=== PATIENT | female | born 1990 | race Caucasian/White ===

== ENCOUNTER 2020-02-24 09:32 | Outpatient (CLI) | payer OTHER, SELFPAY ==
[2020-02-24 10:29] LABS: Add Manual Diff / Slide Review NO; Basophils Absolute Auto 0 /uL (0-100); Basophils Percent Auto 0.5 % (0-2); Eosinophils Absolute Auto 100 /uL (0-450); Eosinophils Percent Auto 0.8 % (2-4); Hematocrit 36.3 % (36-46); Hemoglobin 12.2 g/dL (12.0-16.0); Lymphocytes Absolute Auto 1600 /uL (1100-4500); Mean Corpuscular HGB Conc 33.6 % (30-36); Mean Corpuscular Hemoglobin 27.7 PG (26-34); Mean Corpuscular Volume 82.5 fL (80-100); Monocytes Absolute Auto 500 /uL (0-900); Monocytes Percent Auto 5.1 % (3-14); Neutrophils Absolute Auto 7700 /uL (1500-7000); Neutrophils Percent Auto 77.6 % (50-75); Platelet Count 199 X10^3/uL (150-400); Red Blood Cell Count 4.41 X10^6/uL (4.0-5.2); Red Cell Distribution Width 13.8 % (11.6-14.8); White Blood Cell Count 9.9 X10^3/uL (4.5-11.0)
[2020-02-24 10:38] LABS: Aspartate Aminotransferase 16 IU/L (14-36); BUN Creatinine Ratio 19.1 (6-22); Blood Urea Nitrogen 9 mg/dL (7-17); Estimated Glomerular Filt Rate > 60.0 mL/min (>60); Uric Acid 4.3 mg/dL (2.5-6.2)
--- NOTE | 2020-02-24 11:09 | P.TNLD_ITS ---
Visit Information Visit Information Date of evaluation: 02/24/20 Primary OB Provider: Eliz Joshi Reason for Evaluation: Yes non-stress test non-stress test reason: hypertension/pre-eclampsia [facility] Medical History (Updated 02/23/20 @ 17:20 by Kalina Lee RN) Diarrhea (Acute) Major depressive disorder, single episode (Acute ~08/11/19) Peptic ulcer disease (Acute ~2014) Wrist fracture, left (Acute ~1992) Surgical History (Updated 02/23/20 @ 17:14 by Kalina Lee RN) History of tonsillectomy (Acute ~2011) Family History (Updated 02/23/20 @ 17:23 by Kalina Lee RN) Mother Diabetes mellitus Father Hypertension Grandmother Cancer Diabetes mellitus Grandmother Cancer Diabetes mellitus Grandfather No problems noted. Sister Appendicitis Social History (Updated 02/23/20 @ 15:40 by Kalina Lee RN) marital status: details: Huang Hull, number of children: 0 household members: spouse lives independently: Yes caregiver/support person: No housing: house pets and animals: Yes (2 dogs) education level: high school occupational status: employed (from home.) current occupational exposures/hazards: No special monika needs: No Smoking Status: Former smoker (Quit 2 years ago. Started really young. 1 ppd.) Tobacco: How many years used: 17 second hand exposure: No alcohol intake: former (social - 1 to 2 times a week.) Type(s) of exercise: walking and normal ROM and activity Objective Labs Result Diagrams: 02/24/20 10:16 02/24/20 10:16 Labs: Laboratory Results - last 24 hr 02/24/20 02/24/20 10:16 10:16 WBC 9.9 RBC 4.41 Hgb 12.2 Hct 36.3 MCV 82.5 MCH 27.7 MCHC 33.6 RDW 13.8 Plt Count 199 Neut % (Auto) 77.6 H Lymph % (Auto) 16.0 L [place] % (Auto) 5.1 Eos % (Auto) 0.8 L Baso % (Auto) 0.5 Neut # (Auto) 7700 H Lymph # (Auto) 1600 [place] # (Auto) 500 Eos # (Auto) 100 Baso # (Auto) 0 BUN 9 Creatinine 0.47 L Estimated GFR > 60.0 BUN/Creatinine Ratio 19.1 Uric Acid 4.3 AST 16 Evaluation Evaluation Baseline heart rate: 150 Variability: Moderate (11-25) monitor accelerations: Present monitor decelerations: Absent Category of Tracing: Reactive Laboratory results: Laboratory Tests 02/24/20 02/24/20 10:16 10:16 WBC 9.9 RBC 4.41 Hgb 12.2 Hct 36.3 MCV 82.5 MCH 27.7 MCHC 33.6 RDW 13.8 Plt Count 199 Neut % (Auto) 77.6 H Lymph % (Auto) 16.0 L [place] % (Auto) 5.1 Eos % (Auto) 0.8 L Baso % (Auto) 0.5 Neut # (Auto) 7700 H Lymph # (Auto) 1600 [place] # (Auto) 500 Eos # (Auto) 100 Baso # (Auto) 0 BUN 9 Creatinine 0.47 L Estimated GFR > 60.0 BUN/Creatinine Ratio 19.1 Uric Acid 4.3 AST 16 Diagnosis, Plan/Disposition Plan/Disposition Plan: Discharge to home Follow up 2 weeks S/S [facility] reviewed OB Disposition: home
[2020-02-24 12:16] LABS: Creatinine Urine Random 56.3 mg/dL; Protein (Total) Urine Random 10 mg/dL (0-12); Protein Creatinine Ratio Urine 0.17 GRAM/24H
== END 2020-02-24 11:00 | disposition home or self-care (01) ==
LOC: OB 02-28 15:00
PROVIDERS: Referring Provider Obstetrics & Gynecology; Visit Provider Obstetrics & Gynecology
DX: O14.90 Unspecified pre-eclampsia, unspecified trimester (principal)
CPT/HCPCS: 36415; 59025; 82570; 84156; 84450; 84550; 85025; G0378; G0379

== ENCOUNTER 2020-03-18 02:00 | Inpatient (IN) | payer OTHER, SELFPAY ==
[2020-03-18 04:05] LABS: Add Manual Diff / Slide Review NO; Basophils Absolute Auto 100 /uL (0-100); Basophils Percent Auto 0.5 % (0-2); Eosinophils Absolute Auto 100 /uL (0-450); Eosinophils Percent Auto 0.7 % (2-4); Hematocrit 35.8 % (36-46); Lymphocytes Absolute Auto 2600 /uL (1100-4500); Lymphocytes Percent Auto 20.4 % (25-40); Mean Corpuscular HGB Conc 33.7 % (30-36); Mean Corpuscular Hemoglobin 27.5 PG (26-34); Mean Corpuscular Volume 81.7 fL (80-100); Monocytes Absolute Auto 600 /uL (0-900); Monocytes Percent Auto 4.5 % (3-14); Neutrophils Absolute Auto 9600 /uL (1500-7000); Neutrophils Percent Auto 73.9 % (50-75); Platelet Count 198 X10^3/uL (150-400); Red Blood Cell Count 4.38 X10^6/uL (4.0-5.2); Red Cell Distribution Width 14.3 % (11.6-14.8)
[2020-03-18 04:20] LABS: COVID19 -Nasal RAPID Negative (Negative)
[2020-03-18 04:30] VITALS: BP 125/77
[2020-03-18 05:47] LABS: Strep Grp B PCR NEG for Grp B Strep
--- NOTE | 2020-03-18 08:30 | P.HPOB_ITS ---
OB HPI Date/Time Date of admission: 03/18/20 Date Patient Seen: 03/18/20 Time Patient Seen: 08:31 History of Present Condition Chief complaint: Evaluation of Labor : 1 Para: 0 Estimated Date of Delivery: 04/13/20 Estimated Gestational Age (weeks): 35 Narrative: Julita Hull is a 29 year old female admitted with spontaneous rupture membranes History of Present care: good care, initiated at week # (7), number of visits (13) and pounds weight gain (9) Dating criteria: LMP confirmed by 1st trimester US Ultrasounds: normal mid trimester US Obstetrical complications: gestational diabetes (Diet-controlled) Medical complications: none Preadmission Labs Blood type: B (+) positive -: Antibody screen: negative, GBS status: negative, HBsAG: negative, HIV: negative and RPR/VDLR: negative -: Chlamydia screen: not detected and Gonorrhea screen: not detected -: Rubella: immune HCAB: negative Integrated screen: Negative 1 hr GTT: 142 3 hr GTT: 1 hr (200), 2 hr (197) and 3 hr (131) Evaluation Evaluation Baseline heart rate: 130 Variability: Moderate (11-25) monitor accelerations: Present monitor decelerations: Absent Contraction Frequency (minutes): 4 Uterine Contraction Intensity: Moderate Category of Tracing: Reactive Cervical dilation (cm): 1 Cervical effacement (%): 80 station: -1 Laboratory results: Laboratory Tests 03/18/20 03/18/20 03/18/20 03:42 03:42 03:42 WBC 13.0 H RBC 4.38 Hgb 12.0 Hct 35.8 L MCV 81.7 MCH 27.5 MCHC 33.7 RDW 14.3 Plt Count 198 Neut % (Auto) 73.9 Lymph % (Auto) 20.4 L [place] % (Auto) 4.5 Eos % (Auto) 0.7 L Baso % (Auto) 0.5 Neut # (Auto) 9600 H Lymph # (Auto) 2600 [place] # (Auto) 600 Eos # (Auto) 100 Baso # (Auto) 100 COVID-19 PCR Group B Strep (PCR) Neg for grp b strep Blood Type B Positive Antibody Screen Negative 03/18/20 03:42 WBC RBC Hgb Hct MCV MCH MCHC RDW Plt Count Neut % (Auto) Lymph % (Auto) [place] % (Auto) Eos % (Auto) Baso % (Auto) Neut # (Auto) Lymph # (Auto) [place] # (Auto) Eos # (Auto) Baso # (Auto) COVID-19 PCR Negative Group B Strep (PCR) Blood Type Antibody Screen Non-invasive Membranes Rupture Test: positive [facility] Medical History (Updated 03/12/20 @ 17:42 by Eliz Joshi MD) Diarrhea (Acute) Major depressive disorder, single episode (Acute ~08/11/19) Peptic ulcer disease (Acute ~2014) Wrist fracture, left (Acute ~1992) Surgical History (Updated 02/23/20 @ 17:14 by Kalina Lee RN) History of tonsillectomy (Acute ~2011) Family History (Updated 02/23/20 @ 17:23 by Kailna Lee RN) Mother Diabetes mellitus Father Hypertension Grandmother Cancer Diabetes mellitus Grandmother Cancer Diabetes mellitus Grandfather No problems noted. Sister Appendicitis Social History (Updated 02/23/20 @ 15:40 by Kalina Lee RN) marital status: details: Huang Hull, number of children: 0 household members: spouse lives independently: Yes caregiver/support person: No housing: house pets and animals: Yes (2 dogs) education level: high school occupational status: employed (from home.) current occupational exposures/hazards: No special monika needs: No Smoking Status: Former smoker Tobacco: How many years used: 17 second hand exposure: No alcohol intake: former (social - 1 to 2 times a week.) Type(s) of exercise: walking and normal ROM and activity Meds Home Medications and Allergies Home Medications Medication Instructions Recorded Confirmed Type blood sugar diagnostic #100 each 02/23/20 03/18/20 Rx sertraline 50 mg tablet 50 mg PO DAILY 02/23/20 03/18/20 History Allergies Allergy/AdvReac Type Severity Reaction Status Date / Time No Known Drug Allergies Allergy Verified 03/08/20 14:48 Review of Systems Review of Systems Narrative: Patient denies headaches, scotomata, epigastric pain. She had spontaneous rupture membranes at 1:30 a.m. at 03/18/2020. Good movement. ROS: Yes All systems reviewed with the patient and are negative except as otherwise documented Exam Vital Signs (past 8 hours): Blood pressure 118/60, pulse 72, temperature 36.4?- 03/18/20 04:30 Blood Pressure 125/77 Narrative Exam Narrative: HEENT exam within normal limits. Lungs are clear to auscultation percussion. Heart is regular rate and rhythm no S3-S4 or murmurs. Abdomen is soft, nontender, gravid with fetus vertex. Extremities with trace edema and nontender. Objective Labs Result Diagrams: 03/18/20 03:42 Labs: Laboratory Results - last 24 hr 03/18/20 03/18/20 03/18/20 03:42 03:42 03:42 WBC 13.0 H RBC 4.38 Hgb 12.0 Hct 35.8 L MCV 81.7 MCH 27.5 MCHC 33.7 RDW 14.3 Plt Count 198 Neut % (Auto) 73.9 Lymph % (Auto) 20.4 L [place] % (Auto) 4.5 Eos % (Auto) 0.7 L Baso % (Auto) 0.5 Neut # (Auto) 9600 H Lymph # (Auto) 2600 [place] # (Auto) 600 Eos # (Auto) 100 Baso # (Auto) 100 COVID-19 PCR Group B Strep (PCR) Neg for grp b strep Blood Type B Positive Antibody Screen Negative 03/18/20 03:42 WBC RBC Hgb Hct MCV MCH MCHC RDW Plt Count Neut % (Auto) Lymph % (Auto) [place] % (Auto) Eos % (Auto) Baso % (Auto) Neut # (Auto) Lymph # (Auto) [place] # (Auto) Eos # (Auto) Baso # (Auto) COVID-19 PCR Negative Group B Strep (PCR) Blood Type Antibody Screen Assessment and Plan Assessment and Plan Assessment and Plan narrative: 36 weeks 3 days gestation with spontaneous rupture membranes not in active labor. Patient will be started on Pitocin. Patient is requesting epidural for pain control. Time Spent with Patient Total time spent with greater than 50% in coordination of care (as documented) at patient's floor/unit and/or counseling patient:: 15-24 minutes
[2020-03-18] MEDS: OXYTOCIN PREMIX 30 UNIT/500 ML PLAST..BAG IV (10:25)
--- NOTE | 2020-03-18 13:33 | P.PCN_ITS ---
Regional Block Pre-procedure Procedure: Continuous Lumbar Epidural for L&D Attending OB provider: Tiffanie Daniels PMH/ROS narrative: SROM at 35 weeks. GDM, diet controlled, no other complications. Hx: No personal or family history of anesthesia problems. ASA Class: II Labs: Hct 35.8 % (36-46) L 03/18/20 03:42 Plt Count 198 X10^3/uL (150-400) 03/18/20 03:42 Medications: Current Medications Generic Name Dose Route Start Last Admin Trade Name Freq PRN Reason Stop Dose Admin Diphenhydramine HCl 25 mg 03/18/20 13:09 Benadryl IV Q10M PRN Pruritis Lactated Ringer's 1,000 mls @ 100 mls/hr 03/18/20 03:00 Lactated Ringers IV CONT NORIS Oxytocin/Lactated Ringer's 30 unit in 500 mls @ 3 mls/hr 03/18/20 08:30 03/18/20 10:25 Oxytocin Premix IV 3 milliunit/min TITRATE NORIS 3 mls/hr Administration Protocol 3 MILLIUNIT/MIN FENT 2MCG/ML BUPIV 0.125% EPI 200 mcg in 100 mls @ 6 mls/hr 03/18/20 13:15 Fentanyl/Bupiv/Ns 2mcg/Ml - 0.125% EPIDURAL CONT NORIS Sertraline HCl 50 mg 03/18/20 21:00 Zoloft PO BEDTIME NORIS Allergies: Allergies Allergy/AdvReac Type Severity Reaction Status Date / Time No Known Drug Allergies Allergy Verified 03/08/20 14:48 Procedure Insertion date: 03/18/20 Insertion time: 13:22 Prep/Local: betadine x3 Interspace: L2-3 Patient position: sitting Needle: 18 gauge [employer] (CSE: 27g [place] through [place]ust[place], clear CSF, 1mL 0.25% bupiv) Loss of resistance with: saline KAITLYN at (cm): 6 Catheter placed at SKIN (cm): 11 Catheter in SPACE (cm): 6 Insertion: No CSF, No Blood, No Paresthesia with insertion, No Paresthesia with injection and No Test dose reaction Initial Medications TEST DOSE time: 13:22 TEST DOSE: 1.5% lidocaine with epinephrine 1:200k (mL): 3 BOLUS DOSE time: 13:32 BOLUS DOSE (mL): 3 BOLUS DOSE med: other (infusate) Infusion INFUSION: 0.125% bupivacaine and with fentanyl 2 mcg/mL Initial rate (mL/hr): 6 Subsequent interventions: 16:40 5mL 0.25% bupivacaine Post-procedure Anesthesia time START: 13:20 Anesthesia time END: 18:05
--- NOTE | 2020-03-18 13:50 | PM.OBPNLAB ---
Date/Time Date Patient Seen: 03/18/20 Time Patient Seen: 13:50 Pain Control Pain control: epidural Pelvic Exam Dilation (cm): 3 Effacement (%): 100 station: -1 Amniotic membrane status: Ruptured Contractions Contractions on admission: regular Monitor mode: External Pitocin rate (mU/min): 2 Contraction frequency (min): 4 Contraction duration (min): 1 Contraction pattern: Regular Contraction intensity: Moderate Status status: Category l Heart Rate Baseline: 140 Monitor Accelerations: Present Monitor Decelerations: Absent Monitor Variability: Moderate Assessment and Plan Assessment: induction ongoing Plan: continuous present management (will start IV antibiotics since 12 hours rom)
[2020-03-18] MEDS: CEFAZOLIN 1 GM/50 ML FROZ.PIGGY IV (16:20)
--- NOTE | 2020-03-18 18:24 | PM.OBPRVD ---
Events: Premature Rupture of Membrane (35 week) Labor & Delivery Delivery date: 03/18/20 Induction method: per pitocin protocol Delivery monitor: external FHT and external uterine Route of delivery: L&D Laceration Description: Labial Delivery repair: chromic (4 0) Estimated blood loss (mL): 150 Anesthesia type: Epidural Narrative: Patient arrived on Labor and delivery with spontaneous rupture membranes. She did not go into active labor so she was started on Pitocin. The patient received an epidural catheter for pain control. She had category 1 to category 2 heart tones throughout labor. Initially with pushing she had some significant variables that responded to position change, O2, and fluid bolus. The viable male infant was delivered spontaneously, over an intact perineum a placed immediately on maternal abdomen. After the cord stopped pulsating the cord was clamped, cut, and cord bloods obtained. The infant was taken to the warmer briefly due to some initial grunting but returned almost immediately to maternal abdomen. The placenta delivered spontaneously, intact, with 3 vessels. There were no cervical or vaginal tears. There were labial tears on the right and left labia minor or that were reapproximated only with 4 0 chromic suture because they were not bleeding. Both mother doing well. Baby 1: gender: Male Presentation: vertex position: Right Occiput Anterior Placenta delivery description: Spontaneous cord vessel description: 3 Vessels score (1 min): 8 score (5 min): 9 Plan for aftercare: Routine post care.
[2020-03-18] MEDS: SERTRALINE 50 MG TABLET PO ×2 (21:09→21:12)
[2020-03-18] MEDS: DERMOPLAST SPRAY 20% 60 ML 1 SPRAY TOP (21:10)
[2020-03-18] MEDS: LANOLIN OINT 7 GM 1 APPLIC TOP (21:13)
[2020-03-19] MEDS: IBUPROFEN 600 MG TABLET PO ×4 (02:59→22:00)
[2020-03-19 05:21] LABS: Add Manual Diff / Slide Review NO; Basophils Absolute Auto 0 /uL (0-100); Basophils Percent Auto 0.3 % (0-2); Eosinophils Absolute Auto 100 /uL (0-450); Eosinophils Percent Auto 0.6 % (2-4); Hematocrit 33.8 % (36-46); Hemoglobin 11.1 g/dL (12.0-16.0); Lymphocytes Absolute Auto 2500 /uL (1100-4500); Lymphocytes Percent Auto 18.6 % (25-40); Mean Corpuscular Hemoglobin 27.2 PG (26-34); Mean Corpuscular Volume 82.5 fL (80-100); Monocytes Absolute Auto 700 /uL (0-900); Monocytes Percent Auto 5.3 % (3-14); Neutrophils Absolute Auto 10000 /uL (1500-7000); Neutrophils Percent Auto 75.2 % (50-75); Platelet Count 173 X10^3/uL (150-400); Red Cell Distribution Width 14.4 % (11.6-14.8); White Blood Cell Count 13.3 X10^3/uL (4.5-11.0)
[2020-03-19] MEDS: SERTRALINE 50 MG TABLET PO (15:45)
--- NOTE | 2020-03-19 17:04 | P.PNOB_ITS ---
Subjective - OB Subjective Patient comments: no complaints [place] baby status: doing well and nursing well [place] feeding status: exclusively breast feeding Date Patient Seen: 03/19/20 Time Patient Seen: 17:04 Interval history: Patient is 1st day after spontaneous vaginal delivery after premature rupture membranes. She she denies headaches, scotomata, epigastric pain. She is urinating and ambulating well. Breast- feeding is going well. Mild lochia. Exam Vital Signs (past 8 hours): Blood pressure 127/76, pulse of 83, temperature 97.8? Narrative Exam Narrative: Abdomen is soft, nontender. Uterus is firm, at U, nontender. Mild lochia. Extremities without edema and nontender. Objective Labs Result Diagrams: 03/19/20 05:10 Labs: Laboratory Results - last 24 hr 03/19/20 05:10 WBC 13.3 H RBC 4.10 Hgb 11.1 L Hct 33.8 L MCV 82.5 MCH 27.2 MCHC 33.0 RDW 14.4 Plt Count 173 Neut % (Auto) 75.2 H Lymph % (Auto) 18.6 L [place] % (Auto) 5.3 Eos % (Auto) 0.6 L Baso % (Auto) 0.3 Neut # (Auto) 45159 H Lymph # (Auto) 2500 [place] # (Auto) 700 Eos # (Auto) 100 Baso # (Auto) 0 Assessment & Plan Assessment and Plan (1) Vaginal delivery: Status: Acute Plan day: 1 plan OB: routine care Time Spent With Patient Time: Total time spent is greater than 50% in coordination of care (as documented) at patient's floor/unit and/or counseling patient: Time with patient: less than 15 minutes
[2020-03-20] MEDS: IBUPROFEN 600 MG TABLET PO ×3 (05:31→17:46)
[2020-03-20] MEDS: SERTRALINE 50 MG TABLET PO (08:21)
[2020-03-20 18:00] VITALS: BP 134/85; PULSE 91; RESP 18; TEMP 37.2
--- NOTE | 2020-03-21 07:13 | PM.OBDS.1 ---
Discharge Providers Provider Date of admission: 03/18/20 02:00 Discharge Date: 03/20/20 Primary care physician: Eliz Joshi MD Consults: 03/19/20 18:19 Consult to Application Support Engineer Routine Comment: Discharge provider: Eliz Joshi MD Summary Hospital Course Date Patient Seen: 03/20/20 Time Patient Seen: 07:40 Procedures: Spontaneous rupture of membranes Pitocin augmentation of labor Epidural analgesia Spontaneous vaginal delivery Labial laceration repair Hospital Course: Patient is a 29-year-old 1 para 1 who presented at 36-,3/7 weeks gestation with spontaneous rupture of membranes but no active labor. She was started on Pitocin. She received an epidural for pain management. She had a spontaneous vaginal delivery without complication. Peripartum Data Infant Delivery Method: Natural Vaginal Laceration Description: Labial Episiotomy description: None Procedures: Pitocin augmentation of labor Epidural analgesia Spontaneous vaginal delivery Labial laceration repair complications: none 1: Gender: Male Disposition of : home Discharge Diagnosis (1) Vaginal delivery: Status: Acute Status at Discharge Cognitive/behavioral status at discharge: oriented Functional status at discharge: independent ambulation Overall status at discharge: patient is progressing back to baseline Time Spent with Patient Time attestation: Total time spent providing and/or coordinating discharge services: Time spent: Less than 30 minutes Objective Labs Result Diagrams: 03/19/20 05:10 Exam Vital Signs (past 8 hours): Generally: Patient is sitting up in bed, holding infant, no acute distress Lungs: Clear to auscultation bilaterally Cardiovascular: Regular rate and rhythm Fundus: Firm at U -2 Extremities: 1+ edema, negative Homans, 1+ DTRs Discharge Plan Discharge Plan Patient Disposition: Home Provider Discharge Comment: Call with fever, chills, or bleeding vaginally more than a pad an hour Ibuprofen 600 mg every 6 hours as needed for cramping Discharge orders & Medications Prescriptions: New ibuprofen 600 mg tablet 600 mg PO Q6H PRN (Reason: Cramping) Qty: 20 RF: 2 Continued sertraline [Zoloft] 50 mg tablet 50 mg PO DAILY RF: 0 Discontinued (DME) blood sugar diagnostic [FreeStyle Test] Strip See Rx Instructions .ROUTE .MEDSUPPLY Qty: 100 RF: 3 Follow up/Referrals: Eliz Joshi MD [Primary Care Provider] - 6 Weeks (please follow up w/ Dr. Joshi on @ 10am) Diet/Activity/Treatments Diet: Regular Activity: Nothing in vagina for 6 weeks Skin/Wound/Dressing Care Report to your healthcare provider any signs of infection, such as:: chills, fever, increased pain and unusual drainage Visit Report/Discharge Packet Instructions: DI for Labor and Delivery, Vaginal Stand Alone Forms: Discharge: Care Discharge Data Primary Care Provider: Eliz Joshi Discharges patient from system. Discharge Date/Time: 03/20/20 17:53
== END 2020-03-20 17:53 | disposition home or self-care (01) | DRG 807 ==
PROVIDERS: Admitting Provider Specialist; PCP Obstetrics & Gynecology; Referring Provider Specialist; Visit Provider Specialist
DX: O24.420 Gestational diabetes mellitus in childbirth, diet controlled (principal); Z37.0 Single live birth; Z3A.36 36 weeks gestation of pregnancy; O42.013 Preterm premature rupture of membranes, onset of labor within 24 hours of rupture, third trimester; O70.0 First degree perineal laceration during delivery; Z11.59 Encounter for screening for other viral diseases
CPT/HCPCS: 01967; 36415; 59050; 59410; 85025; 86850; 86900; 86901; 87081; 87635; 87653; G0379; J2590

== ENCOUNTER → 2020-05-07 08:30 | Outpatient (CLI) | payer OTHER, SELFPAY ==
[2020-05-07 10:21] LABS: Glucose Fasting 87 mg/dL (70-100)
[2020-05-07 10:44] LABS: Glucose 1 Hour 186 mg/dL (70-170)
[2020-05-07 10:56] LABS: Glucose Tol Interpretation INTERPRETATION
[2020-05-07 13:02] LABS: Glucose 2 Hour 137 mg/dL (70-140)
== END ==
PROVIDERS: Referring Provider Obstetrics & Gynecology; Visit Provider Obstetrics & Gynecology
DX: O24.410 Gestational diabetes mellitus in pregnancy, diet controlled (principal)
CPT/HCPCS: 36415; 82951; 82952

== ENCOUNTER → 2020-06-21 12:48 | Outpatient (CLI) | payer OTHER, SELFPAY ==
--- NOTE | 2020-06-21 12:50 | DI.US.S_ITS ---
PROCEDURE: US PELVIC COMPLETE INDICATIONS: PELVIC PAIN. HISTORY OF OVARIAN CYSTS. TECHNIQUE: Real-time scanning was performed of the pelvic organs, with image documentation. Additional endovaginal scanning was necessary due to incomplete visualization of the adnexal and endometrial structures by transabdominal scanning. COMPARISON: None. FINDINGS: Transabdominal scanning: Limited scanning through the kidneys shows no hydronephrosis. No pathologic free abdominal or pelvic fluid. Limited visualization of the liver suggests diffuse hepatic steatosis. Endovaginal scanning: Uterus: Uterus is normal in size at 6.2 x 4.9 x 3.2 cm. The endometrium measures 4 mm in combined thickness. Ovaries: Right ovary measures 4.6 x 1.8 x 2.0 cm. Left ovary measures 3.6 x 2.1 x 2.3 cm. There is presence of venous and arterial waveforms in the bilateral ovaries. No suspicious ovarian/adnexal mass lesions. IMPRESSION: 1. Unremarkable sonographic evaluation of the uterus and bilateral ovaries. No evidence for torsion. 2. Limited evaluation of the liver suggestive of diffuse hepatic steatosis. Consider correlation with liver function tests. Dictated by: Naun Crowley M.D. on 06/21/2020 at 17:17 Approved by: Naun Crowley M.D. on 06/21/2020 at 17:19
== END ==
PROVIDERS: PCP Family Medicine; Referring Provider Family Medicine; Visit Provider Obstetrics & Gynecology
DX: R10.2 Pelvic and perineal pain (principal); Z87.42 Personal history of other diseases of the female genital tract
CPT/HCPCS: 76830; 76856

== ENCOUNTER → 2020-06-25 10:53 | Outpatient (CLI) | payer OTHER, SELFPAY ==
--- NOTE | 2020-06-25 12:04 | DIET.PN ---
INITIAL GESTATIONAL DIABETES ASSESSMENT ASSESS:? Ms. Hull is a 29 yof referred for gestational diabetes with post hyperglycemia. She followed a strict diet while , but admits she has not been as strict with her diet and exercise since delivery. She has been avoiding soy, dairy, and eggs as she believes these are causing her son GI issues. She endorses large amount of red meat and was informed she has fatty liver. She would like to get her blood sugars and weight under control before trying to another baby. ? HAYDER:?03/18/2020 ? WKS GESTATION:?LABS: Fasting glucose: 87 1hr: 186 2hr: 137 ? MEDS: na ? DIET:? B: BLT (usually skips) ; coffee w/biscuit L: often skips D: flyers burgers ? HT:? 63in ? PRE-PREG WT:? 205 lb ? PRE-PREG BMI:??? 36.3 ? CURRENT WT: 220 lb ? TOTAL WT GAIN:? 15lb EXERCISE: hiking NUTRITION DX 1. Altered nutrition related lab values r/t gestational diabetes as evidenced by recent labs (OGGT). INTERVENTION 1. Discussed pathophysiology of gestational diabetes and impact of hormone and nutrition/diet on blood sugar control.? Discussed fed versus non-fed state.? 2. Recommended checking fasting, pre-meal and 1hr post prandial (3x/day).? Discussed goals for glycemic control (<95 FBG, <140 1-hr PP).? 3. Discussed the effect of carbohydrates/protein/fat on blood sugar control.? Stressed importance of consistent carbohydrate intake at each meal and provided instructions for recommended servings/portions of carbohydrates/protein per meal.? Provided pt with educational material. 4. Introduced carbohydrate counting and measuring carbohydrate content via servings sizes and reading nutrition labels.? Provided handouts.? Pt will need further review 5. Discussed importance of meal timing and not going >3 hours between meals.? Provided sample meal schedule for pt.? Pt agreeable.?? 6. Discussed importance a pre-amy vitamin and including food sources of calcium, vitamin D, iron and folic acid for baby and mother?s nutrition support. 7. Discussed caffeine intake. Recommend no more than 200 mg/day (1 cup coffee). 8. Discussed rule of 15 for hypoglycemia. 9. Recommended patient continue exercise as appropriate per PCP approval. 10. Patient may need medication management, will follow-up with plan of care at next visit after reviewing glucose results.? MONITOR/EVAL: Follow up scheduled X 1 month. Good compliance expected. Review: carb sources, carb counting, portion size, meal timing, BG log, weight.
== END ==
PROVIDERS: PCP Family Medicine; Referring Provider Family Medicine; Visit Provider Family Medicine
DX: O90.89 Other complications of the puerperium, not elsewhere classified (principal); R73.9 Hyperglycemia, unspecified; Z71.3 Dietary counseling and surveillance
CPT/HCPCS: G0108

== ENCOUNTER → 2020-07-26 10:56 | Outpatient (CLI) | payer OTHER, SELFPAY ==
--- NOTE | 2020-07-26 11:56 | DIET.PN ---
Gestational Diabetes Follow Up ? ASSESS:? Ms. Hull is a 29 yof seen for GDM w/ post hyperglycemia follow up. She is here to discuss constant fatigue. She has been her 4 mo old q hr and bottle feeding q 3 hr as he is significantly underweight. She continues to avoid soy, dairy, and eggs as her son is experiencing intolerance. She is finding it challenging to prepare meals as her is working nights now and she has no help with her baby. She often eats granola bars or nothing at all. ? LABS: FB-81 1 hr PP:??<150 ? Weight: 216 (from 220) ? DIET: BF: protein cereal w/ oats and blueberries L: granola bars or chicken salad sandwich D: taco salad; steak w/ rice ? EXERCISE:??none ? NUTRITION Dx? 1. Altered nutrition related labs r/t gestational diabetes aeb recent labs (OGGT). ? INTERVENTION? 1. Reviewed blood sugar log and implications/reasons for elevated/decreased blood sugar.? Pt with good understanding.? 2. Reviewed carbohydrate counting and importance of consistent carbohydrate intake.? 3. Reviewed meal intake and importance of balanced meals. 4. Discussed evening snacks ideas. Recommended avoiding milk and fruit after dinner to help with elevated FBG. 5. Recommended pt avoid processed foods as much as possible and aim to get most nutrients from refrigerated options. Suggested cutting up vegetables and making protein rich salads (chicken/egg salad) ahead of time for quick snacks. 6. Discussed possible need for medication management if >80% of fasting and post-prandial readings are not within recommended values (FG<95, 1 hr PP <140). Pt agreeable. ? MONITOR/EVALUATE: Pt receptive to information provided.? Will schedule follow up in 4 weeks. Patient will call sooner if blood glucose is not in range.
== END ==
PROVIDERS: PCP Family Medicine; Referring Provider Family Medicine; Visit Provider Family Medicine
DX: R73.9 Hyperglycemia, unspecified (principal); Z71.3 Dietary counseling and surveillance
CPT/HCPCS: G0108

== ENCOUNTER → 2020-12-26 12:50 | Outpatient (CLI) | payer OTHER, SELFPAY ==
--- NOTE | 2020-12-26 12:53 | DI.US.S_ITS ---
PROCEDURE: US OB <= 14 WEEKS FETUS INDICATIONS: INITIAL DATING AND VIABILITY OUTSIDE/PRIOR DATING DATA: Last menstrual period (LMP): 10/28/2020 LMP-based estimated date of delivery (HAYDER): 08/04/2021 First dating scan (date and location): 12/26/2020 Estimated date of delivery (HAYDER) from first dating scan: 08/07/2021. TECHNIQUE: Real-time scanning was performed of the fetus and maternal pelvic organs, with image documentation. Endovaginal scanning was also performed to better visualize the fetus and maternal ovaries. COMPARISON: None. FINDINGS: Embryo: Single intrauterine gestational sac is seen with fetus and yolk sac seen. heart rate is 165 beats per minute. [place]-rump length measures 1.6 cm. Estimated gestational age based on current study is 8 weeks, 0 day. There is a small perigestational hematoma measures 1.6 x 0.5 x 0.4 cm in size. Maternal organs: Left ovary is visualized and is within normal limits. Corpus luteum is noted in right ovary is seen IMPRESSION: 1. Single live intrauterine with fetus and yolk sac seen. heart rate is 165 beats per minute. Estimated gestational age is 8 weeks, 0 day. 2. Small perigestational hematoma as above. 3. Small corpus luteum is noted in right ovary. Dictated by: Freedom Clemens M.D. on 12/26/2020 at 13:36 Approved by: Freedom Clemens M.D. on 12/26/2020 at 13:38
== END ==
PROVIDERS: PCP Family Medicine; Referring Provider Obstetrics & Gynecology; Visit Provider Obstetrics & Gynecology
DX: Z34.81 Encounter for supervision of other normal pregnancy, first trimester (principal); Z3A.08 8 weeks gestation of pregnancy
CPT/HCPCS: 76801; 76817

== ENCOUNTER → 2021-01-08 15:13 | Outpatient (CLI) | payer OTHER, SELFPAY ==
[2021-01-08 15:46] LABS: Appearance Urine UA CLEAR; Bilirubin Urine UA NEGATIVE (NEGATIVE); Color Urine UA YELLOW; Glucose Urine UA TRACE g/dL (Negative); Ketones Urine UA NEGATIVE (NEGATIVE); Leukocyte Esterase Urine UA NEGATIVE (NEGATIVE); Nitrite Urine UA NEGATIVE (Negative); Occult Blood Urine UA NEGATIVE (Negative); Protein Urine UA NEGATIVE (Negative); Specific Gravity Urine UA 1.025 (1.000-1.035); Urobilinogen Urine UA 0.2 E.U./dL (0.2)
[2021-01-08 15:47] LABS: Add Manual Diff / Slide Review NO; Basophils Absolute Auto 0 /uL (0-100); Basophils Percent Auto 0.3 % (0-2); Eosinophils Absolute Auto 100 /uL (0-450); Eosinophils Percent Auto 1.2 % (2-4); Hematocrit 38.2 % (36-46); Hemoglobin 12.9 g/dL (12.0-16.0); Lymphocytes Absolute Auto 2000 /uL (1100-4500); Lymphocytes Percent Auto 20.7 % (25-40); Mean Corpuscular HGB Conc 33.7 % (30-36); Mean Corpuscular Hemoglobin 28.6 PG (26-34); Mean Corpuscular Volume 84.8 fL (80-100); Monocytes Absolute Auto 500 /uL (0-900); Monocytes Percent Auto 4.7 % (3-14); Neutrophils Absolute Auto 7000 /uL (1500-7000); Neutrophils Percent Auto 73.1 % (50-75); Platelet Count 234 X10^3/uL (150-400); Red Blood Cell Count 4.51 X10^6/uL (4.0-5.2); Red Cell Distribution Width 13.2 % (11.6-14.8); White Blood Cell Count 9.5 X10^3/uL (4.5-11.0)
[2021-01-08 15:54] LABS: Hemoglobin A1C% w Est Avg Glu 5.5 % (4.0-6.0)
[2021-01-08 16:14] LABS: Glucose 101 mg/dL (70-100)
[2021-01-09 05:48] LABS: RPR Screen Non Reactive (Non Reactive)
[2021-01-09 12:47] LABS: Varicella IgG Antibody 1350 index (Immune >165)
[2021-01-10 16:41] LABS: HIV 1 & 2 Ab/Ag 4th Gen Combo NEGATIVE (NEGATIVE); Hep C Virus Ab w/Reflex Quant NEGATIVE s/c (NEGATIVE); Hepatitis B Surface Antigen NEGATIVE s/c (NEGATIVE)
== END ==
PROVIDERS: PCP Family Medicine; Referring Provider Obstetrics & Gynecology; Visit Provider Obstetrics & Gynecology
DX: O24.419 Gestational diabetes mellitus in pregnancy, unspecified control (principal)
CPT/HCPCS: 36415; 80055; 81003; 82947; 83036; 86787; 86803; 86850; 86900; 86901; 87086; 87389

== ENCOUNTER → 2021-03-06 09:47 | Outpatient (CLI) | payer OTHER, SELFPAY ==
[2021-03-08 19:07] LABS: AFP, Serum 42.5 ng/mL (.); Estriol, Free 1.67 ng/mL (.); Inhibin A, Dimeric 108.68 pg/mL (.); Inhibin A, MoM 0.85 (.); Maternal Ethnicity Caucasian (.); Maternal Weight 226 lbs (.); Number of Fetuses No (.); OSBR Risk 1 IN 6916 (.); Results Report (.); Test Results *Screen Negative* (.); hCG, MoM 0.99 (.); hCG, Serum 21332 mIU/mL (.)
== END ==
PROVIDERS: PCP Family Medicine; Referring Provider Obstetrics & Gynecology; Visit Provider Obstetrics & Gynecology
DX: Z34.82 Encounter for supervision of other normal pregnancy, second trimester (principal); Z3A.16 16 weeks gestation of pregnancy
CPT/HCPCS: 36415; 82105; 82677; 84702; 86336

== ENCOUNTER → 2021-03-29 10:50 | Outpatient (CLI) | payer OTHER, SELFPAY ==
--- NOTE | 2021-03-29 10:51 | DI.US.S_ITS ---
PROCEDURE: US OB >= 14 WEEKS FETUS INDICATIONS: ANATOMY OUTSIDE/PRIOR DATING DATA: Last menstrual period (LMP): October 28, 2020 . LMP-based estimated date of delivery (HAYDER): August 04, 2021 . First dating scan (date and location): December 26, 2020 . Estimated date of delivery (HAYDER) from first dating scan: August 07, 2021 . TECHNIQUE: Real-time scanning was performed of the fetus, with image documentation and biometric measurements. Endovaginal scanning: Not performed COMPARISON: [facility], , OB >= 14 WEEKS FETUS, 03/06/2021, 11:51. FINDINGS: General: A single living intrauterine gestation is present. Presentation: Breech. Placenta: Placental position is anterior , without previa. Amniotic fluid index: 12.7 cm, normal range is 5-24 cm. Largest vertical pocket measured 3.9 cm. heart rate: 173 beats per minute. Maternal cervical canal: 4.3 cm long. Normal lower limit is 2.5 cm. biometrics: Biparietal diameter: 5.3 cm, correlating with 22 weeks and 0 days. Head circumference: 19.3 cm, correlating with 21 weeks and 4 days Abdominal circumference: 17.3 cm, correlating with 22 weeks and 2 days Femur length: 3.5 cm, correlating with 20 weeks and 6 days Estimated gestational age from initial scan: 21 weeks and 2 days Composite gestational age from present scan: 21 weeks and 5 days Estimated weight and percentile: 440 g, correlating with the 64th percentile based off gestational age. Measurement variability for biometric dating: +/- 7 days from 14 weeks to 15 weeks 6 days gestation, +/- 10 days from 16 weeks to 21 weeks 6 days gestation, +/- 2 weeks from 22 weeks to 27 weeks 6 days gestation, +/- 3 weeks for 28 weeks gestation or later. weight reference: 4500 g or EFW >90/95% is considered macrosomia or large for gestational age. EFW <10% is small for gestational age. EFW 5% or less is considered intra-uterine growth restriction. Anatomic survey: Neuro: Ventricles are non-dilated at less than 10 mm. Cisterna magna, cerebellum, nuchal fold not well imaged. Nuchal skin fold: Not well imaged. Face: Nose and lips, facial profile are normal. Spine: No evidence for spina bifida. Heart: 4-chambered heart and ventricular outflow tracts not well visualized. Diaphragm: Diaphragm is intact. Stomach: Left-sided stomach is present. Kidneys: No hydronephrosis. Normal is less than 5 mm in 2nd trimester, less than 7 mm in 3rd trimester. Cord: 3-vessel cord has orthotopic insertion. Bladder: Normal in size. Extremities: All 4 extremities identified. IMPRESSION: 1. Single living intrauterine gestation with estimated sonographic gestational age of approximately 21 weeks and 5 days versus approximately 21 weeks and 2 days based off initial imaging. Appropriate interval growth. Size and dating are concordant. Estimated weight of approximately 440 g which correlates with the 64th percentile for gestational age. 2. Limited anatomy scan secondary to maternal scanning characteristics and positioning during the evaluation. The cisterna magna, cerebellum, nuchal fold, and cardiac structures were suboptimally visualized . Otherwise, remaining anatomic structures are unremarkable. Recommend follow-up imaging. Dictated by: Naun Crowley M.D. on 03/29/2021 at 13:19 Approved by: Naun Crowley M.D. on 03/29/2021 at 13:33
== END ==
PROVIDERS: PCP Family Medicine; Referring Provider Obstetrics & Gynecology; Visit Provider Obstetrics & Gynecology
DX: Z34.82 Encounter for supervision of other normal pregnancy, second trimester (principal); Z3A.21 21 weeks gestation of pregnancy
CPT/HCPCS: 76811

== ENCOUNTER → 2021-04-04 15:47 | Outpatient (CLI) | payer OTHER, SELFPAY ==
--- NOTE | 2021-04-04 15:50 | DI.US.S_ITS ---
PROCEDURE: US OB FOLLOW UP INDICATIONS: FOLLOW UP ANATOMY OUTSIDE/PRIOR DATING DATA: Last menstrual period (LMP): 10/28/2020. LMP-based estimated date of delivery (HAYDER): 08/04/2021 . First dating scan (date and location): 12/26/2020 . Estimated date of delivery (HAYDER) from first dating scan: 08/07/2021 . TECHNIQUE: Real-time scanning was performed of the fetus, with image documentation and biometric measurements. Endovaginal scanning: No COMPARISON: [facility], , US OB >= 14 WEEKS FETUS, 04/03/2021, 17:28. FINDINGS: General: A single living intrauterine gestation is present. Presentation: Vertex. Placenta: Placental position is anterior , without previa. Amniotic fluid index: 13 cm, normal range is 5-24 cm. heart rate: 157 beats per minute. Maternal cervical canal: 4.7 cm long. Normal lower limit is 2.5 cm. Estimated gestational age from initial scan: 22 weeks 1 day Composite gestational age from present scan: N/a Other: Not applicable. IMPRESSION: Single living IUP redemonstrated and today's exam demonstrating normal appearance of the cerebellum, cisterna magna, nuchal fold and the cardiac outflow tracts. Four-chamber heart again suboptimally visualized. Dictated by: Diego Whatley [facility] Interpreted: Freedom Clemens MD on 04/04/2021 at 16:32 Transcribed by: MAR on 04/04/2021 at 16:34 Approved by: Freedom Clemens M.D. on 04/04/2021 at 17:18
[2021-04-04 18:08] LABS: Hematocrit 33.6 % (36-46); Hemoglobin 11.5 g/dL (12.0-16.0)
[2021-04-04 18:57] LABS: GTT (PREG) 1 Hour PP 50gm Dose 210 mg/dL (76-139)
== END ==
PROVIDERS: PCP Family Medicine; Referring Provider Obstetrics & Gynecology; Visit Provider Obstetrics & Gynecology
DX: Z36.2 Encounter for other antenatal screening follow-up (principal); Z3A.22 22 weeks gestation of pregnancy
CPT/HCPCS: 36415; 76816; 82950; 85014; 85018

== ENCOUNTER → 2021-05-27 13:10 | Outpatient (CLI) | payer OTHER, SELFPAY ==
[2021-05-27 16:59] LABS: Urine N gonorrhoeae NOT DETECTED
[2021-05-27 17:09] LABS: Urine Chlamydia NOT DETECTED
== END ==
PROVIDERS: PCP Family Medicine; Visit Provider Obstetrics & Gynecology
DX: Z34.83 Encounter for supervision of other normal pregnancy, third trimester (principal); Z3A.30 30 weeks gestation of pregnancy
CPT/HCPCS: 87491; 87591

== ENCOUNTER → 2021-06-06 17:55 | Outpatient (CLI) | payer OTHER, SELFPAY ==
[2021-06-06 20:11] LABS: COVID19 -Nasal RAPID POSITIVE (Negative)
== END ==
PROVIDERS: Family Provider Family Medicine; PCP Family Medicine; Visit Provider Nurse Practitioner Family
DX: R05.9 Cough, unspecified (principal); J02.9 Acute pharyngitis, unspecified
CPT/HCPCS: 87635

== ENCOUNTER → 2021-06-18 17:23 | Outpatient (CLI) | payer OTHER, SELFPAY ==
[2021-06-19 10:44] LABS: Strep Grp B PCR NEG for Grp B Strep
== END ==
PROVIDERS: Family Provider Family Medicine; PCP Family Medicine; Visit Provider Obstetrics & Gynecology
DX: Z34.83 Encounter for supervision of other normal pregnancy, third trimester (principal); Z3A.33 33 weeks gestation of pregnancy
CPT/HCPCS: 87653

== ENCOUNTER 2021-06-29 13:21 | Outpatient (CLI) | payer OTHER, SELFPAY ==
--- NOTE | 2021-06-29 15:50 | P.TNLD_ITS ---
Visit Information Visit Information Date of evaluation: 06/29/21 Primary OB Provider: Eliz Joshi On-call OB Provider: Tiffanie Daniels Reason for Evaluation: Yes non-stress test non-stress test reason: diabetes Vital Signs Vital Signs: BP 122/68, P 94, T 36.4 [facility] Medical History (Updated 06/29/21 @ 15:53 by Tiffanie Daniels MD) Diarrhea Gestational diabetes (~11/2019) History of being hospitalized (~08/2019) Major depressive disorder, single episode (~08/11/19) Peptic ulcer disease (~2014) Post-nasal drip Smoker (spontaneous vaginal delivery) (~03/18/20) Wrist fracture, left (~1992) Surgical History (Updated 01/01/21 @ 10:44 by Trish Vargas, KELSEY) H/O colposcopy with cervical biopsy (~06/2020) History of colposcopy (~11/26/20) History of tonsillectomy (~2011) Family History (Updated 01/01/21 @ 10:45 by Trish Vargas, KELSEY) Mother Diabetes mellitus Type 2 diabetes mellitus Alcohol abuse by patient's mother H/O drug abuse Family estrangement Father Hypertension Diabetes mellitus Type 2 diabetes mellitus Grandmother Cancer Diabetes mellitus Addiction Grandmother Cancer Diabetes mellitus Pancreatic cancer Breast cancer Type 2 diabetes mellitus Thyroid disease Grandfather No problems noted. Sister Appendicitis Grandfather Addiction Brother No problems noted. 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[employer]) current occupational exposures/hazards: No monika/spiritism: [employer] special monika needs: No Smoking Status: Former smoker Tobacco: How many years used: 17 quit status: quit date established (Quit 3 years ago) second hand exposure: No alcohol intake: former (social - 1 to 2 times a week.) substance use type: does not use Type(s) of exercise: walking and normal ROM and activity Evaluation Evaluation Baseline heart rate: 150 Variability: Moderate (11-25) monitor accelerations: Present Monitor Decelerations: Absent Contraction Frequency (minutes): 0 Category of Tracing: Reactive Status: Category l Diagnosis, Plan/Disposition Final Diagnosis (1) Gestational diabetes: Status: Acute (2) 34 weeks gestation of : Status: Acute Plan/Disposition Plan: Reactive NST. pt. home. Follow up routine OB appointment with Dr. Joshi OB Disposition: home
== END 2021-06-29 14:24 | disposition home or self-care (01) ==
LOC: OB 07-02 07:33
PROVIDERS: Family Provider Family Medicine; PCP Family Medicine; Referring Provider Obstetrics & Gynecology; Visit Provider Obstetrics & Gynecology
DX: O24.414 Gestational diabetes mellitus in pregnancy, insulin controlled (principal); Z3A.34 34 weeks gestation of pregnancy
CPT/HCPCS: 59025; G0378; G0379

== ENCOUNTER 2021-07-05 13:17 | Outpatient (CLI) | payer OTHER, SELFPAY ==
--- NOTE | 2021-07-05 15:58 | PM.OBTRLD ---
Visit Information Visit Information Date of evaluation: 07/05/21 Primary OB Provider: Eliz Joshi On-call OB Provider: Romi Merino Reason for Evaluation: Yes non-stress test non-stress test reason: diabetes Comments/Additional reasons for admission: 30yo at 35w5d here for NST for GDMA2. Feeling baby move regularly. No LOF, vaginal bleeding, contractions. [facility] Medical History (Updated 07/05/21 @ 16:01 by Romi Merino MD) Diarrhea Gestational diabetes (~11/2019) History of being hospitalized (~08/2019) Major depressive disorder, single episode (~08/11/19) Peptic ulcer disease (~2014) Post-nasal drip Smoker (spontaneous vaginal delivery) (~03/18/20) Wrist fracture, left (~1992) Surgical History (Updated 01/01/21 @ 10:44 by Trish Vargas, KELSEY) H/O colposcopy with cervical biopsy (~06/2020) History of colposcopy (~11/26/20) History of tonsillectomy (~2011) Family History (Updated 01/01/21 @ 10:45 by Trish Vargas, KELSEY) Mother Diabetes mellitus Type 2 diabetes mellitus Alcohol abuse by patient's mother H/O drug abuse Family estrangement Father Hypertension Diabetes mellitus Type 2 diabetes mellitus Grandmother Cancer Diabetes mellitus Addiction Grandmother Cancer Diabetes mellitus Pancreatic cancer Breast cancer Type 2 diabetes mellitus Thyroid disease Grandfather No problems noted. Sister Appendicitis Grandfather Addiction Brother No problems noted. 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/hazards: No monika/congregation: [employer] special monika needs: No Smoking Status: Former smoker Tobacco: How many years used: 17 quit status: quit date established (Quit 3 years ago) second hand exposure: No alcohol intake: former (social - 1 to 2 times a week.) substance use type: does not use Type(s) of exercise: walking and normal ROM and activity Evaluation Evaluation Baseline heart rate: 140 Variability: Moderate (11-25) monitor accelerations: Present Monitor Decelerations: Absent Category of Tracing: Reactive Diagnosis, Plan/Disposition Final Diagnosis (1) Gestational diabetes: Status: Acute (2) 35 weeks gestation of : Status: Acute Plan/Disposition Plan: 30yo at 35w5d with GDMA2 here for NST. NST reactive. Continue regular testing. F/u with Dr joshi as scheduled. OB Disposition: home
== END 2021-07-05 14:50 | disposition home or self-care (01) ==
LOC: LABOR 13:42 → OB 07-10 13:59
PROVIDERS: Family Provider Family Medicine; PCP Family Medicine; Referring Provider Family Medicine; Visit Provider Family Medicine
DX: O24.414 Gestational diabetes mellitus in pregnancy, insulin controlled (principal); Z3A.35 35 weeks gestation of pregnancy
CPT/HCPCS: 59025; G0378; G0379

== ENCOUNTER 2021-07-11 15:56 | Outpatient (CLI) | payer OTHER, SELFPAY | END 2021-07-11 18:06 | disposition home or self-care (01) | LOC: OB 07-12 09:45 | PROVIDERS: Family Provider Family Medicine; PCP Family Medicine; Referring Provider Obstetrics & Gynecology; Visit Provider Obstetrics & Gynecology | DX: O47.03 False labor before 37 completed weeks of gestation, third trimester (principal); O24.913 Unspecified diabetes mellitus in pregnancy, third trimester; Z3A.36 36 weeks gestation of pregnancy | CPT/HCPCS: 59025; 76815; 84112; G0378; G0379 ==

== ENCOUNTER 2021-07-16 12:19 | Outpatient (CLI) | payer OTHER, SELFPAY | END 2021-07-16 13:09 | disposition home or self-care (01) | LOC: LABOR 13:09 → OB 07-17 09:50 | PROVIDERS: Family Provider Family Medicine; PCP Family Medicine; Referring Provider Obstetrics & Gynecology; Visit Provider Obstetrics & Gynecology | DX: O24.414 Gestational diabetes mellitus in pregnancy, insulin controlled (principal); Z3A.37 37 weeks gestation of pregnancy | CPT/HCPCS: 59025; G0378; G0379 ==

== ENCOUNTER 2021-07-18 23:32 | Observation (INO) | payer OTHER, SELFPAY ==
--- NOTE | 2021-07-19 12:30 | PM.OBTRLD ---
Visit Information Visit Information Date of evaluation: 07/19/21 Primary OB Provider: Eliz Joshi On-call OB Provider: Tiffanie Daniels Reason for Evaluation: Yes rule out labor Vital Signs Vital Signs: Blood pressure 145/84, pulse of 85, temperature 36.5? [facility] Medical History (Updated 07/19/21 @ 12:31 by Tiffanie Daniels MD) Diarrhea Gestational diabetes (~11/2019) History of being hospitalized (~08/2019) Major depressive disorder, single episode (~08/11/19) Peptic ulcer disease (~2014) Post-nasal drip Smoker (spontaneous vaginal delivery) (~03/18/20) Wrist fracture, left (~1992) Surgical History (Updated 01/01/21 @ 10:44 by Trish Vargas, KELSEY) H/O colposcopy with cervical biopsy (~06/2020) History of colposcopy (~11/26/20) History of tonsillectomy (~2011) Family History (Updated 01/01/21 @ 10:45 by Trish Vargas, KELSEY) Mother Diabetes mellitus Type 2 diabetes mellitus Alcohol abuse by patient's mother H/O drug abuse Family estrangement Father Hypertension Diabetes mellitus Type 2 diabetes mellitus Grandmother Cancer Diabetes mellitus Addiction Grandmother Cancer Diabetes mellitus Pancreatic cancer Breast cancer Type 2 diabetes mellitus Thyroid disease Grandfather No problems noted. Sister Appendicitis Grandfather Addiction Brother No problems noted. 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 Patient was concerned she might be leaking fluid Evaluation Evaluation Baseline heart rate: 140 Variability: Moderate (11-25) monitor accelerations: Present Monitor Decelerations: Absent Contraction Frequency (minutes): 5 Uterine Contraction Intensity: Mild Category of Tracing: Reactive Status: Category l Non-invasive Membranes Rupture Test: negative Diagnosis, Plan/Disposition Final Diagnosis (1) False labor after 37 completed weeks of gestation: Status: Acute Plan/Disposition Plan: Patient is not ruptured in is not in active labor she was discharged home to keep her routine OB appointment OB Disposition: home
== END 2021-07-19 02:45 | disposition home or self-care (01) ==
LOC: LABOR 23:35
PROVIDERS: Admitting Provider Specialist; Family Provider Family Medicine; PCP Family Medicine; Referring Provider Specialist; Visit Provider Specialist
DX: Z03.71 Encounter for suspected problem with amniotic cavity and membrane ruled out (principal); O47.1 False labor at or after 37 completed weeks of gestation; Z3A.37 37 weeks gestation of pregnancy
CPT/HCPCS: 59025; 59050; 84112; G0378; G0379

== ENCOUNTER 2021-07-19 16:29 | Inpatient (IN) | payer OTHER, SELFPAY ==
[2021-07-19 16:59] VITALS: BP 132/69
--- NOTE | 2021-07-19 18:41 | P.HPOB_ITS ---
OB HPI Date/Time Date of admission: 07/19/21 Date Patient Seen: 07/19/21 Time Patient Seen: 18:41 History of Present Condition Chief complaint: OBSERVATION : 2 Para: 1 Estimated Date of Delivery: 08/04/21 Estimated Gestational Age (weeks): 37+5 Narrative: Julita Hull is a 30 year old HAYDER 08/04/2021 admitted with PROM clear fluid at 1600 07/19/2021. PNC notable for GDM managed by diet and currently 6U NPH q AM. Patient also has a history of PPD with her first delivery but no depressive symptoms at present. is AGA w/ her most recent US based EFW at 7#4oz (65th %'tile) on 05/15/2022. She is unvaccinated for COVID but had COVID in May 2021; COVID PCR on admission ispending. Indications Indication for induction OB: gestational diabetes History of Present care: good care Dating criteria: LMP confirmed by 1st trimester US Obstetrical complications: gestational diabetes Medical complications: none Preadmission Labs Blood type: B (+) positive -: Antibody screen: negative, GBS status: negative, HBsAG: negative, HIV: negative and RPR/VDLR: negative -: Chlamydia screen: not detected and Gonorrhea screen: not detected -: Rubella: immune and Varicella: immune HCT: 33.6 HCAB: negative PAP: Normal Quad screen: Normal 1 hr GTT: 210 3 hr GTT: 1 hr (187) and 2 hr (137) Fasting blood glucose: 87 Prior (ies) History: PROM at 36+ weeks, Evaluation Evaluation Baseline heart rate: 135 Variability: Moderate (11-25) monitor accelerations: Present Monitor Decelerations: Absent Contraction Frequency (minutes): 8 Uterine Contraction Intensity: Mild Category of Tracing: Reactive Status: Category l Dilation (cm): 1 Effacement (%): 90 Dilation: 1-2 cm Effacement: >/=80% station: -3 Position of cervix: mid Consistency: soft Salgado score: 7 Non-invasive Membranes Rupture Test: positive ON LICENSE OF [facility] Medical History Diarrhea Gestational diabetes (~11/2019) History of being hospitalized (~08/2019) Major depressive disorder, single episode (~08/11/19) Peptic ulcer disease (~2014) Post-nasal drip Smoker (spontaneous vaginal delivery) (~03/18/20) Wrist fracture, left (~1992) Surgical History H/O colposcopy with cervical biopsy (~06/2020) History of colposcopy (~11/26/20) History of tonsillectomy (~2011) Family History Mother Diabetes mellitus Type 2 diabetes mellitus Alcohol abuse by patient's mother H/O drug abuse Family estrangement Father Hypertension Diabetes mellitus Type 2 diabetes mellitus Grandmother Cancer Diabetes mellitus Addiction Grandmother Cancer Diabetes mellitus Pancreatic cancer Breast cancer Type 2 diabetes mellitus Thyroid disease Grandfather No problems noted. Sister Appendicitis Grandfather Addiction Brother No problems noted. 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/hazards: No monika/uatsdin: [employer] special monika needs: No Smoking Status: Former smoker Tobacco: How many years used: 17 quit status: quit date established (Quit 3 years ago) second hand exposure: No alcohol intake: former (social - 1 to 2 times a week.) substance use type: does not use Type(s) of exercise: walking and normal ROM and activity Meds Home Medications and Allergies Home Medications Medication Instructions Recorded Confirmed Type biotin 5,000 mcg disintegrating 10,000 mcg PO DAILY 01/01/21 07/16/21 History tablet calcium carb and lactate 200 2 tab PO DAILY 01/01/21 07/16/21 History mg-vitamin D3 6.25 mcg (250 unit) tablet prenat.vits,gene,gxi-bnjr-pasye 1 tab PO DAILY 01/01/21 07/16/21 History blood-glucose meter (Blood Glucose #1 ea 04/08/21 07/16/21 Rx Monitoring) lancets #100 ea 04/08/21 07/16/21 Rx blood sugar diagnostic (Blood #100 ea 04/30/21 07/16/21 Rx Glucose Test) insulin NPH isoph U-100 human 100 10 unit (0.1 mL) SUBCUT .qhs #15 ml 04/30/21 07/16/21 Rx unit/mL (3 mL) subcutaneous pen (Humulin N NPH U-100 Insulin KwikPen) pen needle, diabetic 29 gauge x #100 ea 05/06/21 07/16/21 Rx 1/2 (Lite Touch Insulin Pen Henniker) Double Electric breast Pump and #1 ea 07/09/21 07/16/21 Rx Supplies Allergies Allergy/AdvReac Type Severity Reaction Status Date / Time No Known Drug Allergies Allergy Verified 07/16/21 11:46 OB Exam HENNE Head: normocephalic and atraumatic Eyes General: appearance normal, both eyes and all related structures Resp Effort & Inspection: normal respiratory effort and able to speak in complete sentences Auscultation: clear to auscultation bilaterally Cardio Rate: regular rate Rhythm: regular rhythm Heart Sounds: S1 normal, S2 normal and no murmurs Uterus Location (Fundal Height): 36 Presentation: vertex Estimated Weight (lbs): 8 Amniotic Fluid: clear Objective Labs Result Diagrams: 07/19/21 18:40 Assessment and Plan Assessment and Plan Assessment and Plan narrative: ASSESSMENT 1. Intrauterine gestation, calloway, vertex, 37+5 weeks EGA 2. PROM, clear fluid 1600 07/19/2021; no RUC as yet 3. GBS negative 4. GDMA2, well controlled with NPH 6U q AM 5. History of PPD PLAN 1. Admit for labor 2. Anticipate ;OP with first delivery w/ 50 minute 2nd stage 3. Continue SQ NPH q AM until delivered 4. Close observation for PPD 5. Augment if no RUC 6-12 hrs. s/p PROM 6. SABAS OK if requested Time Spent with Patient Total time spent with greater than 50% in coordination of care (as documented) at patient's floor/unit and/or counseling patient:: 15-24 minutes
[2021-07-19 18:55] LABS: Add Manual Diff / Slide Review NO; Basophils Absolute Auto 0 /uL (0-100); Basophils Percent Auto 0.3 % (0-2); Eosinophils Absolute Auto 100 /uL (0-450); Eosinophils Percent Auto 0.6 % (2-4); Hematocrit 34.7 % (36-46); Hemoglobin 11.8 g/dL (12.0-16.0); Lymphocytes Absolute Auto 2000 /uL (1100-4500); Lymphocytes Percent Auto 22.1 % (25-40); Mean Corpuscular Hemoglobin 27.2 PG (26-34); Monocytes Absolute Auto 300 /uL (0-900); Monocytes Percent Auto 3.9 % (3-14); Neutrophils Absolute Auto 6500 /uL (1500-7000); Neutrophils Percent Auto 73.1 % (50-75); Platelet Count 205 X10^3/uL (150-400); Red Blood Cell Count 4.34 X10^6/uL (4.0-5.2); Red Cell Distribution Width 14.7 % (11.6-14.8); White Blood Cell Count 8.9 X10^3/uL (4.5-11.0)
[2021-07-19 19:09] LABS: COVID19 -Nasal RAPID Negative (Negative)
--- NOTE | 2021-07-20 01:25 | PM.AN.REGBLK ---
Regional Block Pre-procedure Procedure: Continuous Lumbar Epidural for L&D Attending OB provider: Eliz Joshi PMH/ROS narrative: , morbid obesity, gestational diabetes Hx: No personal or family history of anesthesia problems. PSH/Anesthesia history narrative: Previous CSE without issue. Exam narrative: RRR CTAB ASA Class: III Labs: Hct 34.7 % (36-46) L 07/19/21 18:40 Plt Count 205 X10^3/uL (150-400) 07/19/21 18:40 Medications: Current Medications Generic Name Dose Route Start Last Admin Trade Name Freq PRN Reason Stop Dose Admin Calcium Carbonate 1,000 mg 07/19/21 18:17 Calcium Carbonate 500 Mg Tab PO Q2HR PRN Dyspepsia Carboprost Tromethamine 250 mcg 07/19/21 18:17 Carboprost 250 Mcg/Ml Ampul IM Q90M PRN Bleeding Fentanyl 100 mcg 07/19/21 18:17 Fentanyl 100 Mcg/2 Ml Inj IV Q1H PRN Pain, Severe (7-10) Lactated Ringer's 1,000 mls @ 100 mls/hr 07/19/21 18:30 Lactated Ringers IV CONT NORIS Oxytocin/Lactated Ringer's 30 unit in 500 mls @ 200 mls/hr 07/19/21 18:17 Oxytocin Premix IV CONT PRN Bleeding Protocol Tranexamic Acid 1,000 mg/ 100 mls @ 200 mls/hr 07/19/21 18:17 Sodium Chloride IV NOW PRN Bleeding Oxytocin/Lactated Ringer's 30 unit in 500 mls @ 3 mls/hr 07/19/21 18:30 Oxytocin Premix IV TITRATE NORIS Protocol 3 MILLIUNIT/MIN Methylergonovine Maleate 0.2 mg 07/19/21 18:17 Methylergonovine 0.2 Mg Tablet PO Q6HR PRN Heavy Bleeding Methylergonovine Maleate 0.2 mg 07/19/21 18:17 Methylergonovine 0.2 Mg/Ml Vial IM NOW PRN Bleeding Misoprostol 800 mcg 07/19/21 18:17 Misoprostol 200 Mcg Tablet OR NOW PRN Bleeding Misoprostol 1,000 mcg 07/19/21 18:17 Misoprostol 200 Mcg Tablet OR NOW PRN Bleeding Misoprostol 400 mcg 07/19/21 18:17 Misoprostol 200 Mcg Tablet SL NOW PRN Bleeding Naloxone HCl 0.2 mg 07/19/21 18:17 Naloxone 0.4 Mg/Ml Vial IV Q2MIN PRN Opiate Reversal Ondansetron HCl 4 mg 07/19/21 18:17 Ondansetron 4 Mg/2 Ml Inj IV Q4HR PRN Nausea And Vomiting Oxytocin 10 unit 07/19/21 18:17 Oxytocin 10 Unit/Ml Vial IM NOW PRN Bleeding Allergies: Allergies Allergy/AdvReac Type Severity Reaction Status Date / Time No Known Drug Allergies Allergy Verified 07/16/21 11:46 Procedure Insertion date: 07/20/21 Insertion time: 01:11 Prep/Local: betadine x3 (chloroprep) and 1% lidocaine Interspace: L2-3 Patient position: sitting Needle: 18 gauge Jimmytead (with 27G pencil point needle-through needle for IT dose) Loss of resistance with: saline (with air bubble) KAITLYN at (cm): 6 Catheter placed at SKIN (cm): 11 Catheter in SPACE (cm): 5 Insertion: Yes CSF, No Blood, No Paresthesia with insertion, No Paresthesia with injection and No Test dose reaction Initial Medications TEST DOSE time: 01:11 TEST DOSE: 1.5% lidocaine with epinephrine 1:200k (mL): 5 (3mL initial test dose, 2mL as part of first bolus) BOLUS DOSE time: 01:12 BOLUS DOSE (mL): 2 BOLUS DOSE med: other (10mcg fentanyl intrathecally, 90mcg fentanyl via epidural catheter) Infusion INFUSION: 0.0625% bupivacaine and with fentanyl 2 mcg/mL Initial rate (mL/hr): 12 (with bolus of 4mL Q15min lockout) Post-procedure Anesthesia time START: 00:55 Anesthesia time END: 10:40 Post-procedure Anesthesia Assessment: No Anesthesia complications
[2021-07-20] MEDS: LACTATED RINGERS 1,000 ML 100 ML IV (03:25)
[2021-07-20] MEDS: OXYTOCIN PREMIX 30 UNIT/500 ML PLAST..BAG IV ×2 (03:26→09:48)
--- NOTE | 2021-07-20 05:58 | P.PNOB_ITS ---
Date/Time Date Patient Seen: 07/20/21 Time Patient Seen: 05:58 Pain Control Pain control: tolerating well and epidural Pelvic Exam Dilation (cm): 4 Effacement (%): 100 station: -1 Amniotic membrane status: Ruptured Comments: IUPC and FSE applied Contractions Contractions on admission: none Monitor mode: Internal Contraction frequency (min): 5 Contraction duration (min): 1 Contraction pattern: Regular Contraction phase: Resting Contraction intensity: Mild Intrauterine tone measurement: 20 Status status: Category ll Heart Rate Baseline: 150 Monitor Accelerations: Episodic Monitor Decelerations: Episodic and Variable Monitor Variability: Moderate Assessment and Plan Assessment: active labor Plan: begin patient augmentation Comments: Will also initiate amnioinfusion due to occasional deep variable w/ joshua @ 70- 75 BPM. Prompt return to baseline w/ shoulder formation a and p ctx. Patient aware of plan and rationale for amnioinfusion/internal monitoring.
[2021-07-20] MEDS: FENT 2MCG/ML BUPIV 0.125% EPI 200 MCG/100 ML PLAST..BAG 10 MCG EPIDURAL (08:14)
--- NOTE | 2021-07-20 10:56 | PM.OBPRVD ---
Events: Gestational Diabetes and Premature Rupture Membrane Labor & Delivery Delivery date: 07/20/21 Intrapartal Events: Hypotonic Dysfunction Cervical ripening method: none Induction method: none Delivery augmentation: pitocin Delivery monitor: internal FHT and internal uterine Route of delivery: Episiotomy description: None L&D Laceration Description: Perineal - 1st Degree Delivery repair: other (No repair required) Estimated blood loss (mL): 75 Anesthesia Type: Epidural Complications: None Narrative: Following a brief 2nd stage, the patient delivered spontaneously over an intact perineum a viable male with Apgars of 8/9 , weight 3416 gms. (7# 8.5 oz.), in the left occiput anterior position. No shoulder dystocia was noted with a tight nuchal cord was noted and reduced following delivery of the body. Skin to skin contact was initiated immediately and delayed cord clamping was performed. Once clamped and cut, umbilical cord blood sample was obtained for routine studies. The placenta delivered spontaneously with gentle cord traction and was inspected with the maternal surface intact and a central insertion of the umbilical cord noted. IV Pitocin was initiated following delivery of placenta and quantitative blood loss was approximately 75 cc. The perineum was then inspected and a very superficial midline laceration was noted at the introitus which did not require repair. Sponge and needle counts were correct at the end of the delivery and both mother and are doing well following delivery. [place] Baby 1: gender: Male Presentation: vertex Position: Left Occiput Anterior Placenta delivery description: Spontaneous Cord Vessel Description: 3 Vessels score (1 min): 8 score (5 min): 9 Plan for aftercare: Routine care
[2021-07-20] MEDS: DERMOPLAST SPRAY 20% 60 ML 1 SPRAY TOP (16:22)
[2021-07-20] MEDS: LANOLIN OINT 7 GM 1 APPLIC TOP (16:23)
[2021-07-20] MEDS: IBUPROFEN 600 MG TABLET PO ×2 (16:23→22:25)
[2021-07-20] MEDS: ACETAMINOPHEN 325 MG TABLET 650 MG PO (22:25)
[2021-07-21] MEDS: IBUPROFEN 600 MG TABLET PO ×2 (04:40→14:46)
[2021-07-21] MEDS: ACETAMINOPHEN 325 MG TABLET 650 MG PO ×2 (04:40→14:46)
[2021-07-21 06:53] LABS: Hematocrit 31.3 % (36-46); Hemoglobin 10.5 g/dL (12.0-16.0)
--- NOTE | 2021-07-21 11:32 | P.DS_ITS ---
Discharge Providers Provider Date of admission: 07/19/21 16:29 Discharge Date: 07/21/21 Primary care physician: Raymond Maldonado DO Consults: 07/21/21 10:53 Consult to Development Administrator Routine Comment: Discharge provider: Juancarlos White MD Summary Hospital Course Date Patient Seen: 07/21/21 Time Patient Seen: 11:32 Diagnoses: Intrauterine , calloway, term, delivered Gestational Diabetes, Type A2 Hospital Course: The patient presented with PROM on the evening of 07/19/2021 and enetered labor spontanously but briefly required Pitocin augmentation late in the 1st stage of labor. On the afternoon of 07/20/2021, the patient delivered a viable male infant with Apgars of 8/9 , weight 3416 gms. (7# 8.5 oz.). Following narcisa levi mother and baby have both done very well with the having some blood sugar control issues but otherwise ready for discharge later today. Julita has had prompt return of bowel and bladder function, she is ambulating independently, tolerating a regular diet, and her pain is well controlled with ibuprofen and Tylenol. Patient will be discharged at this time to home after counseling regarding precautionary symptoms, limitations of activity, medications, and plans for follow-up which will be in 6 weeks. Medications will include OTC Tylenol and prescription ibuprofen 600 mg p.o. q.6 hours as needed pain/cramping. Patient will also use OTC stool softeners on a as needed basis. Contraception will be by abstinence in that her is deploying in the next few days. Prior to discharge, discussed with patient the possibility of GDM screening following her 6 week visit via 75 g 2 hour glucose challenge and long- term health implications related to her history of GDM. Peripartum Data Infant Delivery Method: Natural Vaginal Laceration Description: Perineal - 1st Degree Episiotomy description: None complications: none [place] 1: Gender: Male Discharge Diagnosis (1) Vaginal delivery: Status: Acute (2) Gestational diabetes: Status: Acute Status at Discharge Cognitive/behavioral status at discharge: oriented Functional status at discharge: independent ambulation Overall status at discharge: patient is progressing back to baseline Time Spent with Patient Time attestation: Total time spent providing and/or coordinating discharge services: Time spent: Less than 30 minutes Objective Labs Result Diagrams: 07/21/21 06:40 Labs: Laboratory Results - last 24 hr 07/21/21 06:40 Hgb 10.5 L Hct 31.3 L Exam Const General: cooperative and comfortable Nutritional Appearance: overweight Orientation: alert and oriented x3 HENMT Head: normal to inspection Eyes General: appearance normal, both eyes and all related structures Neck Neck: normal visual inspection Resp Effort & Inspection: normal respiratory effort and able to speak in complete sentences GI Inspection: normal to inspection Palpation: soft and no hepatosplenomegaly Uterus Location (Fundal Height): 18 Skin General: no rashes or lesions noted Extrem General: no calf tenderness Psych Appearance: grossly normal Mental Status: mental status grossly normal Speech and Movement: speech and movement normal Mood: congruent mood Affect: normal affect Attitude: cooperative Thought Process: normal Thought Content: normal Judgment: judgment good Discharge Plan Discharge Plan Patient Disposition: Home Provider Discharge Comment: Please review the written instructions she received at the time of your discharge. A 6 week follow-up visit will be scheduled for your checkup. In the meanwhile however you have any issues, concerns, or problems, please feel free to contact our office by phone or via portal message. Discharge orders & Medications Prescriptions: New ibuprofen 600 mg Tablet 600 mg PO Q6HR PRN (Reason: Pain, Mild (1-3)) Qty: 60 2RF Continued prenat.vits,gene,drv-ahkd-etpzo Tablet 1 tab PO DAILY 0RF biotin 5,000 mcg tablet,disintegrating 10,000 mcg PO DAILY 0RF calcium carb,lactat-vitamin D3 200 mg-6.25 mcg (250 unit) tablet 2 tab PO DAILY 0RF Discontinued Humulin N NPH Insulin KwikPen 100 unit/mL (3 mL) insulin pen 10 unit SUBCUT .qhs Qty: 15 1RF No Action (DME) blood-glucose meter [Blood Glucose Monitoring] Kit See Rx Instructions .ROUTE .MEDSUPPLY Qty: 1 0RF Rx Instructions: To use with testing fasting and 2 hr PP blood sugars (DME) lancets [facility] [place] See Rx Instructions .ROUTE .MEDSUPPLY Qty: 100 3RF Rx Instructions: Testing blood sugars fasting and 2 hr PP (DME) Blood Glucose Test Strip See Rx Instructions .ROUTE .MEDSUPPLY Qty: 100 3RF Rx Instructions: Testing blood sugars fasting and 2 hr PP (DME) Double Electric breast Pump and Supplies See Rx Instructions .ROUTE .MEDSUPPLY Qty: 1 0RF Rx Instructions: Use electric breast pump and supplies as directed for 99 months. HAYDER 08/04/2021. (DME) pen needle, diabetic [Lite Touch Insulin Pen [place]] 29 gauge x 1/2 needle See Rx Instructions .Route Qty: 100 0RF Rx Instructions: Testing blood sugar 4 times daily, fasting and 2 hr PP Follow up/Referrals: Raymond Maldonado, [Primary Care Provider] - Discharge Health Status Multidrug resistant organism: No MDRO Diet/Activity/Treatments Diet: Diet as Tolerated Activity: As tolerated Skin/Wound/Dressing Care Report to your healthcare provider any signs of infection, such as:: chills, fever, increased pain, unusual drainage and unusual redness Dressing: N/A Visit Report/Discharge Packet Instructions: DI for Labor and Delivery, Vaginal , DI for and Nipple Soreness Discharge Data Primary Care Provider: Raymond Maldonado
[2021-07-21 11:45] VITALS: BP 132/69; PULSE 90; RESP 18; TEMP 36.7
== END 2021-07-21 15:30 | disposition home or self-care (01) | DRG 807 ==
PROVIDERS: Obstetrics & Gynecology; Admitting Provider Obstetrics & Gynecology; Family Provider Family Medicine; PCP Family Medicine; Referring Provider Obstetrics & Gynecology; Visit Provider Obstetrics & Gynecology
DX: O42.02 Full-term premature rupture of membranes, onset of labor within 24 hours of rupture (principal); Z37.0 Single live birth; Z3A.37 37 weeks gestation of pregnancy; O24.420 Gestational diabetes mellitus in childbirth, diet controlled; O70.0 First degree perineal laceration during delivery; O69.81X0 Labor and delivery complicated by cord around neck, without compression, not applicable or unspecified; Z20.822 Contact with and (suspected) exposure to COVID-19
CPT/HCPCS: 01967; 36415; 59050; 59400; 59409; 85014; 85018; 85025; 86850; 86900; 86901; 87635; C9803; G0379; J2590; J3010

== ENCOUNTER → 2021-09-27 07:22 | Outpatient (CLI) | payer OTHER, SELFPAY ==
[2021-09-27 08:10] LABS: Glucose Fasting 82 mg/dL (70-100)
[2021-09-27 09:35] LABS: Glucose Tol Interpretation INTERPRETATION
[2021-09-27 09:53] LABS: Glucose 1 Hour 171 mg/dL (70-170)
[2021-09-27 10:21] LABS: Glucose 2 Hour 105 mg/dL (70-140)
== END ==
PROVIDERS: Family Provider Family Medicine; PCP Family Medicine; Referring Provider Obstetrics & Gynecology; Visit Provider Obstetrics & Gynecology
DX: Z86.32 Personal history of gestational diabetes (principal)
CPT/HCPCS: 36415; 82951; 82952

== ENCOUNTER → 2022-05-09 08:38 | Outpatient (CLI) | payer OTHER, SELFPAY ==
--- NOTE | 2022-05-09 08:40 | DI.RAD.S_ITS ---
PROCEDURE: XR LUMBAR SPINE 2-3V INDICATIONS: low back pain TECHNIQUE: 3 views of the lumbar spine were acquired. COMPARISON: None. FINDINGS: Bones: 5 [id number] vertebrae are present. There is normal bony alignment. No vertebral body compression fractures. No suspicious bony lesions. Soft tissues: Overlying bowel gas pattern is normal. No suspicious soft tissue calcifications. IMPRESSION: Unremarkable radiographic examination of lumbar spine. Dictated by: Freedom Clemens M.D. on 05/09/2022 at 12:20 Approved by: Freedom Clemens M.D. on 05/09/2022 at 12:25
[2022-05-09 10:20] LABS: Add Manual Diff / Slide Review NO; Basophils Absolute Auto 0 /uL (0-100); Basophils Percent Auto 0.6 % (0-2); Eosinophils Absolute Auto 200 /uL (0-450); Eosinophils Percent Auto 3.1 % (2-4); Hematocrit 40.2 % (36-46); Hemoglobin 13.5 g/dL (12.0-16.0); Lymphocytes Absolute Auto 2200 /uL (1100-4500); Lymphocytes Percent Auto 30.5 % (25-40); Mean Corpuscular HGB Conc 33.5 % (30-36); Mean Corpuscular Hemoglobin 27.9 PG (26-34); Mean Corpuscular Volume 83.4 fL (80-100); Monocytes Absolute Auto 300 /uL (0-900); Monocytes Percent Auto 4.8 % (3-14); Neutrophils Absolute Auto 4300 /uL (1500-7000); Platelet Count 237 X10^3/uL (150-400); Red Blood Cell Count 4.82 X10^6/uL (4.0-5.2); Red Cell Distribution Width 13.6 % (11.6-14.8); White Blood Cell Count 7.1 X10^3/uL (4.5-11.0)
[2022-05-09 10:28] LABS: Hemoglobin A1C% w Est Avg Glu 5.6 % (4.0-6.0)
[2022-05-09 10:56] LABS: Alanine Aminotransferase 23 IU/L (<35); Albumin 4.3 g/dL (3.5-5.0); Albumin Globulin Ratio 1.5 (1.0-2.8); Alkaline Phosphatase 109 U/L (38-126); Aspartate Aminotransferase 23 IU/L (14-36); Bilirubin Total 0.9 mg/dL (0.2-1.3); Blood Urea Nitrogen 11 mg/dL (7-17); Calcium 8.8 mg/dL (8.4-10.2); Carbon Dioxide 25 mmol/L (22-32); Chloride 103 mmol/L (98-107); Cholesterol 227 mg/dL (140-199); Estimated Glomerular Filt Rate > 60 mL/min (>60); Globulin 2.9 g/dL (1.7-4.1); Glucose 88 mg/dL (70-100); HDL Cholesterol 52 mg/dL (40-60); HEMOLYSIS < 15 (0-50); LDL Cholesterol Calculated 122 mg/dL (<100); Lipase 104 U/L (23-300); Sodium 137 mmol/L (137-145); Total Protein 7.2 g/dL (6.3-8.2); Triglycerides 264 mg/dL (35-150)
== END ==
PROVIDERS: Family Provider Family Medicine; PCP Family Medicine; Referring Provider Family Medicine; Visit Provider Family Medicine
DX: M54.50 Low back pain, unspecified (principal); R10.13 Epigastric pain; G89.29 Other chronic pain
CPT/HCPCS: 36415; 72100; 80053; 80061; 83036; 83690; 85025

== ENCOUNTER 2022-08-29 09:45 | Outpatient (RCR) | payer OTHER, SELFPAY ==
--- NOTE | 2022-06-24 17:17 | PT.OIE ---
Current Diagnoses Low back pain, unspecified (06/24/22) Past Medical History (Last Updated 06/13/22 @ 09:30 by Charly Carreon DO) Diarrhea Gestational diabetes (~11/2019) History of being hospitalized (~08/2019) Hyperlipidemia Major depressive disorder, single episode (~08/11/19) Morbid obesity Peptic ulcer disease (~2014) Post-nasal drip Smoker (spontaneous vaginal delivery) (~03/18/20) Wrist fracture, left (~1992) Past Surgical History (Last Reviewed 02/11/22 @ 21:41 by Raymond Maldonado DO) H/O colposcopy with cervical biopsy (~06/2020) History of colposcopy (~11/26/20) History of tonsillectomy (~2011) Visit Care Team Role Provider Type Charly Carreon DO Attending Provider Physician Family Provider Primary Care Provider Referring Provider Specialty: [facility] Practice Address: [address] [place] [address], [address] Phone: Fax: Email: [email or web address] Physical Therapy Initial Evaluation PT-OP-A Visit Information Start: 06/09/22 16:49 Freq: Status: Active Protocol: Document 06/24/22 15:21 LRN (Rec: 06/24/22 17:14 LRN [id number]) Out-Patient Physical Therapy Visit Information Visit Information Visit Type Initial Evaluation Visit Start Time 15:21 Visit Stop Time 16:13 Total Visit Minutes 52 Visit Number 1 Evaluation Information Evaluation Date 06/24/22 Precautions Precautions History of post depression and diabetes. Stomach ulcers since 10yo, controlled by meds. PT-OP-B Current Condition Start: 06/09/22 16:49 Freq: Status: Active Protocol: Document 06/24/22 15:21 LRN (Rec: 06/24/22 17:14 LRN [id number]) Current Condition History of Current Condition Onset Date 04/2021 Current Complaints Back pain after fall when , occasional sciatic pain bilaterally. History of Current Condition Was supposed to take PT when because fell and then couldn't walk or stand because of pain. Not able to attend PT due to spouse deployed and with child was not able to attend therapy. She stretches her back out often but persists. When walking grocery shopping when done her back is killing her . Went to chiropractor a couple times post and he did an exam and thought her pelvic bones were open, but treatments didn't help; therefore she went to primary care doctor. She reports sometime niko sciatic pain but today only has R posterior leg pain. Usually lingering pain in sacral region. Sometimes sharp pain across the low back . Has stair climber and treadmill at home. Prior Treatments and Tests Chiropractic treatment 4 months ago for 1 month, 1x/ week in [place]. Spouse helps her with stretches. Developmental History Developmental History Son born 07/20/2021. 1st , miscarried twin and was having pain, first son born 03/18/2020, sons are 16 months, both vaginal . 2nd son slipped on wet deck holding 1st son and twisted left and landed on L hip and L shoulder. Treatment Goals Patient/Caregiver Goals Pt goal is to be able to exercise again and physically able to walk long distance without pain (>30'). Goal to be able to work out to become fit. 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 Prior Functional Status Baseline Function- ADL's Independent Baseline Function- Mobility Independent Current Functional Impairments (Reported) Functional Limitations- ADL's Mother of 2 sons. Spouse just returned from deployment. Spouse helps when having sharp pain, standing and cooking at stove, and assists with LBP standing FB stretching, and supine SKTC & DKTC. Personal Factors Other Personal Factors That May Effect G3, P2 with twin lost during Therapy/Recovery first . Pt has 2 sons, 16 months apart and is currently breast feeding. Pt spouse is in and occasionally on deployment. Pt reports having urinary leakage with laughing and a history of post depression and diabetes. PT-OP-C Subjective Start: 06/09/22 16:49 Freq: Status: Active Protocol: Document 06/24/22 15:21 LRN (Rec: 06/24/22 17:14 LRN [id number]) Patient Questionnaires Oswestry Low Back Index Oswestry Score 18 Oswestry Impairment 1 to 19% Impaired (Score 1-19) OP-PT Pain Assessment Pain Assessment Grid Paper Pain Assessment Grid Completed Yes Location Low back Pain Location Details Pain across back @ sacral level and occassionally down posterior legs Intensity 6 Scale Used Numeric (0 - 10) Description- Other Lingering pain is 6/10, Sharp pain is Frequency Constant Radiating Location down legs and sharp across back is intermittent Pain Aggravating Factors Changing Position,Exercise, Standing,Walking Other Pain Aggravating Factors Rolling in bed, standing at stove > 1 hr. Other Pain Alleviating Factors Sleeps w/pillow btn legs, icy hot with lidocaine, anti- inflam, ms relaxors PT-OP-G Mobility & Gait Start: 06/09/22 16:49 Freq: Status: Active Protocol: Document 06/24/22 15:21 LRN (Rec: 06/24/22 17:14 LRN [id number]) OP Gait Assessment Gait Gait Assistance Required: Independent Able to Maintain Weight Bearing Status Yes During Gait Assistive Devices Assistive Device None Gait Deviations General Gait Pattern Lateral Trunk Lean PT-OP-H Neuro Start: 06/09/22 16:49 Freq: Status: Active Protocol: Document 06/24/22 15:21 LRN (Rec: 06/24/22 17:14 LRN [id number]) Sensation Evaluation Gross Sensation Gross Sensation Right LE Impaired Sensation Description Tingling Comments Summary Comments Posterior aspect of LLE tingling when experiencing sciatic pain. PT-OP-J Posture/Palpation/Skin Start: 06/09/22 16:49 Freq: Status: Active Protocol: Document 06/24/22 15:21 LRN (Rec: 06/24/22 17:14 LRN [id number]) Posture Evaluation Position Standing Head/C-Spine Posture Neutral Position,Forward Head L-Spine Posture Shifted Right Shoulder Posture Neutral Arm Posture (L) Internally Rotated,(R) Internally Rotated Pelvis Posture Anteriorly Tilted Knee Posture (L) Genu Valgus,(R) Genu Valgus Comments Posture Comments Dowagers hump Palpation Assessment Location ASIS Palpation Location ASIS Palpation Details R is low: anteriorly rotated innominate Leg length Palpation Location Medial malleolus in supine. Palpation Details R leg long Low Back Palpation Location TIFFANIE region bilaterally Palpation Findings Tenderness PT-OP-K Range of Motion Start: 06/09/22 16:49 Freq: Status: Active Protocol: Document 06/24/22 15:21 LRN (Rec: 06/24/22 17:14 LRN [id number]) Lumbar Spine Range of Motion Lumbar Spine Active Degrees Testing Position Standing Flexion 135 Extension 10 Rotation Left 35 Rotation Right 45 Lateral Flexion Left 25 Lateral Flexion Right 20 Comments 135/85 10/35 Hip Goniometric Range of Motion Hip Right Passive Testing Position Supine Internal Rotation 25 External Rotation 75 Left Passive Testing Position Supine Internal Rotation 15 External Rotation 70 PT-OP-L Special Tests Start: 06/09/22 16:49 Freq: Status: Active Protocol: Document 06/24/22 15:21 LRN (Rec: 06/24/22 17:14 LRN [id number]) Special Tests Hip Special Tests Straight Leg Raise Test Results - bilaterally Stinchfield Resisted Hip Flexion Test Results + bilaterally Log Roll Test Test Results neg PRESLEY Test Results + R worse than + L PT-OP-M Strength Start: 06/09/22 16:49 Freq: Status: Active Protocol: Document 06/24/22 15:21 LRN (Rec: 06/24/22 17:14 LRN [id number]) Trunk Strength Trunk Manual Muscle Testing Core Stabilization Pt lacks core stability with MMT of LE's due to pain. Hip Strength Hip Manual Muscle Testing Right Flexion (L2) 3+ Fair+ Extension (S1) 3 Fair Adduction 3 Fair Internal Rotation 3+ Fair+ Comments 5/5 except as indicated above. Left Extension (S1) 3 Fair Adduction 2- Poor- Internal Rotation 3 Fair Comments 5/5 except as indicated above. PT-OP-Q Treatments Start: 06/09/22 16:49 Freq: Status: Active Protocol: Document 06/24/22 15:21 LRN (Rec: 06/24/22 17:14 LRN [id number]) Self-Care/Home Management Treatment Education Other Education Discussed in depth results of evaluation, goals, and plan of care (POC). Pt agreeable to goals and POC. Activities Self-Care/Home Management Activities I/S pt to practice equal WBing while in standing. PT-OP-T Assessment and Plan Start: 06/09/22 16:49 Freq: Status: Active Protocol: Document 06/24/22 15:21 LRN (Rec: 06/24/22 17:14 LRN [id number]) Physical Therapy Assessment Rehab Potential Rehabilitation Potential Excellent Evaluation Complexity Number of Personal Factors/Comorbidities 3 or More Number of Body Systems Impaired 4 or More Clinical Presentation at Evaluation Evolving Impairments Impairments Activity Tolerance,Pain, Posture,ROM,Strength,Transfers Other Concerns Barriers to Rehabilitation Possible PF weakness and Diastasis Rectus (to be assessed at next visit). Goals Three Impairment Bilateral sciatic pain, intermittent in nature and location Short Term Goal (STG) Decrease Sciatic pain to no greater than 4/10 with no sharp pain. STG Duration 08/08/22 Park Worker Supervisor Goal (LTG) Pt will be able to return to a work out to become fit. LTG Duration 09/22/22 Two Impairment Pelvic obliquity Impairment R innominate anteriorly rotated/L posteriorly rotated Variable sided Sciatic pain rated 3-8/10. Short Term Goal (STG) Normalize pelvic positioning. STG Duration 08/08/22 Long-Term Goal (LTG) Pt will be able to return to exercise and physically able to walk long distance without pain, >30' or more. LTG Duration 09/22/22 One Impairment Lacks appropriate self care HEP Impairment Excessive lumbar lordosis, stands unequal WBing in LE's, protruding abdomen. Pt not on a self care HEP to manage her bilateral sciatic pain. Short Term Goal (STG) Pt will be educated in proper body mechanics for transfer and ADLs, and proper sitting and standing posture. STG Duration 08/08/22 Long-Term Goal (LTG) Pt will be independent and consistent with a self care HEP to manage her pelvic obliquity and bilateral sciatic pain. LTG Duration 09/22/22 Assessment Summary Assessment Pt presents with pelvic obliquity/SI dysfunction, with R innominate anteriorly rotated and possible sacral rotation. She has weakness of the core and hips (flex, ext, AD, IR). Pt has soft tissue dysfunction of ms guarding and tightness of the bilateral hip muscles (L IR, ER) and demonstrates excessive L/S lordosis with possible Diastasis Rectus that will be evaluated at her next appointment and she tends to stand with unequal weight through her legs with lumbar spine shifted right. The pt demonstrates poor knowledge of proper transfer sit<>supine. Pt will benefit from skilled physical therapy for education in proper transfer, body mechanics, pain management, HEP, manual STM, JMT, other manual therapy, modalities for pain, and therapeutic ex for ROM/strength and pelvic/core stabilization. If the pt continues to have urinary leakage 6 months to a year after stopping , Pelvic Floor physical therapy would be appropriate. Physical Therapy Plan Frequency and Duration Frequency of Treatment 2x/Week Plan of Care Start Date 06/24/22 Plan of Care End Date 09/22/22 Therapeutic Interventions Therapeutic Interventions Home Exercise Program,Joint Mobilizations,Manual Therapy, Neuromuscular Re-education, Patient/Caregiver Education, Self-Care/Home Management,Soft Tissue Mobilization,Taping, Therapeutic Activities, Therapeutic Exercises Modalities Cold Pack/Ice Massage,Electric Stimulation,Hot Packs Next Visit Focus/Plan Next Note Type Treatment Note Next Visit Plan Assess DR, correct R anterior rot innominate & balance sacrum; Add HEP: hip L IR/ER stretch & trunk L rot & R SB stretch, trunk strengthen, when pelvis stable-hip (flex, ext, AD, IR) strengthening. Posture training (correct lordosis and L/S R shift), Transfer training with proper breathing/PF contractions, body mechanics training ADLs and for return to exercise. Pt education in use of modalities for pain. Return pt to previous exercise program to improve fitness level.
--- NOTE | 2022-06-24 17:18 | PT.OPPOC ---
Physical, Occupational & Speech Therapy At [facility] Current Diagnoses Low back pain, unspecified (06/24/22) Visit Care Team Role Provider Type Charly Carreon DO Attending Provider Physician Family Provider Primary Care Provider Referring Provider Specialty: Family Practice Address: [address] [place] [address], [address], [address] Phone: Fax: Email: Plan Of Care PT-OP-T Assessment and Plan Start: 06/09/22 16:49 Freq: Status: Active Protocol: Document 06/24/22 15:21 LRN (Rec: 06/24/22 17:14 LRN [id number]) Physical Therapy Assessment Rehab Potential Rehabilitation Potential Excellent Evaluation Complexity Number of Personal Factors/Comorbidities 3 or More Number of Body Systems Impaired 4 or More Clinical Presentation at Evaluation Evolving Impairments Impairments Activity Tolerance,Pain, Posture,ROM,Strength,Transfers Other Concerns Barriers to Rehabilitation Possible PF weakness and Diastasis Rectus (to be assessed at next visit). Goals Three Impairment Bilateral sciatic pain, intermittent in nature and location Short Term Goal (STG) Decrease Sciatic pain to no greater than 4/10 with no sharp pain. STG Duration 08/08/22 Mcc Goal (LTG) Pt will be able to return to a work out to become fit. LTG Duration 09/22/22 Two Impairment Pelvic obliquity Impairment R innominate anteriorly rotated/L posteriorly rotated Variable sided Sciatic pain rated 3-8/10. Short Term Goal (STG) Normalize pelvic positioning. STG Duration 08/08/22 Mcc Goal (LTG) Pt will be able to return to exercise and physically able to walk long distance without pain, >30' or more. LTG Duration 09/22/22 One Impairment Lacks appropriate self care HEP Impairment Excessive lumbar lordosis, stands unequal WBing in LE's, protruding abdomen. Pt not on a self care HEP to manage her bilateral sciatic pain. Short Term Goal (STG) Pt will be educated in proper body mechanics for transfer and ADLs, and proper sitting and standing posture. STG Duration 08/08/22 [employer]ness [employer] Handicapper Goal (LTG) Pt will be independent and consistent with a self care HEP to manage her pelvic obliquity and bilateral sciatic pain. LTG Duration 09/22/22 Assessment Summary Assessment Pt presents with pelvic obliquity/SI dysfunction, with R innominate anteriorly rotated and possible sacral rotation. She has weakness of the core and hips (flex, ext, AD, IR). Pt has soft tissue dysfunction of ms guarding and tightness of the bilateral hip muscles (L IR, ER) and demonstrates excessive L/S lordosis with possible Diastasis Rectus that will be evaluated at her next appointment and she tends to stand with unequal weight through her legs with lumbar spine shifted right. The pt demonstrates poor knowledge of proper transfer sit<>supine. Pt will benefit from skilled physical therapy for education in proper transfer, body mechanics, pain management, HEP, manual STM, JMT, other manual therapy, modalities for pain, and therapeutic ex for ROM/strength and pelvic/core stabilization. If the pt continues to have urinary leakage 6 months to a year after stopping , Pelvic Floor physical therapy would be appropriate. Physical Therapy Plan Frequency and Duration Frequency of Treatment 2x/Week Plan of Care Start Date 06/24/22 Plan of Care End Date 09/22/22 Therapeutic Interventions Therapeutic Interventions Home Exercise Program,Joint Mobilizations,Manual Therapy, Neuromuscular Re-education, Patient/Caregiver Education, Self-Care/Home Management,Soft Tissue Mobilization,Taping, Therapeutic Activities, Therapeutic Exercises Modalities Cold Pack/Ice Massage,Electric Stimulation,Hot Packs Next Visit Focus/Plan Next Note Type Treatment Note Next Visit Plan Assess DR, correct R anterior rot innominate & balance sacrum; Add HEP: hip L IR/ER stretch & trunk L rot & R SB stretch, trunk strengthen, when pelvis stable-hip (flex, ext, AD, IR) strengthening. Posture training (correct lordosis and L/S R shift), Transfer training with proper breathing/PF contractions, body mechanics training ADLs and for return to exercise. Pt education in use of modalities for pain. Return pt to previous exercise program to improve fitness level. Plan of Care Dates Plan of Care Start Date 06/24/22 Plan of Care End Date 09/22/22 Electronically Signed by: Oralia Milian, PT 06/24/22 8527 If you are in agreement with this Plan of Care, please return a signed and dated copy. I have reviewed this Plan of Care and certify that the skilled therapy services above are required to meet the patient?s needs. Physician Signature Date Printed Name and Credentials Clinical Instructor Signature Printed Name and Credentials
--- NOTE | 2022-06-26 16:29 | PT.OTN ---
Current Diagnoses Low back pain, unspecified (06/26/22) Physical Therapy Treatment Note PT-OP-A Visit Information Start: 06/09/22 16:49 Freq: Status: Active Protocol: Document 06/26/22 15:19 LRN (Rec: 06/26/22 16:21 LRN [id number]) Out-Patient Physical Therapy Visit Information Visit Information Visit Type Treatment Note Visit Start Time 15:19 Visit Stop Time 16:04 Total Visit Minutes 45 Visit Number 07/20 Evaluation Information Evaluation Date 06/24/22 Precautions Precautions History of post depression and diabetes. Stomach ulcers since 10yo, controlled by meds. PT-OP-B Current Condition Start: 06/09/22 16:49 Freq: Status: Active Protocol: Document 06/24/22 15:21 LRN (Rec: 06/24/22 17:14 LRN [id number]) Current Condition History of Current Condition Onset Date 04/2021 Current Complaints Back pain after fall when , occasional sciatic pain bilaterally. History of Current Condition Was supposed to take PT when because fell and then couldn't walk or stand because of pain. Not able to attend PT due to spouse deployed and with child was not able to attend therapy. She stretches her back out often but persists. When walking grocery shopping when done her back is killing her . Went to chiropractor a couple times post and he did an exam and thought her pelvic bones were open, but treatments didn't help; therefore she went to primary care doctor. She reports sometime niko sciatic pain but today only has R posterior leg pain. Usually lingering pain in sacral region. Sometimes sharp pain across the low back . Has stair climber and treadmill at home. Prior Treatments and Tests Chiropractic treatment 4 months ago for 1 month, 1x/ week in [place]. Spouse helps her with stretches. Developmental History Developmental History Son born 07/20/2021. 1st , miscarried twin and was having pain, first son born 03/18/2020, sons are 16 months, both vaginal . 2nd son slipped on wet deck holding 1st son and twisted left and landed on L hip and L shoulder. Treatment Goals Patient/Caregiver Goals Pt goal is to be able to exercise again and physically able to walk long distance without pain (>30'). Goal to be able to work out to become fit. 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 Prior Functional Status Baseline Function- ADL's Independent Baseline Function- Mobility Independent Current Functional Impairments (Reported) Functional Limitations- ADL's Mother of 2 sons. Spouse just returned from deployment. Spouse helps when having sharp pain, standing and cooking at stove, and assists with LBP standing FB stretching, and supine SKTC & DKTC. Personal Factors Other Personal Factors That May Effect G3, P2 with twin lost during Therapy/Recovery first . Pt has 2 sons, 16 months apart and is currently breast feeding. Pt spouse is in and occasionally on deployment. Pt reports having urinary leakage with laughing and a history of post depression and diabetes. PT-OP-C Subjective Start: 06/09/22 16:49 Freq: Status: Active Protocol: Document 06/26/22 15:19 LRN (Rec: 06/26/22 16:21 LRN [id number]) OP-PT Subjective Patient Comments Patient Comments Same PT-OP-G Mobility & Gait Start: 06/09/22 16:49 Freq: Status: Active Protocol: Document 06/24/22 15:21 LRN (Rec: 06/24/22 17:14 LRN [id number]) OP Gait Assessment Gait Gait Assistance Required: Independent Able to Maintain Weight Bearing Status Yes During Gait Assistive Devices Assistive Device None Gait Deviations General Gait Pattern Lateral Trunk Lean PT-OP-H Neuro Start: 06/09/22 16:49 Freq: Status: Active Protocol: Document 06/24/22 15:21 LRN (Rec: 06/24/22 17:14 LRN [id number]) Sensation Evaluation Gross Sensation Gross Sensation Right LE Impaired Sensation Description Tingling Comments Summary Comments Posterior aspect of LLE tingling when experiencing sciatic pain. PT-OP-J Posture/Palpation/Skin Start: 06/09/22 16:49 Freq: Status: Active Protocol: Document 06/26/22 15:19 LRN (Rec: 06/26/22 16:29 LRN [id number]) Palpation Assessment Location Abdomen Palpation Location Rectus Diastasis Palpation Details Umbilicus: Above 2 & above 1 - 1.5 fingerwidths & shallow. below 1 is 1 fingerwidth & shallow, Closed remaining length. Low Back Palpation Location Sacrum, Ischium Palpation Details Decreased mob: of L sacral sulcus infer glide & PA, sacral shear glide to R, R Ischium PA. PT-OP-K Range of Motion Start: 06/09/22 16:49 Freq: Status: Active Protocol: Document 06/24/22 15:21 LRN (Rec: 06/24/22 17:14 LRN [id number]) Lumbar Spine Range of Motion Lumbar Spine Active Degrees Testing Position Standing Flexion 135 Extension 10 Rotation Left 35 Rotation Right 45 Lateral Flexion Left 25 Lateral Flexion Right 20 Comments 135/85 10/35 Hip Goniometric Range of Motion Hip Right Passive Testing Position Supine Internal Rotation 25 External Rotation 75 Left Passive Testing Position Supine Internal Rotation 15 External Rotation 70 PT-OP-L Special Tests Start: 06/09/22 16:49 Freq: Status: Active Protocol: Document 06/24/22 15:21 LRN (Rec: 06/24/22 17:14 LRN [id number]) Special Tests Hip Special Tests Straight Leg Raise Test Results - bilaterally Stinchfield Resisted Hip Flexion Test Results + bilaterally Log Roll Test Test Results neg PRESLEY Test Results + R worse than + L PT-OP-M Strength Start: 06/09/22 16:49 Freq: Status: Active Protocol: Document 06/24/22 15:21 LRN (Rec: 06/24/22 17:14 LRN [id number]) Trunk Strength Trunk Manual Muscle Testing Core Stabilization Pt lacks core stability with MMT of LE's due to pain. Hip Strength Hip Manual Muscle Testing Right Flexion (L2) 3+ Fair+ Extension (S1) 3 Fair Adduction 3 Fair Internal Rotation 3+ Fair+ Comments 5/5 except as indicated above. Left Extension (S1) 3 Fair Adduction 2- Poor- Internal Rotation 3 Fair Comments 5/5 except as indicated above. PT-OP-Q Treatments Start: 06/09/22 16:49 Freq: Status: Active Protocol: Document 06/26/22 15:19 LRN (Rec: 06/26/22 16:21 LRN [id number]) Therapeutic Exercises Supine Exercises Piriformis Supine Exercise Name Piriformis Stretch Side left Reps/Minutes 60 SH x 1 Comments Extra time to determine max tolerated stretch. Cuing for painfree stretch. Fig 4 stretch Supine Exercise Name Fig 4 stretch Side left Reps/Minutes 60 SH x 1 Comments Extra time to determine max tolerated stretch w/pillow to support leg TA tighening Supine Exercise Name TA tighening Reps/Minutes 10 SH x 2 Comments Extra time for pt to be able to perfom properly Sidelying Exercises TA tightening Sidelying Exercise Name TA tightening Side bilateral Reps/Minutes 10 SH x 8 each Comments Slow count of 10 secs. Pt able to contract TA with phy & v cuing. Sitting Exercises Trunk Rot stretch Sitting Exercise Name L Trunk rot stretch Side left Reps/Minutes 2' Other Exercises Lateral Child pose Other Exercise Name R SB Child Pose stretch Side right Reps/Minutes 2' Comments Cuing to not stretch into pain . Manual Therapy Treatment Soft Tissue Mobilization Sacral balancing Body Location Initiated sacral balancing- Mobilization Type Myofascial Release Intensity/Depth Moderate Comments Infer glide of L Sacral Sulcus . Joint Mobilizations SIJ Joint Correction of R anterioly rot innominate. Body Position Supine Comments Able to correct positioning of R innominate. Self-Care/Home Management Treatment Education Patient Education Home Exercise Program Activities Self-Care/Home Management Activities Issued & reviewed HEP: hip L IR/ER stretch PT-OP-T Assessment and Plan Start: 06/09/22 16:49 Freq: Status: Active Protocol: Document 06/26/22 15:19 LRN (Rec: 06/26/22 16:21 LRN [id number]) Physical Therapy Assessment Goals Three Impairment Bilateral sciatic pain, intermittent in nature and location Short Term Goal (STG) Decrease Sciatic pain to no greater than 4/10 with no sharp pain. STG Duration 08/08/22 [employer] Jewelry Goal (LTG) Pt will be able to return to a work out to become fit. LTG Duration 09/22/22 Two Impairment Pelvic obliquity Impairment R innominate anteriorly rotated/L posteriorly rotated Variable sided Sciatic pain rated 3-8/10. Short Term Goal (STG) Normalize pelvic positioning. 06/26/22: Normalized today 1st time with JMT. STG Duration 08/08/22 progressed 06/26/22 Snf Goal (LTG) Pt will be able to return to exercise and physically able to walk long distance without pain, >30' or more. LTG Duration 09/22/22 One Impairment Lacks appropriate self care HEP Impairment Excessive lumbar lordosis, stands unequal WBing in LE's, protruding abdomen. Pt not on a self care HEP to manage her bilateral sciatic pain. Short Term Goal (STG) Pt will be educated in proper body mechanics for transfer and ADLs, and proper sitting and standing posture. STG Duration 08/08/22 Eng[employer]elry Goal (LTG) Pt will be independent and consistent with a self care HEP to manage her pelvic obliquity and bilateral sciatic pain. 06/26/22: HEP: hip ER/IR stretch. I/S pt to start with only stretch to L side. LTG Duration 09/22/22 progressed Progress Towards Goals Progress Comments Progressed HEP. Assessment Summary Assessment Pt has minimal DR of 1.5 shallow finger widths 1-2 above and 1 below umbilicus. I was able to correct her R innominate anter rot but TA strengthening is needed. Pt able to perform a TA contraction with training, but is weak. Physical Therapy Plan Frequency and Duration Frequency of Treatment 2x/Week Plan of Care Start Date 06/24/22 Plan of Care End Date 09/22/22 Next Visit Focus/Plan Next Note Type Treatment Note Next Visit Plan Review HEP: hip L IR/ER stretch. Issue handout for HEP: trunk L rot & R SB stretch, HEP: trunk strengthening- protection mld DR, and when pelvis is stable-hip (flex, ext, AD, IR) strengthening. Posture training (correct lordosis and L/S R shift), Transfer training with proper breathing/PF contractions, body mechanics training ADLs and for return to exercise. Pt education in use of modalities for pain. Return pt to previous exercise program to improve fitness level.
--- NOTE | 2022-07-01 15:45 | PT.OTN ---
Current Diagnoses Low back pain, unspecified (07/01/22) Physical Therapy Treatment Note PT-OP-A Visit Information Start: 06/09/22 16:49 Freq: Status: Active Protocol: Document 07/01/22 14:27 LRN (Rec: 07/01/22 15:45 LRN [id number]) Out-Patient Physical Therapy Visit Information Visit Information Visit Type Treatment Note Visit Start Time 14:27 Visit Stop Time 15:07 Total Visit Minutes 40 Visit Number 08/17 Evaluation Information Evaluation Date 06/24/22 Precautions Precautions History of post depression and diabetes. Stomach ulcers since 10yo, controlled by meds. PT-OP-B Current Condition Start: 06/09/22 16:49 Freq: Status: Active Protocol: Document 06/24/22 15:21 LRN (Rec: 06/24/22 17:14 LRN [id number]) Current Condition History of Current Condition Onset Date 04/2021 Current Complaints Back pain after fall when , occasional sciatic pain bilaterally. History of Current Condition Was supposed to take PT when because fell and then couldn't walk or stand because of pain. Not able to attend PT due to spouse deployed and with child was not able to attend therapy. She stretches her back out often but persists. When walking grocery shopping when done her back is killing her . Went to chiropractor a couple times post and he did an exam and thought her pelvic bones were open, but treatments didn't help; therefore she went to primary care doctor. She reports sometime niko sciatic pain but today only has R posterior leg pain. Usually lingering pain in sacral region. Sometimes sharp pain across the low back . Has stair climber and treadmill at home. Prior Treatments and Tests Chiropractic treatment 4 months ago for 1 month, 1x/ week in [place]. Spouse helps her with stretches. Developmental History Developmental History Son born 07/20/2021. 1st , miscarried twin and was having pain, first son born 03/18/2020, sons are 16 months, both vaginal . 2nd son slipped on wet deck holding 1st son and twisted left and landed on L hip and L shoulder. Treatment Goals Patient/Caregiver Goals Pt goal is to be able to exercise again and physically able to walk long distance without pain (>30'). Goal to be able to work out to become fit. 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 Prior Functional Status Baseline Function- ADL's Independent Baseline Function- Mobility Independent Current Functional Impairments (Reported) Functional Limitations- ADL's Mother of 2 sons. Spouse just returned from deployment. Spouse helps when having sharp pain, standing and cooking at stove, and assists with LBP standing FB stretching, and supine SKTC & DKTC. Personal Factors Other Personal Factors That May Effect G3, P2 with twin lost during Therapy/Recovery first . Pt has 2 sons, 16 months apart and is currently breast feeding. Pt spouse is in and occasionally on deployment. Pt reports having urinary leakage with laughing and a history of post depression and diabetes. PT-OP-C Subjective Start: 06/09/22 16:49 Freq: Status: Active Protocol: Document 07/01/22 14:27 LRN (Rec: 07/01/22 15:45 LRN [id number]) OP-PT Subjective Patient Comments Patient Comments Pt started period today. Did the ex's. Had a lot of pain yesterday on L side shooting down the posterior hip and leg . Was sore after the last session, then next day more sore. Stomach was sore from exercise. Has been trying not to pick of children at same time or not at all. PT-OP-G Mobility & Gait Start: 06/09/22 16:49 Freq: Status: Active Protocol: Document 06/24/22 15:21 LRN (Rec: 06/24/22 17:14 LRN [id number]) OP Gait Assessment Gait Gait Assistance Required: Independent Able to Maintain Weight Bearing Status Yes During Gait Assistive Devices Assistive Device None Gait Deviations General Gait Pattern Lateral Trunk Lean PT-OP-H Neuro Start: 06/09/22 16:49 Freq: Status: Active Protocol: Document 06/24/22 15:21 LRN (Rec: 06/24/22 17:14 LRN [id number]) Sensation Evaluation Gross Sensation Gross Sensation Right LE Impaired Sensation Description Tingling Comments Summary Comments Posterior aspect of LLE tingling when experiencing sciatic pain. PT-OP-J Posture/Palpation/Skin Start: 06/09/22 16:49 Freq: Status: Active Protocol: Document 06/26/22 15:19 LRN (Rec: 06/26/22 16:29 LRN [id number]) Palpation Assessment Location Abdomen Palpation Location Rectus Diastasis Palpation Details Umbilicus: Above 2 & above 1 - 1.5 fingerwidths & shallow. below 1 is 1 fingerwidth & shallow, Closed remaining length. Low Back Palpation Location Sacrum, Ischium Palpation Details Decreased mob: of L sacral sulcus infer glide & PA, sacral shear glide to R, R Ischium PA. PT-OP-K Range of Motion Start: 06/09/22 16:49 Freq: Status: Active Protocol: Document 06/24/22 15:21 LRN (Rec: 06/24/22 17:14 LRN [id number]) Lumbar Spine Range of Motion Lumbar Spine Active Degrees Testing Position Standing Flexion 135 Extension 10 Rotation Left 35 Rotation Right 45 Lateral Flexion Left 25 Lateral Flexion Right 20 Comments 135/85 10/35 Hip Goniometric Range of Motion Hip Right Passive Testing Position Supine Internal Rotation 25 External Rotation 75 Left Passive Testing Position Supine Internal Rotation 15 External Rotation 70 PT-OP-L Special Tests Start: 06/09/22 16:49 Freq: Status: Active Protocol: Document 06/24/22 15:21 LRN (Rec: 06/24/22 17:14 LRN [id number]) Special Tests Hip Special Tests Straight Leg Raise Test Results - bilaterally Stinchfield Resisted Hip Flexion Test Results + bilaterally Log Roll Test Test Results neg PRESLEY Test Results + R worse than + L PT-OP-M Strength Start: 06/09/22 16:49 Freq: Status: Active Protocol: Document 06/24/22 15:21 LRN (Rec: 06/24/22 17:14 LRN [id number]) Trunk Strength Trunk Manual Muscle Testing Core Stabilization Pt lacks core stability with MMT of LE's due to pain. Hip Strength Hip Manual Muscle Testing Right Flexion (L2) 3+ Fair+ Extension (S1) 3 Fair Adduction 3 Fair Internal Rotation 3+ Fair+ Comments 5/5 except as indicated above. Left Extension (S1) 3 Fair Adduction 2- Poor- Internal Rotation 3 Fair Comments 5/5 except as indicated above. PT-OP-Q Treatments Start: 06/09/22 16:49 Freq: Status: Active Protocol: Document 07/01/22 14:27 LRN (Rec: 07/01/22 15:45 LRN [id number]) Therapeutic Exercises Supine Exercises Lateral Hip stretch Supine Exercise Name Lateral Hip stretch Side left Reps/Minutes 60SH x 1 Comments Extra time to determine max tolerated stretch Piriformis Supine Exercise Name Piriformis Stretch L>R Side bilateral Reps/Minutes 60 SH x 1 Comments Extra time to determine max tolerated stretch. Cuing for painfree stretch. TA tighening Supine Exercise Name TA tightening Reps/Minutes 10 SH x 8 Comments Extra time for pt to be able to perfom properly Sidelying Exercises TA tightening Sidelying Exercise Name TA tightening through 3 breaths Side bilateral Reps/Minutes 10 SH x 10 each Comments Slow count of 10 secs. Pt able to contract TA with phy & v cuing. Manual Therapy Treatment Joint Mobilizations SIJ Joint Correction of a L outflared innominate. Body Position Supine Reps/Duration 12' Comments Able to correct positioning of L innominate. Self-Care/Home Management Treatment Education Patient Education Posture Other Education Pt educated in best lying positions and educated/ discussed sidelie sleeping position. Handout issued. PT-OP-T Assessment and Plan Start: 06/09/22 16:49 Freq: Status: Active Protocol: Document 07/01/22 14:27 LRN (Rec: 07/01/22 15:45 LRN [id number]) Physical Therapy Assessment Goals Three Impairment Bilateral sciatic pain, intermittent in nature and location Short Term Goal (STG) Decrease Sciatic pain to no greater than 4/10 with no sharp pain. STG Duration 08/08/22 Tobacco Educator Goal (LTG) Pt will be able to return to a work out to become fit. LTG Duration 09/22/22 Two Impairment Pelvic obliquity Impairment R innominate anteriorly rotated/L posteriorly rotated Variable sided Sciatic pain rated 3-8/10. Short Term Goal (STG) Normalize pelvic positioning. 06/26/22: Normalized today 1st time with JMT. 07/01/22: Normalized with correction of L innominate inflare. STG Duration 08/08/22 progressed 07/01/22 Tobacco Educator Goal (LTG) Pt will be able to return to exercise and physically able to walk long distance without pain, >30' or more. LTG Duration 09/22/22 One Impairment Lacks appropriate self care HEP Impairment Excessive lumbar lordosis, stands unequal WBing in LE's, protruding abdomen. Pt not on a self care HEP to manage her bilateral sciatic pain. Short Term Goal (STG) Pt will be educated in proper body mechanics for transfer and ADLs, and proper sitting and standing posture. 07/01/22: Educated in best lying postures and sidelie sleep position. STG Duration 08/08/22 progressed 07/01/22 Tobacco Educator Goal (LTG) Pt will be independent and consistent with a self care HEP to manage her pelvic obliquity and bilateral sciatic pain. 06/26/22: HEP: hip ER/IR stretch. I/S pt to start with only stretch to L side. LTG Duration 09/22/22 progressed Assessment Summary Assessment Inflare on the L innominate; medial malleoli are level; therefore no obvious pelvic rotation. Able to correct inflare on L. Pt able to perform TA ex's with breathing . Pt not able to maintain pelvic stability, possibly due to sidelye sleeping. Pt receptive to modifications in lying to minimize pelvic obliquity. Physical Therapy Plan Frequency and Duration Frequency of Treatment 2x/Week Plan of Care Start Date 06/24/22 Plan of Care End Date 09/22/22 Next Visit Focus/Plan Next Note Type Treatment Note Next Visit Plan Review isssued HEP: trunk L rot & R SB stretch. Posture training (correct lordosis and L/S R shift), Transfer training with proper breathing/PF contractions, body mechanics training ADLs and for return to exercise. HEP: trunk strengthening- protection mld DR, and when pelvis is stable-hip (flex, ext, AD, IR) strengthening. Pt education in use of modalities for pain. Return pt to previous exercise program to improve fitness level.
--- NOTE | 2022-07-01 15:49 | PT.OTN ---
Current Diagnoses Low back pain, unspecified (07/01/22) Physical Therapy Treatment Note PT-OP-A Visit Information Start: 06/09/22 16:49 Freq: Status: Active Protocol: Document 07/01/22 14:27 LRN (Rec: 07/01/22 15:45 LRN [id number]) Out-Patient Physical Therapy Visit Information Visit Information Visit Type Treatment Note Visit Start Time 14:27 Visit Stop Time 15:07 Total Visit Minutes 40 Visit Number 08/17 Evaluation Information Evaluation Date 06/24/22 Precautions Precautions History of post depression and diabetes. Stomach ulcers since 10yo, controlled by meds. PT-OP-B Current Condition Start: 06/09/22 16:49 Freq: Status: Active Protocol: Document 06/24/22 15:21 LRN (Rec: 06/24/22 17:14 LRN [id number]) Current Condition History of Current Condition Onset Date 04/2021 Current Complaints Back pain after fall when , occasional sciatic pain bilaterally. History of Current Condition Was supposed to take PT when because fell and then couldn't walk or stand because of pain. Not able to attend PT due to spouse deployed and with child was not able to attend therapy. She stretches her back out often but persists. When walking grocery shopping when done her back is killing her . Went to chiropractor a couple times post and he did an exam and thought her pelvic bones were open, but treatments didn't help; therefore she went to primary care doctor. She reports sometime niko sciatic pain but today only has R posterior leg pain. Usually lingering pain in sacral region. Sometimes sharp pain across the low back . Has stair climber and treadmill at home. Prior Treatments and Tests Chiropractic treatment 4 months ago for 1 month, 1x/ week in [place]. Spouse helps her with stretches. Developmental History Developmental History Son born 07/20/2021. 1st , miscarried twin and was having pain, first son born 03/18/2020, sons are 16 months, both vaginal . 2nd son slipped on wet deck holding 1st son and twisted left and landed on L hip and L shoulder. Treatment Goals Patient/Caregiver Goals Pt goal is to be able to exercise again and physically able to walk long distance without pain (>30'). Goal to be able to work out to become fit. 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 Prior Functional Status Baseline Function- ADL's Independent Baseline Function- Mobility Independent Current Functional Impairments (Reported) Functional Limitations- ADL's Mother of 2 sons. Spouse just returned from deployment. Spouse helps when having sharp pain, standing and cooking at stove, and assists with LBP standing FB stretching, and supine SKTC & DKTC. Personal Factors Other Personal Factors That May Effect G3, P2 with twin lost during Therapy/Recovery first . Pt has 2 sons, 16 months apart and is currently breast feeding. Pt spouse is in and occasionally on deployment. Pt reports having urinary leakage with laughing and a history of post depression and diabetes. PT-OP-C Subjective Start: 06/09/22 16:49 Freq: Status: Active Protocol: Document 07/01/22 14:27 LRN (Rec: 07/01/22 15:45 LRN [id number]) OP-PT Subjective Patient Comments Patient Comments Pt started period today. Did the ex's. Had a lot of pain yesterday on L side shooting down the posterior hip and leg . Was sore after the last session, then next day more sore. Stomach was sore from exercise. Has been trying not to pick of children at same time or not at all. PT-OP-G Mobility & Gait Start: 06/09/22 16:49 Freq: Status: Active Protocol: Document 06/24/22 15:21 LRN (Rec: 06/24/22 17:14 LRN [id number]) OP Gait Assessment Gait Gait Assistance Required: Independent Able to Maintain Weight Bearing Status Yes During Gait Assistive Devices Assistive Device None Gait Deviations General Gait Pattern Lateral Trunk Lean PT-OP-H Neuro Start: 06/09/22 16:49 Freq: Status: Active Protocol: Document 06/24/22 15:21 LRN (Rec: 06/24/22 17:14 LRN [id number]) Sensation Evaluation Gross Sensation Gross Sensation Right LE Impaired Sensation Description Tingling Comments Summary Comments Posterior aspect of LLE tingling when experiencing sciatic pain. PT-OP-J Posture/Palpation/Skin Start: 06/09/22 16:49 Freq: Status: Active Protocol: Document 06/26/22 15:19 LRN (Rec: 06/26/22 16:29 LRN [id number]) Palpation Assessment Location Abdomen Palpation Location Rectus Diastasis Palpation Details Umbilicus: Above 2 & above 1 - 1.5 fingerwidths & shallow. below 1 is 1 fingerwidth & shallow, Closed remaining length. Low Back Palpation Location Sacrum, Ischium Palpation Details Decreased mob: of L sacral sulcus infer glide & PA, sacral shear glide to R, R Ischium PA. PT-OP-K Range of Motion Start: 06/09/22 16:49 Freq: Status: Active Protocol: Document 06/24/22 15:21 LRN (Rec: 06/24/22 17:14 LRN [id number]) Lumbar Spine Range of Motion Lumbar Spine Active Degrees Testing Position Standing Flexion 135 Extension 10 Rotation Left 35 Rotation Right 45 Lateral Flexion Left 25 Lateral Flexion Right 20 Comments 135/85 10/35 Hip Goniometric Range of Motion Hip Right Passive Testing Position Supine Internal Rotation 25 External Rotation 75 Left Passive Testing Position Supine Internal Rotation 15 External Rotation 70 PT-OP-L Special Tests Start: 06/09/22 16:49 Freq: Status: Active Protocol: Document 06/24/22 15:21 LRN (Rec: 06/24/22 17:14 LRN [id number]) Special Tests Hip Special Tests Straight Leg Raise Test Results - bilaterally Stinchfield Resisted Hip Flexion Test Results + bilaterally Log Roll Test Test Results neg PRESLEY Test Results + R worse than + L PT-OP-M Strength Start: 06/09/22 16:49 Freq: Status: Active Protocol: Document 06/24/22 15:21 LRN (Rec: 06/24/22 17:14 LRN [id number]) Trunk Strength Trunk Manual Muscle Testing Core Stabilization Pt lacks core stability with MMT of LE's due to pain. Hip Strength Hip Manual Muscle Testing Right Flexion (L2) 3+ Fair+ Extension (S1) 3 Fair Adduction 3 Fair Internal Rotation 3+ Fair+ Comments 5/5 except as indicated above. Left Extension (S1) 3 Fair Adduction 2- Poor- Internal Rotation 3 Fair Comments 5/5 except as indicated above. PT-OP-Q Treatments Start: 06/09/22 16:49 Freq: Status: Active Protocol: Document 07/01/22 14:27 LRN (Rec: 07/01/22 15:45 LRN [id number]) Therapeutic Exercises Supine Exercises Lateral Hip stretch Supine Exercise Name Lateral Hip stretch Side left Reps/Minutes 60SH x 1 Comments Extra time to determine max tolerated stretch Piriformis Supine Exercise Name Piriformis Stretch L>R Side bilateral Reps/Minutes 60 SH x 1 Comments Extra time to determine max tolerated stretch. Cuing for painfree stretch. TA tighening Supine Exercise Name TA tightening Reps/Minutes 10 SH x 8 Comments Extra time for pt to be able to perfom properly Sidelying Exercises TA tightening Sidelying Exercise Name TA tightening through 3 breaths Side bilateral Reps/Minutes 10 SH x 10 each Comments Slow count of 10 secs. Pt able to contract TA with phy & v cuing. Manual Therapy Treatment Joint Mobilizations SIJ Joint Correction of a L outflared innominate. Body Position Supine Reps/Duration 12' Comments Able to correct positioning of L innominate. Self-Care/Home Management Treatment Education Patient Education Posture Other Education Pt educated in best lying positions and educated/ discussed sidelie sleeping position. Handout issued. Activities Self-Care/Home Management Activities Issued & reviewed HEP: Lower trunk rot (Only R trunk rot/L lower trunk rot to start), Seated SB stretch & Child's pose lateral (R SB only to start) PT-OP-T Assessment and Plan Start: 06/09/22 16:49 Freq: Status: Active Protocol: Document 07/01/22 14:27 LRN (Rec: 07/01/22 15:45 LRN [id number]) Physical Therapy Assessment Goals Three Impairment Bilateral sciatic pain, intermittent in nature and location Short Term Goal (STG) Decrease Sciatic pain to no greater than 4/10 with no sharp pain. STG Duration 08/08/22 Intermediate Goal (LTG) Pt will be able to return to a work out to become fit. LTG Duration 09/22/22 Two Impairment Pelvic obliquity Impairment R innominate anteriorly rotated/L posteriorly rotated Variable sided Sciatic pain rated 3-8/10. Short Term Goal (STG) Normalize pelvic positioning. 06/26/22: Normalized today 1st time with JMT. 07/01/22: Normalized with correction of L innominate inflare. STG Duration 08/08/22 progressed 07/01/22 Intermediate Goal (LTG) Pt will be able to return to exercise and physically able to walk long distance without pain, >30' or more. LTG Duration 09/22/22 One Impairment Lacks appropriate self care HEP Impairment Excessive lumbar lordosis, stands unequal WBing in LE's, protruding abdomen. Pt not on a self care HEP to manage her bilateral sciatic pain. Short Term Goal (STG) Pt will be educated in proper body mechanics for transfer and ADLs, and proper sitting and standing posture. 07/01/22: Educated in best lying postures and sidelie sleep position. STG Duration 08/08/22 progressed 07/01/22 Pressurizer Goal (LTG) Pt will be independent and consistent with a self care HEP to manage her pelvic obliquity and bilateral sciatic pain. 06/26/22: HEP: hip ER/IR stretch. I/S pt to start with only stretch to L side. LTG Duration 09/22/22 progressed Assessment Summary Assessment Inflare on the L innominate; medial malleoli are level; therefore no obvious pelvic rotation. Able to correct inflare on L. Pt able to perform TA ex's with breathing . Pt not able to maintain pelvic stability, possibly due to sidelye sleeping. Pt receptive to modifications in lying to minimize pelvic obliquity. Physical Therapy Plan Frequency and Duration Frequency of Treatment 2x/Week Plan of Care Start Date 06/24/22 Plan of Care End Date 09/22/22 Next Visit Focus/Plan Next Note Type Treatment Note Next Visit Plan Review isssued HEP: trunk L rot & R SB stretch. Posture training (correct lordosis and L/S R shift), Transfer training with proper breathing/PF contractions, body mechanics training ADLs and for return to exercise. HEP: trunk strengthening- protection mld DR, and when pelvis is stable-hip (flex, ext, AD, IR) strengthening. Pt education in use of modalities for pain. Return pt to previous exercise program to improve fitness level.
--- NOTE | 2022-07-03 16:34 | PT.OTN ---
Current Diagnoses Low back pain, unspecified (07/03/22) Physical Therapy Treatment Note PT-OP-A Visit Information Start: 06/09/22 16:49 Freq: Status: Active Protocol: Document 07/03/22 15:21 LRN (Rec: 07/03/22 16:34 LRN [id number]) Out-Patient Physical Therapy Visit Information Visit Information Visit Type Treatment Note Visit Start Time 15:21 Visit Stop Time 15:50 Total Visit Minutes 29 Visit Number 09/17 Evaluation Information Evaluation Date 06/24/22 Precautions Precautions History of post depression and diabetes. Stomach ulcers since 10yo, controlled by meds. PT-OP-B Current Condition Start: 06/09/22 16:49 Freq: Status: Active Protocol: Document 06/24/22 15:21 LRN (Rec: 06/24/22 17:14 LRN [id number]) Current Condition History of Current Condition Onset Date 04/2021 Current Complaints Back pain after fall when , occasional sciatic pain bilaterally. History of Current Condition Was supposed to take PT when because fell and then couldn't walk or stand because of pain. Not able to attend PT due to spouse deployed and with child was not able to attend therapy. She stretches her back out often but persists. When walking grocery shopping when done her back is killing her . Went to chiropractor a couple times post and he did an exam and thought her pelvic bones were open, but treatments didn't help; therefore she went to primary care doctor. She reports sometime niko sciatic pain but today only has R posterior leg pain. Usually lingering pain in sacral region. Sometimes sharp pain across the low back . Has stair climber and treadmill at home. Prior Treatments and Tests Chiropractic treatment 4 months ago for 1 month, 1x/ week in [place]. Spouse helps her with stretches. Developmental History Developmental History Son born 07/20/2021. 1st , miscarried twin and was having pain, first son born 03/18/2020, sons are 16 months, both vaginal . 2nd son slipped on wet deck holding 1st son and twisted left and landed on L hip and L shoulder. Treatment Goals Patient/Caregiver Goals Pt goal is to be able to exercise again and physically able to walk long distance without pain (>30'). Goal to be able to work out to become fit. 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 Prior Functional Status Baseline Function- ADL's Independent Baseline Function- Mobility Independent Current Functional Impairments (Reported) Functional Limitations- ADL's Mother of 2 sons. Spouse just returned from deployment. Spouse helps when having sharp pain, standing and cooking at stove, and assists with LBP standing FB stretching, and supine SKTC & DKTC. Personal Factors Other Personal Factors That May Effect G3, P2 with twin lost during Therapy/Recovery first . Pt has 2 sons, 16 months apart and is currently breast feeding. Pt spouse is in and occasionally on deployment. Pt reports having urinary leakage with laughing and a history of post depression and diabetes. PT-OP-C Subjective Start: 06/09/22 16:49 Freq: Status: Active Protocol: Document 07/03/22 15:21 LRN (Rec: 07/03/22 16:34 LRN [id number]) OP-PT Subjective Patient Comments Patient Comments Have not had shooting pain on L side since last visit. Had shooting pain over the last weekend. R side is ms soreness from stretching. PT-OP-G Mobility & Gait Start: 06/09/22 16:49 Freq: Status: Active Protocol: Document 06/24/22 15:21 LRN (Rec: 06/24/22 17:14 LRN [id number]) OP Gait Assessment Gait Gait Assistance Required: Independent Able to Maintain Weight Bearing Status Yes During Gait Assistive Devices Assistive Device None Gait Deviations General Gait Pattern Lateral Trunk Lean PT-OP-H Neuro Start: 06/09/22 16:49 Freq: Status: Active Protocol: Document 06/24/22 15:21 LRN (Rec: 06/24/22 17:14 LRN [id number]) Sensation Evaluation Gross Sensation Gross Sensation Right LE Impaired Sensation Description Tingling Comments Summary Comments Posterior aspect of LLE tingling when experiencing sciatic pain. PT-OP-J Posture/Palpation/Skin Start: 06/09/22 16:49 Freq: Status: Active Protocol: Document 06/26/22 15:19 LRN (Rec: 06/26/22 16:29 LRN [id number]) Palpation Assessment Location Abdomen Palpation Location Rectus Diastasis Palpation Details Umbilicus: Above 2 & above 1 - 1.5 fingerwidths & shallow. below 1 is 1 fingerwidth & shallow, Closed remaining length. Low Back Palpation Location Sacrum, Ischium Palpation Details Decreased mob: of L sacral sulcus infer glide & PA, sacral shear glide to R, R Ischium PA. PT-OP-K Range of Motion Start: 06/09/22 16:49 Freq: Status: Active Protocol: Document 06/24/22 15:21 LRN (Rec: 06/24/22 17:14 LRN [id number]) Lumbar Spine Range of Motion Lumbar Spine Active Degrees Testing Position Standing Flexion 135 Extension 10 Rotation Left 35 Rotation Right 45 Lateral Flexion Left 25 Lateral Flexion Right 20 Comments 135/85 10/35 Hip Goniometric Range of Motion Hip Right Passive Testing Position Supine Internal Rotation 25 External Rotation 75 Left Passive Testing Position Supine Internal Rotation 15 External Rotation 70 PT-OP-L Special Tests Start: 06/09/22 16:49 Freq: Status: Active Protocol: Document 06/24/22 15:21 LRN (Rec: 06/24/22 17:14 LRN [id number]) Special Tests Hip Special Tests Straight Leg Raise Test Results - bilaterally Stinchfield Resisted Hip Flexion Test Results + bilaterally Log Roll Test Test Results neg PRESLEY Test Results + R worse than + L PT-OP-M Strength Start: 06/09/22 16:49 Freq: Status: Active Protocol: Document 06/24/22 15:21 LRN (Rec: 06/24/22 17:14 LRN [id number]) Trunk Strength Trunk Manual Muscle Testing Core Stabilization Pt lacks core stability with MMT of LE's due to pain. Hip Strength Hip Manual Muscle Testing Right Flexion (L2) 3+ Fair+ Extension (S1) 3 Fair Adduction 3 Fair Internal Rotation 3+ Fair+ Comments 5/5 except as indicated above. Left Extension (S1) 3 Fair Adduction 2- Poor- Internal Rotation 3 Fair Comments 5/5 except as indicated above. PT-OP-Q Treatments Start: 06/09/22 16:49 Freq: Status: Active Protocol: Document 07/03/22 15:21 LRN (Rec: 07/03/22 16:34 LRN [id number]) Therapeutic Exercises Supine Exercises Trunk Rot Supine Exercise Name L Trunk rot (knee roll L) Side left Reps/Minutes 10SH x 6- 2' Lateral Hip stretch Supine Exercise Name Lateral Hip stretch Side left Reps/Minutes 60SH x 1 Piriformis Supine Exercise Name Piriformis Stretch L>R Side bilateral Reps/Minutes 60 SH x 1 TA tighening Supine Exercise Name Posterior pelvic Tilt (PPT) w/ neck elongation Reps/Minutes 10SH x 10 Comments Extra time for pt to be able to perfom properly Sitting Exercises Trunk SB stretch Sitting Exercise Name Trunk R SB stretch Side right Reps/Minutes 10SH x 6 - 2' Standing Exercises Posture training Standing Exercise Name Standing against wall and away from wall - decreasing lordosis Reps/Minutes 4' Comments Phys cuing for Abdominal tightening and decr lordosis Other Exercises Lateral Child pose Other Exercise Name R SB Child Pose stretch Side right Reps/Minutes 2' Self-Care/Home Management Treatment Education Patient Education Posture Other Education Pt educated in improving posture by decreasing lordosis and monitoring while standing against wall. Educated with neck elongation. Pt education and discussion of proper body mechanics for transfer and ADLs, and proper sitting and standing posture. Activities Self-Care/Home Management Activities Issued handout for: Proper body mechanics for ADLs, & Proper posture standing and sitting. PT-OP-T Assessment and Plan Start: 06/09/22 16:49 Freq: Status: Active Protocol: Document 07/03/22 15:21 LRN (Rec: 07/03/22 16:34 LRN [id number]) Physical Therapy Assessment Goals Three Impairment Bilateral sciatic pain, intermittent in nature and location Short Term Goal (STG) Decrease Sciatic pain to no greater than 4/10 with no sharp pain. STG Duration 08/08/22 Junior Database Administrator Goal (LTG) Pt will be able to return to a work out to become fit. LTG Duration 09/22/22 Two Impairment Pelvic obliquity Impairment R innominate anteriorly rotated/L posteriorly rotated Variable sided Sciatic pain rated 3-8/10. Short Term Goal (STG) Normalize pelvic positioning. 06/26/22: Normalized today 1st time with JMT. 07/01/22: Normalized with correction of L innominate inflare. STG Duration 08/08/22 progressed 07/01/22 Junior Database Administrator Goal (LTG) Pt will be able to return to exercise and physically able to walk long distance without pain, >30' or more. LTG Duration 09/22/22 One Impairment Lacks appropriate self care HEP Impairment Excessive lumbar lordosis, stands unequal WBing in LE's, protruding abdomen. Pt not on a self care HEP to manage her bilateral sciatic pain. Short Term Goal (STG) Pt will be educated in proper body mechanics for transfer and ADLs, and proper sitting and standing posture. 07/01/22: Educated in best lying postures and sidelie sleep position. 07/03/22: Posture training ( correct lordosis) with wall standing & neck elongation, and for proper body mechanics for ADLs, & proper posture standing and sitting. STG Duration 08/08/22 (07/03/22: MET GOAL ) Junior Database Administrator Goal (LTG) Pt will be independent and consistent with a self care HEP to manage her pelvic obliquity and bilateral sciatic pain. 06/26/22: HEP: hip ER/IR stretch. I/S pt to start with only stretch to L side. LTG Duration 09/22/22 progressed Assessment Summary Assessment Good recall of HEP issued last session (trunk L rot & R SB stretch). Pt posture now with upper body SB to L; therefore will have pt stretch trunk bilaterally. No trunk shift R noted. Pt has pain in LB with supine lying, probably due to decreased lumbar mobility with flexion. Pt pain in L LE sciatic pain has lessened in onset. Physical Therapy Plan Frequency and Duration Frequency of Treatment 2x/Week Plan of Care Start Date 06/24/22 Plan of Care End Date 09/22/22 Next Visit Focus/Plan Next Note Type Treatment Note Next Visit Plan Assess for neutral position of pelvis and correct as needed, when pelvis is stable-hip ( flex, ext, AD, IR) strengthening. Transfer training with proper breathing/PF contractions. Pt education in use of modalities for pain. Return pt to previous exercise program to improve fitness level. HEP: trunk strengthening- protection mld
--- NOTE | 2022-07-08 16:15 | PT.OTN ---
Current Diagnoses Low back pain, unspecified (07/08/22) Physical Therapy Treatment Note PT-OP-A Visit Information Start: 06/09/22 16:49 Freq: Status: Active Protocol: Document 07/08/22 15:16 LRN (Rec: 07/08/22 16:13 LRN [id number]) Out-Patient Physical Therapy Visit Information Visit Information Visit Type Treatment Note Visit Start Time 15:16 Visit Stop Time 16:08 Total Visit Minutes 52 Visit Number 10/17 Evaluation Information Evaluation Date 06/24/22 Precautions Precautions History of post depression and diabetes. Stomach ulcers since 10yo, controlled by meds. PT-OP-B Current Condition Start: 06/09/22 16:49 Freq: Status: Active Protocol: Document 06/24/22 15:21 LRN (Rec: 06/24/22 17:14 LRN [id number]) Current Condition History of Current Condition Onset Date 04/2021 Current Complaints Back pain after fall when , occasional sciatic pain bilaterally. History of Current Condition Was supposed to take PT when because fell and then couldn't walk or stand because of pain. Not able to attend PT due to spouse deployed and with child was not able to attend therapy. She stretches her back out often but persists. When walking grocery shopping when done her back is killing her . Went to chiropractor a couple times post and he did an exam and thought her pelvic bones were open, but treatments didn't help; therefore she went to primary care doctor. She reports sometime niko sciatic pain but today only has R posterior leg pain. Usually lingering pain in sacral region. Sometimes sharp pain across the low back . Has stair climber and treadmill at home. Prior Treatments and Tests Chiropractic treatment 4 months ago for 1 month, 1x/ week in [place]. Spouse helps her with stretches. Developmental History Developmental History Son born 07/20/2021. 1st , miscarried twin and was having pain, first son born 03/18/2020, sons are 16 months, both vaginal . 2nd son slipped on wet deck holding 1st son and twisted left and landed on L hip and L shoulder. Treatment Goals Patient/Caregiver Goals Pt goal is to be able to exercise again and physically able to walk long distance without pain (>30'). Goal to be able to work out to become fit. 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 Prior Functional Status Baseline Function- ADL's Independent Baseline Function- Mobility Independent Current Functional Impairments (Reported) Functional Limitations- ADL's Mother of 2 sons. Spouse just returned from deployment. Spouse helps when having sharp pain, standing and cooking at stove, and assists with LBP standing FB stretching, and supine SKTC & DKTC. Personal Factors Other Personal Factors That May Effect G3, P2 with twin lost during Therapy/Recovery first . Pt has 2 sons, 16 months apart and is currently breast feeding. Pt spouse is in and occasionally on deployment. Pt reports having urinary leakage with laughing and a history of post depression and diabetes. PT-OP-C Subjective Start: 06/09/22 16:49 Freq: Status: Active Protocol: Document 07/08/22 15:16 LRN (Rec: 07/08/22 16:13 LRN [id number]) OP-PT Subjective Patient Comments Patient Comments States she has not been popping her back so her back feels stiff. Not as much shooting down the L leg, so not as much problem sleeping. Used to be a side sleeper and with use of pillow btn knees and support under L/S curvature, having less pain. Hard to stand and cook and to pick child up from crib. PT-OP-G Mobility & Gait Start: 06/09/22 16:49 Freq: Status: Active Protocol: Document 06/24/22 15:21 LRN (Rec: 06/24/22 17:14 LRN [id number]) OP Gait Assessment Gait Gait Assistance Required: Independent Able to Maintain Weight Bearing Status Yes During Gait Assistive Devices Assistive Device None Gait Deviations General Gait Pattern Lateral Trunk Lean PT-OP-H Neuro Start: 06/09/22 16:49 Freq: Status: Active Protocol: Document 06/24/22 15:21 LRN (Rec: 06/24/22 17:14 LRN [id number]) Sensation Evaluation Gross Sensation Gross Sensation Right LE Impaired Sensation Description Tingling Comments Summary Comments Posterior aspect of LLE tingling when experiencing sciatic pain. PT-OP-J Posture/Palpation/Skin Start: 06/09/22 16:49 Freq: Status: Active Protocol: Document 06/26/22 15:19 LRN (Rec: 06/26/22 16:29 LRN [id number]) Palpation Assessment Location Abdomen Palpation Location Rectus Diastasis Palpation Details Umbilicus: Above 2 & above 1 - 1.5 fingerwidths & shallow. below 1 is 1 fingerwidth & shallow, Closed remaining length. Low Back Palpation Location Sacrum, Ischium Palpation Details Decreased mob: of L sacral sulcus infer glide & PA, sacral shear glide to R, R Ischium PA. PT-OP-K Range of Motion Start: 06/09/22 16:49 Freq: Status: Active Protocol: Document 06/24/22 15:21 LRN (Rec: 06/24/22 17:14 LRN [id number]) Lumbar Spine Range of Motion Lumbar Spine Active Degrees Testing Position Standing Flexion 135 Extension 10 Rotation Left 35 Rotation Right 45 Lateral Flexion Left 25 Lateral Flexion Right 20 Comments 135/85 10/35 Hip Goniometric Range of Motion Hip Right Passive Testing Position Supine Internal Rotation 25 External Rotation 75 Left Passive Testing Position Supine Internal Rotation 15 External Rotation 70 PT-OP-L Special Tests Start: 06/09/22 16:49 Freq: Status: Active Protocol: Document 06/24/22 15:21 LRN (Rec: 06/24/22 17:14 LRN [id number]) Special Tests Hip Special Tests Straight Leg Raise Test Results - bilaterally Stinchfield Resisted Hip Flexion Test Results + bilaterally Log Roll Test Test Results neg PRESLEY Test Results + R worse than + L PT-OP-M Strength Start: 06/09/22 16:49 Freq: Status: Active Protocol: Document 06/24/22 15:21 LRN (Rec: 06/24/22 17:14 LRN [id number]) Trunk Strength Trunk Manual Muscle Testing Core Stabilization Pt lacks core stability with MMT of LE's due to pain. Hip Strength Hip Manual Muscle Testing Right Flexion (L2) 3+ Fair+ Extension (S1) 3 Fair Adduction 3 Fair Internal Rotation 3+ Fair+ Comments 5/5 except as indicated above. Left Extension (S1) 3 Fair Adduction 2- Poor- Internal Rotation 3 Fair Comments 5/5 except as indicated above. PT-OP-Q Treatments Start: 06/09/22 16:49 Freq: Status: Active Protocol: Document 07/08/22 15:16 LRN (Rec: 07/08/22 16:13 LRN [id number]) Therapeutic Exercises Supine Exercises Trunk Rot Supine Exercise Name L Trunk rot (knee roll L) Side left Reps/Minutes 10SH x 6- 2' Lateral Hip stretch Supine Exercise Name Lateral Hip stretch Side left Reps/Minutes 30SH x 2 Piriformis Supine Exercise Name Piriformis Stretch L>R Side bilateral Reps/Minutes 30 SH x 1 Manual Therapy Treatment Soft Tissue Mobilization Sacral balancing Body Location Sacrum, L Ischial Tub Mobilization Type Myofascial Release,Sustained Pressure Intensity/Depth Moderate Body Position Prone Comments Corrected decreased mob of Sacral sulcus: L infer glide, L PA; Sacral shear to R, L TIFFANIE & Ischial Tub. PT-OP-T Assessment and Plan Start: 06/09/22 16:49 Freq: Status: Active Protocol: Document 07/08/22 15:16 LRN (Rec: 07/08/22 16:13 LRN [id number]) Physical Therapy Assessment Goals Three Impairment Bilateral sciatic pain, intermittent in nature and location Short Term Goal (STG) Decrease Sciatic pain to no greater than 4/10 with no sharp pain. 07/08/22: Lessening of sharp pain. STG Duration 08/08/22 Project Executive Goal (LTG) Pt will be able to return to a work out to become fit. LTG Duration 09/22/22 Two Impairment Pelvic obliquity Impairment R innominate anteriorly rotated/L posteriorly rotated Variable sided Sciatic pain rated 3-8/10. Short Term Goal (STG) Normalize pelvic positioning. 06/26/22: Normalized today 1st time with JMT. 07/01/22: Normalized with correction of L innominate inflare. 07/08/22: Corrected sacral imbalance STG Duration 08/08/22 progressed 07/08/22 Detention Goal (LTG) Pt will be able to return to exercise and physically able to walk long distance without pain, >30' or more. LTG Duration 09/22/22 One Impairment Lacks appropriate self care HEP Impairment Excessive lumbar lordosis, stands unequal WBing in LE's, protruding abdomen. Pt not on a self care HEP to manage her bilateral sciatic pain. Short Term Goal (STG) Pt will be educated in proper body mechanics for transfer and ADLs, and proper sitting and standing posture. 07/01/22: Educated in best lying postures and sidelie sleep position. 07/03/22: Posture training ( correct lordosis) with wall standing & neck elongation, and for proper body mechanics for ADLs, & proper posture standing and sitting. STG Duration 08/08/22 (MET GOAL 07/03/22) Project Executive Goal (LTG) Pt will be independent and consistent with a self care HEP to manage her pelvic obliquity and bilateral sciatic pain. 06/26/22: HEP: hip ER/IR stretch. I/S pt to start with only stretch to L side. LTG Duration 09/22/22 progressed Assessment Summary Assessment Decreased mob of Sacral sulcus : L infer glide, L PA; Sacral shear to R, L TIFFANIE & Ischium. Corrected decreased mobility with pt sore in LB after treatment. Physical Therapy Plan Frequency and Duration Frequency of Treatment 2x/Week Plan of Care Start Date 06/24/22 Plan of Care End Date 09/22/22 Next Visit Focus/Plan Next Note Type Treatment Note Next Visit Plan Assess for neutral position of pelvis and correct as needed, when pelvis is stable-hip ( flex, ext, AD, IR) strengthening. Transfer training with proper breathing/PF contractions. Pt education in use of modalities for pain. Return pt to previous exercise program to improve fitness level. HEP: trunk strengthening- protection mld
--- NOTE | 2022-07-10 16:34 | PT.OTN ---
Current Diagnoses Low back pain, unspecified (07/10/22) Physical Therapy Treatment Note PT-OP-A Visit Information Start: 06/09/22 16:49 Freq: Status: Active Protocol: Document 07/10/22 15:24 LRN (Rec: 07/10/22 16:32 LRN [id number]) Out-Patient Physical Therapy Visit Information Visit Information Visit Type Treatment Note Visit Start Time 15:24 Visit Stop Time 16:12 Total Visit Minutes 48 Evaluation Information Evaluation Date 06/24/22 Precautions Precautions History of post depression and diabetes. Stomach ulcers since 10yo, controlled by meds. PT-OP-B Current Condition Start: 06/09/22 16:49 Freq: Status: Active Protocol: Document 06/24/22 15:21 LRN (Rec: 06/24/22 17:14 LRN [id number]) Current Condition History of Current Condition Onset Date 04/2021 Current Complaints Back pain after fall when , occasional sciatic pain bilaterally. History of Current Condition Was supposed to take PT when because fell and then couldn't walk or stand because of pain. Not able to attend PT due to spouse deployed and with child was not able to attend therapy. She stretches her back out often but persists. When walking grocery shopping when done her back is killing her . Went to chiropractor a couple times post and he did an exam and thought her pelvic bones were open, but treatments didn't help; therefore she went to primary care doctor. She reports sometime niko sciatic pain but today only has R posterior leg pain. Usually lingering pain in sacral region. Sometimes sharp pain across the low back . Has stair climber and treadmill at home. Prior Treatments and Tests Chiropractic treatment 4 months ago for 1 month, 1x/ week in [place]. Spouse helps her with stretches. Developmental History Developmental History Son born 07/20/2021. 1st , miscarried twin and was having pain, first son born 03/18/2020, sons are 16 months, both vaginal . 2nd son slipped on wet deck holding 1st son and twisted left and landed on L hip and L shoulder. Treatment Goals Patient/Caregiver Goals Pt goal is to be able to exercise again and physically able to walk long distance without pain (>30'). Goal to be able to work out to become fit. 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 Prior Functional Status Baseline Function- ADL's Independent Baseline Function- Mobility Independent Current Functional Impairments (Reported) Functional Limitations- ADL's Mother of 2 sons. Spouse just returned from deployment. Spouse helps when having sharp pain, standing and cooking at stove, and assists with LBP standing FB stretching, and supine SKTC & DKTC. Personal Factors Other Personal Factors That May Effect G3, P2 with twin lost during Therapy/Recovery first . Pt has 2 sons, 16 months apart and is currently breast feeding. Pt spouse is in and occasionally on deployment. Pt reports having urinary leakage with laughing and a history of post depression and diabetes. PT-OP-C Subjective Start: 06/09/22 16:49 Freq: Status: Active Protocol: Document 07/10/22 15:24 LRN (Rec: 07/10/22 16:32 LRN [id number]) OP-PT Subjective Patient Comments Patient Comments States was sore after last session and used a lot of ice, but the next day was able to stand cooking w/o sharp pain. Sleeping the first night sore , last night better and not as much, no shooting pain the 2nd night after last session. PT-OP-G Mobility & Gait Start: 06/09/22 16:49 Freq: Status: Active Protocol: Document 06/24/22 15:21 LRN (Rec: 06/24/22 17:14 LRN [id number]) OP Gait Assessment Gait Gait Assistance Required: Independent Able to Maintain Weight Bearing Status Yes During Gait Assistive Devices Assistive Device None Gait Deviations General Gait Pattern Lateral Trunk Lean PT-OP-H Neuro Start: 06/09/22 16:49 Freq: Status: Active Protocol: Document 06/24/22 15:21 LRN (Rec: 06/24/22 17:14 LRN [id number]) Sensation Evaluation Gross Sensation Gross Sensation Right LE Impaired Sensation Description Tingling Comments Summary Comments Posterior aspect of LLE tingling when experiencing sciatic pain. PT-OP-J Posture/Palpation/Skin Start: 06/09/22 16:49 Freq: Status: Active Protocol: Document 06/26/22 15:19 LRN (Rec: 06/26/22 16:29 LRN [id number]) Palpation Assessment Location Abdomen Palpation Location Rectus Diastasis Palpation Details Umbilicus: Above 2 & above 1 - 1.5 fingerwidths & shallow. below 1 is 1 fingerwidth & shallow, Closed remaining length. Low Back Palpation Location Sacrum, Ischium Palpation Details Decreased mob: of L sacral sulcus infer glide & PA, sacral shear glide to R, R Ischium PA. PT-OP-K Range of Motion Start: 06/09/22 16:49 Freq: Status: Active Protocol: Document 06/24/22 15:21 LRN (Rec: 06/24/22 17:14 LRN [id number]) Lumbar Spine Range of Motion Lumbar Spine Active Degrees Testing Position Standing Flexion 135 Extension 10 Rotation Left 35 Rotation Right 45 Lateral Flexion Left 25 Lateral Flexion Right 20 Comments 135/85 10/35 Hip Goniometric Range of Motion Hip Right Passive Testing Position Supine Internal Rotation 25 External Rotation 75 Left Passive Testing Position Supine Internal Rotation 15 External Rotation 70 PT-OP-L Special Tests Start: 06/09/22 16:49 Freq: Status: Active Protocol: Document 06/24/22 15:21 LRN (Rec: 06/24/22 17:14 LRN [id number]) Special Tests Hip Special Tests Straight Leg Raise Test Results - bilaterally Stinchfield Resisted Hip Flexion Test Results + bilaterally Log Roll Test Test Results neg PRESLEY Test Results + R worse than + L PT-OP-M Strength Start: 06/09/22 16:49 Freq: Status: Active Protocol: Document 06/24/22 15:21 LRN (Rec: 06/24/22 17:14 LRN [id number]) Trunk Strength Trunk Manual Muscle Testing Core Stabilization Pt lacks core stability with MMT of LE's due to pain. Hip Strength Hip Manual Muscle Testing Right Flexion (L2) 3+ Fair+ Extension (S1) 3 Fair Adduction 3 Fair Internal Rotation 3+ Fair+ Comments 5/5 except as indicated above. Left Extension (S1) 3 Fair Adduction 2- Poor- Internal Rotation 3 Fair Comments 5/5 except as indicated above. PT-OP-Q Treatments Start: 06/09/22 16:49 Freq: Status: Active Protocol: Document 07/10/22 15:24 LRN (Rec: 07/10/22 16:32 LRN [id number]) Manual Therapy Treatment Soft Tissue Mobilization Pubic balancing Body Location Pubic bones Mobilization Type Myofascial Release,Sustained Pressure Intensity/Depth Moderate Body Position Supine Sacral balancing Body Location Sacrum, L Ischial Tub Mobilization Type Myofascial Release,Sustained Pressure Intensity/Depth Moderate Body Position Prone Comments Corrected decreased mob of Sacral sulcus: L infer glide, L PA; Sacral shear to L, L TIFFANIE & Ischial Tub PA. Self-Care/Home Management Treatment Education Patient Education Body Mechanics,Posture Other Education Pt brief education of proper posture standing and sitting and Hernandez to Safe Movement, Body Mechanics for ADLs and basic mechanics. Activities Self-Care/Home Management Activities Handouts re-issued and briefly reviewed for proper posture standing and sitting and Hernandez to Safe Movement, Body Mechanics for ADLs and basic mechanics. PT-OP-T Assessment and Plan Start: 06/09/22 16:49 Freq: Status: Active Protocol: Document 07/10/22 15:24 LRN (Rec: 07/10/22 16:32 LRN [id number]) Physical Therapy Assessment Goals Three Impairment Bilateral sciatic pain, intermittent in nature and location Short Term Goal (STG) Decrease Sciatic pain to no greater than 4/10 with no sharp pain. 07/08/22: Lessening of sharp pain. 07/10/22: No sharp pain yesterday standing to cook. STG Duration 08/08/22 progressing 07/10/22 Nursing Home Goal (LTG) Pt will be able to return to a work out to become fit. LTG Duration 09/22/22 Two Impairment Pelvic obliquity Impairment R innominate anteriorly rotated/L posteriorly rotated Variable sided Sciatic pain rated 3-8/10. Short Term Goal (STG) Normalize pelvic positioning. 06/26/22: Normalized today 1st time with JMT. 07/01/22: Normalized with correction of L innominate inflare. 07/08/22: Corrected sacral imbalance. 07/10/22: Corrected most sacral imbalance. STG Duration 08/08/22 progressed 07/10/22 Process Supervisor Goal (LTG) Pt will be able to return to exercise and physically able to walk long distance without pain, >30' or more. LTG Duration 09/22/22 One Impairment Lacks appropriate self care HEP Impairment Excessive lumbar lordosis, stands unequal WBing in LE's, protruding abdomen. Pt not on a self care HEP to manage her bilateral sciatic pain. Short Term Goal (STG) Pt will be educated in proper body mechanics for transfer and ADLs, and proper sitting and standing posture. 07/01/22: Educated in best lying postures and sidelie sleep position. 07/03/22: Posture training ( correct lordosis) with wall standing & neck elongation, and for proper body mechanics for ADLs, & proper posture standing and sitting. 07/10/22: Pt educated in log roll transfer sup<>sit. Educated pt in proper standing and sitting posture, and proper body mechanics for ADLs , with handouts issued. STG Duration 08/08/22 (MET GOAL 07/10/22) Process Supervisor Goal (LTG) Pt will be independent and consistent with a self care HEP to manage her pelvic obliquity and bilateral sciatic pain. 06/26/22: HEP: hip ER/IR stretch. I/S pt to start with only stretch to L side. LTG Duration 09/22/22 progressed Assessment Summary Assessment Sacral sulcus tightness L infer glide & PA, R Sacral shear, L TIFFANIE PA, L Ishium. Able to correct sacrum/ischium , but not able to close at pubic bones. Pt moves legs independently; therefore needs to start moving symmetrically with transfers until stability of pelvis is obtained. Physical Therapy Plan Frequency and Duration Frequency of Treatment 2x/Week Plan of Care Start Date 06/24/22 Plan of Care End Date 09/22/22 Next Visit Focus/Plan Next Note Type Treatment Note Next Visit Plan Check for neutral position of pelvis and finish with pub correction. When pelvis is stable, start hip (flex, ext, AD, IR) strengthening. Transfer training with proper breathing/PF contractions. Pt education in use of modalities for pain. Return pt to previous exercise program to improve fitness level. HEP: trunk strengthening- protection mld
--- NOTE | 2022-07-15 17:59 | PT.OTN ---
Current Diagnoses Low back pain, unspecified (07/15/22) Physical Therapy Treatment Note PT-OP-A Visit Information Start: 06/09/22 16:49 Freq: Status: Active Protocol: Document 07/15/22 15:16 LRN (Rec: 07/15/22 17:58 LRN [id number]) Out-Patient Physical Therapy Visit Information Visit Information Visit Type Treatment Note Visit Start Time 15:16 Visit Stop Time 16:00 Total Visit Minutes 44 Visit Number 12/17 Evaluation Information Evaluation Date 06/24/22 Precautions Precautions History of post depression and diabetes. Stomach ulcers since 10yo, controlled by meds. PT-OP-B Current Condition Start: 06/09/22 16:49 Freq: Status: Active Protocol: Document 06/24/22 15:21 LRN (Rec: 06/24/22 17:14 LRN [id number]) Current Condition History of Current Condition Onset Date 04/2021 Current Complaints Back pain after fall when , occasional sciatic pain bilaterally. History of Current Condition Was supposed to take PT when because fell and then couldn't walk or stand because of pain. Not able to attend PT due to spouse deployed and with child was not able to attend therapy. She stretches her back out often but persists. When walking grocery shopping when done her back is killing her . Went to chiropractor a couple times post and he did an exam and thought her pelvic bones were open, but treatments didn't help; therefore she went to primary care doctor. She reports sometime niko sciatic pain but today only has R posterior leg pain. Usually lingering pain in sacral region. Sometimes sharp pain across the low back . Has stair climber and treadmill at home. Prior Treatments and Tests Chiropractic treatment 4 months ago for 1 month, 1x/ week in [place]. Spouse helps her with stretches. Developmental History Developmental History Son born 07/20/2021. 1st , miscarried twin and was having pain, first son born 03/18/2020, sons are 16 months, both vaginal . 2nd son slipped on wet deck holding 1st son and twisted left and landed on L hip and L shoulder. Treatment Goals Patient/Caregiver Goals Pt goal is to be able to exercise again and physically able to walk long distance without pain (>30'). Goal to be able to work out to become fit. 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 Prior Functional Status Baseline Function- ADL's Independent Baseline Function- Mobility Independent Current Functional Impairments (Reported) Functional Limitations- ADL's Mother of 2 sons. Spouse just returned from deployment. Spouse helps when having sharp pain, standing and cooking at stove, and assists with LBP standing FB stretching, and supine SKTC & DKTC. Personal Factors Other Personal Factors That May Effect G3, P2 with twin lost during Therapy/Recovery first . Pt has 2 sons, 16 months apart and is currently breast feeding. Pt spouse is in and occasionally on deployment. Pt reports having urinary leakage with laughing and a history of post depression and diabetes. PT-OP-C Subjective Start: 06/09/22 16:49 Freq: Status: Active Protocol: Document 07/15/22 15:16 LRN (Rec: 07/15/22 17:58 LRN [id number]) OP-PT Subjective Patient Comments Patient Comments Last 3 nights in a row her baby has not slept and she has been leaning over the crib more. Back felt better the day after the last session, but after shopping started to have more pain. PT-OP-G Mobility & Gait Start: 06/09/22 16:49 Freq: Status: Active Protocol: Document 06/24/22 15:21 LRN (Rec: 06/24/22 17:14 LRN [id number]) OP Gait Assessment Gait Gait Assistance Required: Independent Able to Maintain Weight Bearing Status Yes During Gait Assistive Devices Assistive Device None Gait Deviations General Gait Pattern Lateral Trunk Lean PT-OP-H Neuro Start: 06/09/22 16:49 Freq: Status: Active Protocol: Document 06/24/22 15:21 LRN (Rec: 06/24/22 17:14 LRN [id number]) Sensation Evaluation Gross Sensation Gross Sensation Right LE Impaired Sensation Description Tingling Comments Summary Comments Posterior aspect of LLE tingling when experiencing sciatic pain. PT-OP-J Posture/Palpation/Skin Start: 06/09/22 16:49 Freq: Status: Active Protocol: Document 07/15/22 15:16 LRN (Rec: 07/15/22 17:58 LRN [id number]) Palpation Assessment Location Abdomen Palpation Location ASIS Palpation Details Inflare on L, tight L. Leg length Palpation Location Level PT-OP-K Range of Motion Start: 06/09/22 16:49 Freq: Status: Active Protocol: Document 06/24/22 15:21 LRN (Rec: 06/24/22 17:14 LRN [id number]) Lumbar Spine Range of Motion Lumbar Spine Active Degrees Testing Position Standing Flexion 135 Extension 10 Rotation Left 35 Rotation Right 45 Lateral Flexion Left 25 Lateral Flexion Right 20 Comments 135/85 10/35 Hip Goniometric Range of Motion Hip Right Passive Testing Position Supine Internal Rotation 25 External Rotation 75 Left Passive Testing Position Supine Internal Rotation 15 External Rotation 70 PT-OP-L Special Tests Start: 06/09/22 16:49 Freq: Status: Active Protocol: Document 06/24/22 15:21 LRN (Rec: 06/24/22 17:14 LRN [id number]) Special Tests Hip Special Tests Straight Leg Raise Test Results - bilaterally Stinchfield Resisted Hip Flexion Test Results + bilaterally Log Roll Test Test Results neg PRESLEY Test Results + R worse than + L PT-OP-M Strength Start: 06/09/22 16:49 Freq: Status: Active Protocol: Document 06/24/22 15:21 LRN (Rec: 06/24/22 17:14 LRN [id number]) Trunk Strength Trunk Manual Muscle Testing Core Stabilization Pt lacks core stability with MMT of LE's due to pain. Hip Strength Hip Manual Muscle Testing Right Flexion (L2) 3+ Fair+ Extension (S1) 3 Fair Adduction 3 Fair Internal Rotation 3+ Fair+ Comments 5/5 except as indicated above. Left Extension (S1) 3 Fair Adduction 2- Poor- Internal Rotation 3 Fair Comments 5/5 except as indicated above. PT-OP-Q Treatments Start: 06/09/22 16:49 Freq: Status: Active Protocol: Document 07/15/22 15:16 LRN (Rec: 07/15/22 17:58 LRN [id number]) Therapeutic Exercises Supine Exercises Hands/knees push Supine Exercise Name Hands/knees push - with mild head lift Side bilateral Equipment Used Pillow Reps/Minutes 10 SH x 10 Comments Cuing to breath through chest with holding of TA. Pube correction Supine Exercise Name Pube correction Side bilateral Reps/Minutes 10 SH x 10 each in each direction with increasing ER range DKTC Supine Exercise Name Assisted DKTC stretch Side bilateral Reps/Minutes 10 SH x 10 Trunk Rot Supine Exercise Name L Trunk rot (knee roll L) Side left Reps/Minutes 10SH x 6- 2' Lateral Hip stretch Supine Exercise Name Lateral Hip stretch Side left Reps/Minutes 30SH x 2 Piriformis Supine Exercise Name Piriformis Stretch L>R Side bilateral Reps/Minutes 30 SH x 2 on L, 30 SH x 1 R Manual Therapy Treatment Soft Tissue Mobilization Abdomen Body Location Lower abdomen - area of Urachus Mobilization Type Sustained Pressure Intensity/Depth Moderate Obliques Body Location Obliques L>R Mobilization Type Sustained Pressure Intensity/Depth Moderate Body Position Hooklying Comments Good tolerance, L tighter than R. PT-OP-T Assessment and Plan Start: 06/09/22 16:49 Freq: Status: Active Protocol: Document 07/15/22 15:16 LRN (Rec: 07/15/22 17:58 LRN [id number]) Physical Therapy Assessment Goals Three Impairment Bilateral sciatic pain, intermittent in nature and location Short Term Goal (STG) Decrease Sciatic pain to no greater than 4/10 with no sharp pain. 07/08/22: Lessening of sharp pain. 07/10/22: No sharp pain yesterday standing to cook. STG Duration 08/08/22 progressing 07/10/22 Halfway Goal (LTG) Pt will be able to return to a work out to become fit. LTG Duration 09/22/22 Two Impairment Pelvic obliquity Impairment R innominate anteriorly rotated/L posteriorly rotated Variable sided Sciatic pain rated 3-8/10. Short Term Goal (STG) Normalize pelvic positioning. 06/26/22: Normalized today 1st time with JMT. 07/01/22: Normalized with correction of L innominate inflare. 07/08/22: Corrected sacral imbalance. 07/10/22: Corrected most sacral imbalance. 07/15/22: Normalized pelvis with back pain. STG Duration 08/08/22 progressed 07/15/22 Stenotypist Goal (LTG) Pt will be able to return to exercise and physically able to walk long distance without pain, >30' or more. LTG Duration 09/22/22 One Impairment Lacks appropriate self care HEP Impairment Excessive lumbar lordosis, stands unequal WBing in LE's, protruding abdomen. Pt not on a self care HEP to manage her bilateral sciatic pain. Short Term Goal (STG) Pt will be educated in proper body mechanics for transfer and ADLs, and proper sitting and standing posture. 07/01/22: Educated in best lying postures and sidelie sleep position. 07/03/22: Posture training ( correct lordosis) with wall standing & neck elongation, and for proper body mechanics for ADLs, & proper posture standing and sitting. 07/10/22: Pt educated in log roll transfer sup<>sit. Educated pt in proper standing and sitting posture, and proper body mechanics for ADLs , with handouts issued. STG Duration 08/08/22 (MET GOAL 07/10/22) Halfway Goal (LTG) Pt will be independent and consistent with a self care HEP to manage her pelvic obliquity and bilateral sciatic pain. 06/26/22: HEP: hip ER/IR stretch. I/S pt to start with only stretch to L side. LTG Duration 09/22/22 progressed Assessment Summary Assessment Rehab s/p , for pelvic obliquity/SI dysfunction, initially w/R innominate anteriorly rotated and possible sacral rotation. Pt appeared in alignment for rotation, but was slightly inflared on the left. She appeared tight in L obliques and was tight in abdomen in region of urachus and small intestines. + response to STM and ex as pt had non pain with gait and standing after therapy. Physical Therapy Plan Frequency and Duration Frequency of Treatment 2x/Week Plan of Care Start Date 06/24/22 Plan of Care End Date 09/22/22 Next Visit Focus/Plan Next Note Type Treatment Note Next Visit Plan Check for neutral position of pelvis and finish with pub correction. Transfer training with proper breathing/PF contractions. Pt education in use of modalities for pain. If pelvis is stable, start hip (flex, ext, AD, IR) strengthening. Return pt to previous exercise program to improve fitness level. HEP: trunk strengthening- protection mld
--- NOTE | 2022-07-18 17:06 | PT.OTN ---
Current Diagnoses Low back pain, unspecified (07/18/22) Physical Therapy Treatment Note PT-OP-A Visit Information Start: 06/09/22 16:49 Freq: Status: Active Protocol: Document 07/18/22 09:52 LRN (Rec: 07/18/22 10:36 LRN [id number]) Out-Patient Physical Therapy Visit Information Visit Information Visit Type Treatment Note Visit Start Time 09:52 Visit Stop Time 10:33 Total Visit Minutes 41 Visit Number 01/17 Evaluation Information Evaluation Date 06/24/22 Precautions Precautions History of post depression and diabetes. Stomach ulcers since 10yo, controlled by meds. PT-OP-B Current Condition Start: 06/09/22 16:49 Freq: Status: Active Protocol: Document 06/24/22 15:21 LRN (Rec: 06/24/22 17:14 LRN [id number]) Current Condition History of Current Condition Onset Date 04/2021 Current Complaints Back pain after fall when , occasional sciatic pain bilaterally. History of Current Condition Was supposed to take PT when because fell and then couldn't walk or stand because of pain. Not able to attend PT due to spouse deployed and with child was not able to attend therapy. She stretches her back out often but persists. When walking grocery shopping when done her back is killing her . Went to chiropractor a couple times post and he did an exam and thought her pelvic bones were open, but treatments didn't help; therefore she went to primary care doctor. She reports sometime niko sciatic pain but today only has R posterior leg pain. Usually lingering pain in sacral region. Sometimes sharp pain across the low back . Has stair climber and treadmill at home. Prior Treatments and Tests Chiropractic treatment 4 months ago for 1 month, 1x/ week in [place]. Spouse helps her with stretches. Developmental History Developmental History Son born 07/20/2021. 1st , miscarried twin and was having pain, first son born 03/18/2020, sons are 16 months, both vaginal . 2nd son slipped on wet deck holding 1st son and twisted left and landed on L hip and L shoulder. Treatment Goals Patient/Caregiver Goals Pt goal is to be able to exercise again and physically able to walk long distance without pain (>30'). Goal to be able to work out to become fit. 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 Prior Functional Status Baseline Function- ADL's Independent Baseline Function- Mobility Independent Current Functional Impairments (Reported) Functional Limitations- ADL's Mother of 2 sons. Spouse just returned from deployment. Spouse helps when having sharp pain, standing and cooking at stove, and assists with LBP standing FB stretching, and supine SKTC & DKTC. Personal Factors Other Personal Factors That May Effect G3, P2 with twin lost during Therapy/Recovery first . Pt has 2 sons, 16 months apart and is currently breast feeding. Pt spouse is in and occasionally on deployment. Pt reports having urinary leakage with laughing and a history of post depression and diabetes. PT-OP-C Subjective Start: 06/09/22 16:49 Freq: Status: Active Protocol: Document 07/18/22 09:52 LRN (Rec: 07/18/22 10:36 LRN [id number]) OP-PT Subjective Patient Comments Patient Comments [place] good after last session and was able to walk around a loop with a slight incline x 2 (usually can't make it around . [place]away the muscles are more sore in the legs, and the back is the same. She states after the last session she had pain but was able to do activities. Back pain rated 4/10. After therapy and use of CP, rated 1-2/10. PT-OP-G Mobility & Gait Start: 06/09/22 16:49 Freq: Status: Active Protocol: Document 06/24/22 15:21 LRN (Rec: 06/24/22 17:14 LRN [id number]) OP Gait Assessment Gait Gait Assistance Required: Independent Able to Maintain Weight Bearing Status Yes During Gait Assistive Devices Assistive Device None Gait Deviations General Gait Pattern Lateral Trunk Lean PT-OP-H Neuro Start: 06/09/22 16:49 Freq: Status: Active Protocol: Document 06/24/22 15:21 LRN (Rec: 06/24/22 17:14 LRN [id number]) Sensation Evaluation Gross Sensation Gross Sensation Right LE Impaired Sensation Description Tingling Comments Summary Comments Posterior aspect of LLE tingling when experiencing sciatic pain. PT-OP-J Posture/Palpation/Skin Start: 06/09/22 16:49 Freq: Status: Active Protocol: Document 07/15/22 15:16 LRN (Rec: 07/15/22 17:58 LRN [id number]) Palpation Assessment Location Abdomen Palpation Location ASIS Palpation Details Inflare on L, tight L. Leg length Palpation Location Level PT-OP-K Range of Motion Start: 06/09/22 16:49 Freq: Status: Active Protocol: Document 06/24/22 15:21 LRN (Rec: 06/24/22 17:14 LRN [id number]) Lumbar Spine Range of Motion Lumbar Spine Active Degrees Testing Position Standing Flexion 135 Extension 10 Rotation Left 35 Rotation Right 45 Lateral Flexion Left 25 Lateral Flexion Right 20 Comments 135/85 10/35 Hip Goniometric Range of Motion Hip Right Passive Testing Position Supine Internal Rotation 25 External Rotation 75 Left Passive Testing Position Supine Internal Rotation 15 External Rotation 70 PT-OP-L Special Tests Start: 06/09/22 16:49 Freq: Status: Active Protocol: Document 06/24/22 15:21 LRN (Rec: 06/24/22 17:14 LRN [id number]) Special Tests Hip Special Tests Straight Leg Raise Test Results - bilaterally Stinchfield Resisted Hip Flexion Test Results + bilaterally Log Roll Test Test Results neg PRESLEY Test Results + R worse than + L PT-OP-M Strength Start: 06/09/22 16:49 Freq: Status: Active Protocol: Document 06/24/22 15:21 LRN (Rec: 06/24/22 17:14 LRN [id number]) Trunk Strength Trunk Manual Muscle Testing Core Stabilization Pt lacks core stability with MMT of LE's due to pain. Hip Strength Hip Manual Muscle Testing Right Flexion (L2) 3+ Fair+ Extension (S1) 3 Fair Adduction 3 Fair Internal Rotation 3+ Fair+ Comments 5/5 except as indicated above. Left Extension (S1) 3 Fair Adduction 2- Poor- Internal Rotation 3 Fair Comments 5/5 except as indicated above. PT-OP-Q Treatments Start: 06/09/22 16:49 Freq: Status: Active Protocol: Document 07/18/22 09:52 LRN (Rec: 07/18/22 10:36 LRN [id number]) Therapeutic Exercises Supine Exercises Hands/knees push Supine Exercise Name Hands/knees push - with mild head lift Side bilateral Equipment Used ball, CP Reps/Minutes 2-3 breath holds x 10 Comments Cuing to breath through chest with holding of TA. DKTC Supine Exercise Name Assisted DKTC stretch Side bilateral Equipment Used CP Reps/Minutes 10 SH x 2 Comments Whle on CP TA tighening Supine Exercise Name Posterior pelvic Tilt (PPT) w/ neck elongation Equipment Used CP Reps/Minutes 10SH x 5 Comments Pt on CP Manual Therapy Treatment Soft Tissue Mobilization Abdomen Body Location Lower abdomen - area of Urachus Mobilization Type Sustained Pressure Intensity/Depth Moderate Obliques Body Location Obliques L>R Mobilization Type Sustained Pressure Intensity/Depth Moderate Body Position Hooklying Comments Good tolerance, L tighter than R. Pubic balancing Body Location Pubic bones Mobilization Type Myofascial Release,Sustained Pressure Intensity/Depth Moderate Body Position Supine Sacral balancing Body Location Sacrum, L Ischial Tub Mobilization Type Myofascial Release,Sustained Pressure Intensity/Depth Moderate Body Position Prone Comments Corrected decreased mob of Sacral sulcus: L infer glide, L PA; Sacral shear to L, L TIFFANIE & Ischial Tub PA. PT-OP-T Assessment and Plan Start: 06/09/22 16:49 Freq: Status: Active Protocol: Document 07/18/22 09:52 LRN (Rec: 07/18/22 10:36 LRN [id number]) Physical Therapy Assessment Goals Three Impairment Bilateral sciatic pain, intermittent in nature and location Short Term Goal (STG) Decrease Sciatic pain to no greater than 4/10 with no sharp pain. 07/08/22: Lessening of sharp pain. 07/10/22: No sharp pain yesterday standing to cook. STG Duration 08/08/22 progressing 07/10/22 Platen Press Feeder Goal (LTG) Pt will be able to return to a work out to become fit. LTG Duration 09/22/22 Two Impairment Pelvic obliquity Impairment R innominate anteriorly rotated/L posteriorly rotated Variable sided Sciatic pain rated 3-8/10. Short Term Goal (STG) Normalize pelvic positioning. 06/26/22: Normalized today 1st time with JMT. 07/01/22: Normalized with correction of L innominate inflare. 07/08/22: Corrected sacral imbalance. 07/10/22: Corrected most sacral imbalance. 07/15/22: Normalized pelvis with back pain. 07/18/22: No sciatic pain for 2 weeks. Normalized pelvis after sacral balancing. STG Duration 08/08/22 progressed 07/18/22 Platen Press Feeder Goal (LTG) Pt will be able to return to exercise and physically able to walk long distance without pain, >30' or more. LTG Duration 09/22/22 One Impairment Lacks appropriate self care HEP Impairment Excessive lumbar lordosis, stands unequal WBing in LE's, protruding abdomen. Pt not on a self care HEP to manage her bilateral sciatic pain. Short Term Goal (STG) Pt will be educated in proper body mechanics for transfer and ADLs, and proper sitting and standing posture. 07/01/22: Educated in best lying postures and sidelie sleep position. 07/03/22: Posture training ( correct lordosis) with wall standing & neck elongation, and for proper body mechanics for ADLs, & proper posture standing and sitting. 07/10/22: Pt educated in log roll transfer sup<>sit. Educated pt in proper standing and sitting posture, and proper body mechanics for ADLs , with handouts issued. STG Duration 08/08/22 (MET GOAL 07/10/22) [facility]cf Goal (LTG) Pt will be independent and consistent with a self care HEP to manage her pelvic obliquity and bilateral sciatic pain. 06/26/22: HEP: hip ER/IR stretch. I/S pt to start with only stretch to L side. LTG Duration 09/22/22 progressed Assessment Summary Assessment Pt sore after STM, but reduced pain after ex on CP from 4/10 to 1-2/10. Pelvis stabilizing, but pt pushed ex; therefore mild flare up of back pain. Physical Therapy Plan Frequency and Duration Frequency of Treatment 2x/Week Plan of Care Start Date 06/24/22 Plan of Care End Date 09/22/22 Next Visit Focus/Plan Next Note Type Treatment Note Next Visit Plan Check for neutral position of pelvis and finish with pub correction. Transfer training with proper breathing/PF contractions. Pt education in use of modalities for pain. If pelvis is stable, start hip (flex, ext, AD, IR) strengthening. Return pt to previous exercise program to improve fitness level. HEP: trunk strengthening- protection mld
--- NOTE | 2022-08-04 16:13 | PT.OTN ---
Current Diagnoses Low back pain, unspecified (08/04/22) Physical Therapy Treatment Note PT-OP-A Visit Information Start: 06/09/22 16:49 Freq: Status: Active Protocol: Document 08/04/22 15:28 LRN (Rec: 08/04/22 16:13 LRN [id number]) Out-Patient Physical Therapy Visit Information Visit Information Visit Type Treatment Note Visit Start Time 15:28 Visit Stop Time 16:06 Total Visit Minutes 38 Visit Number 02/17 Evaluation Information Evaluation Date 06/24/22 Precautions Precautions History of post depression and diabetes. Stomach ulcers since 10yo, controlled by meds. PT-OP-B Current Condition Start: 06/09/22 16:49 Freq: Status: Active Protocol: Document 06/24/22 15:21 LRN (Rec: 06/24/22 17:14 LRN [id number]) Current Condition History of Current Condition Onset Date 04/2021 Current Complaints Back pain after fall when , occasional sciatic pain bilaterally. History of Current Condition Was supposed to take PT when because fell and then couldn't walk or stand because of pain. Not able to attend PT due to spouse deployed and with child was not able to attend therapy. She stretches her back out often but persists. When walking grocery shopping when done her back is killing her . Went to chiropractor a couple times post and he did an exam and thought her pelvic bones were open, but treatments didn't help; therefore she went to primary care doctor. She reports sometime niko sciatic pain but today only has R posterior leg pain. Usually lingering pain in sacral region. Sometimes sharp pain across the low back . Has stair climber and treadmill at home. Prior Treatments and Tests Chiropractic treatment 4 months ago for 1 month, 1x/ week in [place]. Spouse helps her with stretches. Developmental History Developmental History Son born 07/20/2021. 1st , miscarried twin and was having pain, first son born 03/18/2020, sons are 16 months, both vaginal . 2nd son slipped on wet deck holding 1st son and twisted left and landed on L hip and L shoulder. Treatment Goals Patient/Caregiver Goals Pt goal is to be able to exercise again and physically able to walk long distance without pain (>30'). Goal to be able to work out to become fit. 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 Prior Functional Status Baseline Function- ADL's Independent Baseline Function- Mobility Independent Current Functional Impairments (Reported) Functional Limitations- ADL's Mother of 2 sons. Spouse just returned from deployment. Spouse helps when having sharp pain, standing and cooking at stove, and assists with LBP standing FB stretching, and supine SKTC & DKTC. Personal Factors Other Personal Factors That May Effect G3, P2 with twin lost during Therapy/Recovery first . Pt has 2 sons, 16 months apart and is currently breast feeding. Pt spouse is in and occasionally on deployment. Pt reports having urinary leakage with laughing and a history of post depression and diabetes. PT-OP-C Subjective Start: 06/09/22 16:49 Freq: Status: Active Protocol: Document 08/04/22 15:28 LRN (Rec: 08/04/22 16:13 LRN [id number]) OP-PT Subjective Patient Comments Patient Comments States she is feeling pretty good still. Every once in a while has sharp pain, but majority of the day doesn't feel the pain. PT-OP-G Mobility & Gait Start: 06/09/22 16:49 Freq: Status: Active Protocol: Document 06/24/22 15:21 LRN (Rec: 06/24/22 17:14 LRN [id number]) OP Gait Assessment Gait Gait Assistance Required: Independent Able to Maintain Weight Bearing Status Yes During Gait Assistive Devices Assistive Device None Gait Deviations General Gait Pattern Lateral Trunk Lean PT-OP-H Neuro Start: 06/09/22 16:49 Freq: Status: Active Protocol: Document 06/24/22 15:21 LRN (Rec: 06/24/22 17:14 LRN [id number]) Sensation Evaluation Gross Sensation Gross Sensation Right LE Impaired Sensation Description Tingling Comments Summary Comments Posterior aspect of LLE tingling when experiencing sciatic pain. PT-OP-J Posture/Palpation/Skin Start: 06/09/22 16:49 Freq: Status: Active Protocol: Document 07/15/22 15:16 LRN (Rec: 07/15/22 17:58 LRN [id number]) Palpation Assessment Location Abdomen Palpation Location ASIS Palpation Details Inflare on L, tight L. Leg length Palpation Location Level PT-OP-K Range of Motion Start: 06/09/22 16:49 Freq: Status: Active Protocol: Document 06/24/22 15:21 LRN (Rec: 06/24/22 17:14 LRN [id number]) Lumbar Spine Range of Motion Lumbar Spine Active Degrees Testing Position Standing Flexion 135 Extension 10 Rotation Left 35 Rotation Right 45 Lateral Flexion Left 25 Lateral Flexion Right 20 Comments 135/85 10/35 Hip Goniometric Range of Motion Hip Right Passive Testing Position Supine Internal Rotation 25 External Rotation 75 Left Passive Testing Position Supine Internal Rotation 15 External Rotation 70 PT-OP-L Special Tests Start: 06/09/22 16:49 Freq: Status: Active Protocol: Document 06/24/22 15:21 LRN (Rec: 06/24/22 17:14 LRN [id number]) Special Tests Hip Special Tests Straight Leg Raise Test Results - bilaterally Stinchfield Resisted Hip Flexion Test Results + bilaterally Log Roll Test Test Results neg PRESLEY Test Results + R worse than + L PT-OP-M Strength Start: 06/09/22 16:49 Freq: Status: Active Protocol: Document 06/24/22 15:21 LRN (Rec: 06/24/22 17:14 LRN [id number]) Trunk Strength Trunk Manual Muscle Testing Core Stabilization Pt lacks core stability with MMT of LE's due to pain. Hip Strength Hip Manual Muscle Testing Right Flexion (L2) 3+ Fair+ Extension (S1) 3 Fair Adduction 3 Fair Internal Rotation 3+ Fair+ Comments 5/5 except as indicated above. Left Extension (S1) 3 Fair Adduction 2- Poor- Internal Rotation 3 Fair Comments 5/5 except as indicated above. PT-OP-Q Treatments Start: 06/09/22 16:49 Freq: Status: Active Protocol: Document 08/04/22 15:28 LRN (Rec: 08/04/22 16:13 LRN [id number]) Therapeutic Exercises Supine Exercises Hands/knees push Supine Exercise Name Hands/knees push - extra time needed for positioning for ex Side bilateral Equipment Used Feet on wall position Reps/Minutes 2-3 breath holds x 15 Comments Cuing to breath through chest with holding of TA. Pube correction Supine Exercise Name Resisted BKFO Equipment Used Lev 2 TB Reps/Minutes 10 SH x 10 Comments Cuing needed for TA stabilization Sidelying Exercises TA/Clamshell Sidelying Exercise Name TA/Clamshell Side bilateral Reps/Minutes 15x 2 Manual Therapy Treatment Soft Tissue Mobilization Pubic balancing Body Location Pubic bones Mobilization Type Myofascial Release,Sustained Pressure Intensity/Depth Moderate Body Position Supine Sacral balancing Body Location Sacrum, L Ischial Tub Mobilization Type Myofascial Release,Sustained Pressure Intensity/Depth Moderate Body Position Prone Comments Corrected decreased mob of Sacral sulcus: L infer glide, L PA; Sacral shear to L, L TIFFANIE & Ischial Tub PA. PT-OP-T Assessment and Plan Start: 06/09/22 16:49 Freq: Status: Active Protocol: Document 08/04/22 15:28 LRN (Rec: 08/04/22 16:13 LRN [id number]) Physical Therapy Assessment Goals Three Impairment Bilateral sciatic pain, intermittent in nature and location Short Term Goal (STG) Decrease Sciatic pain to no greater than 4/10 with no sharp pain. 07/08/22: Lessening of sharp pain. 07/10/22: No sharp pain yesterday standing to cook. 08/04/22: Occasional sharp pain when moving wrong. STG Duration 08/08/22 progressing 08/04/22 Skilled Nursing Goal (LTG) Pt will be able to return to a work out to become fit. LTG Duration 09/22/22 Two Impairment Pelvic obliquity Impairment R innominate anteriorly rotated/L posteriorly rotated Variable sided Sciatic pain rated 3-8/10. Short Term Goal (STG) Normalize pelvic positioning. 06/26/22: Normalized today 1st time with JMT. 07/01/22: Normalized with correction of L innominate inflare. 07/08/22: Corrected sacral imbalance. 07/10/22: Corrected most sacral imbalance. 07/15/22: Normalized pelvis with back pain. 07/18/22: No sciatic pain for 2 weeks. Normalized pelvis after sacral balancing. STG Duration 08/08/22 progressed 07/18/22 Skilled Nursing Goal (LTG) Pt will be able to return to exercise and physically able to walk long distance without pain, >30' or more. LTG Duration 09/22/22 One Impairment Lacks appropriate self care HEP Impairment Excessive lumbar lordosis, stands unequal WBing in LE's, protruding abdomen. Pt not on a self care HEP to manage her bilateral sciatic pain. Short Term Goal (STG) Pt will be educated in proper body mechanics for transfer and ADLs, and proper sitting and standing posture. 07/01/22: Educated in best lying postures and sidelie sleep position. 07/03/22: Posture training ( correct lordosis) with wall standing & neck elongation, and for proper body mechanics for ADLs, & proper posture standing and sitting. 07/10/22: Pt educated in log roll transfer sup<>sit. Educated pt in proper standing and sitting posture, and proper body mechanics for ADLs , with handouts issued. STG Duration 08/08/22 (MET GOAL 07/10/22) Skilled Nursing Goal (LTG) Pt will be independent and consistent with a self care HEP to manage her pelvic obliquity and bilateral sciatic pain. 06/26/22: HEP: hip ER/IR stretch. I/S pt to start with only stretch to L side. LTG Duration 09/22/22 progressed Assessment Summary Assessment Decreased mob of L sacral sulcus for infer glide, PA bilaterally, Shear to the R, R TIFFANIE with PA Infer pub on the L. Pt needs further pelvic/ core stab. Pt feeling bulge in abdomen, most likely DR; therefore pt needs protection education. Further transfer training needed. Physical Therapy Plan Frequency and Duration Frequency of Treatment 2x/Week Plan of Care Start Date 06/24/22 Plan of Care End Date 09/22/22 Next Visit Focus/Plan Next Note Type Treatment Note Next Visit Plan Review transfer training with proper breathing; add PF contractions to transfers. Assess for DR and educate for protection as needed. Pt education in use of modalities for pain. If pelvis still stable, start hip (flex, ext, AD, IR) strengthening. Return pt to previous exercise program to improve fitness level. HEP: trunk strengthening- protection mld
--- NOTE | 2022-08-15 17:38 | PT.OTN ---
Current Diagnoses Low back pain, unspecified (08/15/22) Physical Therapy Treatment Note PT-OP-A Visit Information Start: 06/09/22 16:49 Freq: Status: Active Protocol: Document 08/15/22 08:16 LRN (Rec: 08/15/22 09:02 LRN [id number]) Out-Patient Physical Therapy Visit Information Visit Information Visit Type Treatment Note Visit Start Time 08:16 Visit Stop Time 08:56 Total Visit Minutes 40 Visit Number 03/19 Evaluation Information Evaluation Date 06/24/22 Precautions Precautions History of post depression and diabetes. Stomach ulcers since 10yo, controlled by meds. PT-OP-B Current Condition Start: 06/09/22 16:49 Freq: Status: Active Protocol: Document 06/24/22 15:21 LRN (Rec: 06/24/22 17:14 LRN [id number]) Current Condition History of Current Condition Onset Date 04/2021 Current Complaints Back pain after fall when , occasional sciatic pain bilaterally. History of Current Condition Was supposed to take PT when because fell and then couldn't walk or stand because of pain. Not able to attend PT due to spouse deployed and with child was not able to attend therapy. She stretches her back out often but persists. When walking grocery shopping when done her back is killing her . Went to chiropractor a couple times post and he did an exam and thought her pelvic bones were open, but treatments didn't help; therefore she went to primary care doctor. She reports sometime niko sciatic pain but today only has R posterior leg pain. Usually lingering pain in sacral region. Sometimes sharp pain across the low back . Has stair climber and treadmill at home. Prior Treatments and Tests Chiropractic treatment 4 months ago for 1 month, 1x/ week in [place]. Spouse helps her with stretches. Developmental History Developmental History Son born 07/20/2021. 1st , miscarried twin and was having pain, first son born 03/18/2020, sons are 16 months, both vaginal . 2nd son slipped on wet deck holding 1st son and twisted left and landed on L hip and L shoulder. Treatment Goals Patient/Caregiver Goals Pt goal is to be able to exercise again and physically able to walk long distance without pain (>30'). Goal to be able to work out to become fit. 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 Prior Functional Status Baseline Function- ADL's Independent Baseline Function- Mobility Independent Current Functional Impairments (Reported) Functional Limitations- ADL's Mother of 2 sons. Spouse just returned from deployment. Spouse helps when having sharp pain, standing and cooking at stove, and assists with LBP standing FB stretching, and supine SKTC & DKTC. Personal Factors Other Personal Factors That May Effect G3, P2 with twin lost during Therapy/Recovery first . Pt has 2 sons, 16 months apart and is currently breast feeding. Pt spouse is in and occasionally on deployment. Pt reports having urinary leakage with laughing and a history of post depression and diabetes. PT-OP-C Subjective Start: 06/09/22 16:49 Freq: Status: Active Protocol: Document 08/15/22 08:16 LRN (Rec: 08/15/22 09:02 LRN [id number]) OP-PT Subjective Patient Comments Patient Comments Went to [facility] for a day and the back was great. States she was carrying both babies at times. She states her back did better than she thought. Today no LBP. PT-OP-G Mobility & Gait Start: 06/09/22 16:49 Freq: Status: Active Protocol: Document 06/24/22 15:21 LRN (Rec: 06/24/22 17:14 LRN [id number]) OP Gait Assessment Gait Gait Assistance Required: Independent Able to Maintain Weight Bearing Status Yes During Gait Assistive Devices Assistive Device None Gait Deviations General Gait Pattern Lateral Trunk Lean PT-OP-H Neuro Start: 06/09/22 16:49 Freq: Status: Active Protocol: Document 06/24/22 15:21 LRN (Rec: 06/24/22 17:14 LRN [id number]) Sensation Evaluation Gross Sensation Gross Sensation Right LE Impaired Sensation Description Tingling Comments Summary Comments Posterior aspect of LLE tingling when experiencing sciatic pain. PT-OP-J Posture/Palpation/Skin Start: 06/09/22 16:49 Freq: Status: Active Protocol: Document 08/15/22 08:16 LRN (Rec: 08/15/22 17:36 LRN [id number]) Palpation Assessment Location Abdomen Palpation Location Rectus Diastasis Palpation Details Umbilicus: Above: 4-closed, 3-1 finger width, very shallow, 2- 1.5 finger width very shallow, 1- 1.5 finger width, shallow. Below: 1 is 0.5 fingerwidth & very shallow, 2-Closed. PT-OP-K Range of Motion Start: 06/09/22 16:49 Freq: Status: Active Protocol: Document 06/24/22 15:21 LRN (Rec: 06/24/22 17:14 LRN [id number]) Lumbar Spine Range of Motion Lumbar Spine Active Degrees Testing Position Standing Flexion 135 Extension 10 Rotation Left 35 Rotation Right 45 Lateral Flexion Left 25 Lateral Flexion Right 20 Comments 135/85 10/35 Hip Goniometric Range of Motion Hip Right Passive Testing Position Supine Internal Rotation 25 External Rotation 75 Left Passive Testing Position Supine Internal Rotation 15 External Rotation 70 PT-OP-L Special Tests Start: 06/09/22 16:49 Freq: Status: Active Protocol: Document 06/24/22 15:21 LRN (Rec: 06/24/22 17:14 LRN [id number]) Special Tests Hip Special Tests Straight Leg Raise Test Results - bilaterally Stinchfield Resisted Hip Flexion Test Results + bilaterally Log Roll Test Test Results neg PRESLEY Test Results + R worse than + L PT-OP-M Strength Start: 06/09/22 16:49 Freq: Status: Active Protocol: Document 06/24/22 15:21 LRN (Rec: 06/24/22 17:14 LRN [id number]) Trunk Strength Trunk Manual Muscle Testing Core Stabilization Pt lacks core stability with MMT of LE's due to pain. Hip Strength Hip Manual Muscle Testing Right Flexion (L2) 3+ Fair+ Extension (S1) 3 Fair Adduction 3 Fair Internal Rotation 3+ Fair+ Comments 5/5 except as indicated above. Left Extension (S1) 3 Fair Adduction 2- Poor- Internal Rotation 3 Fair Comments 5/5 except as indicated above. PT-OP-Q Treatments Start: 06/09/22 16:49 Freq: Status: Active Protocol: Document 08/15/22 08:16 LRN (Rec: 08/15/22 09:02 LRN [id number]) Cardio Equipment Treadmill Duration (Minutes) 10 Speed 1.2 Incline 0 Therapeutic Exercises Supine Exercises Hands/knees push Supine Exercise Name Hands/knees push with training for DR protrection. TA tighening Supine Exercise Name Posterior pelvic Tilt (PPT) w/ neck elongation Equipment Used CP Reps/Minutes 10SH x 5 Comments Pt on CP Sitting Exercises Hands/Knees push Sitting Exercise Name Hands/Knees push -w/o doming Reps/Minutes 5' Comments Extra time training for pt to have awareness of loss of TA Transfer protecting DR Sitting Exercise Name Transfer supine<>sit<>stand Equipment Used Sheet for abdomen Reps/Minutes 20' Standing Exercises TA-Hands/Feet Standing Exercise Name TA-Hands/Feet Reps/Minutes 2-3 breath Hold x 8 PT-OP-T Assessment and Plan Start: 06/09/22 16:49 Freq: Status: Active Protocol: Document 08/15/22 08:16 LRN (Rec: 08/15/22 09:02 LRN [id number]) Physical Therapy Assessment Goals Three Impairment Bilateral sciatic pain, intermittent in nature and location Short Term Goal (STG) Decrease Sciatic pain to no greater than 4/10 with no sharp pain. 07/08/22: Lessening of sharp pain. 07/10/22: No sharp pain yesterday standing to cook. 08/04/22: Occasional sharp pain when moving wrong. 08/15/22: After last session pt doesn't recall having any back pain. STG Duration 08/08/22 (08/15/22: MET GOAL ) Aerosol Supervisor Goal (LTG) Pt will be able to return to a work out to become fit. LTG Duration 09/22/22 Two Impairment Pelvic obliquity Impairment R innominate anteriorly rotated/L posteriorly rotated Variable sided Sciatic pain rated 3-8/10. Short Term Goal (STG) Normalize pelvic positioning. 06/26/22: Normalized today 1st time with JMT. 07/01/22: Normalized with correction of L innominate inflare. 07/08/22: Corrected sacral imbalance. 07/10/22: Corrected most sacral imbalance. 07/15/22: Normalized pelvis with back pain. 07/18/22: No sciatic pain for 2 weeks. Normalized pelvis after sacral balancing. 08/15/22: Normal pelvic positioning. STG Duration 08/08/22 08/15/22 Fci Goal (LTG) Pt will be able to return to exercise and physically able to walk long distance without pain, >30' or more. LTG Duration 09/22/22 One Impairment Lacks appropriate self care HEP Impairment Excessive lumbar lordosis, stands unequal WBing in LE's, protruding abdomen. Pt not on a self care HEP to manage her bilateral sciatic pain. Short Term Goal (STG) Pt will be educated in proper body mechanics for transfer and ADLs, and proper sitting and standing posture. 07/01/22: Educated in best lying postures and sidelie sleep position. 07/03/22: Posture training ( correct lordosis) with wall standing & neck elongation, and for proper body mechanics for ADLs, & proper posture standing and sitting. 07/10/22: Pt educated in log roll transfer sup<>sit. Educated pt in proper standing and sitting posture, and proper body mechanics for ADLs , with handouts issued. STG Duration 08/08/22 (MET GOAL 07/10/22) Fci Goal (LTG) Pt will be independent and consistent with a self care HEP to manage her pelvic obliquity and bilateral sciatic pain. 06/26/22: HEP: hip ER/IR stretch. I/S pt to start with only stretch to L side. 08/15/22: Initiated TA/TM walking. LTG Duration 09/22/22 progressed Assessment Summary Assessment Pt able to ex w/o LBP. STG #2 & #3 met. Improved awareness of proper transfer protecting DR w/PF & TA tightening. DR 3 above and 1 below umbilicus of shallow and very shallow DR of 1.5-.5 fingerwidth opening. Physical Therapy Plan Frequency and Duration Frequency of Treatment 2x/Week Plan of Care Start Date 06/24/22 Plan of Care End Date 09/22/22 Next Visit Focus/Plan Next Note Type Treatment Note Next Visit Plan Review add PF contractions to transfers and review DR protection measure with transfers. Pt education in use of modalities for pain if pain onset. If pelvis still stable, start hip (flex, ext, AD, IR) strengthening. Return pt to previous exercise program to improve fitness level. HEP: trunk strengthening- protection mld
--- NOTE | 2022-08-26 17:24 | PT.OTN ---
Current Diagnoses Low back pain, unspecified (08/26/22) Physical Therapy Treatment Note PT-OP-A Visit Information Start: 06/09/22 16:49 Freq: Status: Active Protocol: Document 08/26/22 09:47 LRN (Rec: 08/26/22 10:32 LRN [id number]) Out-Patient Physical Therapy Visit Information Visit Information Visit Type Treatment Note Visit Start Time 09:47 Visit Stop Time 10:27 Total Visit Minutes 40 Visit Number 04/19 Evaluation Information Evaluation Date 06/24/22 Precautions Precautions History of post depression and diabetes. Stomach ulcers since 10yo, controlled by meds. PT-OP-B Current Condition Start: 06/09/22 16:49 Freq: Status: Active Protocol: Document 06/24/22 15:21 LRN (Rec: 06/24/22 17:14 LRN [id number]) Current Condition History of Current Condition Onset Date 04/2021 Current Complaints Back pain after fall when , occasional sciatic pain bilaterally. History of Current Condition Was supposed to take PT when because fell and then couldn't walk or stand because of pain. Not able to attend PT due to spouse deployed and with child was not able to attend therapy. She stretches her back out often but persists. When walking grocery shopping when done her back is killing her . Went to chiropractor a couple times post and he did an exam and thought her pelvic bones were open, but treatments didn't help; therefore she went to primary care doctor. She reports sometime niko sciatic pain but today only has R posterior leg pain. Usually lingering pain in sacral region. Sometimes sharp pain across the low back . Has stair climber and treadmill at home. Prior Treatments and Tests Chiropractic treatment 4 months ago for 1 month, 1x/ week in [place]. Spouse helps her with stretches. Developmental History Developmental History Son born 07/20/2021. 1st , miscarried twin and was having pain, first son born 03/18/2020, sons are 16 months, both vaginal . 2nd son slipped on wet deck holding 1st son and twisted left and landed on L hip and L shoulder. Treatment Goals Patient/Caregiver Goals Pt goal is to be able to exercise again and physically able to walk long distance without pain (>30'). Goal to be able to work out to become fit. 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 Prior Functional Status Baseline Function- ADL's Independent Baseline Function- Mobility Independent Current Functional Impairments (Reported) Functional Limitations- ADL's Mother of 2 sons. Spouse just returned from deployment. Spouse helps when having sharp pain, standing and cooking at stove, and assists with LBP standing FB stretching, and supine SKTC & DKTC. Personal Factors Other Personal Factors That May Effect G3, P2 with twin lost during Therapy/Recovery first . Pt has 2 sons, 16 months apart and is currently breast feeding. Pt spouse is in and occasionally on deployment. Pt reports having urinary leakage with laughing and a history of post depression and diabetes. PT-OP-C Subjective Start: 06/09/22 16:49 Freq: Status: Active Protocol: Document 08/26/22 09:47 LRN (Rec: 08/26/22 10:32 LRN [id number]) OP-PT Subjective Patient Comments Patient Comments Had to go off anti-inflam med because of ulcers, so her back pain is a little more tense . She hasn't picked up her kids and her spouse will be working nights to help w/kids during the day, and so all that has been helpful. Today pain rating of LB is 2-3/10. No longer having sharp pains. PT-OP-G Mobility & Gait Start: 06/09/22 16:49 Freq: Status: Active Protocol: Document 06/24/22 15:21 LRN (Rec: 06/24/22 17:14 LRN [id number]) OP Gait Assessment Gait Gait Assistance Required: Independent Able to Maintain Weight Bearing Status Yes During Gait Assistive Devices Assistive Device None Gait Deviations General Gait Pattern Lateral Trunk Lean PT-OP-H Neuro Start: 06/09/22 16:49 Freq: Status: Active Protocol: Document 06/24/22 15:21 LRN (Rec: 06/24/22 17:14 LRN [id number]) Sensation Evaluation Gross Sensation Gross Sensation Right LE Impaired Sensation Description Tingling Comments Summary Comments Posterior aspect of LLE tingling when experiencing sciatic pain. PT-OP-J Posture/Palpation/Skin Start: 06/09/22 16:49 Freq: Status: Active Protocol: Document 08/15/22 08:16 LRN (Rec: 03/10/23 17:36 LRN [id number]) Palpation Assessment Location Abdomen Palpation Location Rectus Diastasis Palpation Details Umbilicus: Above: 4-closed, 3-1 finger width, very shallow, 2- 1.5 finger width very shallow, 1- 1.5 finger width, shallow. Below: 1 is 0.5 fingerwidth & very shallow, 2-Closed. PT-OP-K Range of Motion Start: 06/09/22 16:49 Freq: Status: Active Protocol: Document 06/24/22 15:21 LRN (Rec: 06/24/22 17:14 LRN [id number]) Lumbar Spine Range of Motion Lumbar Spine Active Degrees Testing Position Standing Flexion 135 Extension 10 Rotation Left 35 Rotation Right 45 Lateral Flexion Left 25 Lateral Flexion Right 20 Comments 135/85 10/35 Hip Goniometric Range of Motion Hip Right Passive Testing Position Supine Internal Rotation 25 External Rotation 75 Left Passive Testing Position Supine Internal Rotation 15 External Rotation 70 PT-OP-L Special Tests Start: 06/09/22 16:49 Freq: Status: Active Protocol: Document 06/24/22 15:21 LRN (Rec: 06/24/22 17:14 LRN [id number]) Special Tests Hip Special Tests Straight Leg Raise Test Results - bilaterally [facility] Resisted Hip Flexion Test Results + bilaterally Log Roll Test Test Results neg PRESLEY Test Results + R worse than + L PT-OP-M Strength Start: 06/09/22 16:49 Freq: Status: Active Protocol: Document 06/24/22 15:21 LRN (Rec: 06/24/22 17:14 LRN [id number]) Trunk Strength Trunk Manual Muscle Testing Core Stabilization Pt lacks core stability with MMT of LE's due to pain. Hip Strength Hip Manual Muscle Testing Right Flexion (L2) 3+ Fair+ Extension (S1) 3 Fair Adduction 3 Fair Internal Rotation 3+ Fair+ Comments 5/5 except as indicated above. Left Extension (S1) 3 Fair Adduction 2- Poor- Internal Rotation 3 Fair Comments 5/5 except as indicated above. PT-OP-Q Treatments Start: 06/09/22 16:49 Freq: Status: Active Protocol: Document 08/26/22 09:47 LRN (Rec: 08/26/22 10:32 LRN [id number]) Gym Equipment Shuttle Recovery Bilateral Squats Details Squat w/50#, 75# & 62#, without stop and w/stop at 2nd knob when stance. Resistance 62# Shuttle Recovery Platform Stable Reps/Time Extra time to determine max tolerated resistance and position to keep TA on Therapeutic Exercises Supine Exercises Hands/knees push Supine Exercise Name Hands/knees push with training for DR protrection. Equipment Used Ball Reps/Minutes 2' Comments Stopped since doming occurs TA tighening Supine Exercise Name TA tightening-use of self phys palp at ASIS. Side bilateral Reps/Minutes 10 SH - 10' Comments Awareness training for holding of TA. Sidelying Exercises TA tightening Sidelying Exercise Name TA tightening Side bilateral Equipment Used L Sidelie: Pillow btn knees and folded towel (1/3's) in small of curve Reps/Minutes 10SH x 10 Comments Extra time taken for awareness of TA Other Exercises Hands/knees TA Other Exercise Name Hands/knees TA tightening Equipment Used Yardstick Reps/Minutes 10' Comments Training to keep neutral spine and hold lower ABs TA. Self-Care/Home Management Treatment Education Patient Education Pain Management Other Education Pt education in use of RICE technique for pain management. Activities Self-Care/Home Management Activities Issued handout for RICE management for injury/pain. Issued disposable ice pack for pt's low back for drive home. PT-OP-T Assessment and Plan Start: 06/09/22 16:49 Freq: Status: Active Protocol: Document 08/26/22 09:47 LRN (Rec: 08/26/22 10:32 LRN [id number]) Physical Therapy Assessment Goals Three Impairment Bilateral sciatic pain, intermittent in nature and location Short Term Goal (STG) Decrease Sciatic pain to no greater than 4/10 with no sharp pain. 07/08/22: Lessening of sharp pain. 07/10/22: No sharp pain yesterday standing to cook. 08/04/22: Occasional sharp pain when moving wrong. 08/15/22: After last session pt doesn't recall having any back pain. STG Duration 08/08/22 (08/15/22: MET GOAL ) Assisted Goal (LTG) Pt will be able to return to a work out to become fit. LTG Duration 09/22/22 Two Impairment Pelvic obliquity Impairment R innominate anteriorly rotated/L posteriorly rotated Variable sided Sciatic pain rated 3-8/10. Short Term Goal (STG) Normalize pelvic positioning. 06/26/22: Normalized today 1st time with JMT. 07/01/22: Normalized with correction of L innominate inflare. 07/08/22: Corrected sacral imbalance. 07/10/22: Corrected most sacral imbalance. 07/15/22: Normalized pelvis with back pain. 07/18/22: No sciatic pain for 2 weeks. Normalized pelvis after sacral balancing. 08/15/22: Normal pelvic positioning. STG Duration 08/08/22 08/15/22 Assisted Goal (LTG) Pt will be able to return to exercise and physically able to walk long distance without pain, >30' or more. LTG Duration 09/22/22 One Impairment Lacks appropriate self care HEP Impairment Excessive lumbar lordosis, stands unequal WBing in LE's, protruding abdomen. Pt not on a self care HEP to manage her bilateral sciatic pain. Short Term Goal (STG) Pt will be educated in proper body mechanics for transfer and ADLs, and proper sitting and standing posture. 07/01/22: Educated in best lying postures and sidelie sleep position. 07/03/22: Posture training ( correct lordosis) with wall standing & neck elongation, and for proper body mechanics for ADLs, & proper posture standing and sitting. 07/10/22: Pt educated in log roll transfer sup<>sit. Educated pt in proper standing and sitting posture, and proper body mechanics for ADLs , with handouts issued. STG Duration 08/08/22 (MET GOAL 07/10/22) Assisted Goal (LTG) Pt will be independent and consistent with a self care HEP to manage her pelvic obliquity and bilateral sciatic pain. 06/26/22: HEP: hip ER/IR stretch. I/S pt to start with only stretch to L side. 08/15/22: Initiated TA/TM walking. 08/26/22: HEP: RICE for pain management. Pt I/S in sidelie TA for lower TA strengthening. LTG Duration 09/22/22 progressed Assessment Summary Assessment Pt is working on protecting her DR by wearing an abdominal brace, and is aware of when she wears it so she is not using the brace to control her abdominals. She appears to be consistent with adding PF contractions and TA w/ transfers. Pt has weak lower TA that is not holding consistently over 10 secs. She gets bulging after intial tightening (possible rectus activation). Pt was able to control the tightening after awareness education and training using self physical feedback after training. Pt tolerated therapy ex without increase in pain. Physical Therapy Plan Frequency and Duration Frequency of Treatment 2x/Week Plan of Care Start Date 06/24/22 Plan of Care End Date 09/22/22 Next Visit Focus/Plan Next Note Type Treatment Note Next Visit Plan Discuss goals & continuation of care needs. If pelvis still stable, start hip (flex, ext, AD, IR) strengthening. Return pt to previous exercise program to improve fitness level. Start walking program. HEP: trunk strengthening- protection mld
--- NOTE | 2022-08-29 17:07 | PT.OTN ---
Current Diagnoses Low back pain, unspecified (08/29/22) Physical Therapy Treatment Note PT-OP-A Visit Information Start: 06/09/22 16:49 Freq: Status: Active Protocol: Document 08/29/22 09:51 LRN (Rec: 08/29/22 10:34 LRN [id number]) Out-Patient Physical Therapy Visit Information Visit Information Visit Type Treatment Note Visit Start Time 09:51 Visit Stop Time 10:28 Total Visit Minutes 38 Visit Number 05/19 Evaluation Information Evaluation Date 06/24/22 Precautions Precautions History of post depression and diabetes. Stomach ulcers since 10yo, controlled by meds. PT-OP-B Current Condition Start: 06/09/22 16:49 Freq: Status: Active Protocol: Document 06/24/22 15:21 LRN (Rec: 06/24/22 17:14 LRN [id number]) Current Condition History of Current Condition Onset Date 04/2021 Current Complaints Back pain after fall when , occasional sciatic pain bilaterally. History of Current Condition Was supposed to take PT when because fell and then couldn't walk or stand because of pain. Not able to attend PT due to spouse deployed and with child was not able to attend therapy. She stretches her back out often but persists. When walking grocery shopping when done her back is killing her . Went to chiropractor a couple times post and he did an exam and thought her pelvic bones were open, but treatments didn't help; therefore she went to primary care doctor. She reports sometime niko sciatic pain but today only has R posterior leg pain. Usually lingering pain in sacral region. Sometimes sharp pain across the low back . Has stair climber and treadmill at home. Prior Treatments and Tests Chiropractic treatment 4 months ago for 1 month, 1x/ week in [place]. Spouse helps her with stretches. Developmental History Developmental History Son born 07/20/2021. 1st , miscarried twin and was having pain, first son born 03/18/2020, sons are 16 months, both vaginal . 2nd son slipped on wet deck holding 1st son and twisted left and landed on L hip and L shoulder. Treatment Goals Patient/Caregiver Goals Pt goal is to be able to exercise again and physically able to walk long distance without pain (>30'). Goal to be able to work out to become fit. 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 Prior Functional Status Baseline Function- ADL's Independent Baseline Function- Mobility Independent Current Functional Impairments (Reported) Functional Limitations- ADL's Mother of 2 sons. Spouse just returned from deployment. Spouse helps when having sharp pain, standing and cooking at stove, and assists with LBP standing FB stretching, and supine SKTC & DKTC. Personal Factors Other Personal Factors That May Effect G3, P2 with twin lost during Therapy/Recovery first . Pt has 2 sons, 16 months apart and is currently breast feeding. Pt spouse is in and occasionally on deployment. Pt reports having urinary leakage with laughing and a history of post depression and diabetes. PT-OP-C Subjective Start: 06/09/22 16:49 Freq: Status: Active Protocol: Document 08/29/22 09:51 LRN (Rec: 08/29/22 10:34 LRN [id number]) OP-PT Subjective Patient Comments Patient Comments Pain is the same as last session. No worse, needs to ice more. Worse first in AM, and stiff. PT-OP-G Mobility & Gait Start: 06/09/22 16:49 Freq: Status: Active Protocol: Document 06/24/22 15:21 LRN (Rec: 06/24/22 17:14 LRN [id number]) OP Gait Assessment Gait Gait Assistance Required: Independent Able to Maintain Weight Bearing Status Yes During Gait Assistive Devices Assistive Device None Gait Deviations General Gait Pattern Lateral Trunk Lean PT-OP-H Neuro Start: 06/09/22 16:49 Freq: Status: Active Protocol: Document 06/24/22 15:21 LRN (Rec: 06/24/22 17:14 LRN [id number]) Sensation Evaluation Gross Sensation Gross Sensation Right LE Impaired Sensation Description Tingling Comments Summary Comments Posterior aspect of LLE tingling when experiencing sciatic pain. PT-OP-J Posture/Palpation/Skin Start: 06/09/22 16:49 Freq: Status: Active Protocol: Document 08/15/22 08:16 LRN (Rec: 08/15/22 17:36 LRN [id number]) Palpation Assessment Location Abdomen Palpation Location Rectus Diastasis Palpation Details Umbilicus: Above: 4-closed, 3-1 finger width, very shallow, 2- 1.5 finger width very shallow, 1- 1.5 finger width, shallow. Below: 1 is 0.5 fingerwidth & very shallow, 2-Closed. PT-OP-K Range of Motion Start: 06/09/22 16:49 Freq: Status: Active Protocol: Document 06/24/22 15:21 LRN (Rec: 06/24/22 17:14 LRN [id number]) Lumbar Spine Range of Motion Lumbar Spine Active Degrees Testing Position Standing Flexion 135 Extension 10 Rotation Left 35 Rotation Right 45 Lateral Flexion Left 25 Lateral Flexion Right 20 Comments 135/85 10/35 Hip Goniometric Range of Motion Hip Right Passive Testing Position Supine Internal Rotation 25 External Rotation 75 Left Passive Testing Position Supine Internal Rotation 15 External Rotation 70 PT-OP-L Special Tests Start: 06/09/22 16:49 Freq: Status: Active Protocol: Document 06/24/22 15:21 LRN (Rec: 06/24/22 17:14 LRN [id number]) Special Tests Hip Special Tests Straight Leg Raise Test Results - bilaterally Stinchfield Resisted Hip Flexion Test Results + bilaterally Log Roll Test Test Results neg PRESLEY Test Results + R worse than + L PT-OP-M Strength Start: 06/09/22 16:49 Freq: Status: Active Protocol: Document 06/24/22 15:21 LRN (Rec: 06/24/22 17:14 LRN [id number]) Trunk Strength Trunk Manual Muscle Testing Core Stabilization Pt lacks core stability with MMT of LE's due to pain. Hip Strength Hip Manual Muscle Testing Right Flexion (L2) 3+ Fair+ Extension (S1) 3 Fair Adduction 3 Fair Internal Rotation 3+ Fair+ Comments 5/5 except as indicated above. Left Extension (S1) 3 Fair Adduction 2- Poor- Internal Rotation 3 Fair Comments 5/5 except as indicated above. PT-OP-Q Treatments Start: 06/09/22 16:49 Freq: Status: Active Protocol: Document 08/29/22 09:51 LRN (Rec: 08/29/22 10:34 LRN [id number]) Therapeutic Exercises Supine Exercises Hands/knees push Supine Exercise Name Hands/knees push w/TA tight Equipment Used Ball Reps/Minutes 6' Trunk Rot Supine Exercise Name Hands/knees push with R UE for R rotator strengthening (L trunk rot). Side right Reps/Minutes 8' Comments Extra time to determine best position and max tolerated stretch TA tighening Supine Exercise Name TA tightening-use of self phys palp at ASIS. Side bilateral Reps/Minutes 10 SH - 9' Comments Awareness training for holding of TA. Standing Exercises Trunk R rot Standing Exercise Name Trunk R rot (anchored waist level and high) Reps/Minutes 8' Comments Extra time to determine best position and max tolerated stretch Other Exercises 1/2 Kneel Trunk L rot Other Exercise Name 1/2 kneel trunk L rot to activate L trunk rotators. Reps/Minutes 4' Comments Extra time to determine best position and max tolerated stretch Self-Care/Home Management Treatment Education Patient Education Home Exercise Program Activities Self-Care/Home Management Activities Issued & reviewed TBand ex's for trunk L rot (pelvic R rot) in 1/2 kneel, and TBall sitting. Pt I/S in standing. Issued Purple TBand w/white strap for doorway. PT-OP-T Assessment and Plan Start: 06/09/22 16:49 Freq: Status: Active Protocol: Document 08/29/22 09:51 LRN (Rec: 08/29/22 10:34 LRN [id number]) Physical Therapy Assessment Goals Three Impairment Bilateral sciatic pain, intermittent in nature and location Short Term Goal (STG) Decrease Sciatic pain to no greater than 4/10 with no sharp pain. 07/08/22: Lessening of sharp pain. 07/10/22: No sharp pain yesterday standing to cook. 08/04/22: Occasional sharp pain when moving wrong. 08/15/22: After last session pt doesn't recall having any back pain. STG Duration 08/08/22 (08/15/22: MET GOAL ) Lap Runner Goal (LTG) Pt will be able to return to a work out to become fit. LTG Duration 09/22/22 Two Impairment Pelvic obliquity Impairment R innominate anteriorly rotated/L posteriorly rotated Variable sided Sciatic pain rated 3-8/10. Short Term Goal (STG) Normalize pelvic positioning. 06/26/22: Normalized today 1st time with JMT. 07/01/22: Normalized with correction of L innominate inflare. 07/08/22: Corrected sacral imbalance. 07/10/22: Corrected most sacral imbalance. 07/15/22: Normalized pelvis with back pain. 07/18/22: No sciatic pain for 2 weeks. Normalized pelvis after sacral balancing. 08/15/22: Normal pelvic positioning. STG Duration 08/08/22 08/15/22 Assisted Goal (LTG) Pt will be able to return to exercise and physically able to walk long distance without pain, >30' or more. LTG Duration 09/22/22 One Impairment Lacks appropriate self care HEP Impairment Excessive lumbar lordosis, stands unequal WBing in LE's, protruding abdomen. Pt not on a self care HEP to manage her bilateral sciatic pain. Short Term Goal (STG) Pt will be educated in proper body mechanics for transfer and ADLs, and proper sitting and standing posture. 07/01/22: Educated in best lying postures and sidelie sleep position. 07/03/22: Posture training ( correct lordosis) with wall standing & neck elongation, and for proper body mechanics for ADLs, & proper posture standing and sitting. 07/10/22: Pt educated in log roll transfer sup<>sit. Educated pt in proper standing and sitting posture, and proper body mechanics for ADLs , with handouts issued. STG Duration 08/08/22 (MET GOAL 07/10/22) Assisted Goal (LTG) Pt will be independent and consistent with a self care HEP to manage her pelvic obliquity and bilateral sciatic pain. 06/26/22: HEP: hip ER/IR stretch. I/S pt to start with only stretch to L side. 08/15/22: Initiated TA/TM walking. 08/26/22: HEP: RICE for pain management. Pt I/S in sidelie TA for lower TA strengthening. 08/29/22: HEP: Trunk R rot/ Pelvic L rot TBand strengthening sitting on TBall & 1/2 kneel. LTG Duration 09/22/22 progressed Assessment Summary Assessment Weak R internal rotators with weakness when rotating trunk to L (pelvis to R). Pt gets best strengthening with TBall sitting for L trunk rot. TA still bulging with leg lift, but able to control if really, really concentrates and w/ verbal and phys cuing. Physical Therapy Plan Frequency and Duration Frequency of Treatment 2x/Week Plan of Care Start Date 06/24/22 Plan of Care End Date 09/22/22 Next Visit Focus/Plan Next Note Type Treatment Note Next Visit Plan Discuss goals & continuation of care needs. If pelvis still stable, start hip (flex, ext, AD, IR) strengthening. Return pt to previous exercise program to improve fitness level. Start walking program. HEP: trunk strengthening- protection mld
--- NOTE | 2022-10-14 16:39 | PT.OPDS ---
Current Diagnoses Low back pain, unspecified (08/29/22) Visit Care Team Role Provider Type Charly Carreon DO Attending Provider Physician Family Provider Primary Care Provider Referring Provider Specialty: Family Practice Address: [address] [place] [address], [address], [place], [address] Email: [email or web address] Visit Number Visit Number 05/19 Discharge Summary PT-OP-B Current Condition Start: 06/09/22 16:49 Freq: Status: Active Protocol: Document 06/24/22 15:21 LRN (Rec: 06/24/22 17:14 LRN [id number]) Current Condition History of Current Condition Onset Date 04/2021 Current Complaints Back pain after fall when , occasional sciatic pain bilaterally. History of Current Condition Was supposed to take PT when because fell and then couldn't walk or stand because of pain. Not able to attend PT due to spouse deployed and with child was not able to attend therapy. She stretches her back out often but persists. When walking grocery shopping when done her back is killing her . Went to chiropractor a couple times post and he did an exam and thought her pelvic bones were open, but treatments didn't help; therefore she went to primary care doctor. She reports sometime niko sciatic pain but today only has R posterior leg pain. Usually lingering pain in sacral region. Sometimes sharp pain across the low back . Has stair climber and treadmill at home. Prior Treatments and Tests Chiropractic treatment 4 months ago for 1 month, 1x/ week in [place]. Spouse helps her with stretches. Developmental History Developmental History Son born 07/20/2021. 1st , miscarried twin and was having pain, first son born 03/18/2020, sons are 16 months, both vaginal . 2nd son slipped on wet deck holding 1st son and twisted left and landed on L hip and L shoulder. Treatment Goals Patient/Caregiver Goals Pt goal is to be able to exercise again and physically able to walk long distance without pain (>30'). Goal to be able to work out to become fit. 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 Prior Functional Status Baseline Function- ADL's Independent Baseline Function- Mobility Independent Current Functional Impairments (Reported) Functional Limitations- ADL's Mother of 2 sons. Spouse just returned from deployment. Spouse helps when having sharp pain, standing and cooking at stove, and assists with LBP standing FB stretching, and supine SKTC & DKTC. Personal Factors Other Personal Factors That May Effect G3, P2 with twin lost during Therapy/Recovery first . Pt has 2 sons, 16 months apart and is currently breast feeding. Pt spouse is in and occasionally on deployment. Pt reports having urinary leakage with laughing and a history of post depression and diabetes. PT-OP-C Subjective Start: 06/09/22 16:49 Freq: Status: Active Protocol: Document 08/29/22 09:51 LRN (Rec: 08/29/22 10:34 LRN [id number]) OP-PT Subjective Patient Comments Patient Comments Pain is the same as last session. No worse, needs to ice more. Worse first in AM, and stiff. PT-OP-G Mobility & Gait Start: 06/09/22 16:49 Freq: Status: Active Protocol: Document 06/24/22 15:21 LRN (Rec: 06/24/22 17:14 LRN [id number]) OP Gait Assessment Gait Gait Assistance Required: Independent Able to Maintain Weight Bearing Status Yes During Gait Assistive Devices Assistive Device None Gait Deviations General Gait Pattern Lateral Trunk Lean PT-OP-H Neuro Start: 06/09/22 16:49 Freq: Status: Active Protocol: Document 06/24/22 15:21 LRN (Rec: 06/24/22 17:14 LRN [id number]) Sensation Evaluation Gross Sensation Gross Sensation Right LE Impaired Sensation Description Tingling Comments Summary Comments Posterior aspect of LLE tingling when experiencing sciatic pain. PT-OP-J Posture/Palpation/Skin Start: 06/09/22 16:49 Freq: Status: Active Protocol: Document 08/15/22 08:16 LRN (Rec: 08/15/22 17:36 LRN [id number]) Palpation Assessment Location Abdomen Palpation Location Rectus Diastasis Palpation Details Umbilicus: Above: 4-closed, 3-1 finger width, very shallow, 2- 1.5 finger width very shallow, 1- 1.5 finger width, shallow. Below: 1 is 0.5 fingerwidth & very shallow, 2-Closed. PT-OP-K Range of Motion Start: 06/09/22 16:49 Freq: Status: Active Protocol: Document 06/24/22 15:21 LRN (Rec: 06/24/22 17:14 LRN [id number]) Lumbar Spine Range of Motion Lumbar Spine Active Degrees Testing Position Standing Flexion 135 Extension 10 Rotation Left 35 Rotation Right 45 Lateral Flexion Left 25 Lateral Flexion Right 20 Comments 135/85 10/35 Hip Goniometric Range of Motion Hip Right Passive Testing Position Supine Internal Rotation 25 External Rotation 75 Left Passive Testing Position Supine Internal Rotation 15 External Rotation 70 PT-OP-L Special Tests Start: 06/09/22 16:49 Freq: Status: Active Protocol: Document 06/24/22 15:21 LRN (Rec: 06/24/22 17:14 LRN [id number]) Special Tests Hip Special Tests Straight Leg Raise Test Results - bilaterally Stinchfield Resisted Hip Flexion Test Results + bilaterally Log Roll Test Test Results neg PRESLEY Test Results + R worse than + L PT-OP-M Strength Start: 06/09/22 16:49 Freq: Status: Active Protocol: Document 06/24/22 15:21 LRN (Rec: 06/24/22 17:14 LRN [id number]) Trunk Strength Trunk Manual Muscle Testing Core Stabilization Pt lacks core stability with MMT of LE's due to pain. Hip Strength Hip Manual Muscle Testing Right Flexion (L2) 3+ Fair+ Extension (S1) 3 Fair Adduction 3 Fair Internal Rotation 3+ Fair+ Comments 5/5 except as indicated above. Left Extension (S1) 3 Fair Adduction 2- Poor- Internal Rotation 3 Fair Comments 5/5 except as indicated above. PT-OP-T Assessment and Plan Start: 06/09/22 16:49 Freq: Status: Active Protocol: Document 10/14/22 16:31 LRN (Rec: 10/14/22 16:39 LRN [id number]) Physical Therapy Assessment Goals Three Impairment Bilateral sciatic pain, intermittent in nature and location Short Term Goal (STG) Decrease Sciatic pain to no greater than 4/10 with no sharp pain. 07/08/22: Lessening of sharp pain. 07/10/22: No sharp pain yesterday standing to cook. 08/04/22: Occasional sharp pain when moving wrong. 08/15/22: After last session pt doesn't recall having any back pain. STG Duration 08/08/22 (08/15/22: MET GOAL ) Half-Way Goal (LTG) Pt will be able to return to a work out to become fit. LTG Duration 09/22/22 (10/14/22: NOT MET GOAL, early discharge) Two Impairment Pelvic obliquity Impairment R innominate anteriorly rotated/L posteriorly rotated Variable sided Sciatic pain rated 3-8/10. Short Term Goal (STG) Normalize pelvic positioning. 06/26/22: Normalized today 1st time with JMT. 07/01/22: Normalized with correction of L innominate inflare. 07/08/22: Corrected sacral imbalance. 07/10/22: Corrected most sacral imbalance. 07/15/22: Normalized pelvis with back pain. 07/18/22: No sciatic pain for 2 weeks. Normalized pelvis after sacral balancing. 08/15/22: Normal pelvic positioning. STG Duration 08/08/22 (08/15/22: MET GOAL) Garage Mechanic Goal (LTG) Pt will be able to return to exercise and physically able to walk long distance without pain, >30' or more. LTG Duration 09/22/22 (10/14/22: NOT MET GOAL, early discharge) One Impairment Lacks appropriate self care HEP Impairment Excessive lumbar lordosis, stands unequal WBing in LE's, protruding abdomen. Pt not on a self care HEP to manage her bilateral sciatic pain. Short Term Goal (STG) Pt will be educated in proper body mechanics for transfer and ADLs, and proper sitting and standing posture. 07/01/22: Educated in best lying postures and sidelie sleep position. 07/03/22: Posture training ( correct lordosis) with wall standing & neck elongation, and for proper body mechanics for ADLs, & proper posture standing and sitting. 07/10/22: Pt educated in log roll transfer sup<>sit. Educated pt in proper standing and sitting posture, and proper body mechanics for ADLs , with handouts issued. STG Duration 08/08/22 (MET GOAL 07/10/22) Half-Way Goal (LTG) Pt will be independent and consistent with a self care HEP to manage her pelvic obliquity and bilateral sciatic pain. 06/26/22: HEP: hip ER/IR stretch. I/S pt to start with only stretch to L side. 08/15/22: Initiated TA/TM walking. 08/26/22: HEP: RICE for pain management. Pt I/S in sidelie TA for lower TA strengthening. 08/29/22: HEP: Trunk R rot/ Pelvic L rot TBand strengthening sitting on TBall & 1/2 kneel. LTG Duration 09/22/22 (10/14/22: PARTIALLY MET GOAL, early discharge) Assessment Summary Assessment Pt was last seen 08/29/22. On her last attended visit she showed weak R internal rotators with weakness when rotating trunk to L (pelvis to R). TA still bulging with leg lift, but able to control if really, really concentrated and w/verbal and phys cuing. Request for discharge from referring physician office received 09/11/22, due to insurance authorization. The pt did achieve some goals, but all were not met due to early discharge due to insurance limitations. Pt is being discharged from physical therapy today. Physical Therapy Plan Discharge Physical Therapy Discharge Comments Pt discharged by physician due to expiration of insurance authorization.
== END 2022-10-15 15:06 | disposition home or self-care (01) ==
LOC: PHYS 09:45
PROVIDERS: Family Provider Family Medicine; PCP Family Medicine; Referring Provider Family Medicine; Visit Provider Family Medicine
DX: M54.50 Low back pain, unspecified (principal)
CPT/HCPCS: 97110; 97140; 97162; 97535

== ENCOUNTER 2023-01-08 08:45 | Outpatient (RCR) | payer OTHER, SELFPAY ==
--- NOTE | 2022-10-24 17:31 | PT.OIE ---
Current Diagnoses Other chronic pain (10/24/22) Stiffness of unspecified hip, not elsewhere classified (10/24/22) Postural kyphosis, cervicothoracic region (10/24/22) Low back pain, unspecified (10/24/22) Separation of muscle (nontraumatic), unspecified site (10/24/22) Past Medical History (Last Reviewed 07/18/22 @ 13:16 by Raymond Maldonado DO) Chronic lower back pain Diarrhea GERD (gastroesophageal reflux disease) Gestational diabetes (~11/2019) History of being hospitalized (~08/2019) Hyperlipidemia Major depressive disorder, single episode (~08/11/19) Morbid obesity Peptic ulcer disease (~2014) Post-nasal drip Smoker (spontaneous vaginal delivery) (~03/18/20) Wrist fracture, left (~1992) Past Surgical History (Last Reviewed 07/18/22 @ 13:16 by Raymond Maldonado DO) H/O colposcopy with cervical biopsy (~06/2020) History of colposcopy (~11/26/20) History of tonsillectomy (~2011) Visit Care Team Role Provider Type Raymond Maldonado DO Attending Provider Physician Family Provider Primary Care Provider Referring Provider Specialty: [facility] Practice Address: [address] [place] [address], [facility] Email: [email or web address] Dashboard Physical Therapy Initial Evaluation PT-OP-A Visit Information Start: 10/17/22 21:00 Freq: Status: Active Protocol: Document 10/24/22 09:35 LRN (Rec: 10/24/22 10:28 REAL [id number]) Out-Patient Physical Therapy Visit Information Visit Information Visit Type Initial Evaluation Visit Start Time 09:36 Visit Stop Time 10:25 Total Visit Minutes 49 Visit Number 1 Evaluation Information Evaluation Date 10/24/22 Precautions Precautions History of back pain when PT-OP-B Current Condition Start: 10/17/22 21:00 Freq: Status: Active Protocol: Document 10/24/22 09:35 LRN (Rec: 10/24/22 10:28 JOANN [id number]) Current Condition History of Current Condition Onset Date ~09/30/22 Current Complaints Worsening back pain by the evening, rated 6-7/10. History of Current Condition Pt had attended physical therapy post- from to 08/29/22, but pt's rehab was limited due to insurance visit limits. Since her discharge she reports stopping anti-inflammatories, so the back pain worsened, but not as bad as initial treatment visit last time. Her babies now weigh 34# and 24# and she is trying not to hold them. She is also trying to wean from . She reports her function has improved and she has been able to do things, but now is taking ms relaxors when feeling like her back is going to flare up. Sometimes she has pain in the morning (3/10, or stiff) if slept wrong, but always at bed time pain is at its worst. States since childhood her hips sometimes locks, then pops and pops out of place. States it hurts both with locking and when popping. Prior Treatments and Tests PT at PT from 06/23/22-. Future Testing and Treatments Planned None Developmental History Developmental History 04/2021: Back pain after fall when , occasional sciatic pain bilaterally. Most recent son born 07/20/2021 . 1st , miscarried twin and was having pain, first son born 03/18/2020. Sons were of vaginal . She had fallen when 2nd son slipped on wet deck, and she was holding 1st son, causing her to twist left, landing on L hip and L shoulder. Treatment Goals Patient/Caregiver Goals Pt goals: Being able to exercise walk > 1/2 mile/day to 2 miles to go flat trail hiking with kids. Being able to ex at home on TM , eliptical or stair climber, with hand/ankle weights, or yoga class. Personal Factors Other Personal Factors That May Effect . Therapy/Recovery 2 children ages: 2.5 and 15 months old. PT-OP-C Subjective Start: 10/17/22 21:00 Freq: Status: Active Protocol: Document 10/24/22 09:35 LRN (Rec: 10/24/22 16:33 LRN [id number]) Patient Questionnaires Oswestry Low Back Index Oswestry Score 28 (14x 2) Oswestry Impairment 20 to 39% Impaired (Score 20- 39) OP-PT Pain Assessment Pain Assessment Grid Paper Pain Assessment Grid Completed Yes Location Upper back/neck/shoulders Pain Location Details Upper back/neck/shoulders Intensity 4 Scale Used Numeric (0 - 10) Description Aching Frequency Constant Pain Duration Constant pain rated 3/10 to 4/ 10 with activity Low back Pain Location Details Across sacral and lower sacral level Intensity 9 Scale Used Numeric (0 - 10) Description Aching Variations/Patterns Pain ranges from constant 1-2/ 10 pain to 6-9/10 pain with activity. Pain Aggravating Factors Activity PT-OP-H Neuro Start: 10/17/22 21:00 Freq: Status: Active Protocol: Document 10/24/22 09:35 LRN (Rec: 10/24/22 10:28 LRN [id number]) Sensation Evaluation Gross Sensation Gross Sensation WNL PT-OP-J Posture/Palpation/Skin Start: 10/17/22 21:00 Freq: Status: Active Protocol: Document 10/24/22 09:35 LRN (Rec: 10/24/22 10:28 LRN [id number]) Posture Evaluation Position Standing Head/C-Spine Posture Forward Head L-Spine Posture Increased Lordosis Arm Posture (L) Internally Rotated,(R) Internally Rotated Pelvis Posture Anteriorly Tilted Weight Distribution Balanced,Weight Shifted Left Knee Posture (L) Genu Valgus,(R) Genu Valgus Comments Posture Comments Obvious Dowagers Hump, flattened upper T/S, increased lordosis, L knee valgus > R knee, Palpation Assessment Location C/S Palpation Location C. paraspinals and PA of SP Palpation Findings Soft Tissue Tightness,Muscle Guarding,Tenderness Upper back Palpation Location T2-T5 paraspinals and PA of SP Palpation Findings Soft Tissue Tightness,Muscle Guarding,Tenderness Low back Palpation Location L4 and mildly at L2-L5 paraspinals and PA of SP Palpation Findings Soft Tissue Tightness,Muscle Guarding,Tenderness PT-OP-K Range of Motion Start: 10/17/22 21:00 Freq: Status: Active Protocol: Document 10/24/22 09:35 LRN (Rec: 10/24/22 10:28 LRN [id number]) Lumbar Spine Range of Motion Lumbar Spine Active Degrees Testing Position Standing Flexion 110 Extension 30 Rotation Left 40 Rotation Right 20 Lateral Flexion Left 30 Lateral Flexion Right 15 Comments Trunk AROM: Flexion is 110 deg?s with 65 deg?s hip flexion, Trunk extension is 30 deg?s with 10 deg?s hip extension. Trunk R SB lacks spinal mobility. Trunk R rot is pain. Hip Goniometric Range of Motion Hip Right Passive Testing Position Supine Internal Rotation 10 External Rotation 80 Comments Since child the hips are stiff and pop. Left Passive Internal Rotation 10 External Rotation 80 Comments Since child the hips are stiff and pop. PT-OP-M Strength Start: 10/17/22 21:00 Freq: Status: Active Protocol: Document 10/24/22 09:35 LRN (Rec: 10/24/22 10:28 LRN [id number]) Trunk Strength Trunk Manual Muscle Testing Core Stabilization Lacks core stab with rotation. Hip Strength Hip Manual Muscle Testing Right Comments Generally 5/5 Left Comments Generally 5/5 PT-OP-Q Treatments Start: 10/17/22 21:00 Freq: Status: Active Protocol: Document 10/24/22 09:35 LRN (Rec: 10/24/22 10:28 LRN [id number]) Self-Care/Home Management Treatment Education Other Education Discussed results of evaluation, goals, and plan of care (POC). Pt agreeable to goals and POC. PT-OP-T Assessment and Plan Start: 10/17/22 21:00 Freq: Status: Active Protocol: Document 10/24/22 09:35 LRN (Rec: 10/24/22 10:28 LRN [id number]) Physical Therapy Assessment Rehab Potential Rehabilitation Potential Good Evaluation Complexity Number of Personal Factors/Comorbidities 1-2 Number of Body Systems Impaired 4 or More Clinical Presentation at Evaluation Evolving Impairments Impairments Activity Tolerance,Pain, Posture,ROM,Soft Tissue Mobility,Transfers Other Impairments Probable Diastasis Rectus from previous history. Goals Four Impairment Muscle tightness of the neck/ shoulders. Impairment Neck pain in evenings is 3-4/ 10. Short Term Goal (STG) Pt will demonstate improved sitting postural awareness with ability to correct head on shoulder posturing. STG Duration 12/12/22 Wrapper Hands Sprayer Goal (LTG) Pt will report less pain in neck/shoulder at end of day for more peaceful sleep at night. LTG Duration 01/22/23 Three Impairment Stiffness in lumbar and upper back region Impairment LBP in evenings is 6-9/10. Trunk SB is 30 deg's L, 15 deg 's R. Trunk Rot is 40 deg's L, 20 deg's R. Short Term Goal (STG) Pt will demonstrate improve mobility of of lumbar spine mechanics (curve with SB and Rotation). STG Duration 12/12/22 Skilled Nursing Goal (LTG) Pt will be able to demonstrate improved lumbar spine mechanics with trunk SB and rotation with less LBP in the evenings. LTG Duration 01/22/23 Two Impairment Core weakness Impairment Being able to ex at home on TM , eliptical or stair climber, with hand/ankle weights, or yoga class. STG Duration 12/12/22 Wrapper Hands Sprayer Goal (LTG) Improve core stability with pt able to exercise walk greater than 1/2 mile/day and/or [address] hiking with kids. LTG Duration 01/22/23 One Impairment Lacks consistency with HEP. Short Term Goal (STG) Pt will be able to demonstrate best practice transfers stand <>supine and will resume her prevously issued HEP. STG Duration 12/12/22 Wrapper Hands Sprayer Goal (LTG) Pt will be able to transition to home exercise gym for ex on TM, eliptical or stair climber, with hand/ankle weights, or participate in a yoga class. LTG Duration 01/22/23 Assessment Summary Assessment Pt is a 32 yo female who presents with primarily mechanical dysfunction of the cervical/thoracic spine and noteable Dowagers hump, and increased lumbar lordosis with primary pivot point at L5-S1, possible SIJ dysfunction and Diastasis Rectus hindering core stabilization. She shows poor mobility of the lumbar spine with straightened spine with trunk R SB and R rot with LBP. The pt also demonstrates soft tissue dysfunction of core weakness and decreased hip IR mobility of significant amount. The pt will benefit from skilled physical therapy to achieve the above stated goals. Physical Therapy Plan Frequency and Duration Frequency of Treatment 2x/Week Plan of Care Start Date 10/24/22 Plan of Care End Date 01/22/23 Therapeutic Interventions Therapeutic Interventions Balance Training,Gait Training ,Home Exercise Program,Joint Mobilizations,Manual Therapy, Neuromuscular Re-education, Patient/Caregiver Education, Self-Care/Home Management,Soft Tissue Mobilization,Taping, Therapeutic Activities, Therapeutic Exercises Modalities Cold Pack/Ice Massage,Electric Stimulation,Hot Packs, Ultrasound Next Visit Focus/Plan Next Note Type Treatment Note Next Visit Plan 2x/week for 8 wks to start, max [address], SIJ' s and neck and shoulder mobility and strength, VA test . Manual therapy: STM, JMT, Cervicothoraco junction, manual lumbar traction, sacral balancing, K-tape for postural corrections, stabilization, inflammation. Ther ex: Postural, stabilization, balance and hip /lumbar/cervical mobility exercises. Ther Act: Transfer training, postural training, gait/ balance assessment. Modalities: Cryotherapy, MH, ESTIM, US.
--- NOTE | 2022-10-28 08:47 | PT.OTN ---
Current Diagnoses Other chronic pain (10/28/22) Stiffness of unspecified hip, not elsewhere classified (10/28/22) Postural kyphosis, cervicothoracic region (10/28/22) Low back pain, unspecified (10/28/22) Separation of muscle (nontraumatic), unspecified site (10/28/22) Physical Therapy Treatment Note PT-OP-A Visit Information Start: 10/17/22 21:00 Freq: Status: Active Protocol: Document 10/28/22 08:00 LRN (Rec: 10/28/22 08:45 LRN [id number]) Out-Patient Physical Therapy Visit Information Visit Information Visit Type Treatment Note Visit Start Time 08:00 Visit Stop Time 08:42 Total Visit Minutes 42 Visit Number 2 Evaluation Information Evaluation Date 10/24/22 Precautions Precautions History of back pain when PT-OP-B Current Condition Start: 10/17/22 21:00 Freq: Status: Active Protocol: Document 10/24/22 09:35 LRN (Rec: 10/24/22 10:28 LRN [id number]) Current Condition History of Current Condition Onset Date ~09/30/22 Current Complaints Worsening back pain by the evening, rated 6-7/10. History of Current Condition Pt had attended physical therapy post- from to 08/29/22, but pt's rehab was limited due to insurance visit limits. Since her discharge she reports stopping anti-inflammatories, so the back pain worsened, but not as bad as initial treatment visit last time. Her babies now weigh 34# and 24# and she is trying not to hold them. She is also trying to wean from . She reports her function has improved and she has been able to do things, but now is taking ms relaxors when feeling like her back is going to flare up. Sometimes she has pain in the morning (3/10, or stiff) if slept wrong, but always at bed time pain is at its worst. States since childhood her hips sometimes locks, then pops and pops out of place. States it hurts both with locking and when popping. Prior Treatments and Tests PT at PT from 06/23/22-. Future Testing and Treatments Planned None Developmental History Developmental History 04/2021: Back pain after fall when , occasional sciatic pain bilaterally. Most recent son born 07/20/2021 . 1st , miscarried twin and was having pain, first son born 03/18/2020. Sons were of vaginal . She had fallen when 2nd son slipped on wet deck, and she was holding 1st son, causing her to twist left, landing on L hip and L shoulder. Treatment Goals Patient/Caregiver Goals Pt goals: Being able to exercise walk > 1/2 mile/day to 2 miles to go flat trail hiking with kids. Being able to ex at home on TM , eliptical or stair climber, with hand/ankle weights, or yoga class. Personal Factors Other Personal Factors That May Effect . Therapy/Recovery 2 children ages: 2.5 and 15 months old. PT-OP-C Subjective Start: 10/17/22 21:00 Freq: Status: Active Protocol: Document 10/28/22 08:00 LRN (Rec: 10/28/22 08:45 LRN [id number]) OP-PT Subjective Patient Comments Patient Comments No change. Back is hurting a little, no Tylenol this morning. PT-OP-H Neuro Start: 10/17/22 21:00 Freq: Status: Active Protocol: Document 10/24/22 09:35 LRN (Rec: 10/24/22 10:28 LRN [id number]) Sensation Evaluation Gross Sensation Gross Sensation WNL PT-OP-J Posture/Palpation/Skin Start: 10/17/22 21:00 Freq: Status: Active Protocol: Document 10/24/22 09:35 LRN (Rec: 10/24/22 10:28 LRN [id number]) Posture Evaluation Position Standing Head/C-Spine Posture Forward Head L-Spine Posture Increased Lordosis Arm Posture (L) Internally Rotated,(R) Internally Rotated Pelvis Posture Anteriorly Tilted Weight Distribution Balanced,Weight Shifted Left Knee Posture (L) Genu Valgus,(R) Genu Valgus Comments Posture Comments Obvious Dowagers Hump, flattened upper T/S, increased lordosis, L knee valgus > R knee, Palpation Assessment Location C/S Palpation Location C. paraspinals and PA of SP Palpation Findings Soft Tissue Tightness,Muscle Guarding,Tenderness Upper back Palpation Location T2-T5 paraspinals and PA of SP Palpation Findings Soft Tissue Tightness,Muscle Guarding,Tenderness Low back Palpation Location L4 and mildly at L2-L5 paraspinals and PA of SP Palpation Findings Soft Tissue Tightness,Muscle Guarding,Tenderness PT-OP-K Range of Motion Start: 10/17/22 21:00 Freq: Status: Active Protocol: Document 10/24/22 09:35 LRN (Rec: 10/24/22 10:28 LRN [id number]) Lumbar Spine Range of Motion Lumbar Spine Active Degrees Testing Position Standing Flexion 110 Extension 30 Rotation Left 40 Rotation Right 20 Lateral Flexion Left 30 Lateral Flexion Right 15 Comments Trunk AROM: Flexion is 110 deg?s with 65 deg?s hip flexion, Trunk extension is 30 deg?s with 10 deg?s hip extension. Trunk R SB lacks spinal mobility. Trunk R rot is pain. Hip Goniometric Range of Motion Hip Right Passive Testing Position Supine Internal Rotation 10 External Rotation 80 Comments Since child the hips are stiff and pop. Left Passive Internal Rotation 10 External Rotation 80 Comments Since child the hips are stiff and pop. PT-OP-M Strength Start: 10/17/22 21:00 Freq: Status: Active Protocol: Document 10/24/22 09:35 LRN (Rec: 10/24/22 10:28 LRN [id number]) Trunk Strength Trunk Manual Muscle Testing Core Stabilization Lacks core stab with rotation. Hip Strength Hip Manual Muscle Testing Right Comments Generally 5/5 Left Comments Generally 5/5 PT-OP-Q Treatments Start: 10/17/22 21:00 Freq: Status: Active Protocol: Document 10/28/22 08:00 LRN (Rec: 10/28/22 08:45 LRN [id number]) Therapeutic Exercises Supine Exercises TA tightening Supine Exercise Name TA tightening with exhale and as separate ex Reps/Minutes 9' at end with head lift Comments Much v cuing needed for awareness of tightening. Sidelying Exercises Open book stretch Sidelying Exercise Name Open book stretch Side bilateral Reps/Minutes 8x each with hold at end range for a breath Comments Phy & v cuing to move arm only as far as head will rotate Other Exercises Hands/knees TA tightening Other Exercise Name TA tightening Reps/Minutes 10 SH Maddie' Pose Other Exercise Name Child's Pose Reps/Minutes 10-20 SH for 60 total stretch Manual Therapy Treatment Soft Tissue Mobilization Sacral balancing Body Location Sacrum and Iliac/Innominate Mobilization Type Sustained Pressure Body Position Prone Comments Decreased mobility with R sacral sulcus, TIFFANIE and Ischial Tub needing correctionl. PT-OP-T Assessment and Plan Start: 10/17/22 21:00 Freq: Status: Active Protocol: Document 10/28/22 08:00 LRN (Rec: 10/28/22 08:45 LRN [id number]) Physical Therapy Assessment Goals Four Impairment Muscle tightness of the neck/ shoulders. Impairment Neck pain in evenings is 3-4/ 10. Short Term Goal (STG) Pt will demonstate improved sitting postural awareness with ability to correct head on shoulder posturing. STG Duration 12/12/22 Longterm Goal (LTG) Pt will report less pain in neck/shoulder at end of day for more peaceful sleep at night. LTG Duration 01/22/23 Three Impairment Stiffness in lumbar and upper back region Impairment LBP in evenings is 6-9/10. Trunk SB is 30 deg's L, 15 deg 's R. Trunk Rot is 40 deg's L, 20 deg's R. Short Term Goal (STG) Pt will demonstrate improve mobility of of lumbar spine mechanics (curve with SB and Rotation). STG Duration 12/12/22 Longterm Goal (LTG) Pt will be able to demonstrate improved lumbar spine mechanics with trunk SB and rotation with less LBP in the evenings. LTG Duration 01/22/23 Two Impairment Core weakness Impairment Being able to ex at home on TM , eliptical or stair climber, with hand/ankle weights, or yoga class. STG Duration 12/12/22 Cnmt Goal (LTG) Improve core stability with pt able to exercise walk greater than 1/2 mile/day and/or [address] trail hiking with kids. LTG Duration 01/22/23 One Impairment Lacks consistency with HEP. Short Term Goal (STG) Pt will be able to demonstrate best practice transfers stand <>supine and will resume her prevously issued HEP. STG Duration 12/12/22 Cnmt Goal (LTG) Pt will be able to transition to home exercise gym for ex on TM, eliptical or stair climber, with hand/ankle weights, or participate in a yoga class. LTG Duration 01/22/23 Assessment Summary Assessment presents with primarily mechanical dysfunction of the cervical/thoracic spine and noteable Dowagers hump, and increased lumbar lordosis with primary pivot point at L5-S1. No significant SIJ dysfunction noted and DR appears almost closed. Pt is able to perform a TA after training with head lift and lower abdomen loss of control after a couple reps; therefore weakness in the lower abs. Physical Therapy Plan Frequency and Duration Frequency of Treatment 2x/Week Plan of Care Start Date 10/24/22 Plan of Care End Date 01/22/23 Next Visit Focus/Plan Next Note Type Treatment Note Next Visit Plan 2x/week for 8 wks to start, max 12 weeks. Issue HEP: open book, hands/knees and sup TA. Check neck and shoulder mobility and strength, VA test . Manual therapy: STM, JMT, Cervicothoraco junction, manual lumbar traction, sacral balancing, K-tape for postural corrections, stabilization, inflammation. Ther ex: Postural, stabilization, balance and hip /lumbar/cervical mobility exercises. Ther Act: Transfer training, postural training, gait/ balance assessment. Modalities: Cryotherapy, MH, ESTIM, US.
--- NOTE | 2022-10-31 10:49 | PT.OTN ---
Current Diagnoses Other chronic pain (10/31/22) Stiffness of unspecified hip, not elsewhere classified (10/31/22) Postural kyphosis, cervicothoracic region (10/31/22) Low back pain, unspecified (10/31/22) Separation of muscle (nontraumatic), unspecified site (10/31/22) Physical Therapy Treatment Note PT-OP-A Visit Information Start: 10/17/22 21:00 Freq: Status: Active Protocol: Document 10/31/22 10:01 SP (Rec: 10/31/22 10:54 SP [id number]) Out-Patient Physical Therapy Visit Information Visit Information Visit Type Treatment Note Visit Start Time 10:01 Visit Stop Time 10:49 Total Visit Minutes 48 Visit Number 3 Number of CONTRACT DESIGNER Visits 1 Evaluation Information Evaluation Date 10/24/22 Precautions Precautions History of back pain when PT-OP-B Current Condition Start: 10/17/22 21:00 Freq: Status: Active Protocol: Document 10/24/22 09:35 LRN (Rec: 10/24/22 10:28 LRN [id number]) Current Condition History of Current Condition Onset Date ~09/30/22 Current Complaints Worsening back pain by the evening, rated 6-7/10. History of Current Condition Pt had attended physical therapy post- from to 08/29/22, but pt's rehab was limited due to insurance visit limits. Since her discharge she reports stopping anti-inflammatories, so the back pain worsened, but not as bad as initial treatment visit last time. Her babies now weigh 34# and 24# and she is trying not to hold them. She is also trying to wean from . She reports her function has improved and she has been able to do things, but now is taking ms relaxors when feeling like her back is going to flare up. Sometimes she has pain in the morning (3/10, or stiff) if slept wrong, but always at bed time pain is at its worst. States since childhood her hips sometimes locks, then pops and pops out of place. States it hurts both with locking and when popping. Prior Treatments and Tests PT at PT from 06/23/22-. Future Testing and Treatments Planned None Developmental History Developmental History 04/2021: Back pain after fall when , occasional sciatic pain bilaterally. Most recent son born 07/20/2021 . 1st , miscarried twin and was having pain, first son born 03/18/2020. Sons were of vaginal . She had fallen when 2nd son slipped on wet deck, and she was holding 1st son, causing her to twist left, landing on L hip and L shoulder. Treatment Goals Patient/Caregiver Goals Pt goals: Being able to exercise walk > 1/2 mile/day to 2 miles to go flat trail hiking with kids. Being able to ex at home on TM , eliptical or stair climber, with hand/ankle weights, or yoga class. Personal Factors Other Personal Factors That May Effect . Therapy/Recovery 2 children ages: 2.5 and 15 months old. PT-OP-C Subjective Start: 10/17/22 21:00 Freq: Status: Active Protocol: Document 10/31/22 10:01 SP (Rec: 10/31/22 10:54 SP [id number]) OP-PT Subjective Patient Comments Patient Comments Pt reports the sacral balancing helped. She has been able to increase her activity walking about 1/2 mile with some incline/decline, kids are walking and needing to be picked up last little bit distance. No issues getting on /off floor and sitting to play . She has started incorporating seated Tball ex doing end and feels helpful. She stated wants to work up to joining friend in event walks with a friend. PT-OP-H Neuro Start: 10/17/22 21:00 Freq: Status: Active Protocol: Document 10/24/22 09:35 LRN (Rec: 10/24/22 10:28 LRN [id number]) Sensation Evaluation Gross Sensation Gross Sensation WNL PT-OP-J Posture/Palpation/Skin Start: 10/17/22 21:00 Freq: Status: Active Protocol: Document 10/24/22 09:35 LRN (Rec: 10/24/22 10:28 LRN [id number]) Posture Evaluation Position Standing Head/C-Spine Posture Forward Head L-Spine Posture Increased Lordosis Arm Posture (L) Internally Rotated,(R) Internally Rotated Pelvis Posture Anteriorly Tilted Weight Distribution Balanced,Weight Shifted Left Knee Posture (L) Genu Valgus,(R) Genu Valgus Comments Posture Comments Obvious Dowagers Hump, flattened upper T/S, increased lordosis, L knee valgus > R knee, Palpation Assessment Location C/S Palpation Location C. paraspinals and PA of SP Palpation Findings Soft Tissue Tightness,Muscle Guarding,Tenderness Upper back Palpation Location T2-T5 paraspinals and PA of SP Palpation Findings Soft Tissue Tightness,Muscle Guarding,Tenderness Low back Palpation Location L4 and mildly at L2-L5 paraspinals and PA of SP Palpation Findings Soft Tissue Tightness,Muscle Guarding,Tenderness PT-OP-K Range of Motion Start: 10/17/22 21:00 Freq: Status: Active Protocol: Document 10/24/22 09:35 LRN (Rec: 10/24/22 10:28 LRN [id number]) Lumbar Spine Range of Motion Lumbar Spine Active Degrees Testing Position Standing Flexion 110 Extension 30 Rotation Left 40 Rotation Right 20 Lateral Flexion Left 30 Lateral Flexion Right 15 Comments Trunk AROM: Flexion is 110 deg?s with 65 deg?s hip flexion, Trunk extension is 30 deg?s with 10 deg?s hip extension. Trunk R SB lacks spinal mobility. Trunk R rot is pain. Hip Goniometric Range of Motion Hip Right Passive Testing Position Supine Internal Rotation 10 External Rotation 80 Comments Since child the hips are stiff and pop. Left Passive Internal Rotation 10 External Rotation 80 Comments Since child the hips are stiff and pop. PT-OP-M Strength Start: 10/17/22 21:00 Freq: Status: Active Protocol: Document 10/24/22 09:35 LRN (Rec: 10/24/22 10:28 LRN [id number]) Trunk Strength Trunk Manual Muscle Testing Core Stabilization Lacks core stab with rotation. Hip Strength Hip Manual Muscle Testing Right Comments Generally 5/5 Left Comments Generally 5/5 PT-OP-Q Treatments Start: 10/17/22 21:00 Freq: Status: Active Protocol: Document 10/31/22 10:01 SP (Rec: 10/31/22 10:54 SP [id number]) Therapeutic Exercises Supine Exercises TA knee flex/ext (HS) Supine Exercise Name initiated in PT for increase TA adn PPT effort Equipment Used assess again next tx for HEP Reps/Minutes 5 reps on each LE alternating Comments cued slow transition return LE onto table without pelvic rocking. TA tightening Supine Exercise Name TA tightening with exhale review Reps/Minutes 10 SH x10 review, cued head lift for increased TA fac Comments therapist palpated contraction , good facilitation. Sidelying Exercises Open book stretch Sidelying Exercise Name Open book stretch- review next tx Side bilateral Reps/Minutes 8x each with hold at end range for a breath Comments 10/31 not performed but states feels good and doing well Sitting Exercises Tball Sitting Exercise Name initiated: pelvis tilts ant/ post/lat, august and LAQ small range, TB rot Resistance 65cm>55cm tball (has at home), TB #3 (rotation) w/ Rot Reps/Minutes 10 reps each Comments improved TA recruitment self report 55cm, cued for taller lift during act- Manual Therapy Treatment Soft Tissue Mobilization Sacral balancing Body Location R iliac crest post rotated, L anterior rot, sacrum L>R tilt & L musc tight Mobilization Type Strumming,Sustained Pressure, Other Intensity/Depth Moderate Body Position supine & prone Comments manual CONTRACT DESIGNER provided: Muscle energy: resisted R hip flexion (90/90), resisted L hip extension (90/90), STMs: L>R piriformis w/ FM hip IR/ER AROM & glut max at iliac crest , lateral muscular sacral attachments hip ERs, superior ischial tuberosity pressure with breath. PA sustained pressure L posterolateral 3x 5SH. * Discussed use of racquetball on wall to gluteal area for self STMs decrease tightness- verbalized understanding- ran out time to trial in PT. Self-Care/Home Management Treatment Education Patient Education Body Mechanics,Home Exercise Program,Joint Protection,Pain Management,Posture Other Education Added seated Tball core ther ex, discussed try push kids in stroller vs carrying them and utilizing space not around kids with ther ex to allow stabilize and proper form. Time spent with discussion use pillow BLEs, BUEs, under upper ribcage spinal alignment . PT-OP-T Assessment and Plan Start: 10/17/22 21:00 Freq: Status: Active Protocol: Document 10/31/22 10:01 SP (Rec: 10/31/22 10:54 SP [id number]) Physical Therapy Assessment Goals Four Impairment Muscle tightness of the neck/ shoulders. Impairment Neck pain in evenings is 3-4/ 10. Short Term Goal (STG) Pt will demonstate improved sitting postural awareness with ability to correct head on shoulder posturing. 10/31/22: cues for sitting elevated posture head over shlds over pelvis on tball. STG Duration 12/12/22 prgressing 10/31/22 Photo Optics Technician Goal (LTG) Pt will report less pain in neck/shoulder at end of day for more peaceful sleep at night. 10/31/22: discussed use pillows between BLEs, BUEs and if beneficial small folded towel/ pillow under upper lateral ribcage for trunk spinal support. Verbalized understanding but didn;t get to perform in PT. LTG Duration 01/22/23 progressing 10/31/22 Three Impairment Stiffness in lumbar and upper back region Impairment LBP in evenings is 6-9/10. Trunk SB is 30 deg's L, 15 deg 's R. Trunk Rot is 40 deg's L, 20 deg's R. Short Term Goal (STG) Pt will demonstrate improve mobility of of lumbar spine mechanics (curve with SB and Rotation). STG Duration 12/12/22 Usp Goal (LTG) Pt will be able to demonstrate improved lumbar spine mechanics with trunk SB and rotation with less LBP in the evenings. 10/31/22: reviewed passed HEP resisted rotation withcues for elevated and TA/PPTA seated on Tball in PT, improved decrease to no R LB tightness irritation. LTG Duration 01/22/23 progressing 10/31/22 Two Impairment Core weakness Impairment Being able to ex at home on TM , eliptical or stair climber, with hand/ankle weights, or yoga class. STG Duration 12/12/22 Usp Goal (LTG) Improve core stability with pt able to exercise walk greater than 1/2 mile/day and/or [address] hiking with kids. 10/31/22: progressing: able to walk approx 1/2 mile before back hurts but is having to carry kids just before end this distance and feels if didn;t need to could go further. LTG Duration 01/22/23 progressing 10/31/22 One Impairment Lacks consistency with HEP. Impairment Excessive lumbar lordosis, stands unequal WBing in LE's, protruding abdomen. Pt not on a self care HEP to manage her bilateral sciatic pain. Short Term Goal (STG) Pt will be able to demonstrate best practice transfers stand <>supine and will resume her prevously issued HEP. STG Duration 12/12/22 Usp Goal (LTG) Pt will be able to transition to home exercise gym for ex on TM, eliptical or stair climber, with hand/ankle weights, or participate in a yoga class. 10/31/22: added past seated TBall pelvic tilts, march, LAQ , resisted rows and rotation for TA support. LTG Duration 01/22/23 progressing 10/31/22 Assessment Summary Assessment Pt responded well to manual, initiated seated pelvic tilts, march, LAQ and resisted Rotation with occasional cues for elevated posturing and TA/ PPT postioning needed comfort. Pt reported feeling pretty good in LB when leaving. Physical Therapy Plan Frequency and Duration Frequency of Treatment 2x/Week Plan of Care Start Date 10/24/22 Plan of Care End Date 01/22/23 Therapeutic Interventions Therapeutic Interventions Balance Training,Gait Training ,Home Exercise Program,Joint Mobilizations,Manual Therapy, Neuromuscular Re-education, Patient/Caregiver Education, Self-Care/Home Management,Soft Tissue Mobilization,Taping, Therapeutic Activities, Therapeutic Exercises Modalities Cold Pack/Ice Massage,Electric Stimulation,Hot Packs, Ultrasound Next Visit Focus/Plan Next Note Type Treatment Note Next Visit Plan 2x/week for 8 wks to start, max 12 weeks. Assess issued tball seated TA HEP Next: add TM walking view gait assess for mechanics outside with kids. Add SB stretch. POC: Issue HEP: open book, hands/knees and sup TA. Check neck and shoulder mobility and strength, VA test. Manual therapy: STM, JMT, Cervicothoraco junction, manual lumbar traction, sacral balancing, K-tape for postural corrections, stabilization, inflammation. Ther ex: Postural, stabilization, balance and hip /lumbar/cervical mobility exercises. Ther Act: Transfer training, postural training, gait/ balance assessment. Modalities: Cryotherapy, MH, ESTIM, US.
--- NOTE | 2022-11-06 09:00 | PT.OTN ---
Current Diagnoses Other chronic pain (11/06/22) Stiffness of unspecified hip, not elsewhere classified (11/06/22) Postural kyphosis, cervicothoracic region (11/06/22) Low back pain, unspecified (11/06/22) Separation of muscle (nontraumatic), unspecified site (11/06/22) Physical Therapy Treatment Note PT-OP-A Visit Information Start: 10/17/22 21:00 Freq: Status: Active Protocol: Document 11/06/22 08:19 SP (Rec: 11/06/22 09:04 SP [id number]) Out-Patient Physical Therapy Visit Information Visit Information Visit Type Treatment Note Visit Start Time 08:19 Visit Stop Time 09:00 Total Visit Minutes 41 Visit Number 4 Number of DIGITAL LEARNING PLATFORMS MANAGER Visits 2 Evaluation Information Evaluation Date 10/24/22 Precautions Precautions History of back pain when PT-OP-B Current Condition Start: 10/17/22 21:00 Freq: Status: Active Protocol: Document 10/24/22 09:35 LRN (Rec: 10/24/22 10:28 LRN [id number]) Current Condition History of Current Condition Onset Date ~09/30/22 Current Complaints Worsening back pain by the evening, rated 6-7/10. History of Current Condition Pt had attended physical therapy post- from to 08/29/22, but pt's rehab was limited due to insurance visit limits. Since her discharge she reports stopping anti-inflammatories, so the back pain worsened, but not as bad as initial treatment visit last time. Her babies now weigh 34# and 24# and she is trying not to hold them. She is also trying to wean from . She reports her function has improved and she has been able to do things, but now is taking ms relaxors when feeling like her back is going to flare up. Sometimes she has pain in the morning (3/10, or stiff) if slept wrong, but always at bed time pain is at its worst. States since childhood her hips sometimes locks, then pops and pops out of place. States it hurts both with locking and when popping. Prior Treatments and Tests PT at PT from 06/23/22-. Future Testing and Treatments Planned None Developmental History Developmental History 04/2021: Back pain after fall when , occasional sciatic pain bilaterally. Most recent son born 07/20/2021 . 1st , miscarried twin and was having pain, first son born 03/18/2020. Sons were of vaginal . She had fallen when 2nd son slipped on wet deck, and she was holding 1st son, causing her to twist left, landing on L hip and L shoulder. Treatment Goals Patient/Caregiver Goals Pt goals: Being able to exercise walk > 1/2 mile/day to 2 miles to go flat trail hiking with kids. Being able to ex at home on TM , eliptical or stair climber, with hand/ankle weights, or yoga class. Personal Factors Other Personal Factors That May Effect . Therapy/Recovery 2 children ages: 2.5 and 15 months old. PT-OP-C Subjective Start: 10/17/22 21:00 Freq: Status: Active Protocol: Document 11/06/22 08:19 SP (Rec: 11/06/22 09:04 SP [id number]) OP-PT Subjective Patient Comments Patient Comments Pt reports legs sore but back ok due to pulling weeds in yard. Is doing well with HEP, feels able engage abdomen better. PT-OP-H Neuro Start: 10/17/22 21:00 Freq: Status: Active Protocol: Document 10/24/22 09:35 LRN (Rec: 10/24/22 10:28 LRN [id number]) Sensation Evaluation Gross Sensation Gross Sensation WNL PT-OP-J Posture/Palpation/Skin Start: 10/17/22 21:00 Freq: Status: Active Protocol: Document 10/24/22 09:35 LRN (Rec: 10/24/22 10:28 LRN [id number]) Posture Evaluation Position Standing Head/C-Spine Posture Forward Head L-Spine Posture Increased Lordosis Arm Posture (L) Internally Rotated,(R) Internally Rotated Pelvis Posture Anteriorly Tilted Weight Distribution Balanced,Weight Shifted Left Knee Posture (L) Genu Valgus,(R) Genu Valgus Comments Posture Comments Obvious Dowagers Hump, flattened upper T/S, increased lordosis, L knee valgus > R knee, Palpation Assessment Location C/S Palpation Location C. paraspinals and PA of SP Palpation Findings Soft Tissue Tightness,Muscle Guarding,Tenderness Upper back Palpation Location T2-T5 paraspinals and PA of SP Palpation Findings Soft Tissue Tightness,Muscle Guarding,Tenderness Low back Palpation Location L4 and mildly at L2-L5 paraspinals and PA of SP Palpation Findings Soft Tissue Tightness,Muscle Guarding,Tenderness PT-OP-K Range of Motion Start: 10/17/22 21:00 Freq: Status: Active Protocol: Document 10/24/22 09:35 LRN (Rec: 10/24/22 10:28 LRN [id number]) Lumbar Spine Range of Motion Lumbar Spine Active Degrees Testing Position Standing Flexion 110 Extension 30 Rotation Left 40 Rotation Right 20 Lateral Flexion Left 30 Lateral Flexion Right 15 Comments Trunk AROM: Flexion is 110 deg?s with 65 deg?s hip flexion, Trunk extension is 30 deg?s with 10 deg?s hip extension. Trunk R SB lacks spinal mobility. Trunk R rot is pain. Hip Goniometric Range of Motion Hip Right Passive Testing Position Supine Internal Rotation 10 External Rotation 80 Comments Since child the hips are stiff and pop. Left Passive Internal Rotation 10 External Rotation 80 Comments Since child the hips are stiff and pop. PT-OP-M Strength Start: 10/17/22 21:00 Freq: Status: Active Protocol: Document 10/24/22 09:35 LRN (Rec: 10/24/22 10:28 LRN [id number]) Trunk Strength Trunk Manual Muscle Testing Core Stabilization Lacks core stab with rotation. Hip Strength Hip Manual Muscle Testing Right Comments Generally 5/5 Left Comments Generally 5/5 PT-OP-Q Treatments Start: 10/17/22 21:00 Freq: Status: Active Protocol: Document 11/06/22 08:19 SP (Rec: 11/06/22 09:04 SP [id number]) Therapeutic Exercises Supine Exercises TA knee flex/ext (HS) Supine Exercise Name TA resisted core press knee ( 90/90) Reps/Minutes 10SH x10 Comments cued slow transition return LE onto table without pelvic rocking. TA tightening Supine Exercise Name TA tightening with exhale review Reps/Minutes 10 SH x10 review, cued head lift for increased TA fac Comments therapist palpated contraction , good facilitation. Sidelying Exercises TA clamshell Sidelying Exercise Name added to HEP Side bilateral Resistance TB #2 orange Reps/Minutes 2x10 Comments cued neutral pelvis, TA, slow con/ecc control, improved no wobble Open book stretch Sidelying Exercise Name Open book stretch- review next tx Side bilateral Reps/Minutes 8 reps, 3 breath end range Comments good form Sitting Exercises Tball Sitting Exercise Name pelvis tilts ant/post/lat, march and LAQ small range, TB rot Resistance 65cm>55cm tball (has at home), TB #3 (rotation) w/ Rot Reps/Minutes 2x10 reps each Comments improved TA recruitment self report 55cm, cued for taller lift during act- Standing Exercises TA eccentric squat Standing Exercise Name trialed in PT Resistance 10# wt Reps/Minutes x10 squat tap chair Comments cued neutral/PPT w/ TA con/ecc ,wt close to body Other Exercises quadruped UE/ LE ext Other Exercise Name added to HEP (bird dog) Side bilateral Reps/Minutes x10 each side Comments cued neutral pelvis, TA, slide out/ little lift w/ level pelvis Hands/knees TA tightening Other Exercise Name TA tightening Reps/Minutes 10 SH Maddie' Pose Other Exercise Name Child's Pose Reps/Minutes 60 total stretch Comments good LB stretch between bird dog ex Self-Care/Home Management Treatment Education Patient Education Body Mechanics,Home Exercise Program,Joint Protection, Posture Other Education Time discussed squat mechanics for picking up kids, pulling weeds. HEP: Added resisted clam, resisted shld ext seated on tball, quadruped UE/ LE ext ( bird dog). PT-OP-T Assessment and Plan Start: 10/17/22 21:00 Freq: Status: Active Protocol: Document 11/06/22 08:19 SP (Rec: 11/06/22 09:04 SP [id number]) Physical Therapy Assessment Goals Four Impairment Muscle tightness of the neck/ shoulders. Impairment Neck pain in evenings is 3-4/ 10. Short Term Goal (STG) Pt will demonstate improved sitting postural awareness with ability to correct head on shoulder posturing. 10/31/22: cues for sitting elevated posture head over shlds over pelvis on tball. 11/06/22: GOAL MET: Improved self corrections during seated Tball ex. STG Duration 12/12/22 GOAL MET 11/06/22 Custodial Goal (LTG) Pt will report less pain in neck/shoulder at end of day for more peaceful sleep at night. 10/31/22: discussed use pillows between BLEs, BUEs and if beneficial small folded towel/ pillow under upper lateral ribcage for trunk spinal support. Verbalized understanding but didn;t get to perform in PT. LTG Duration 01/22/23 progressing 10/31/22 Three Impairment Stiffness in lumbar and upper back region Impairment LBP in evenings is 6-9/10. Trunk SB is 30 deg's L, 15 deg 's R. Trunk Rot is 40 deg's L, 20 deg's R. Short Term Goal (STG) Pt will demonstrate improve mobility of of lumbar spine mechanics (curve with SB and Rotation). STG Duration 12/12/22 Custodial Goal (LTG) Pt will be able to demonstrate improved lumbar spine mechanics with trunk SB and rotation with less LBP in the evenings. 10/31/22: reviewed passed HEP resisted rotation withcues for elevated and TA/PPTA seated on Tball in PT, improved decrease to no R LB tightness irritation. LTG Duration 01/22/23 progressing 10/31/22 Two Impairment Core weakness Impairment Being able to ex at home on TM , eliptical or stair climber, with hand/ankle weights, or yoga class. STG Duration 12/12/22 Custodial Goal (LTG) Improve core stability with pt able to exercise walk greater than 1/2 mile/day and/or [address] hiking with kids. 10/31/22: progressing: able to walk approx 1/2 mile before back hurts but is having to carry kids just before end this distance and feels if didn;t need to could go further. LTG Duration 01/22/23 progressing 10/31/22 One Impairment Lacks consistency with HEP. Impairment Excessive lumbar lordosis, stands unequal WBing in LE's, protruding abdomen. Pt not on a self care HEP to manage her bilateral sciatic pain. Short Term Goal (STG) Pt will be able to demonstrate best practice transfers stand <>supine and will resume her prevously issued HEP. STG Duration 12/12/22 Labor Specialist Goal (LTG) Pt will be able to transition to home exercise gym for ex on TM, eliptical or stair climber, with hand/ankle weights, or participate in a yoga class. 10/31/22: added past seated TBall pelvic tilts, march, LAQ , resisted rows and rotation for TA support. 11/06/22: added seated shlde ext , resisted clam, bird dog. LTG Duration 01/22/23 progressing 11/06/22 Assessment Summary Assessment Pt good response to ther ex today. Good TA/PPT corrections when needed for stabilization . Improved seated postural corrections seated on tball during ther ex. Physical Therapy Plan Frequency and Duration Frequency of Treatment 2x/Week Plan of Care Start Date 10/24/22 Plan of Care End Date 01/22/23 Therapeutic Interventions Therapeutic Interventions Balance Training,Gait Training ,Home Exercise Program,Joint Mobilizations,Manual Therapy, Neuromuscular Re-education, Patient/Caregiver Education, Self-Care/Home Management,Soft Tissue Mobilization,Taping, Therapeutic Activities, Therapeutic Exercises Modalities Cold Pack/Ice Massage,Electric Stimulation,Hot Packs, Ultrasound Next Visit Focus/Plan Next Note Type Treatment Note Next Visit Plan 2x/week for 8 wks to start, max 12 weeks. Assess added clam, bird dog, tball HEP. Next: add TM walking view gait assess for mechanics outside with kids. Add SB stretch. POC: Issue HEP: open book, hands/knees and sup TA. Check neck and shoulder mobility and strength, VA test. Manual therapy: STM, JMT, Cervicothoraco junction, manual lumbar traction, sacral balancing, K-tape for postural corrections, stabilization, inflammation. Ther ex: Postural, stabilization, balance and hip /lumbar/cervical mobility exercises. Ther Act: Transfer training, postural training, gait/ balance assessment. Modalities: Cryotherapy, MH, ESTIM, US.
--- NOTE | 2022-11-25 16:54 | PT.OTN ---
Current Diagnoses Other chronic pain (11/25/22) Stiffness of unspecified hip, not elsewhere classified (11/25/22) Postural kyphosis, cervicothoracic region (11/25/22) Low back pain, unspecified (11/25/22) Separation of muscle (nontraumatic), unspecified site (11/25/22) Physical Therapy Treatment Note PT-OP-A Visit Information Start: 10/17/22 21:00 Freq: Status: Active Protocol: Document 11/25/22 08:54 LRN (Rec: 11/25/22 09:37 LRN [id number]) Out-Patient Physical Therapy Visit Information Visit Information Visit Type Treatment Note Visit Start Time 08:54 Visit Stop Time 09:33 Total Visit Minutes 41 Visit Number 5 Evaluation Information Evaluation Date 10/24/22 Precautions Precautions History of back pain when . PT-OP-B Current Condition Start: 10/17/22 21:00 Freq: Status: Active Protocol: Document 10/24/22 09:35 LRN (Rec: 10/24/22 10:28 LRN [id number]) Current Condition History of Current Condition Onset Date ~09/30/22 Current Complaints Worsening back pain by the evening, rated 6-7/10. History of Current Condition Pt had attended physical therapy post- from to 08/29/22, but pt's rehab was limited due to insurance visit limits. Since her discharge she reports stopping anti-inflammatories, so the back pain worsened, but not as bad as initial treatment visit last time. Her babies now weigh 34# and 24# and she is trying not to hold them. She is also trying to wean from . She reports her function has improved and she has been able to do things, but now is taking ms relaxors when feeling like her back is going to flare up. Sometimes she has pain in the morning (3/10, or stiff) if slept wrong, but always at bed time pain is at its worst. States since childhood her hips sometimes locks, then pops and pops out of place. States it hurts both with locking and when popping. Prior Treatments and Tests PT at PT from 06/23/22-. Future Testing and Treatments Planned None Developmental History Developmental History 04/2021: Back pain after fall when , occasional sciatic pain bilaterally. Most recent son born 07/20/2021 . 1st , miscarried twin and was having pain, first son born 03/18/2020. Sons were of vaginal . She had fallen when 2nd son slipped on wet deck, and she was holding 1st son, causing her to twist left, landing on L hip and L shoulder. Treatment Goals Patient/Caregiver Goals Pt goals: Being able to exercise walk > 1/2 mile/day to 2 miles to go flat trail hiking with kids. Being able to ex at home on TM , eliptical or stair climber, with hand/ankle weights, or yoga class. Personal Factors Other Personal Factors That May Effect . Therapy/Recovery 2 children ages: 2.5 and 15 months old. PT-OP-C Subjective Start: 10/17/22 21:00 Freq: Status: Active Protocol: Document 11/25/22 08:54 LRN (Rec: 11/25/22 09:37 LRN [id number]) OP-PT Subjective Patient Comments Patient Comments States she is a little sore in the low back at SIJ level. Has been moving things in the barn. Just found out son diagnosed with level 5 Autism. Pt reports she can sleep better at night and is not having pain that wakes him up at night. PT-OP-H Neuro Start: 10/17/22 21:00 Freq: Status: Active Protocol: Document 10/24/22 09:35 LRN (Rec: 10/24/22 10:28 LRN [id number]) Sensation Evaluation Gross Sensation Gross Sensation WNL PT-OP-J Posture/Palpation/Skin Start: 10/17/22 21:00 Freq: Status: Active Protocol: Document 10/24/22 09:35 LRN (Rec: 10/24/22 10:28 LRN [id number]) Posture Evaluation Position Standing Head/C-Spine Posture Forward Head L-Spine Posture Increased Lordosis Arm Posture (L) Internally Rotated,(R) Internally Rotated Pelvis Posture Anteriorly Tilted Weight Distribution Balanced,Weight Shifted Left Knee Posture (L) Genu Valgus,(R) Genu Valgus Comments Posture Comments Obvious Dowagers Hump, flattened upper T/S, increased lordosis, L knee valgus > R knee, Palpation Assessment Location C/S Palpation Location C. paraspinals and PA of SP Palpation Findings Soft Tissue Tightness,Muscle Guarding,Tenderness Upper back Palpation Location T2-T5 paraspinals and PA of SP Palpation Findings Soft Tissue Tightness,Muscle Guarding,Tenderness Low back Palpation Location L4 and mildly at L2-L5 paraspinals and PA of SP Palpation Findings Soft Tissue Tightness,Muscle Guarding,Tenderness PT-OP-K Range of Motion Start: 10/17/22 21:00 Freq: Status: Active Protocol: Document 11/25/22 08:54 LRN (Rec: 11/25/22 09:37 LRN [id number]) Lumbar Spine Range of Motion Lumbar Spine Active Degrees Testing Position Standing Flexion 116 Extension 45 Rotation Left 40 Rotation Right 30 Lateral Flexion Left 32 Lateral Flexion Right 25 Comments Trunk AROM: Flexion is 116 deg?s with 55 deg?s hip flexion, Trunk extension is 45 deg?s with 25 deg?s hip extension. Trunk R SB limited by L SIJ tightness Trunk R rot. PT-OP-M Strength Start: 10/17/22 21:00 Freq: Status: Active Protocol: Document 10/24/22 09:35 LRN (Rec: 10/24/22 10:28 LRN [id number]) Trunk Strength Trunk Manual Muscle Testing Core Stabilization Lacks core stab with rotation. Hip Strength Hip Manual Muscle Testing Right Comments Generally 5/5 Left Comments Generally 5/5 PT-OP-Q Treatments Start: 10/17/22 21:00 Freq: Status: Active Protocol: Document 11/25/22 08:54 LRN (Rec: 11/25/22 09:37 LRN [id number]) Therapeutic Exercises Supine Exercises KTC stretch Supine Exercise Name KT stretch Side bilateral Reps/Minutes 3' Sidelying Exercises Open book stretch Sidelying Exercise Name Open book stretch- review next tx Side bilateral Reps/Minutes 8 reps, 3 breath end range Comments good form Sitting Exercises Tball Sitting Exercise Name pelvis tilts ant/post/lat, march and LAQ small range, TB rot Resistance 65cm>55cm tball (has at home), TB #3 (rotation) w/ Rot Reps/Minutes 10x pelvic tilts, 2x10 reps each Other Exercises Maddie' Pose Other Exercise Name Child's Pose Reps/Minutes 60 total stretch Comments good LB stretch between bird dog ex Manual Therapy Treatment Soft Tissue Mobilization Sacral balancing Body Location Sacrum Body Position Prone Comments Decreased mobility with correction of Infer glide R sacral sulcus, sacral shear to the R, and 6 pt balancing PT-OP-T Assessment and Plan Start: 10/17/22 21:00 Freq: Status: Active Protocol: Document 11/25/22 08:54 LRN (Rec: 11/25/22 09:37 LRN [id number]) Physical Therapy Assessment Goals Four Impairment Muscle tightness of the neck/ shoulders. Impairment Neck pain in evenings is 3-4/ 10. Short Term Goal (STG) Pt will demonstate improved sitting postural awareness with ability to correct head on shoulder posturing. 10/31/22: cues for sitting elevated posture head over shlds over pelvis on tball. 11/06/22: GOAL MET: Improved self corrections during seated Tball ex. STG Duration 12/12/22 GOAL MET 11/06/22 Mcc Goal (LTG) Pt will report less pain in neck/shoulder at end of day for more peaceful sleep at night. 10/31/22: discussed use pillows between BLEs, BUEs and if beneficial small folded towel/ pillow under upper lateral ribcage for trunk spinal support. Verbalized understanding but didn't get to perform in PT. 11/25/22: Somedays doesn't have neck pain, somedays 5, still carring kids around. Sleeping at night not having as much shooting pain down the legs or waking up due to pain issues. LTG Duration 01/22/23 (11/25/22: MET GOAL ) Three Impairment Stiffness in lumbar and upper back region Impairment LBP in evenings is 6-9/10. Trunk SB is 30 deg's L, 15 deg 's R. Trunk Rot is 40 deg's L, 20 deg's R. Short Term Goal (STG) Pt will demonstrate improve mobility of of lumbar spine mechanics (curve with SB and Rotation). STG Duration 12/12/22 (11/25/22: MET GOAL ) Mcc Goal (LTG) Pt will be able to demonstrate improved lumbar spine mechanics with trunk SB and rotation with less LBP in the evenings. 10/31/22: reviewed passed HEP resisted rotation withcues for elevated and TA/PPTA seated on Tball in PT, improved decrease to no R LB tightness irritation. LTG Duration 01/22/23 progressing 10/31/22 Two Impairment Core weakness Impairment Being able to ex at home on TM , eliptical or stair climber, with hand/ankle weights, or yoga class. STG Duration 12/12/22 Mcc Goal (LTG) Improve core stability with pt able to exercise walk greater than 1/2 mile/day and/or [address] hiking with kids. 10/31/22: progressing: able to walk approx 1/2 mile before back hurts but is having to carry kids just before end this distance and feels if didn;t need to could go further. LTG Duration 01/22/23 progressing 10/31/22 One Impairment Lacks consistency with HEP. Impairment Excessive lumbar lordosis, stands unequal WBing in LE's, protruding abdomen. Pt not on a self care HEP to manage her bilateral sciatic pain. Short Term Goal (STG) Pt will be able to demonstrate best practice transfers stand <>supine and will resume her prevously issued HEP. STG Duration 12/12/22 Filter Washer And Presser Goal (LTG) Pt will be able to transition to home exercise gym for ex on TM, eliptical or stair climber, with hand/ankle weights, or participate in a yoga class. 10/31/22: added past seated TBall pelvic tilts, march, LAQ , resisted rows and rotation for TA support. 11/06/22: added seated shlde ext , resisted clam, bird dog. LTG Duration 01/22/23 progressing 11/06/22 Progress Towards Goals Progress Comments LTG #4 MET. STG #3 MET. Assessment Summary Assessment Pt doing limited tball HEP's due to reported limited amount of time to exercise. Pt primarily has mechanical dysfunction of the cervical/ thoracic spine and noteable Dowagers hump, and increased lumbar lordosis with primary pivot point at L5-S1, possible SIJ dysfunction and Diastasis Rectus hindering core stabilization. Today she demonstrates improved trunk mobility with pain primarily at SIJ's bilaterally. SIJ pain may be due to increased activity at home lately and pt encouraged to increase use of ice to decrease inflammation from activities. Further pelvic/core stab needed. Physical Therapy Plan Frequency and Duration Frequency of Treatment 2x/Week Plan of Care Start Date 10/24/22 Plan of Care End Date 01/22/23 Next Visit Focus/Plan Next Note Type Treatment Note Next Visit Plan 2x/week for 8 wks to start, max 12 weeks. Assess added clam, bird dog. Focus on pelvic/core stab. Next: add TM walking view gait assess for mechanics outside with kids. Add R SB stretch. POC: Issue HEP: open book, hands/knees and sup TA. Check neck and shoulder mobility and strength, VA test. Manual therapy: STM, JMT, Cervicothoraco junction, manual lumbar traction, sacral balancing, K-tape for postural corrections, stabilization, inflammation. Ther ex: Postural, stabilization, balance and hip /lumbar/cervical mobility exercises. Ther Act: Transfer training, postural training, gait/ balance assessment. Modalities: Cryotherapy, MH, ESTIM, US.
--- NOTE | 2022-11-27 17:40 | PT.OTN ---
Current Diagnoses Other chronic pain (11/27/22) Stiffness of unspecified hip, not elsewhere classified (11/27/22) Postural kyphosis, cervicothoracic region (11/27/22) Low back pain, unspecified (11/27/22) Separation of muscle (nontraumatic), unspecified site (11/27/22) Physical Therapy Treatment Note PT-OP-A Visit Information Start: 10/17/22 21:00 Freq: Status: Active Protocol: Document 11/27/22 08:45 LRN (Rec: 11/27/22 09:32 LRN [id number]) Out-Patient Physical Therapy Visit Information Visit Information Visit Type Treatment Note Visit Start Time 08:45 Visit Stop Time 09:26 Total Visit Minutes 43 Visit Number 6 Evaluation Information Evaluation Date 10/24/22 Precautions Precautions History of back pain when . PT-OP-B Current Condition Start: 10/17/22 21:00 Freq: Status: Active Protocol: Document 10/24/22 09:35 LRN (Rec: 10/24/22 10:28 LRN [id number]) Current Condition History of Current Condition Onset Date ~09/30/22 Current Complaints Worsening back pain by the evening, rated 6-7/10. History of Current Condition Pt had attended physical therapy post- from to 08/29/22, but pt's rehab was limited due to insurance visit limits. Since her discharge she reports stopping anti-inflammatories, so the back pain worsened, but not as bad as initial treatment visit last time. Her babies now weigh 34# and 24# and she is trying not to hold them. She is also trying to wean from . She reports her function has improved and she has been able to do things, but now is taking ms relaxors when feeling like her back is going to flare up. Sometimes she has pain in the morning (3/10, or stiff) if slept wrong, but always at bed time pain is at its worst. States since childhood her hips sometimes locks, then pops and pops out of place. States it hurts both with locking and when popping. Prior Treatments and Tests PT at PT from 06/23/22-. Future Testing and Treatments Planned None Developmental History Developmental History 04/2021: Back pain after fall when , occasional sciatic pain bilaterally. Most recent son born 07/20/2021 . 1st , miscarried twin and was having pain, first son born 03/18/2020. Sons were of vaginal . She had fallen when 2nd son slipped on wet deck, and she was holding 1st son, causing her to twist left, landing on L hip and L shoulder. Treatment Goals Patient/Caregiver Goals Pt goals: Being able to exercise walk > 1/2 mile/day to 2 miles to go flat trail hiking with kids. Being able to ex at home on TM , eliptical or stair climber, with hand/ankle weights, or yoga class. Personal Factors Other Personal Factors That May Effect . Therapy/Recovery 2 children ages: 2.5 and 15 months old. PT-OP-C Subjective Start: 10/17/22 21:00 Freq: Status: Active Protocol: Document 11/27/22 08:45 LRN (Rec: 11/27/22 09:32 LRN [id number]) OP-PT Subjective Patient Comments Patient Comments Pain rated 1/10. Used more ice to LB yesterday. PT-OP-H Neuro Start: 10/17/22 21:00 Freq: Status: Active Protocol: Document 10/24/22 09:35 LRN (Rec: 10/24/22 10:28 LRN [id number]) Sensation Evaluation Gross Sensation Gross Sensation WNL PT-OP-J Posture/Palpation/Skin Start: 10/17/22 21:00 Freq: Status: Active Protocol: Document 10/24/22 09:35 LRN (Rec: 10/24/22 10:28 LRN [id number]) Posture Evaluation Position Standing Head/C-Spine Posture Forward Head L-Spine Posture Increased Lordosis Arm Posture (L) Internally Rotated,(R) Internally Rotated Pelvis Posture Anteriorly Tilted Weight Distribution Balanced,Weight Shifted Left Knee Posture (L) Genu Valgus,(R) Genu Valgus Comments Posture Comments Obvious Dowagers Hump, flattened upper T/S, increased lordosis, L knee valgus > R knee, Palpation Assessment Location C/S Palpation Location C. paraspinals and PA of SP Palpation Findings Soft Tissue Tightness,Muscle Guarding,Tenderness Upper back Palpation Location T2-T5 paraspinals and PA of SP Palpation Findings Soft Tissue Tightness,Muscle Guarding,Tenderness Low back Palpation Location L4 and mildly at L2-L5 paraspinals and PA of SP Palpation Findings Soft Tissue Tightness,Muscle Guarding,Tenderness PT-OP-K Range of Motion Start: 10/17/22 21:00 Freq: Status: Active Protocol: Document 11/25/22 08:54 LRN (Rec: 11/25/22 09:37 LRN [id number]) Lumbar Spine Range of Motion Lumbar Spine Active Degrees Testing Position Standing Flexion 116 Extension 45 Rotation Left 40 Rotation Right 30 Lateral Flexion Left 32 Lateral Flexion Right 25 Comments Trunk AROM: Flexion is 116 deg?s with 55 deg?s hip flexion, Trunk extension is 45 deg?s with 25 deg?s hip extension. Trunk R SB limited by L SIJ tightness Trunk R rot. PT-OP-M Strength Start: 10/17/22 21:00 Freq: Status: Active Protocol: Document 10/24/22 09:35 LRN (Rec: 10/24/22 10:28 LRN [id number]) Trunk Strength Trunk Manual Muscle Testing Core Stabilization Lacks core stab with rotation. Hip Strength Hip Manual Muscle Testing Right Comments Generally 5/5 Left Comments Generally 5/5 PT-OP-Q Treatments Start: 10/17/22 21:00 Freq: Status: Active Protocol: Document 11/27/22 08:45 LRN (Rec: 11/27/22 09:32 LRN [id number]) Cardio Equipment Treadmill Duration (Minutes) 13 Speed 1.7 Incline 0 Other Gt training Therapeutic Exercises Supine Exercises Piriformis stretch Supine Exercise Name Piriformis stretch (cross leg stretch) Side right Equipment Used Strap Reps/Minutes 60 total stretch Comments Extra time taken to determine max stretch & best position Sidelying Exercises TA clamshell Sidelying Exercise Name TA/Clamshell Side bilateral Resistance TB #2 orange Reps/Minutes 15x Comments cued neutral pelvis, TA, slow con/ecc control, improved no wobble Open book stretch Sidelying Exercise Name Open book rot stretch (L>R) Side bilateral Reps/Minutes 10x L, 5x R Comments good form Sitting Exercises R Piriformis stretch Sitting Exercise Name Piriformis stretch Side right Other Exercises quadruped UE/ LE ext Other Exercise Name Bird dog Side bilateral Reps/Minutes x15 each side Comments cued TA/ neutral pelvis needing pelvic L rot less trunk ext with RLE lift. Maddie' Pose Other Exercise Name Child's Pose Reps/Minutes 60 total stretch Comments good LB stretch between bird dog ex Gait Training Gait Activity Gait awarness Description Gait training on TM Device Used TM @ 1.7 speed/handrails Distance/Duration 10' Treatment Focus Correct R LE ER rotated out, Comments PT correcting RLE placement ( initially with cuing of knee in, later tried cuing foot & TA tight). 3-4 steps correction f/b regular gait. Extra time taken to determine best gait speed for training. Manual Therapy Treatment Soft Tissue Mobilization Trunk rot stretch Body Location Stretch to trunk rotators (R>L ) Mobilization Type Sustained Pressure Intensity/Depth Moderate Body Position Supine PT-OP-T Assessment and Plan Start: 10/17/22 21:00 Freq: Status: Active Protocol: Document 11/27/22 08:45 LRN (Rec: 11/27/22 09:32 LRN [id number]) Physical Therapy Assessment Goals Four Impairment Muscle tightness of the neck/ shoulders. Impairment Neck pain in evenings is 3-4/ 10. Short Term Goal (STG) Pt will demonstate improved sitting postural awareness with ability to correct head on shoulder posturing. 10/31/22: cues for sitting elevated posture head over shlds over pelvis on tball. 11/06/22: GOAL MET: Improved self corrections during seated Tball ex. STG Duration 12/12/22 GOAL MET 11/06/22 Equipment Worker Goal (LTG) Pt will report less pain in neck/shoulder at end of day for more peaceful sleep at night. 10/31/22: discussed use pillows between BLEs, BUEs and if beneficial small folded towel/ pillow under upper lateral ribcage for trunk spinal support. Verbalized understanding but didn't get to perform in PT. 11/25/22: Somedays doesn't have neck pain, somedays 5/10, still carring kids around. Sleeping at night not having as much shooting pain down the legs or waking up due to pain issues. LTG Duration 01/22/23 (11/25/22: MET GOAL ) Three Impairment Stiffness in lumbar and upper back region Impairment LBP in evenings is 6-9/10. Trunk SB is 30 deg's L, 15 deg 's R. Trunk Rot is 40 deg's L, 20 deg's R. Short Term Goal (STG) Pt will demonstrate improve mobility of of lumbar spine mechanics (curve with SB and Rotation). STG Duration 12/12/22 (11/25/22: MET GOAL ) Senior Care Goal (LTG) Pt will be able to demonstrate improved lumbar spine mechanics with trunk SB and rotation with less LBP in the evenings. 10/31/22: reviewed passed HEP resisted rotation withcues for elevated and TA/PPTA seated on Tball in PT, improved decrease to no R LB tightness irritation. LTG Duration 01/22/23 progressing 10/31/22 Two Impairment Core weakness Impairment Being able to ex at home on TM , eliptical or stair climber, with hand/ankle weights, or yoga class. STG Duration 12/12/22 Senior Care Goal (LTG) Improve core stability with pt able to exercise walk greater than 1/2 mile/day and/or 2 [address] trail hiking with kids. 10/31/22: progressing: able to walk approx 1/2 mile before back hurts but is having to carry kids just before end this distance and feels if didn;t need to could go further. LTG Duration 01/22/23 progressing 10/31/22 One Impairment Lacks consistency with HEP. Impairment Excessive lumbar lordosis, stands unequal WBing in LE's, protruding abdomen. Pt not on a self care HEP to manage her bilateral sciatic pain. Short Term Goal (STG) Pt will be able to demonstrate best practice transfers stand <>supine and will resume her prevously issued HEP. STG Duration 12/12/22 Senior Care Goal (LTG) Pt will be able to transition to home exercise gym for ex on TM, eliptical or stair climber, with hand/ankle weights, or participate in a yoga class. 10/31/22: added past seated TBall pelvic tilts, march, LAQ , resisted rows and rotation for TA support. 11/06/22: added seated shldr ext , resisted clam, bird dog. LTG Duration 01/22/23 progressing 11/06/22 Assessment Summary Assessment Pt has good knowledge of HEP clamshell and bird dog ex. Pt able to get some correction of gait (RLE in ER w/gait) with training w/o hip or LBP, possibly due to tight hip IR's and pelvic R rot/trunk L rot. Physical Therapy Plan Frequency and Duration Frequency of Treatment 2x/Week Plan of Care Start Date 10/24/22 Plan of Care End Date 01/22/23 Next Visit Focus/Plan Next Note Type Treatment Note Next Visit Plan 2x/week for 8 wks to start, max 12 weeks. Focus on pelvic/core stab. Issue/review HEP: Sitting (R side only) Piriformis stretch, open book (?R vs L), hands/ knees and sup TA. Add: Trunk rot strengthening, sitting R Piriformis stretch & R SB stretch POC: Check neck and shoulder mobility and strength, VA test . Manual therapy: STM, JMT, Cervicothoraco junction and Trunk rotators, sacral balancing as needed, K-tape for postural corrections, stabilization, inflammation reduction. Ther ex: Progress Postural, stabilization, balance and hip /lumbar/cervical mobility exercises. Ther Act: balance assessment. Modalities: as needed Cryotherapy, MH, ESTIM, US.
--- NOTE | 2022-12-02 09:36 | PT.OTN ---
Current Diagnoses Other chronic pain (12/02/22) Stiffness of unspecified hip, not elsewhere classified (12/02/22) Postural kyphosis, cervicothoracic region (12/02/22) Low back pain, unspecified (12/02/22) Separation of muscle (nontraumatic), unspecified site (12/02/22) Physical Therapy Treatment Note PT-OP-A Visit Information Start: 10/17/22 21:00 Freq: Status: Active Protocol: Document 12/02/22 08:51 SP (Rec: 12/02/22 09:52 SP [id number]) Out-Patient Physical Therapy Visit Information Visit Information Visit Type Treatment Note Visit Start Time 08:51 Visit Stop Time 09:36 Total Visit Minutes 45 Visit Number 7 Number of SEED YEAST OPERATOR Visits 1 Evaluation Information Evaluation Date 10/24/22 Precautions Precautions History of back pain when . PT-OP-B Current Condition Start: 10/17/22 21:00 Freq: Status: Active Protocol: Document 10/24/22 09:35 LRN (Rec: 10/24/22 10:28 LRN [id number]) Current Condition History of Current Condition Onset Date ~09/30/22 Current Complaints Worsening back pain by the evening, rated 6-7/10. History of Current Condition Pt had attended physical therapy post- from to 08/29/22, but pt's rehab was limited due to insurance visit limits. Since her discharge she reports stopping anti-inflammatories, so the back pain worsened, but not as bad as initial treatment visit last time. Her babies now weigh 34# and 24# and she is trying not to hold them. She is also trying to wean from . She reports her function has improved and she has been able to do things, but now is taking ms relaxors when feeling like her back is going to flare up. Sometimes she has pain in the morning (3/10, or stiff) if slept wrong, but always at bed time pain is at its worst. States since childhood her hips sometimes locks, then pops and pops out of place. States it hurts both with locking and when popping. Prior Treatments and Tests PT at PT from 06/23/22-. Future Testing and Treatments Planned None Developmental History Developmental History 04/2021: Back pain after fall when , occasional sciatic pain bilaterally. Most recent son born 07/20/2021 . 1st , miscarried twin and was having pain, first son born 03/18/2020. Sons were of vaginal . She had fallen when 2nd son slipped on wet deck, and she was holding 1st son, causing her to twist left, landing on L hip and L shoulder. Treatment Goals Patient/Caregiver Goals Pt goals: Being able to exercise walk > 1/2 mile/day to 2 miles to go flat trail hiking with kids. Being able to ex at home on TM , eliptical or stair climber, with hand/ankle weights, or yoga class. Personal Factors Other Personal Factors That May Effect . Therapy/Recovery 2 children ages: 2.5 and 15 months old. PT-OP-C Subjective Start: 10/17/22 21:00 Freq: Status: Active Protocol: Document 12/02/22 08:51 SP (Rec: 12/02/22 09:52 SP [id number]) OP-PT Subjective Patient Comments Patient Comments Pt reports went camping and had no pain sleeping on cabin beds. No pain with walks around short trails. PT-OP-H Neuro Start: 10/17/22 21:00 Freq: Status: Active Protocol: Document 10/24/22 09:35 LRN (Rec: 10/24/22 10:28 LRN [id number]) Sensation Evaluation Gross Sensation Gross Sensation WNL PT-OP-J Posture/Palpation/Skin Start: 10/17/22 21:00 Freq: Status: Active Protocol: Document 10/24/22 09:35 LRN (Rec: 10/24/22 10:28 LRN [id number]) Posture Evaluation Position Standing Head/C-Spine Posture Forward Head L-Spine Posture Increased Lordosis Arm Posture (L) Internally Rotated,(R) Internally Rotated Pelvis Posture Anteriorly Tilted Weight Distribution Balanced,Weight Shifted Left Knee Posture (L) Genu Valgus,(R) Genu Valgus Comments Posture Comments Obvious Dowagers Hump, flattened upper T/S, increased lordosis, L knee valgus > R knee, Palpation Assessment Location C/S Palpation Location C. paraspinals and PA of SP Palpation Findings Soft Tissue Tightness,Muscle Guarding,Tenderness Upper back Palpation Location T2-T5 paraspinals and PA of SP Palpation Findings Soft Tissue Tightness,Muscle Guarding,Tenderness Low back Palpation Location L4 and mildly at L2-L5 paraspinals and PA of SP Palpation Findings Soft Tissue Tightness,Muscle Guarding,Tenderness PT-OP-K Range of Motion Start: 10/17/22 21:00 Freq: Status: Active Protocol: Document 11/25/22 08:54 LRN (Rec: 11/25/22 09:37 LRN [id number]) Lumbar Spine Range of Motion Lumbar Spine Active Degrees Testing Position Standing Flexion 116 Extension 45 Rotation Left 40 Rotation Right 30 Lateral Flexion Left 32 Lateral Flexion Right 25 Comments Trunk AROM: Flexion is 116 deg?s with 55 deg?s hip flexion, Trunk extension is 45 deg?s with 25 deg?s hip extension. Trunk R SB limited by L SIJ tightness Trunk R rot. PT-OP-M Strength Start: 10/17/22 21:00 Freq: Status: Active Protocol: Document 10/24/22 09:35 LRN (Rec: 10/24/22 10:28 LRN [id number]) Trunk Strength Trunk Manual Muscle Testing Core Stabilization Lacks core stab with rotation. Hip Strength Hip Manual Muscle Testing Right Comments Generally 5/5 Left Comments Generally 5/5 PT-OP-Q Treatments Start: 10/17/22 21:00 Freq: Status: Active Protocol: Document 12/02/22 08:51 SP (Rec: 12/02/22 09:52 SP [id number]) Therapeutic Exercises Supine Exercises sequencial august Supine Exercise Name added to HEP Side bilateral Reps/Minutes 3 reps x2 sets each side leading Comments single to Double leg 90/90 lift/ lower, improved TA with slower pace Sitting Exercises Tball Sitting Exercise Name TB rot Resistance 55cm tball TB #2 (rotation) w/ hands shld width apart TB front chest Reps/Minutes 2x10 reps each Comments Good posture and rotational form and TA fac painfree range Other Exercises 1/2 kneel D2 flexion Other Exercise Name added to HEP Side bilateral Resistance TB #2 large loop (anchored bottom door vs opp knee down on floor) Reps/Minutes 2x10 Comments Good set up, elongated posture /neutral pelvis diagonal rotate- painfree/gd quadruped UE/ LE ext Other Exercise Name Bird dog Side bilateral Reps/Minutes x15 each side Comments cued TA/ neutral pelvis needing pelvic L rot less trunk ext with RLE lift. Gait Training Gait Activity Gait awarness Description Gait training on TM Device Used TM @ 1.7 speed no HRs required 12/02 Distance/Duration 10' Treatment Focus occasional Correct R LE ER rotated out, Comments Pt occasional cuing for R LE IR slight neutral, good TA stable pelvis/trunk engagement during gait. Improved self R LE self corrections. PT-OP-T Assessment and Plan Start: 10/17/22 21:00 Freq: Status: Active Protocol: Document 12/02/22 08:51 SP (Rec: 12/02/22 09:52 SP [id number]) Physical Therapy Assessment Goals Four Impairment Muscle tightness of the neck/ shoulders. Impairment Neck pain in evenings is 3-4/ 10. Short Term Goal (STG) Pt will demonstate improved sitting postural awareness with ability to correct head on shoulder posturing. 10/31/22: cues for sitting elevated posture head over shlds over pelvis on tball. 11/06/22: GOAL MET: Improved self corrections during seated Tball ex. STG Duration 12/12/22 GOAL MET 11/06/22 Buggy Man Goal (LTG) Pt will report less pain in neck/shoulder at end of day for more peaceful sleep at night. 10/31/22: discussed use pillows between BLEs, BUEs and if beneficial small folded towel/ pillow under upper lateral ribcage for trunk spinal support. Verbalized understanding but didn't get to perform in PT. 11/25/22: Somedays doesn't have neck pain, somedays 5/10, still carring kids around. Sleeping at night not having as much shooting pain down the legs or waking up due to pain issues. LTG Duration 01/22/23 (11/25/22: MET GOAL ) Three Impairment Stiffness in lumbar and upper back region Impairment LBP in evenings is 6-9/10. Trunk SB is 30 deg's L, 15 deg 's R. Trunk Rot is 40 deg's L, 20 deg's R. Short Term Goal (STG) Pt will demonstrate improve mobility of of lumbar spine mechanics (curve with SB and Rotation). STG Duration 12/12/22 (11/25/22: MET GOAL ) Buggy Man Goal (LTG) Pt will be able to demonstrate improved lumbar spine mechanics with trunk SB and rotation with less LBP in the evenings. 10/31/22: reviewed passed HEP resisted rotation withcues for elevated and TA/PPTA seated on Tball in PT, improved decrease to no R LB tightness irritation. LTG Duration 01/22/23 progressing 10/31/22 Two Impairment Core weakness Impairment Being able to ex at home on TM , eliptical or stair climber, with hand/ankle weights, or yoga class. STG Duration 12/12/22 Buggy Man Goal (LTG) Improve core stability with pt able to exercise walk greater than 1/2 mile/day and/or [address] hiking with kids. 10/31/22: progressing: able to walk approx 1/2 mile before back hurts but is having to carry kids just before end this distance and feels if didn;t need to could go further. 12/02/22: progressing: able to walk slight uneven trails at campground about 20-30 min with mindful core engagement felt little weakness but not pain. She states still about 4 /10 pain if carrying kids (27, 37 #) and walk. LTG Duration 01/22/23 progressing 12/02/22 One Impairment Lacks consistency with HEP. Impairment Excessive lumbar lordosis, stands unequal WBing in LE's, protruding abdomen. Pt not on a self care HEP to manage her bilateral sciatic pain. Short Term Goal (STG) Pt will be able to demonstrate best practice transfers stand <>supine and will resume her prevously issued HEP. 12/02/22: MET GOAL: good mechanics stand > floor and perform HEP, no pain. STG Duration 12/12/22 MET GOAL 12/02/22 Buggy Man Goal (LTG) Pt will be able to transition to home exercise gym for ex on TM, eliptical or stair climber, with hand/ankle weights, or participate in a yoga class. 10/31/22: added past seated TBall pelvic tilts, august, LAQ , resisted rows and rotation for TA support. 11/06/22: added seated shldr ext , resisted clam, bird dog. 12/02/22: will be looking in to Yoga class home or out soon. Added D2 flexion TB #2 1/2 kneel, core trunk resisted rotation seated Tball, supine segmental august. LTG Duration 01/22/23 progressing 12/02/22 Assessment Summary Assessment Pt improved TA facilitation today with added segmental march, resisted seated rotation and D2 flexion in 1/2 kneel. Cued initially for set up and awareness of TA throughout range with good response of abdominal effort and no LB recruitment. Occasional cue for R hip lower floor and flatten back during bird dog improved self corrections with reps. Pt stated will try to look into starting yoga class soon to progress strength/stability compliment PT. SEED YEAST OPERATOR suggested [email or web address]: Yoga with Cindi . Physical Therapy Plan Frequency and Duration Frequency of Treatment 2x/Week Plan of Care Start Date 10/24/22 Plan of Care End Date 01/22/23 Therapeutic Interventions Therapeutic Interventions Balance Training,Gait Training ,Home Exercise Program,Joint Mobilizations,Manual Therapy, Neuromuscular Re-education, Patient/Caregiver Education, Self-Care/Home Management,Soft Tissue Mobilization,Taping, Therapeutic Activities, Therapeutic Exercises Modalities Cold Pack/Ice Massage,Electric Stimulation,Hot Packs, Ultrasound Next Visit Focus/Plan Next Note Type Treatment Note Next Visit Plan 2x/week for 8 wks to start, max 12 weeks. Assess response of added resisted LS rotation , D2 flexion, segmental march. Issue/review HEP: Sitting (R side only) Piriformis stretch, open book (?R vs L), hands/ knees and sup TA. Add: Trunk rot strengthening, sitting R Piriformis stretch & R SB stretch POC: Check neck and shoulder mobility and strength, VA test . Manual therapy: STM, JMT, Cervicothoraco junction and Trunk rotators, sacral balancing as needed, K-tape for postural corrections, stabilization, inflammation reduction. Ther ex: Progress Postural, stabilization, balance and hip /lumbar/cervical mobility exercises. Ther Act: balance assessment. Modalities: as needed Cryotherapy, MH, ESTIM, US.
--- NOTE | 2022-12-08 09:00 | PT.OTN ---
Current Diagnoses Other chronic pain (12/08/22) Stiffness of unspecified hip, not elsewhere classified (12/08/22) Postural kyphosis, cervicothoracic region (12/08/22) Low back pain, unspecified (12/08/22) Separation of muscle (nontraumatic), unspecified site (12/08/22) Physical Therapy Treatment Note PT-OP-A Visit Information Start: 10/17/22 21:00 Freq: Status: Active Protocol: Document 12/08/22 08:22 SP (Rec: 12/08/22 09:04 SP [id number]) Out-Patient Physical Therapy Visit Information Visit Information Visit Type Treatment Note Visit Start Time 08:22 Visit Stop Time 09:00 Total Visit Minutes 38 Visit Number 8 Number of SPECIAL MAKEUP FX ARTIST INSTRUCTOR Visits 2 Evaluation Information Evaluation Date 10/24/22 Precautions Precautions History of back pain when . PT-OP-B Current Condition Start: 10/17/22 21:00 Freq: Status: Active Protocol: Document 10/24/22 09:35 LRN (Rec: 10/24/22 10:28 LRN [id number]) Current Condition History of Current Condition Onset Date ~09/30/22 Current Complaints Worsening back pain by the evening, rated 6-7/10. History of Current Condition Pt had attended physical therapy post- from to 08/29/22, but pt's rehab was limited due to insurance visit limits. Since her discharge she reports stopping anti-inflammatories, so the back pain worsened, but not as bad as initial treatment visit last time. Her babies now weigh 34# and 24# and she is trying not to hold them. She is also trying to wean from . She reports her function has improved and she has been able to do things, but now is taking ms relaxors when feeling like her back is going to flare up. Sometimes she has pain in the morning (3/10, or stiff) if slept wrong, but always at bed time pain is at its worst. States since childhood her hips sometimes locks, then pops and pops out of place. States it hurts both with locking and when popping. Prior Treatments and Tests PT at PT from 06/23/22-. Future Testing and Treatments Planned None Developmental History Developmental History 04/2021: Back pain after fall when , occasional sciatic pain bilaterally. Most recent son born 07/20/2021 . 1st , miscarried twin and was having pain, first son born 03/18/2020. Sons were of vaginal . She had fallen when 2nd son slipped on wet deck, and she was holding 1st son, causing her to twist left, landing on L hip and L shoulder. Treatment Goals Patient/Caregiver Goals Pt goals: Being able to exercise walk > 1/2 mile/day to 2 miles to go flat trail hiking with kids. Being able to ex at home on TM , eliptical or stair climber, with hand/ankle weights, or yoga class. Personal Factors Other Personal Factors That May Effect . Therapy/Recovery 2 children ages: 2.5 and 15 months old. PT-OP-C Subjective Start: 10/17/22 21:00 Freq: Status: Active Protocol: Document 12/08/22 08:22 SP (Rec: 12/08/22 09:04 SP [id number]) OP-PT Subjective Patient Comments Patient Comments Pt reports walked and went down the slide with [place] kids [place] the fair and did well. PT-OP-H Neuro Start: 10/17/22 21:00 Freq: Status: Active Protocol: Document 10/24/22 09:35 LRN (Rec: 10/24/22 10:28 LRN [id number]) Sensation Evaluation Gross Sensation Gross Sensation WNL PT-OP-J Posture/Palpation/Skin Start: 10/17/22 21:00 Freq: Status: Active Protocol: Document 10/24/22 09:35 LRN (Rec: 10/24/22 10:28 LRN [id number]) Posture Evaluation Position Standing Head/C-Spine Posture Forward Head L-Spine Posture Increased Lordosis Arm Posture (L) Internally Rotated,(R) Internally Rotated Pelvis Posture Anteriorly Tilted Weight Distribution Balanced,Weight Shifted Left Knee Posture (L) Genu Valgus,(R) Genu Valgus Comments Posture Comments Obvious Dowagers Hump, flattened upper T/S, increased lordosis, L knee valgus > R knee, Palpation Assessment Location C/S Palpation Location C. paraspinals and PA of SP Palpation Findings Soft Tissue Tightness,Muscle Guarding,Tenderness Upper back Palpation Location T2-T5 paraspinals and PA of SP Palpation Findings Soft Tissue Tightness,Muscle Guarding,Tenderness Low back Palpation Location L4 and mildly at L2-L5 paraspinals and PA of SP Palpation Findings Soft Tissue Tightness,Muscle Guarding,Tenderness PT-OP-K Range of Motion Start: 10/17/22 21:00 Freq: Status: Active Protocol: Document 11/25/22 08:54 LRN (Rec: 11/25/22 09:37 LRN [id number]) Lumbar Spine Range of Motion Lumbar Spine Active Degrees Testing Position Standing Flexion 116 Extension 45 Rotation Left 40 Rotation Right 30 Lateral Flexion Left 32 Lateral Flexion Right 25 Comments Trunk AROM: Flexion is 116 deg?s with 55 deg?s hip flexion, Trunk extension is 45 deg?s with 25 deg?s hip extension. Trunk R SB limited by L SIJ tightness Trunk R rot. PT-OP-M Strength Start: 10/17/22 21:00 Freq: Status: Active Protocol: Document 10/24/22 09:35 LRN (Rec: 10/24/22 10:28 LRN [id number]) Trunk Strength Trunk Manual Muscle Testing Core Stabilization Lacks core stab with rotation. Hip Strength Hip Manual Muscle Testing Right Comments Generally 5/5 Left Comments Generally 5/5 PT-OP-Q Treatments Start: 10/17/22 21:00 Freq: Status: Active Protocol: Document 12/08/22 08:22 SP (Rec: 12/08/22 09:04 SP [id number]) Therapeutic Exercises Supine Exercises sequencial august Supine Exercise Name reviewed HEP Side bilateral Reps/Minutes 5 reps x2 sets each side leading Comments single to Double leg 90/90 lift/ lower, improved TA with slower pace Piriformis stretch Supine Exercise Name Piriformis stretch (cross leg stretch) Side right Equipment Used Strap- discussed use towel/ flat sheet Reps/Minutes 60 total stretch Comments Extra time taken to determine max stretch & best position Sidelying Exercises TA clamshell Sidelying Exercise Name TA/Clamshell Side bilateral Resistance TB #2 orange>#3 Equipment Used on floor mat Reps/Minutes 15x Comments cued neutral pelvis, TA, slow con/ecc control, improved no wobble Sitting Exercises Tball Sitting Exercise Name TB rot Resistance 55cm tball TB #2>3 (rotation) w/ hands shld width apart TB front chest Reps/Minutes 2x15 reps each Comments Good posture and rotational form and TA fac painfree range Standing Exercises shoulder ext Standing Exercise Name added to HEP Resistance TB #3 Equipment Used small squated position Reps/Minutes x15 Comments cued neutral pelvis, scap set- good core fac, painfree Other Exercises 1/2 kneel D2 flexion Other Exercise Name reviewed HEP Side bilateral Resistance 5# DB> 7#DB Equipment Used neutral pelvis Reps/Minutes 2x10 Comments Good set up, elongated posture /neutral pelvis diagonal rotate- painfree/gd PT-OP-T Assessment and Plan Start: 10/17/22 21:00 Freq: Status: Active Protocol: Document 12/08/22 08:22 SP (Rec: 12/08/22 09:04 SP [id number]) Physical Therapy Assessment Goals Four Impairment Muscle tightness of the neck/ shoulders. Impairment Neck pain in evenings is 3-4/ 10. Short Term Goal (STG) Pt will demonstate improved sitting postural awareness with ability to correct head on shoulder posturing. 10/31/22: cues for sitting elevated posture head over shlds over pelvis on tball. 11/06/22: GOAL MET: Improved self corrections during seated Tball ex. STG Duration 12/12/22 GOAL MET 11/06/22 Custodial Goal (LTG) Pt will report less pain in neck/shoulder at end of day for more peaceful sleep at night. 10/31/22: discussed use pillows between BLEs, BUEs and if beneficial small folded towel/ pillow under upper lateral ribcage for trunk spinal support. Verbalized understanding but didn't get to perform in PT. 11/25/22: Somedays doesn't have neck pain, somedays 10/15, still carring kids around. Sleeping at night not having as much shooting pain down the legs or waking up due to pain issues. LTG Duration 01/22/23 (11/25/22: MET GOAL ) Three Impairment Stiffness in lumbar and upper back region Impairment LBP in evenings is 6-9/10. Trunk SB is 30 deg's L, 15 deg 's R. Trunk Rot is 40 deg's L, 20 deg's R. Short Term Goal (STG) Pt will demonstrate improve mobility of of lumbar spine mechanics (curve with SB and Rotation). STG Duration 12/12/22 (11/25/22: MET GOAL ) Custodial Goal (LTG) Pt will be able to demonstrate improved lumbar spine mechanics with trunk SB and rotation with less LBP in the evenings. 10/31/22: reviewed passed HEP resisted rotation withcues for elevated and TA/PPTA seated on Tball in PT, improved decrease to no R LB tightness irritation. 12/08/22: not as strenuous now more active but still feel stiffness SB L than R. SHe does notice walking incline that loops L feels R side tension after 2-3 laps. LTG Duration 01/22/23 progressing 12/08/22 Two Impairment Core weakness Impairment Being able to ex at home on TM , eliptical or stair climber, with hand/ankle weights, or yoga class. STG Duration 12/12/22 Custodial Goal (LTG) Improve core stability with pt able to exercise walk greater than 1/2 mile/day and/or 2 [address] trail hiking with kids. 10/31/22: progressing: able to walk approx 1/2 mile before back hurts but is having to carry kids just before end this distance and feels if didn;t need to could go further. 12/02/22: progressing: able to walk slight uneven trails [place]ground about 20-30 min with mindful core engagement felt little weakness but not pain. She states still about 4 /10 pain if carrying kids (27, 37 #) and walk. LTG Duration 01/22/23 progressing 12/02/22 One Impairment Lacks consistency with HEP. Impairment Excessive lumbar lordosis, stands unequal WBing in LE's, protruding abdomen. Pt not on a self care HEP to manage her bilateral sciatic pain. Short Term Goal (STG) Pt will be able to demonstrate best practice transfers stand <>supine and will resume her prevously issued HEP. 12/02/22: MET GOAL: good mechanics stand > floor and perform HEP, no pain. STG Duration 12/12/22 MET GOAL 12/02/22 Custodial Goal (LTG) Pt will be able to transition to home exercise gym for ex on TM, eliptical or stair climber, with hand/ankle weights, or participate in a yoga class. 10/31/22: added past seated TBall pelvic tilts, march, LAQ , resisted rows and rotation for TA support. 11/06/22: added seated shldr ext , resisted clam, bird dog. 12/02/22: will be looking in to Yoga class home or out soon. Added D2 flexion TB #2 / kneel, core trunk resisted rotation seated Tball, supine segmental august. 12/08/22: added mini squat shld ext. LTG Duration 01/22/23 progressing 12/08/22 Assessment Summary Assessment Pt good core fac throughout tx , no LB recruitment, good self pelvic correction and progressing in activity with family with less to no pain. Physical Therapy Plan Frequency and Duration Frequency of Treatment 2x/Week Plan of Care Start Date 10/24/22 Plan of Care End Date 01/22/23 Therapeutic Interventions Therapeutic Interventions Balance Training,Gait Training ,Home Exercise Program,Joint Mobilizations,Manual Therapy, Neuromuscular Re-education, Patient/Caregiver Education, Self-Care/Home Management,Soft Tissue Mobilization,Taping, Therapeutic Activities, Therapeutic Exercises Modalities Cold Pack/Ice Massage,Electric Stimulation,Hot Packs, Ultrasound Next Visit Focus/Plan Next Note Type Treatment Note Next Visit Plan 2x/week for 8 wks to start, max 12 weeks. Response to minisquat TB shld ext. Issue/review HEP: Sitting (R side only) Piriformis stretch, open book (?R vs L), hands/ knees and sup TA. Add: Trunk rot strengthening, sitting R Piriformis stretch & R SB stretch POC: Check neck and shoulder mobility and strength, VA test . Manual therapy: STM, JMT, Cervicothoraco junction and Trunk rotators, sacral balancing as needed, K-tape for postural corrections, stabilization, inflammation reduction. Ther ex: Progress Postural, stabilization, balance and hip /lumbar/cervical mobility exercises. Ther Act: balance assessment. Modalities: as needed Cryotherapy, MH, ESTIM, US.
--- NOTE | 2022-12-12 09:56 | PT.OTN ---
Current Diagnoses Other chronic pain (12/12/22) Stiffness of unspecified hip, not elsewhere classified (12/12/22) Postural kyphosis, cervicothoracic region (12/12/22) Low back pain, unspecified (12/12/22) Separation of muscle (nontraumatic), unspecified site (12/12/22) Physical Therapy Treatment Note PT-OP-A Visit Information Start: 10/17/22 21:00 Freq: Status: Active Protocol: Document 12/12/22 08:54 LRN (Rec: 12/12/22 09:56 LRN [id number]) Out-Patient Physical Therapy Visit Information Visit Information Visit Type Treatment Note Visit Start Time 08:54 Visit Stop Time 09:34 Total Visit Minutes 40 Visit Number 9 Evaluation Information Evaluation Date 10/24/22 Precautions Precautions History of back pain when . PT-OP-B Current Condition Start: 10/17/22 21:00 Freq: Status: Active Protocol: Document 10/24/22 09:35 LRN (Rec: 10/24/22 10:28 LRN [id number]) Current Condition History of Current Condition Onset Date ~09/30/22 Current Complaints Worsening back pain by the evening, rated 6-7/10. History of Current Condition Pt had attended physical therapy post- from to 08/29/22, but pt's rehab was limited due to insurance visit limits. Since her discharge she reports stopping anti-inflammatories, so the back pain worsened, but not as bad as initial treatment visit last time. Her babies now weigh 34# and 24# and she is trying not to hold them. She is also trying to wean from . She reports her function has improved and she has been able to do things, but now is taking ms relaxors when feeling like her back is going to flare up. Sometimes she has pain in the morning (3/10, or stiff) if slept wrong, but always at bed time pain is at its worst. States since childhood her hips sometimes locks, then pops and pops out of place. States it hurts both with locking and when popping. Prior Treatments and Tests PT at PT from 06/23/22-. Future Testing and Treatments Planned None Developmental History Developmental History 04/2021: Back pain after fall when , occasional sciatic pain bilaterally. Most recent son born 07/20/2021 . 1st , miscarried twin and was having pain, first son born 03/18/2020. Sons were of vaginal . She had fallen when 2nd son slipped on wet deck, and she was holding 1st son, causing her to twist left, landing on L hip and L shoulder. Treatment Goals Patient/Caregiver Goals Pt goals: Being able to exercise walk > 1/2 mile/day to 2 miles to go flat trail hiking with kids. Being able to ex at home on TM , eliptical or stair climber, with hand/ankle weights, or yoga class. Personal Factors Other Personal Factors That May Effect . Therapy/Recovery 2 children ages: 2.5 and 15 months old. PT-OP-C Subjective Start: 10/17/22 21:00 Freq: Status: Active Protocol: Document 12/12/22 08:54 LRN (Rec: 12/12/22 09:56 LRN [id number]) OP-PT Subjective Patient Comments Patient Comments States her back pain is intermittent. PT-OP-H Neuro Start: 10/17/22 21:00 Freq: Status: Active Protocol: Document 10/24/22 09:35 LRN (Rec: 10/24/22 10:28 LRN [id number]) Sensation Evaluation Gross Sensation Gross Sensation WNL PT-OP-J Posture/Palpation/Skin Start: 10/17/22 21:00 Freq: Status: Active Protocol: Document 10/24/22 09:35 LRN (Rec: 10/24/22 10:28 LRN [id number]) Posture Evaluation Position Standing Head/C-Spine Posture Forward Head L-Spine Posture Increased Lordosis Arm Posture (L) Internally Rotated,(R) Internally Rotated Pelvis Posture Anteriorly Tilted Weight Distribution Balanced,Weight Shifted Left Knee Posture (L) Genu Valgus,(R) Genu Valgus Comments Posture Comments Obvious Dowagers Hump, flattened upper T/S, increased lordosis, L knee valgus > R knee, Palpation Assessment Location C/S Palpation Location C. paraspinals and PA of SP Palpation Findings Soft Tissue Tightness,Muscle Guarding,Tenderness Upper back Palpation Location T2-T5 paraspinals and PA of SP Palpation Findings Soft Tissue Tightness,Muscle Guarding,Tenderness Low back Palpation Location L4 and mildly at L2-L5 paraspinals and PA of SP Palpation Findings Soft Tissue Tightness,Muscle Guarding,Tenderness PT-OP-K Range of Motion Start: 10/17/22 21:00 Freq: Status: Active Protocol: Document 11/25/22 08:54 LRN (Rec: 11/25/22 09:37 LRN [id number]) Lumbar Spine Range of Motion Lumbar Spine Active Degrees Testing Position Standing Flexion 116 Extension 45 Rotation Left 40 Rotation Right 30 Lateral Flexion Left 32 Lateral Flexion Right 25 Comments Trunk AROM: Flexion is 116 deg?s with 55 deg?s hip flexion, Trunk extension is 45 deg?s with 25 deg?s hip extension. Trunk R SB limited by L SIJ tightness Trunk R rot. PT-OP-M Strength Start: 10/17/22 21:00 Freq: Status: Active Protocol: Document 10/24/22 09:35 LRN (Rec: 10/24/22 10:28 LRN [id number]) Trunk Strength Trunk Manual Muscle Testing Core Stabilization Lacks core stab with rotation. Hip Strength Hip Manual Muscle Testing Right Comments Generally 5/5 Left Comments Generally 5/5 PT-OP-Q Treatments Start: 10/17/22 21:00 Freq: Status: Active Protocol: Document 12/12/22 08:54 LRN (Rec: 12/12/22 09:56 LRN [id number]) Therapeutic Exercises Supine Exercises TA hold with breath Supine Exercise Name TA holding with breath Equipment Used Mirror Reps/Minutes 3'x 2 Comments Phys and v cuing f/b visual, phy, and v cuing w/inhale Sitting Exercises TA holding with breath Sitting Exercise Name TA holding with breath: arms by sides, arms overhead Reps/Minutes 3' Comments Phys & v cuing for holding TA during inhale Tball Sitting Exercise Name TB rot Resistance 55cm tball TB #3 (rotation) w/ hands shld width apart TB front chest Reps/Minutes 2x15 reps each Comments Good posture and rotational form and TA fac painfree range Standing Exercises shoulder ext Standing Exercise Name part of HEP Resistance TB #3 Equipment Used small squated position Reps/Minutes x15 x2 Comments cued neutral pelvis, scap set- good core fac, painfree Other Exercises Quadruped TA hold w/breath Other Exercise Name Quadruped TA Hold during breathing Reps/Minutes 5' Comments Cuing to abdomen and chest with inhale to hold TA 1/2 kneel D2 flexion Other Exercise Name part of HEP Side bilateral Resistance 5# DB Equipment Used neutral pelvis Reps/Minutes 2x15 Comments Good set up, elongated posture /neutral pelvis diagonal rotate- painfree/gd PT-OP-T Assessment and Plan Start: 10/17/22 21:00 Freq: Status: Active Protocol: Document 12/12/22 08:54 LRN (Rec: 12/12/22 09:56 LRN [id number]) Physical Therapy Assessment Goals Four Impairment Muscle tightness of the neck/ shoulders. Impairment Neck pain in evenings is 3-4/ 10. Short Term Goal (STG) Pt will demonstate improved sitting postural awareness with ability to correct head on shoulder posturing. 10/31/22: cues for sitting elevated posture head over shlds over pelvis on tball. 11/06/22: GOAL MET: Improved self corrections during seated Tball ex. STG Duration 12/12/22 GOAL MET 11/06/22 Social Work Case Manager Goal (LTG) Pt will report less pain in neck/shoulder at end of day for more peaceful sleep at night. 10/31/22: discussed use pillows between BLEs, BUEs and if beneficial small folded towel/ pillow under upper lateral ribcage for trunk spinal support. Verbalized understanding but didn't get to perform in PT. 11/25/22: Somedays doesn't have neck pain, somedays 5/10, still carring kids around. Sleeping at night not having as much shooting pain down the legs or waking up due to pain issues. LTG Duration 01/22/23 (11/25/22: MET GOAL ) Three Impairment Stiffness in lumbar and upper back region Impairment LBP in evenings is 6-9/10. Trunk SB is 30 deg's L, 15 deg 's R. Trunk Rot is 40 deg's L, 20 deg's R. Short Term Goal (STG) Pt will demonstrate improve mobility of of lumbar spine mechanics (curve with SB and Rotation). STG Duration 12/12/22 (11/25/22: MET GOAL ) Assisted Goal (LTG) Pt will be able to demonstrate improved lumbar spine mechanics with trunk SB and rotation with less LBP in the evenings. 10/31/22: reviewed passed HEP resisted rotation withcues for elevated and TA/PPTA seated on Tball in PT, improved decrease to no R LB tightness irritation. 12/08/22: not as strenuous now more active but still feel stiffness SB L than R. SHe does notice walking incline that loops L feels R side tension after 2-3 laps. LTG Duration 01/22/23 progressing 12/08/22 Two Impairment Core weakness Impairment Being able to ex at home on TM , eliptical or stair climber, with hand/ankle weights, or yoga class. STG Duration 12/12/22 Social Work Case Manager Goal (LTG) Improve core stability with pt able to exercise walk greater than 1/2 mile/day and/or [address] hiking with kids. 10/31/22: progressing: able to walk approx 1/2 mile before back hurts but is having to carry kids just before end this distance and feels if didn;t need to could go further. 12/02/22: progressing: able to walk slight uneven trails at campground about 20-30 min with mindful core engagement felt little weakness but not pain. She states still about 4 /10 pain if carrying kids (27, 37 #) and walk. LTG Duration 01/22/23 progressing 12/02/22 One Impairment Lacks consistency with HEP. Impairment Excessive lumbar lordosis, stands unequal WBing in LE's, protruding abdomen. Pt not on a self care HEP to manage her bilateral sciatic pain. Short Term Goal (STG) Pt will be able to demonstrate best practice transfers stand <>supine and will resume her prevously issued HEP. 12/02/22: MET GOAL: good mechanics stand > floor and perform HEP, no pain. STG Duration 12/12/22 MET GOAL 12/02/22 Social Work Case Manager Goal (LTG) Pt will be able to transition to home exercise gym for ex on TM, eliptical or stair climber, with hand/ankle weights, or participate in a yoga class. 10/31/22: added past seated TBall pelvic tilts, march, LAQ , resisted rows and rotation for TA support. 11/06/22: added seated shldr ext , resisted clam, bird dog. 12/02/22: will be looking in to Yoga class home or out soon. Added D2 flexion TB #2 1/2 kneel, core trunk resisted rotation seated Tball, supine segmental august. 12/08/22: added mini squat shld ext. LTG Duration 01/22/23 progressing 12/08/22 Assessment Summary Assessment Pt demonstrates good knowledge of core awareness during ex of minisquat and TB shdr ext. She lacks ability to hold TA during normal or deep breathing although she feels she is, visually is not holding TA tight through breath. Physical Therapy Plan Frequency and Duration Frequency of Treatment 2x/Week Plan of Care Start Date 10/24/22 Plan of Care End Date 01/22/23 Next Visit Focus/Plan Next Note Type Treatment Note Next Visit Plan Reassess for PN. 2x/week for 3 more wks, assess for need of max 7 more weeks. Focus holding of TA/PF (add PF ) during ex w/o abdominal doming. Issue/review HEP: Sitting (R side only) Piriformis stretch, open book (?R vs L), hands/ knees push (no doming) and sup TA (holding through inhale/ exhale). Add: Open bood stretch, R SB stretch, and progress difficulty of stability holds (BOSU). Balance assessment. Check neck and shoulder mobility and strength, VA test . POC: Manual therapy: STM, JMT, Cervicothoraco junction and Trunk rotators, sacral balancing as needed. Ther ex: Progress Postural core stabilization, balance and hip/lumbar/cervical mobility exercises. Modalities as needed.
--- NOTE | 2022-12-16 18:26 | PT.OTN ---
Current Diagnoses Other chronic pain (12/16/22) Stiffness of unspecified hip, not elsewhere classified (12/16/22) Postural kyphosis, cervicothoracic region (12/16/22) Low back pain, unspecified (12/16/22) Separation of muscle (nontraumatic), unspecified site (12/16/22) Physical Therapy Treatment Note PT-OP-A Visit Information Start: 10/17/22 21:00 Freq: Status: Active Protocol: Document 12/16/22 08:56 LRN (Rec: 12/16/22 09:40 LRN [id number]) Out-Patient Physical Therapy Visit Information Visit Information Visit Type Progress Note Visit Start Time 08:56 Visit Stop Time 09:34 Total Visit Minutes 38 Visit Number 10 Evaluation Information Evaluation Date 10/24/22 Precautions Precautions History of back pain when . PT-OP-B Current Condition Start: 10/17/22 21:00 Freq: Status: Active Protocol: Document 10/24/22 09:35 LRN (Rec: 10/24/22 10:28 LRN [id number]) Current Condition History of Current Condition Onset Date ~09/30/22 Current Complaints Worsening back pain by the evening, rated 6-7/10. History of Current Condition Pt had attended physical therapy post- from to 08/29/22, but pt's rehab was limited due to insurance visit limits. Since her discharge she reports stopping anti-inflammatories, so the back pain worsened, but not as bad as initial treatment visit last time. Her babies now weigh 34# and 24# and she is trying not to hold them. She is also trying to wean from . She reports her function has improved and she has been able to do things, but now is taking ms relaxors when feeling like her back is going to flare up. Sometimes she has pain in the morning (3/10, or stiff) if slept wrong, but always at bed time pain is at its worst. States since childhood her hips sometimes locks, then pops and pops out of place. States it hurts both with locking and when popping. Prior Treatments and Tests PT at PT from 06/23/22-. Future Testing and Treatments Planned None Developmental History Developmental History 04/2021: Back pain after fall when , occasional sciatic pain bilaterally. Most recent son born 07/20/2021 . 1st , miscarried twin and was having pain, first son born 03/18/2020. Sons were of vaginal . She had fallen when 2nd son slipped on wet deck, and she was holding 1st son, causing her to twist left, landing on L hip and L shoulder. Treatment Goals Patient/Caregiver Goals Pt goals: Being able to exercise walk > 1/2 mile/day to 2 miles to go flat trail hiking with kids. Being able to ex at home on TM , eliptical or stair climber, with hand/ankle weights, or yoga class. Personal Factors Other Personal Factors That May Effect . Therapy/Recovery 2 children ages: 2.5 and 15 months old. PT-OP-C Subjective Start: 10/17/22 21:00 Freq: Status: Active Protocol: Document 12/16/22 08:56 LRN (Rec: 12/16/22 09:40 LRN [id number]) OP-PT Subjective Patient Comments Patient Comments No major pain, has a little in the L buttock after walking 1 mile yesterday while holding baby (27#). Patient Questionnaires Oswestry Low Back Index Oswestry Score 10 Oswestry Impairment 1 to 19% Impaired (Score 1-19) OP-PT Pain Assessment Pain Assessment Grid Paper Pain Assessment Grid Completed Yes Location Upper back/neck/shoulders Pain Location Details Upper back Intensity 1 Scale Used Numeric (0 - 10) Low back Pain Location Details Across sacral and lower sacral level Intensity 2 Scale Used Numeric (0 - 10) PT-OP-H Neuro Start: 10/17/22 21:00 Freq: Status: Active Protocol: Document 10/24/22 09:35 LRN (Rec: 10/24/22 10:28 LRN [id number]) Sensation Evaluation Gross Sensation Gross Sensation WNL PT-OP-J Posture/Palpation/Skin Start: 10/17/22 21:00 Freq: Status: Active Protocol: Document 10/24/22 09:35 LRN (Rec: 10/24/22 10:28 LRN [id number]) Posture Evaluation Position Standing Head/C-Spine Posture Forward Head L-Spine Posture Increased Lordosis Arm Posture (L) Internally Rotated,(R) Internally Rotated Pelvis Posture Anteriorly Tilted Weight Distribution Balanced,Weight Shifted Left Knee Posture (L) Genu Valgus,(R) Genu Valgus Comments Posture Comments Obvious Dowagers Hump, flattened upper T/S, increased lordosis, L knee valgus > R knee, Palpation Assessment Location C/S Palpation Location C. paraspinals and PA of SP Palpation Findings Soft Tissue Tightness,Muscle Guarding,Tenderness Upper back Palpation Location T2-T5 paraspinals and PA of SP Palpation Findings Soft Tissue Tightness,Muscle Guarding,Tenderness Low back Palpation Location L4 and mildly at L2-L5 paraspinals and PA of SP Palpation Findings Soft Tissue Tightness,Muscle Guarding,Tenderness PT-OP-K Range of Motion Start: 10/17/22 21:00 Freq: Status: Active Protocol: Document 12/16/22 08:56 LRN (Rec: 12/16/22 18:15 LRN [id number]) Lumbar Spine Range of Motion Lumbar Spine Active Degrees Testing Position Standing Rotation Left 30 Rotation Right 30 Lateral Flexion Left 22 Lateral Flexion Right 17 PT-OP-M Strength Start: 10/17/22 21:00 Freq: Status: Active Protocol: Document 10/24/22 09:35 LRN (Rec: 10/24/22 10:28 LRN [id number]) Trunk Strength Trunk Manual Muscle Testing Core Stabilization Lacks core stab with rotation. Hip Strength Hip Manual Muscle Testing Right Comments Generally 5/5 Left Comments Generally 5/5 PT-OP-Q Treatments Start: 10/17/22 21:00 Freq: Status: Active Protocol: Document 12/16/22 08:56 LRN (Rec: 12/16/22 09:40 LRN [id number]) Therapeutic Exercises Sitting Exercises C. AROM Sitting Exercise Name C. AROM Side bilateral Comments ROM taken Standing Exercises Trunk AROM Rot/SB Standing Exercise Name Active Trunk Rot & SB Side bilateral Comments ROM taken Trunk R SB Standing Exercise Name Trunk SB stretch Side bilateral Reps/Minutes 3 breath hold x 10 Comments Extra time to determine max tolerated stretch Other Exercises Partial prone plank on BOSU ball Other Exercise Name Partial prone plank on BOSU ball Comments Cuing to keep TA tight and breath quadruped/TA/KTC/breath Other Exercise Name Quadruped KTC Comments Cuing to keep TA tight and breath Quadruped TA hold w/breath Other Exercise Name Quadruped TA/breathing/Alt arm /leg lifts Equipment Used 1# wgt at ankles, dowel stick @ lev of SIJ's Reps/Minutes 8' Comments Cuing to abdomen and chest with inhale to hold TA 1/2 kneel D2 flexion Other Exercise Name part of HEP Side bilateral Resistance 5# DB Equipment Used neutral pelvis Reps/Minutes 2x15 Comments Good set up, elongated posture /neutral pelvis diagonal rotate- painfree/gd PT-OP-T Assessment and Plan Start: 10/17/22 21:00 Freq: Status: Active Protocol: Document 12/16/22 08:56 LRN (Rec: 12/16/22 09:40 LRN [id number]) Physical Therapy Assessment Rehab Potential Rehabilitation Potential Good Evaluation Complexity Number of Personal Factors/Comorbidities 1-2 Number of Body Systems Impaired 4 or More Clinical Presentation at Evaluation Evolving Impairments Impairments Activity Tolerance,Pain, Posture,ROM,Soft Tissue Mobility,Transfers Other Impairments Probable Diastasis Rectus from previous history. Goals Four Impairment Muscle tightness of the neck/ shoulders. Impairment Neck pain in evenings is 3-4/ 10. Short Term Goal (STG) Pt will demonstate improved sitting postural awareness with ability to correct head on shoulder posturing. 10/31/22: cues for sitting elevated posture head over shlds over pelvis on tball. 11/06/22: GOAL MET: Improved self corrections during seated Tball ex. STG Duration 12/12/22 (11/06/22: GOAL MET) Correction Goal (LTG) Pt will report less pain in neck/shoulder at end of day for more peaceful sleep at night. 10/31/22: discussed use pillows between BLEs, BUEs and if beneficial small folded towel/ pillow under upper lateral ribcage for trunk spinal support. Verbalized understanding but didn't get to perform in PT. 11/25/22: Somedays doesn't have neck pain, somedays 5/10, still carring kids around. Sleeping at night not having as much shooting pain down the legs or waking up due to pain issues. LTG Duration 01/22/23 (11/25/22: MET GOAL ) Three Impairment Stiffness in lumbar and upper back region Impairment LBP in evenings is 6-9/10. Trunk SB is 30 deg's L, 15 deg 's R. Trunk Rot is 40 deg's L, 20 deg's R. ILEANA of 12/16/22 score is 10/100 (1-19% impaired) Short Term Goal (STG) Pt will demonstrate improve mobility of of lumbar spine mechanics (curve with SB and Rotation). STG Duration 12/12/22 (11/25/22: MET GOAL ) Correction Goal (LTG) Pt will be able to demonstrate improved lumbar spine mechanics with trunk SB and rotation with less LBP in the evenings. 10/31/22: reviewed passed HEP resisted rotation withcues for elevated and TA/PPTA seated on Tball in PT, improved decrease to no R LB tightness irritation. 12/08/22: not as strenuous now more active but still feel stiffness SB L than R. SHe does notice walking incline that loops L feels R side tension after 2-3 laps. 12/16/22: LBP in evenings pain is rated 1-4/10. LTG Duration 01/22/23 (12/16/22: MET GOAL ) Two Impairment Core weakness Short Term Goal (STG) Being able to ex at home on TM , eliptical or stair climber, with hand/ankle weights, or yoga class. 12/16/22: Exercising on TM, and walking around the neighborhood. Doing home ex with hand wgts taught in therapy. STG Duration 12/12/22 (12/16/22: MET GOAL : Exercises on TM) Correction Goal (LTG) Improve core stability with pt able to exercise walk greater than 1/2 mile/day and/or 2 [address] trail hiking with kids. 10/31/22: progressing: able to walk approx 1/2 mile before back hurts but is having to carry kids just before end this distance and feels if didn;t need to could go further. 12/02/22: progressing: able to walk slight uneven trails at [place]ground about 20-30 min with mindful core engagement felt little weakness but not pain. She states still about 4 /10 pain if carrying kids (27, 37 #) and walk. 12/16/22: Walks 1 mile on flat trail with kids, w/o issues ( no pain) as long as not carrying kids. If carry kids can do 1/2-2/3 of a mile. LTG Duration 01/22/23 progressing One Impairment Lacks consistency with HEP. Impairment Excessive lumbar lordosis, stands unequal WBing in LE's, protruding abdomen. Pt not on a self care HEP to manage her bilateral sciatic pain. Short Term Goal (STG) Pt will be able to demonstrate best practice transfers stand <>supine and will resume her prevously issued HEP. 12/02/22: MET GOAL: good mechanics stand > floor and perform HEP, no pain. STG Duration 12/12/22 (12/02/22: MET GOAL) Resistance Welding Machine Operator Goal (LTG) Pt will be able to transition to home exercise gym for ex on TM, eliptical or stair climber, with hand/ankle weights, or participate in a yoga class. 10/31/22: added past seated TBall pelvic tilts, august, LAQ , resisted rows and rotation for TA support. 11/06/22: added seated shldr ext , resisted clam, bird dog. 12/02/22: will be looking in to Yoga class home or out soon. Added D2 flexion TB #2 06/09 kneel, core trunk resisted rotation seated Tball, supine segmental august. 12/08/22: added mini squat shld ext. 12/16/22: Exercising on TM, and walking around the neighborhood. Doing home ex with hand wgts taught in therapy. Able to ex 2-3/week. LTG Duration 01/22/23 (12/16/22: MET GOAL) Assessment Summary Assessment Pt shows improved function per ILEANA score of 10 (10% impaired ) compared to initial of score 28 (28% impaired). She is limited in Trunk R SB and shows weakness with her TA that may improve with addition of PF strengthening with core ex's. The pt will benefit from continued skilled physcal therapy to work to further core stabilization and progression of her HEP and improving trunk mobility. Physical Therapy Plan Frequency and Duration Frequency of Treatment 2x/Week Plan of Care Start Date 10/24/22 Plan of Care End Date 01/22/23 Therapeutic Interventions Therapeutic Interventions Balance Training,Home Exercise Program,Joint Mobilizations, Manual Therapy,Neuromuscular Re-education,Self-Care/Home Management,Soft Tissue Mobilization,Therapeutic Activities,Therapeutic Exercises Modalities Cold Pack/Ice Massage,Electric Stimulation,Hot Packs, Ultrasound Next Visit Focus/Plan Next Note Type Treatment Note Next Visit Plan 2x/week for this wk, then 1x/ wk for 4 weeks. Focus on improving R SB ROM and core stabilization for HEP , and cont for holding TA/PF ( add PF) during ex w/o abdominal doming. Issue/review HEP: Sitting (R side only) Piriformis stretch, open book (?R vs L), hands/ knees push (no doming) and sup TA (holding through inhale/ exhale). Add: Open bood stretch, R SB stretch, and progress difficulty of stability holds (BOSU). Balance assessment. Check neck and shoulder mobility and strength, VA test . POC: Manual therapy: STM, JMT, Cervicothoraco junction and Trunk rotators, sacral balancing as needed. Ther ex: Progress Postural core stabilization, balance and hip/lumbar/cervical mobility exercises. Modalities as needed.
--- NOTE | 2022-12-26 10:00 | PT.OTN ---
Current Diagnoses Other chronic pain (12/26/22) Stiffness of unspecified hip, not elsewhere classified (12/26/22) Postural kyphosis, cervicothoracic region (12/26/22) Low back pain, unspecified (12/26/22) Separation of muscle (nontraumatic), unspecified site (12/26/22) Physical Therapy Treatment Note PT-OP-A Visit Information Start: 10/17/22 21:00 Freq: Status: Active Protocol: Document 12/26/22 09:01 SP (Rec: 12/26/22 10:00 SP [id number]) Out-Patient Physical Therapy Visit Information Visit Information Visit Type Treatment Note Visit Start Time 09:01 Visit Stop Time 09:46 Total Visit Minutes 45 Visit Number 11 Number of HOSE FINISHER Visits 1 Evaluation Information Evaluation Date 10/24/22 Precautions Precautions History of back pain when . PT-OP-B Current Condition Start: 10/17/22 21:00 Freq: Status: Active Protocol: Document 10/24/22 09:35 LRN (Rec: 10/24/22 10:28 LRN [id number]) Current Condition History of Current Condition Onset Date ~09/30/22 Current Complaints Worsening back pain by the evening, rated 6-7/10. History of Current Condition Pt had attended physical therapy post- from to 08/29/22, but pt's rehab was limited due to insurance visit limits. Since her discharge she reports stopping anti-inflammatories, so the back pain worsened, but not as bad as initial treatment visit last time. Her babies now weigh 34# and 24# and she is trying not to hold them. She is also trying to wean from . She reports her function has improved and she has been able to do things, but now is taking ms relaxors when feeling like her back is going to flare up. Sometimes she has pain in the morning (3/10, or stiff) if slept wrong, but always at bed time pain is at its worst. States since childhood her hips sometimes locks, then pops and pops out of place. States it hurts both with locking and when popping. Prior Treatments and Tests PT at PT from 06/23/22-. Future Testing and Treatments Planned None Developmental History Developmental History 04/2021: Back pain after fall when , occasional sciatic pain bilaterally. Most recent son born 07/20/2021 . 1st , miscarried twin and was having pain, first son born 03/18/2020. Sons were of vaginal . She had fallen when 2nd son slipped on wet deck, and she was holding 1st son, causing her to twist left, landing on L hip and L shoulder. Treatment Goals Patient/Caregiver Goals Pt goals: Being able to exercise walk > 1/2 mile/day to 2 miles to go flat trail hiking with kids. Being able to ex at home on TM , eliptical or stair climber, with hand/ankle weights, or yoga class. Personal Factors Other Personal Factors That May Effect . Therapy/Recovery 2 children ages: 2.5 and 15 months old. PT-OP-C Subjective Start: 10/17/22 21:00 Freq: Status: Active Protocol: Document 12/26/22 09:01 SP (Rec: 12/26/22 10:00 SP [id number]) OP-PT Subjective Patient Comments Patient Comments Pt reported was able to walk 1 /2 mile with child in back pack with no pain. She reported focusing on manual over R side to help decrease tension over QL, lateral R leg . PT-OP-H Neuro Start: 10/17/22 21:00 Freq: Status: Active Protocol: Document 10/24/22 09:35 LRN (Rec: 10/24/22 10:28 LRN [id number]) Sensation Evaluation Gross Sensation Gross Sensation WNL PT-OP-J Posture/Palpation/Skin Start: 10/17/22 21:00 Freq: Status: Active Protocol: Document 10/24/22 09:35 LRN (Rec: 10/24/22 10:28 LRN [id number]) Posture Evaluation Position Standing Head/C-Spine Posture Forward Head L-Spine Posture Increased Lordosis Arm Posture (L) Internally Rotated,(R) Internally Rotated Pelvis Posture Anteriorly Tilted Weight Distribution Balanced,Weight Shifted Left Knee Posture (L) Genu Valgus,(R) Genu Valgus Comments Posture Comments Obvious Dowagers Hump, flattened upper T/S, increased lordosis, L knee valgus > R knee, Palpation Assessment Location C/S Palpation Location C. paraspinals and PA of SP Palpation Findings Soft Tissue Tightness,Muscle Guarding,Tenderness Upper back Palpation Location T2-T5 paraspinals and PA of SP Palpation Findings Soft Tissue Tightness,Muscle Guarding,Tenderness Low back Palpation Location L4 and mildly at L2-L5 paraspinals and PA of SP Palpation Findings Soft Tissue Tightness,Muscle Guarding,Tenderness PT-OP-K Range of Motion Start: 10/17/22 21:00 Freq: Status: Active Protocol: Document 12/16/22 08:56 LRN (Rec: 12/16/22 18:15 LRN [id number]) Lumbar Spine Range of Motion Lumbar Spine Active Degrees Testing Position Standing Rotation Left 30 Rotation Right 30 Lateral Flexion Left 22 Lateral Flexion Right 17 PT-OP-M Strength Start: 10/17/22 21:00 Freq: Status: Active Protocol: Document 10/24/22 09:35 LRN (Rec: 10/24/22 10:28 LRN [id number]) Trunk Strength Trunk Manual Muscle Testing Core Stabilization Lacks core stab with rotation. Hip Strength Hip Manual Muscle Testing Right Comments Generally 5/5 Left Comments Generally 5/5 PT-OP-Q Treatments Start: 10/17/22 21:00 Freq: Status: Active Protocol: Document 12/26/22 09:01 SP (Rec: 12/26/22 10:00 SP [id number]) Therapeutic Exercises Prone Exercises elbow plank Prone Exercise Name off elbows/knees- added to HEP Reps/Minutes 20 sec Comments good self pelvic corrections neutral with TA Other Exercises self STMs Other Exercise Name added/self Side right Equipment Used theracane Reps/Minutes 20 sec Comments MWM L SB good feedback manual and stretch stretching over tball Other Exercise Name R lateral turnk (side and supine)- Resistance L SB to stretch L, supine back ext over tball Equipment Used 55cm Reps/Minutes 5 min Comments good feedback response stretch QL and abdominals Partial prone plank on BOSU ball Other Exercise Name Partial prone elbow plank over 55cm tball Side bilateral Resistance TB #2 orange around ankles Equipment Used BOSU>55cm tball LE resisted lift Reps/Minutes lift lower w/ neutral LS- good Comments Cuing to keep TA tight and breath Manual Therapy Treatment Soft Tissue Mobilization QL, lateral abdominal, psoas, diaphragm Body Location R Mobilization Type Myofascial Release,Strumming, Sustained Pressure Intensity/Depth Moderate Body Position Sidelying Comments L SL over pillow, manual and ed use of self finger and or thercane L SB MWM with good feedback gained more mobiltiy and less tension. PT-OP-T Assessment and Plan Start: 10/17/22 21:00 Freq: Status: Active Protocol: Document 12/26/22 09:01 SP (Rec: 12/26/22 10:00 SP [id number]) Physical Therapy Assessment Goals Four Impairment Muscle tightness of the neck/ shoulders. Impairment Neck pain in evenings is 3-4/ 10. Short Term Goal (STG) Pt will demonstate improved sitting postural awareness with ability to correct head on shoulder posturing. 10/31/22: cues for sitting elevated posture head over shlds over pelvis on tball. 11/06/22: GOAL MET: Improved self corrections during seated Tball ex. STG Duration 12/12/22 (11/06/22: GOAL MET) Correction Goal (LTG) Pt will report less pain in neck/shoulder at end of day for more peaceful sleep at night. 10/31/22: discussed use pillows between BLEs, BUEs and if beneficial small folded towel/ pillow under upper lateral ribcage for trunk spinal support. Verbalized understanding but didn't get to perform in PT. 11/25/22: Somedays doesn't have neck pain, somedays 10/15, still carring kids around. Sleeping at night not having as much shooting pain down the legs or waking up due to pain issues. LTG Duration 01/22/23 (11/25/22: MET GOAL ) Three Impairment Stiffness in lumbar and upper back region Impairment LBP in evenings is 6-9/10. Trunk SB is 30 deg's L, 15 deg 's R. Trunk Rot is 40 deg's L, 20 deg's R. ILEANA of 12/16/22 score is 10/100 (1-19% impaired) Short Term Goal (STG) Pt will demonstrate improve mobility of of lumbar spine mechanics (curve with SB and Rotation). STG Duration 12/12/22 (11/25/22: MET GOAL ) Correction Goal (LTG) Pt will be able to demonstrate improved lumbar spine mechanics with trunk SB and rotation with less LBP in the evenings. 10/31/22: reviewed passed HEP resisted rotation withcues for elevated and TA/PPTA seated on Tball in PT, improved decrease to no R LB tightness irritation. 12/08/22: not as strenuous now more active but still feel stiffness SB L than R. SHe does notice walking incline that loops L feels R side tension after 2-3 laps. 12/16/22: LBP in evenings pain is rated 1-4/10. LTG Duration 01/22/23 (12/16/22: MET GOAL ) Two Impairment Core weakness Impairment Being able to ex at home on TM , eliptical or stair climber, with hand/ankle weights, or yoga class. Short Term Goal (STG) Being able to ex at home on TM , eliptical or stair climber, with hand/ankle weights, or yoga class. 12/16/22: Exercising on TM, and walking around the neighborhood. Doing home ex with hand wgts taught in therapy. STG Duration 12/12/22 (12/16/22: MET GOAL : Exercises on TM) Correction Goal (LTG) Improve core stability with pt able to exercise walk greater than 1/2 mile/day and/or [address] hiking with kids. 10/31/22: progressing: able to walk approx 1/2 mile before back hurts but is having to carry kids just before end this distance and feels if didn;t need to could go further. 12/02/22: progressing: able to walk slight uneven trails [place] about 20-30 min with mindful core engagement felt little weakness but not pain. She states still about 4 /10 pain if carrying kids (27, 37 #) and walk. 12/16/22: Walks [address] trail with kids, w/o issues ( no pain) as long as not carrying kids. If carry kids can do 1/2-2/3 of a mile. 12/26/22: progressing: able to walk 1/2 mile with child in backpack with out pain. LTG Duration 01/22/23 progressing One Impairment Lacks consistency with HEP. Impairment Excessive lumbar lordosis, stands unequal WBing in LE's, protruding abdomen. Pt not on a self care HEP to manage her bilateral sciatic pain. Short Term Goal (STG) Pt will be able to demonstrate best practice transfers stand <>supine and will resume her prevously issued HEP. 12/02/22: MET GOAL: good mechanics stand > floor and perform HEP, no pain. STG Duration 12/12/22 (12/02/22: MET GOAL) Correction Goal (LTG) Pt will be able to transition to home exercise gym for ex on TM, eliptical or stair climber, with hand/ankle weights, or participate in a yoga class. 10/31/22: added past seated TBall pelvic tilts, august, LAQ , resisted rows and rotation for TA support. 11/06/22: added seated shldr ext , resisted clam, bird dog. 12/02/22: will be looking in to Yoga class home or out soon. Added D2 flexion TB #2 1 kneel, core trunk resisted rotation seated Tball, supine segmental august. 12/08/22: added mini squat shld ext. 12/16/22: Exercising on TM, and walking around the neighborhood. Doing home ex with hand wgts taught in therapy. Able to ex 2-3/week. 12/26/22: added R lateral trunk /L SB stretch over tball, elbow plank off knees and LE lift/lower TB #2 around ankles good TA and pelvic alignment. LTG Duration 01/22/23 (12/16/22: MET GOAL) Assessment Summary Assessment Pt increase L SB/ stretch on R lateral trunk post manual and added stretching over Tball L SB and supine bridge abdominal stretch. Initated elbow plank off knees and over Tball with LE lift added TA/hip abd fac with good feedback response. Pt declined HO stated good performance for home can remember. Physical Therapy Plan Frequency and Duration Frequency of Treatment 2x/Week Plan of Care Start Date 10/24/22 Plan of Care End Date 01/22/23 Therapeutic Interventions Therapeutic Interventions Balance Training,Home Exercise Program,Joint Mobilizations, Manual Therapy,Neuromuscular Re-education,Self-Care/Home Management,Soft Tissue Mobilization,Therapeutic Activities,Therapeutic Exercises Modalities Cold Pack/Ice Massage,Electric Stimulation,Hot Packs, Ultrasound Next Visit Focus/Plan Next Note Type Treatment Note Next Visit Plan 1x/wk for 2 more visit, recheck if need continue further. Recheck manual, stretching and elbow plank off knees and over tball w/ LE ext. POC: Focus on improving R SB ROM and core stabilization for HEP, and cont for holding TA/ PF (add PF) during ex w/o abdominal doming. Issue/review HEP: Sitting (R side only) Piriformis stretch, open book (?R vs L), hands/ knees push (no doming) and sup TA (holding through inhale/ exhale). Add: Open bood stretch, R SB stretch, and progress difficulty of stability holds (BOSU). Balance assessment. Check neck and shoulder mobility and strength, VA test . POC: Manual therapy: STM, JMT, Cervicothoraco junction and Trunk rotators, sacral balancing as needed. Ther ex: Progress Postural core stabilization, balance and hip/lumbar/cervical mobility exercises. Modalities as needed.
--- NOTE | 2023-01-08 11:09 | PT.OTN ---
Current Diagnoses Other chronic pain (01/08/23) Stiffness of unspecified hip, not elsewhere classified (01/08/23) Postural kyphosis, cervicothoracic region (01/08/23) Low back pain, unspecified (01/08/23) Separation of muscle (nontraumatic), unspecified site (01/08/23) Physical Therapy Treatment Note PT-OP-A Visit Information Start: 10/17/22 21:00 Freq: Status: Active Protocol: Document 01/08/23 08:54 LRN (Rec: 01/08/23 09:37 LRN [id number]) Out-Patient Physical Therapy Visit Information Visit Information Visit Type Treatment Note Visit Start Time 08:54 Visit Stop Time 09:32 Total Visit Minutes 38 Visit Number 12 Evaluation Information Evaluation Date 10/24/22 Precautions Precautions History of back pain when . PT-OP-B Current Condition Start: 10/17/22 21:00 Freq: Status: Active Protocol: Document 10/24/22 09:35 LRN (Rec: 10/24/22 10:28 LRN [id number]) Current Condition History of Current Condition Onset Date ~09/30/22 Current Complaints Worsening back pain by the evening, rated 6-7/10. History of Current Condition Pt had attended physical therapy post- from to 08/29/22, but pt's rehab was limited due to insurance visit limits. Since her discharge she reports stopping anti-inflammatories, so the back pain worsened, but not as bad as initial treatment visit last time. Her babies now weigh 34# and 24# and she is trying not to hold them. She is also trying to wean from . She reports her function has improved and she has been able to do things, but now is taking ms relaxors when feeling like her back is going to flare up. Sometimes she has pain in the morning (3/10, or stiff) if slept wrong, but always at bed time pain is at its worst. States since childhood her hips sometimes locks, then pops and pops out of place. States it hurts both with locking and when popping. Prior Treatments and Tests PT at PT from 06/23/22-. Future Testing and Treatments Planned None Developmental History Developmental History 04/2021: Back pain after fall when , occasional sciatic pain bilaterally. Most recent son born 07/20/2021 . 1st , miscarried twin and was having pain, first son born 03/18/2020. Sons were of vaginal . She had fallen when 2nd son slipped on wet deck, and she was holding 1st son, causing her to twist left, landing on L hip and L shoulder. Treatment Goals Patient/Caregiver Goals Pt goals: Being able to exercise walk > 1/2 mile/day to 2 miles to go flat trail hiking with kids. Being able to ex at home on TM , eliptical or stair climber, with hand/ankle weights, or yoga class. Personal Factors Other Personal Factors That May Effect . Therapy/Recovery 2 children ages: 2.5 and 15 months old. PT-OP-C Subjective Start: 10/17/22 21:00 Freq: Status: Active Protocol: Document 01/08/23 08:54 LRN (Rec: 01/08/23 09:37 LRN [id number]) OP-PT Subjective Patient Comments Patient Comments Hasn't used ms relaxors for past 2 weeks. Pt feels ready for independent HEP. PT-OP-H Neuro Start: 10/17/22 21:00 Freq: Status: Active Protocol: Document 10/24/22 09:35 LRN (Rec: 10/24/22 10:28 LRN [id number]) Sensation Evaluation Gross Sensation Gross Sensation WNL PT-OP-J Posture/Palpation/Skin Start: 10/17/22 21:00 Freq: Status: Active Protocol: Document 10/24/22 09:35 LRN (Rec: 10/24/22 10:28 LRN [id number]) Posture Evaluation Position Standing Head/C-Spine Posture Forward Head L-Spine Posture Increased Lordosis Arm Posture (L) Internally Rotated,(R) Internally Rotated Pelvis Posture Anteriorly Tilted Weight Distribution Balanced,Weight Shifted Left Knee Posture (L) Genu Valgus,(R) Genu Valgus Comments Posture Comments Obvious Dowagers Hump, flattened upper T/S, increased lordosis, L knee valgus > R knee, Palpation Assessment Location C/S Palpation Location C. paraspinals and PA of SP Palpation Findings Soft Tissue Tightness,Muscle Guarding,Tenderness Upper back Palpation Location T2-T5 paraspinals and PA of SP Palpation Findings Soft Tissue Tightness,Muscle Guarding,Tenderness Low back Palpation Location L4 and mildly at L2-L5 paraspinals and PA of SP Palpation Findings Soft Tissue Tightness,Muscle Guarding,Tenderness PT-OP-K Range of Motion Start: 10/17/22 21:00 Freq: Status: Active Protocol: Document 01/08/23 08:54 LRN (Rec: 01/08/23 09:37 LRN [id number]) Lumbar Spine Range of Motion Lumbar Spine Active Degrees Testing Position Standing Rotation Left 30 Rotation Right 35 Lateral Flexion Left 22 Lateral Flexion Right 20 Hip Goniometric Range of Motion Hip Right Passive Testing Position Supine Internal Rotation 30 External Rotation 80 Comments Since child the hips are stiff and pop. Left Passive Internal Rotation 30 External Rotation 70 Comments Since child the hips are stiff and pop. PT-OP-M Strength Start: 10/17/22 21:00 Freq: Status: Active Protocol: Document 10/24/22 09:35 LRN (Rec: 10/24/22 10:28 LRN [id number]) Trunk Strength Trunk Manual Muscle Testing Core Stabilization Lacks core stab with rotation. Hip Strength Hip Manual Muscle Testing Right Comments Generally 5/5 Left Comments Generally 5/5 PT-OP-Q Treatments Start: 10/17/22 21:00 Freq: Status: Active Protocol: Document 01/08/23 08:54 LRN (Rec: 01/08/23 09:37 LRN [id number]) Therapeutic Exercises Supine Exercises Hip ER stretch Supine Exercise Name Hip ER stretch, L>R Side bilateral Comments ROM taken Piriformis stretch Supine Exercise Name Manual Piriformis stretch and review Side bilateral Comments ROM taken Prone Exercises Straight arm Plank Prone Exercise Name Hands/knees plank Reps/Minutes 45 SH x 5 Comments Pt shows good awareness of pelvic positioning. Sidelying Exercises Open book stretch Sidelying Exercise Name Open Book stretch review, R>L Reps/Minutes 2x Sitting Exercises R Piriformis stretch Sitting Exercise Name Piriformis stretch and review, R>L Side bilateral Reps/Minutes 60 SH x 2 Standing Exercises Trunk R SB Standing Exercise Name Trunk SB stretch, R SB > L SB Side bilateral Reps/Minutes 5' Other Exercises self STMs Other Exercise Name added/self - review Side right Equipment Used theracane Reps/Minutes 20 sec Comments MWM L SB good feedback manual and stretch stretching over tball Other Exercise Name R lateral trunk stretch (side and supine) Resistance supine back ext over tball Equipment Used 55cm Reps/Minutes 3 min Comments good feedback response stretch QL and abdominals Maddie' Pose Other Exercise Name Child's Pose Reps/Minutes 60 total stretch Comments good LB stretch between bird dog ex Self-Care/Home Management Treatment Education Patient Education Body Mechanics,Home Exercise Program,Joint Protection, Posture Activities Self-Care/Home Management Activities Issued & reviewed HEP: Sitting and supine Piriformis stretch (focus on L), open book stretch, and hands/knees push. PT-OP-T Assessment and Plan Start: 10/17/22 21:00 Freq: Status: Active Protocol: Document 01/08/23 08:54 LRN (Rec: 01/08/23 09:37 LRN [id number]) Physical Therapy Assessment Goals Four Impairment Muscle tightness of the neck/ shoulders. Impairment Neck pain in evenings is 3-4/ 10. Short Term Goal (STG) Pt will demonstate improved sitting postural awareness with ability to correct head on shoulder posturing. 10/31/22: cues for sitting elevated posture head over shlds over pelvis on tball. 11/06/22: GOAL MET: Improved self corrections during seated Tball ex. STG Duration 12/12/22 (11/06/22: GOAL MET) Intermediate Goal (LTG) Pt will report less pain in neck/shoulder at end of day for more peaceful sleep at night. 10/31/22: discussed use pillows between BLEs, BUEs and if beneficial small folded towel/ pillow under upper lateral ribcage for trunk spinal support. Verbalized understanding but didn't get to perform in PT. 11/25/22: Somedays doesn't have neck pain, somedays 10/15, still carring kids around. Sleeping at night not having as much shooting pain down the legs or waking up due to pain issues. LTG Duration 01/22/23 (11/25/22: MET GOAL ) Three Impairment Stiffness in lumbar and upper back region Impairment LBP in evenings is 6-9/10. Trunk SB is 30 deg's L, 15 deg 's R. Trunk Rot is 40 deg's L, 20 deg's R. ILEANA of 12/16/22 score is 10/100 (1-19% impaired) Short Term Goal (STG) Pt will demonstrate improve mobility of of lumbar spine mechanics (curve with SB and Rotation). STG Duration 12/12/22 (11/25/22: MET GOAL ) Intermediate Goal (LTG) Pt will be able to demonstrate improved lumbar spine mechanics with trunk SB and rotation with less LBP in the evenings. 10/31/22: reviewed passed HEP resisted rotation withcues for elevated and TA/PPTA seated on Tball in PT, improved decrease to no R LB tightness irritation. 12/08/22: not as strenuous now more active but still feel stiffness SB L than R. SHe does notice walking incline that loops L feels R side tension after 2-3 laps. 12/16/22: LBP in evenings pain is rated 1-4/10. LTG Duration 01/22/23 (12/16/22: MET GOAL ) Two Impairment Core weakness Impairment Being able to ex at home on TM , eliptical or stair climber, with hand/ankle weights, or yoga class. Short Term Goal (STG) Being able to ex at home on TM , eliptical or stair climber, with hand/ankle weights, or yoga class. 12/16/22: Exercising on TM, and walking around the neighborhood. Doing home ex with hand wgts taught in therapy. STG Duration 12/12/22 (12/16/22: MET GOAL : Exercises on TM) Intermediate Goal (LTG) Improve core stability with pt able to exercise walk greater than 1/2 mile/day and/or [address] hiking with kids. 10/31/22: progressing: able to walk approx 1/2 mile before back hurts but is having to carry kids just before end this distance and feels if didn;t need to could go further. 12/02/22: progressing: able to walk slight uneven trails [place] campground about 20-30 min with mindful core engagement felt little weakness but not pain. She states still about 4 /10 pain if carrying kids (27, 37 #) and walk. 12/16/22: Walks [address] trail with kids, w/o issues ( no pain) as long as not carrying kids. If carry kids can do 1/2-2/3 of a mile. 12/26/22: progressing: able to walk 1/2 mile with child in backpack with out pain. 01/08/23: Pt able to walk >1/2 mile with baby on back w/o onset of back pain. LTG Duration 01/22/23 (01/08/23: MET GOAL ) One Impairment Lacks consistency with HEP. Impairment Excessive lumbar lordosis, stands unequal WBing in LE's, protruding abdomen. Pt not on a self care HEP to manage her bilateral sciatic pain. Short Term Goal (STG) Pt will be able to demonstrate best practice transfers stand <>supine and will resume her prevously issued HEP. 12/02/22: MET GOAL: good mechanics stand > floor and perform HEP, no pain. STG Duration 12/12/22 (12/02/22: MET GOAL) Intermediate Goal (LTG) Pt will be able to transition to home exercise gym for ex on TM, eliptical or stair climber, with hand/ankle weights, or participate in a yoga class. 10/31/22: added past seated TBall pelvic tilts, august, LAQ , resisted rows and rotation for TA support. 11/06/22: added seated shldr ext , resisted clam, bird dog. 12/02/22: will be looking in to Yoga class home or out soon. Added D2 flexion TB #2 1/2 kneel, core trunk resisted rotation seated Tball, supine segmental august. 12/08/22: added mini squat shld ext. 12/16/22: Exercising on TM, and walking around the neighborhood. Doing home ex with hand wgts taught in therapy. Able to ex 2-3/week. 12/26/22: added R lateral trunk /L SB stretch over tball, elbow plank off knees and LE lift/lower TB #2 around ankles good TA and pelvic alignment. LTG Duration 01/22/23 (12/16/22: MET GOAL) Assessment Summary Assessment Pt returns with reports of no back pain and has not used meds (muscle relaxors) for past 2 weeks. She shows some tightness in L lateral trunk but has no pain with stretches . There is active trigger points at L SIJ region. Pt to continue with proper body mechanics, posture, stretches L>R, and core stabilization. Pt diastasis rectus appears to have closed. The pt appears ready and is appropriate for discharge to a HEP. Physical Therapy Plan Discharge Physical Therapy Discharge Reasons Goals Met Discharge Comments Pt has soft tissue restriction on L trunk an hip that pt will work on improving on her HEP. Soft tissue dysfunction may create L SIJ dysfunction/ pain in future if pt is unable to maintain core and pelvic stability and mobility. Thank you for your referral.
== END 2023-01-15 09:58 | disposition home or self-care (01) ==
LOC: PHYS 08:45
PROVIDERS: Family Provider Family Medicine; PCP Family Medicine; Referring Provider Family Medicine; Visit Provider Family Medicine
DX: M54.50 Low back pain, unspecified (principal); G89.29 Other chronic pain; M25.659 Stiffness of unspecified hip, not elsewhere classified; M62.00 Separation of muscle (nontraumatic), unspecified site; M40.03 Postural kyphosis, cervicothoracic region
CPT/HCPCS: 97110; 97116; 97140; 97162

== ENCOUNTER 2023-01-27 09:00 | Emergency (ER) | payer OTHER, SELFPAY ==
[2023-01-27] VITALS (11 sets, daily range): BP systolic 113–141; BP diastolic 2–94; PULSE 73–86; RESP 14–16; TEMP 36.6–36.7; O2SAT 95–98; BMI 38.6
[2023-01-27] MEDS: PANTOPRAZOLE 40 MG VIAL IV (09:37)
[2023-01-27] MEDS: ONDANSETRON 4 MG/2 ML INJ IV (09:37)
[2023-01-27] MEDS: MORPHINE 2 MG/ML INJ IV (09:37)
[2023-01-27 09:42] LABS: Add Manual Diff / Slide Review NO; Basophils Absolute Auto 0 /uL (0-100); Basophils Percent Auto 0.8 % (0-2); Eosinophils Absolute Auto 200 /uL (0-450); Eosinophils Percent Auto 3.4 % (2-4); Hematocrit 40.3 % (36-46); Hemoglobin 13.7 g/dL (12.0-16.0); Lymphocytes Absolute Auto 1900 /uL (1100-4500); Lymphocytes Percent Auto 34.5 % (25-40); Mean Corpuscular Hemoglobin 28.3 PG (26-34); Mean Corpuscular Volume 83.5 fL (80-100); Monocytes Absolute Auto 300 /uL (0-900); Monocytes Percent Auto 5.5 % (3-14); Neutrophils Absolute Auto 3000 /uL (1500-7000); Neutrophils Percent Auto 55.8 % (50-75); Platelet Count 198 X10^3/uL (150-400); Red Blood Cell Count 4.82 X10^6/uL (4.0-5.2); Red Cell Distribution Width 13.2 % (11.6-14.8); White Blood Cell Count 5.4 X10^3/uL (4.5-11.0)
[2023-01-27 09:57] LABS: Alanine Aminotransferase 34 IU/L (<35); Albumin 4.2 g/dL (3.5-5.0); Albumin Globulin Ratio 1.4 (1.0-2.8); Alkaline Phosphatase 86 U/L (38-126); Aspartate Aminotransferase 33 IU/L (14-36); BUN Creatinine Ratio 25.5 (6-22); Bilirubin Total 0.7 mg/dL (0.2-1.3); Blood Urea Nitrogen 12 mg/dL (7-17); Calcium 8.7 mg/dL (8.4-10.2); Carbon Dioxide 27 mmol/L (22-32); Chloride 103 mmol/L (98-107); Estimated Glomerular Filt Rate > 60 mL/min (>60); Glucose 105 mg/dL (70-100); HEMOLYSIS < 15 (0-50); Lipase 111 U/L (23-300); Potassium 4.1 mmol/L (3.4-5.1); Sodium 137 mmol/L (137-145); Total Protein 7.2 g/dL (6.3-8.2)
--- NOTE | 2023-01-27 10:45 | DI.US.S_ITS ---
PROCEDURE: US ABDOMEN LIMITED INDICATIONS: RUQ PAIN TECHNIQUE: Real-time focused scanning was performed of the abdomen, with image documentation. COMPARISON: None. FINDINGS: The liver demonstrates enlarged size. The liver demonstrates generalized moderately increased echogenicity. This decreases ultrasound sensitivity for detection of hepatic masses. There is a 1.4 cm shadowing, mobile gallstone seen. The gallbladder wall is not thickened, measuring 3 mm or less. No specific pericholecystic fluid is seen. The sonographic Lamas sign is negative. There is no biliary dilatation, the common bile duct measures 5 mm. No significant pancreatic abnormality is seen on these images. However, the pancreas is overall not well seen, secondary to overlying bowel gas. IMPRESSION: A single mobile gallstone is seen, yet without additional sonographic signs of cholecystitis. Negative for biliary dilatation. Please correlate with physical examination findings, patient presentation, and laboratory values. Enlarged, fatty liver. Dictated by: Jose Alfredo Torrez M.D. on 01/27/2023 at 10:35 Approved by: Jose Alfredo Torrez M.D. on 01/27/2023 at 10:36
--- NOTE | 2023-01-27 10:45 | ED.ABDPAIN ---
HPI - Abdominal Pain General Chief Complaint: Abdominal Pain Stated Complaint: Chest and stomach pain/ vomiting Time Seen by Provider: 01/27/23 09:31 Source: patient Mode of arrival: Ambulatory History of Present Illness HPI narrative: Patient 32-year-old female history of ongoing GERD no obesity along with peptic ulcer disease presents today with what she thinks is a flare for peptic ulcer disease. She is pretty significant epigastric pain without nausea vomiting. She took Tylenol for as she does normally but it does not help. She is previously vomited blood but did not vomit blood today. Denies any fever chills no diarrhea. She adamantly denies any radiation into her chest. Related Data Previous Rx's Medication Instructions Recorded Double Electric breast Pump and #1 ea 07/09/21 Supplies cyclobenzaprine 5 mg tablet 5 mg PO Q8H PRN muscle spasm #30 05/09/22 tabs meloxicam 15 mg tablet 15 mg PO DAILY #30 tabs 05/09/22 phentermine 37.5 mg capsule 37.5 mg PO DAILY #30 caps 06/13/22 omeprazole 20 mg capsule,delayed 20 mg PO DAILY #90 caps 12/23/22 release hydrocodone 5 mg-acetaminophen 325 1 tab PO Q6H PRN pain #10 tabs 01/27/23 mg tablet ondansetron 4 mg disintegrating 4 mg PO Q8H PRN nausea and 01/27/23 tablet vomiting #10 tabs Allergies Allergy/AdvReac Type Severity Reaction Status Date / Time No Known Drug Allergies Allergy Verified 06/13/22 09:10 Review of Systems Review of Systems ROS Unobtainable: All systems reviewed & are unremarkable except as noted in HPI and below Patient History Medical History Chronic lower back pain Diarrhea GERD (gastroesophageal reflux disease) Gestational diabetes (~11/2019) History of being hospitalized (~08/2019) Hyperlipidemia Major depressive disorder, single episode (~08/11/19) Morbid obesity Peptic ulcer disease (~2014) Post-nasal drip Smoker (spontaneous vaginal delivery) (~03/18/20) Wrist fracture, left (~1992) Surgical History H/O colposcopy with cervical biopsy (~06/2020) History of colposcopy (~11/26/20) History of tonsillectomy (~2011) Family History Mother Diabetes mellitus Type 2 diabetes mellitus Alcohol abuse by patient's mother H/O drug abuse Family estrangement Father Hypertension Diabetes mellitus Type 2 diabetes mellitus Grandmother Cancer Diabetes mellitus Addiction Grandmother Cancer Diabetes mellitus Pancreatic cancer Breast cancer Type 2 diabetes mellitus Thyroid disease Grandfather No problems noted. Sister Appendicitis Grandfather Addiction Brother No problems noted. 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[employer]) current occupational exposures/hazards: No monika/muslim: Taoism special monika needs: No Smoking Status: Former smoker Tobacco: How many years used: 17 quit status: quit date established (Quit 3 years ago) second hand exposure: No alcohol intake: former (social - 1 to 2 times a week.) substance use type: does not use Type(s) of exercise: walking and normal ROM and activity Smoking Status: Former smoker alcohol intake frequency: holidays/special occasions only Substance Use Type: does not use Exam Initial Vital Signs Initial Vital Signs: Vital Signs Temperature 98 F 01/27/23 09:07 Pulse Rate 79 01/27/23 09:07 Respiratory Rate 14 01/27/23 09:07 Blood Pressure 141/83 H 01/27/23 09:07 Pulse Oximetry 98 01/27/23 09:07 Oxygen Delivery Method Room Air 01/27/23 09:07 GENERAL: Alert 32-year-old female appears in pain and in no acute distress. HEENT: Head atraumatic,EOMI, pupils reactive, face symmetric, moist mucous membranes CARDIOVASCULAR: Regular rate and rhythm without murmurs, rubs or gallops. RESPIRATORY: Breath sounds equal bilaterally, no wheezes rales or rhonchi. ABDOMEN: Soft, nontender. Normoactive bowel sounds all 4 quadrants. No guarding or rebound. EXTREMITIES: Normal range of motion, no clubbing or edema. Neurovascularly intact NEUROLOGICAL: Alert and oriented x4. Look and like SKIN: Warm, dry, no laceration, no petechiae, no rashes or lesions. Course Orders Ordered: ED Orders 01/27/23 10:45 US abdomen limited Stat Discontinued Medications Morphine Sulfate (Morphine 2 Mg/Ml Inj) 2 mg IV NOW ONE Stop: 01/27/23 09:33 Last Admin: 01/27/23 09:37 Dose: 2 mg Documented By: ST Morphine Sulfate (Morphine 4 Mg/Ml Inj) 4 mg IV NOW ONE Stop: 01/27/23 10:46 Last Admin: 01/27/23 10:52 Dose: 4 mg Documented By: ST Ondansetron HCl (Ondansetron 4 Mg/2 Ml Inj) 4 mg IV NOW ONE Stop: 01/27/23 09:33 Last Admin: 01/27/23 09:37 Dose: 4 mg Documented By: ST Pantoprazole Sodium (Pantoprazole 40 Mg Vial) 40 mg IV NOW ONE Stop: 01/27/23 09:33 Last Admin: 01/27/23 09:37 Dose: 40 mg Documented By: ST Vital Signs Vital signs: Vital Signs - 8 hr 01/27/23 13:30 01/27/23 13:00 01/27/23 12:30 Temperature Pulse Rate 74 81 73 Respiratory Rate 14 16 16 Blood Pressure 114/81 118/72 115/2 L Pulse Oximetry 97 98 97 Oxygen Delivery Method Room Air Room Air Room Air 01/27/23 12:00 01/27/23 11:30 01/27/23 13:44 Temperature 98.0 F Pulse Rate 86 73 Respiratory Rate 15 14 Blood Pressure 115/62 121/70 Pulse Oximetry 97 97 Oxygen Delivery Method MDM - Abdominal Pain Lab Data 01/27/23 09:25 01/27/23 09:25 Labs: Lab Results 01/27/23 01/27/23 Range/Units 09:25 09:25 WBC 5.4 (4.5-11.0) X10^3/uL RBC 4.82 (4.0-5.2) X10^6/uL Hgb 13.7 (12.0-16.0) g/dL Hct 40.3 (36-46) % MCV 83.5 (80-100) fL MCH 28.3 (26-34) PG MCHC 34.0 (30-36) % RDW 13.2 (11.6-14.8) % Plt Count 198 (150-400) X10^3/uL Neut % (Auto) 55.8 (50-75) % Lymph % (Auto) 34.5 (25-40) % [place] % (Auto) 5.5 (3-14) % Eos % (Auto) 3.4 (2-4) % Baso % (Auto) 0.8 (0-2) % Neut # (Auto) 3000 (7689-6731) /uL Lymph # (Auto) 1900 (7767-6978) /uL [place] # (Auto) 300 (0-900) /uL Eos # (Auto) 200 (0-450) /uL Baso # (Auto) 0 (0-100) /uL Sodium 137 (137-145) mmol/L Potassium 4.1 (3.4-5.1) mmol/L Chloride 103 (98-107) mmol/L Carbon Dioxide 27 (22-32) mmol/L BUN 12 (7-17) mg/dL Creatinine 0.47 L (0.52-1.04) mg/dL Estimated GFR > 60 (>60) mL/min BUN/Creatinine Ratio 25.5 H (6-22) Glucose 105 H (70-100) mg/dL Calcium 8.7 (8.4-10.2) mg/dL Total Bilirubin 0.7 (0.2-1.3) mg/dL AST 33 (14-36) IU/L ALT 34 (<35) IU/L Alkaline Phosphatase 86 (38-126) U/L Total Protein 7.2 (6.3-8.2) g/dL Albumin 4.2 (3.5-5.0) g/dL Globulin 3.0 (1.7-4.1) g/dL Albumin/Globulin Ratio 1.4 (1.0-2.8) Lipase 111 (23-300) U/L Imaging Data US - abdomen: Radiologist's Impression: PROCEDURE: US ABDOMEN LIMITED ? INDICATIONS:? RUQ PAIN ? TECHNIQUE:? Real-time focused scanning was performed of the abdomen, with image documentation.? ? COMPARISON:? None. ? FINDINGS:? The liver demonstrates enlarged size. The liver demonstrates generalized moderately increased echogenicity. This decreases ultrasound sensitivity for detection of hepatic masses.? ? There is a 1.4 cm shadowing, mobile gallstone seen.? The gallbladder wall is not thickened, measuring 3 mm or less.? No specific pericholecystic fluid is seen.? The sonographic Lamas sign is negative. ? There is no biliary dilatation, the common bile duct measures 5 mm.? ? No significant pancreatic abnormality is seen on these images.? However, the pancreas is overall not well seen, secondary to overlying bowel gas. ? ? ? IMPRESSION:? A single mobile gallstone is seen, yet without additional sonographic signs of cholecystitis.? Negative for biliary dilatation.? Please correlate with physical examination findings, patient presentation, and laboratory values.? ? Enlarged, fatty liver. ? ? Dictated by: Jose Alfredo Torrez M.D. on 01/27/2023 at 10:35 ? ? Approved by: Jose Alfredo Torrez M.D. on 01/27/2023 at 10:3 ECG Data Interpretation: Sinus rhythm rate 102 MN interval 130 QRS [address] changes MDM Narrative Medical decision making narrative: Patient 32-year-old female presents today with epigastric pain. She reports that she is had ongoing peptic ulcer disease today pain is not controlled with omeprazole or Tylenol. Lab work has been reviewed no evidence of leukocytosis elevated bilirubin liver enzymes or lipase. Ultrasound is ordered and does show a mobile stone, without evidence of cholecystitis. No CBD dilation. At this time recommend outpatient follow-up with surgery for elective cholecystectomy. Discharge Plan Departure Patient Disposition: Home Clinical Impression: Cholelithiasis Instructions: DI for Gallstones Activity Restrictions/Additional Instructions: *You have been diagnosed with gallstones *What to do: You have 1 gallstone in the gallbladder. This ultimately require surgery *Continue to take medications as directed Continue meloxicam as prescribed Emerado 1 tablet every 6 hours if needed for severe pain Zofran 4 mg every 8 hours if needed for nausea or vomiting *Follow up with your primary care provider in 2-3 days or call [phone] Call surgery to schedule follow-up appointment *Return to ER if you should have increasing pain fever nausea vomiting or any new, worsening or concerning symptoms CONTROLLED SUBSTANCE DISCHARGE (Narcotoic/benzodiazepine/Flexeril/Phenergan) 1. You have been prescribed narcotic medications, it does have acetaminophen/Tylenol/paracetamol in it, DO NOT TAKE MORE THAN 4,00mg in 24 hours of Tylenol. TRAMADOL DOES NOT CONTAIN TYLENOL 2. Please understand that we cannot provide further refills of narcotics, benzodiazepines or controlled substances through the ED and her pain management will need to be through your provider. 3. While on these medications you cannot drive or operate heavy machinery. 4. You cannot sign legal documents or perform any duties such as this. 5. As long as you're taking opiate pain medications he should also be taking a stool softener such as Colace, Dulcolax, MiraLAX or prune juice, to help avoid constipation. Prescriptions: New hydrocodone-acetaminophen 5-325 mg tablet 1 tab PO Q6H PRN (Reason: pain) Qty: 10 0RF ondansetron 4 mg tablet,disintegrating 4 mg PO Q8H PRN (Reason: nausea and vomiting) Qty: 10 0RF No Action (DME) Double Electric breast Pump and Supplies See Rx Instructions .ROUTE .MEDSUPPLY Qty: 1 0RF Rx Instructions: Use electric breast pump and supplies as directed for 99 months. HAYDER 08/04/2021. omeprazole 20 mg capsule,delayed release(DR/EC) 20 mg PO DAILY Qty: 90 3RF phentermine 37.5 mg capsule 37.5 mg PO DAILY Qty: 30 0RF Rx Instructions: must administer 30 minutes before or 1-2 hours after breakfast meloxicam 15 mg tablet 15 mg PO DAILY Qty: 30 11RF Rx Instructions: with food cyclobenzaprine 5 mg tablet 5 mg PO Q8H PRN (Reason: muscle spasm) Qty: 30 5RF Referrals: Raymond Maldonado DO [Primary Care Provider] - Stand Alone Forms: Patient Portal/API
[2023-01-27] MEDS: MORPHINE 4 MG/ML INJ IV (10:52)
== END 2023-01-27 13:46 | disposition home or self-care (01) ==
PROVIDERS: Emergency Provider Emergency Medicine; Family Provider Family Medicine; PCP Family Medicine
DX: K80.20 Calculus of gallbladder without cholecystitis without obstruction (principal)
CPT/HCPCS: 36415; 76705; 80053; 83690; 85025; 96374; 96375; 96376; 99284; C9113; J2270; J2405

== ENCOUNTER 2023-01-28 06:40 | Emergency (ER) | payer OTHER, SELFPAY ==
[2023-01-28] VITALS (7 sets, daily range): BP systolic 93–140; BP diastolic 55–79; PULSE 75–88; RESP 18; TEMP 36.6; O2SAT 94–99; BMI 38.6
--- NOTE | 2023-01-28 06:53 | ED_ITS ---
HPI - Abdominal Pain General Chief Complaint: Abdominal Pain Stated Complaint: abd pain Time Seen by Provider: 01/28/23 06:40 Source: patient Mode of arrival: EMS History of Present Illness HPI narrative: 32F former smoker with history of known gallstones presents by EMS for abdominal pain. She states she is been having this pain off and on since about May but it has been significantly worse as of late. She denies obvious provocation, palliation or radiation. She is had nausea and vomiting and states that she had vomited up the pain medication she had been recently given. EMS did give some fentanyl EN route which seemed to help. She is had no dizziness, weakness or lightheadedness. She denies chest pain or shortness of breath. She denies any cough. She denies blood in her emesis. She is had no constipation or diarrhea. She states that she thought she was doing better than woke up this morning and the pain came on suddenly, she had not eaten or had anything to drink yet today Related Data Previous Rx's Medication Instructions Recorded Double Electric breast Pump and #1 ea 07/09/21 Supplies cyclobenzaprine 5 mg tablet 5 mg PO Q8H PRN muscle spasm #30 05/09/22 tabs meloxicam 15 mg tablet 15 mg PO DAILY #30 tabs 05/09/22 phentermine 37.5 mg capsule 37.5 mg PO DAILY #30 caps 06/13/22 omeprazole 20 mg capsule,delayed 20 mg PO DAILY #90 caps 12/23/22 release hydrocodone 5 mg-acetaminophen 325 1 tab PO Q6H PRN pain #10 tabs 01/27/23 mg tablet ondansetron 4 mg disintegrating 4 mg PO Q8H PRN nausea and 01/27/23 tablet vomiting #10 tabs hydrocodone 5 mg-acetaminophen 325 1 tab PO Q4-6H PRN pain #10 tabs 01/28/23 mg tablet psyllium husk (with sugar) 3.4 1 tbsp PO BID #822 grams 01/28/23 gram/7 gram oral powder (Fiber (psyllium husk-sugar)) sodium,potassium,mag sulfates 17.5 See Rx Instructions PO .COMPLEX 01/29/23 gram-3.13 gram-1.6 gram oral soln #354 mL (Suprep Bowel Prep Kit) Allergies Allergy/AdvReac Type Severity Reaction Status Date / Time No Known Drug Allergies Allergy Verified 01/28/23 16:16 Review of Systems Review of Systems Narrative: GENERAL: Denies chills, fatigue, malaise, fever, sweats. HEENT: Denies sinus pain, ear pain, sore throat, difficulty swallowing, dizziness. RESPIRATORY: Denies dyspnea, cough, wheezing, hemoptysis, sputum. CARDIOVASCULAR: Denies chest pain, palpitations, orthopnea, edema, GASTROINTESTINAL: See HPI : Denies dysuria, frequency, incontinence, hematuria, urinary retention. MUSCULOSKELETAL: denies weakness, joint pain, or bony pain SKIN: Denies rash, skin lesions, or other NEUROLOGIC: Denies weakness, headache, numbness, change in speech, confusion, seizures, incoordination. PSYCHIATRIC: No concerning psychosocial issues. 12 point review of systems is negative except for those stated above Patient History Medical History Chronic lower back pain Diarrhea GERD (gastroesophageal reflux disease) Gestational diabetes (~11/2019) History of being hospitalized (~08/2019) Hyperlipidemia Major depressive disorder, single episode (~08/11/19) Morbid obesity Peptic ulcer disease (~2014) Post-nasal drip Smoker (spontaneous vaginal delivery) (~03/18/20) Wrist fracture, left (~1992) Surgical History H/O colposcopy with cervical biopsy (~06/2020) History of colposcopy (~11/26/20) History of tonsillectomy (~2011) Family History Mother Diabetes mellitus Type 2 diabetes mellitus Alcohol abuse by patient's mother H/O drug abuse Family estrangement Father Hypertension Diabetes mellitus Type 2 diabetes mellitus Grandmother Cancer Diabetes mellitus Addiction Grandmother Cancer Diabetes mellitus Pancreatic cancer Breast cancer Type 2 diabetes mellitus Thyroid disease Grandfather No problems noted. Sister Appendicitis Grandfather Addiction Brother No problems noted. 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 Well-developed patient, in mild distress. HEAD: Atraumatic. Normocephalic. EYES: Pupils equal round and reactive. Extraocular motions intact. No scleral icterus. No injection or drainage. ENT: Nose without bleeding, purulent drainage. Throat without erythema, tonsillar hypertrophy or exudate. Airway patent. NECK: Trachea midline. Non tender CARDIOVASCULAR: Regular rate and rhythm without murmurs, gallops, or rubs. RESPIRATORY: Clear to auscultation. Breath sounds equal bilaterally. No wheezes, rales, or rhonchi. GASTROINTESTINAL: Abdomen soft, non-tender, nondistended. EXTREMITIES: No edema or joint tenderness. BACK: Nontender without deformity or crepitance. No flank tenderness. NEURO: AOx3. SKIN: No rash or erythema of visible areas Initial Vital Signs Initial Vital Signs: Vital Signs Pulse Rate 78 01/28/23 06:42 Pulse Oximetry 95 01/28/23 06:42 Course Orders Ordered: ED Orders 01/28/23 06:41 Complete Blood Count AUTO DIFF Stat Comprehensive Metabolic Panel Stat Lipase Stat 01/28/23 07:09 US abdomen limited Stat 01/28/23 08:15 CT abdomen pelvis w con Stat 01/28/23 08:23 Urine Microscopic Stat Vital Signs Vital signs: Vital Signs - 8 hr 01/28/23 06:45 01/28/23 06:42 01/28/23 06:43 Temperature 97.9 F Pulse Rate 88 78 84 Respiratory Rate 18 Blood Pressure 129/79 Pulse Oximetry 96 95 96 Oxygen Delivery Method Room Air 01/28/23 06:43 01/28/23 07:00 01/28/23 07:00 Temperature Pulse Rate 75 Respiratory Rate Blood Pressure 129/75 109/71 Pulse Oximetry 94 Oxygen Delivery Method 01/28/23 07:30 01/28/23 07:30 01/28/23 08:00 Temperature Pulse Rate 77 Respiratory Rate Blood Pressure 93/55 L 97/67 Pulse Oximetry 97 Oxygen Delivery Method 01/28/23 08:00 Temperature Pulse Rate 83 Respiratory Rate Blood Pressure Pulse Oximetry 97 Oxygen Delivery Method MDM - Abdominal Pain Lab Data 01/28/23 06:41 01/28/23 06:41 Labs: Lab Results 01/28/23 01/28/23 01/28/23 Range/Units 06:41 06:41 08:23 WBC 6.7 (4.5-11.0) X10^3/uL RBC 4.93 (4.0-5.2) X10^6/uL Hgb 13.9 (12.0-16.0) g/dL Hct 41.1 (36-46) % MCV 83.3 (80-100) fL MCH 28.2 (26-34) PG MCHC 33.9 (30-36) % RDW 13.4 (11.6-14.8) % Plt Count 239 (150-400) X10^3/uL Neut % (Auto) 58.0 (50-75) % Lymph % (Auto) 33.5 (25-40) % [place] % (Auto) 5.7 (3-14) % Eos % (Auto) 2.3 (2-4) % Baso % (Auto) 0.5 (0-2) % Neut # (Auto) 3900 (4648-2175) /uL Lymph # (Auto) 2300 (2643-4715) /uL [place] # (Auto) 400 (0-900) /uL Eos # (Auto) 200 (0-450) /uL Baso # (Auto) 0 (0-100) /uL Sodium 135 L (137-145) mmol/L Potassium 4.2 (3.4-5.1) mmol/L Chloride 106 (98-107) mmol/L Carbon Dioxide 23 (22-32) mmol/L BUN 12 (7-17) mg/dL Creatinine 0.40 L (0.52-1.04) mg/dL Estimated GFR > 60 (>60) mL/min BUN/Creatinine Ratio 30.0 H (6-22) Glucose 147 H (70-100) mg/dL Calcium 8.2 L (8.4-10.2) mg/dL Total Bilirubin 0.8 (0.2-1.3) mg/dL AST 38 H (14-36) IU/L ALT 33 (<35) IU/L Alkaline Phosphatase 70 (38-126) U/L Total Protein 6.5 (6.3-8.2) g/dL Albumin 3.7 (3.5-5.0) g/dL Globulin 2.8 (1.7-4.1) g/dL Albumin/Globulin Ratio 1.3 (1.0-2.8) Lipase 98 (23-300) U/L Urine RBC 30-100/hpf H (0-5/HPF) Urine WBC 1-5/hpf (0-5/HPF) Ur Squamous Epith Cells 10-30 /hpf H (0-5/HPF) Urine Bacteria Moderate (10-30) H (None) Ur Culture Indicated? Cult not indicated Point of care testing: Point of Care Testing Test Results Negative Urine Dip Bedside Urine Glucose Negative Bedside Urine Bilirubin - Negative Bedside Urine Ketone - Negative Urine Specific [place] 1.030 Bedside Urine Occult Blood +++ Bedside Urine pH 5.5 Bedside Urine Protein + 30 Bedside Urine Urobilinogen - Negative Bedside Urine Nitrite - Negative Bedside Urine Leukocytes - Negative Esterase MDM Narrative Medical decision making narrative: CC: 32-year-old female with epigastric pain Complicating co-morbidities: Recurrent visit Data collected from: Patient Medical records reviewed: Prior notes reviewed in our EMR Differential considered, but not limited to: Pancreatitis versus gallbladder disease versus bowel obstruction versus esophageal spasm versus ulcer versus gastritis versus other Exam documented above, pertinent findings include: Heart rate regular, lungs clear, abdomen soft, bowel sounds present Lab Test results independently reviewed as above. Pertinent findings: No leukocytosis or left shift, LFTs, bilirubin, lipase all within normal Independently reviewed EKG as above Imaging studies independently reviewed: Abdominal ultrasound demonstrates, CT scan demonstrates Treatments:see above Re-evaluations:pain well tolerated, orals tolerated Discussion: Patient is reassuring history and physical exam, pain tolerated, tolerating orals, imaging without significant findings, labs unremarkable. Importance of follow-up discussed Disposition: see below, along with detailed discharge instructions that have been reviewed with patient as well as indications for ED re-evaluation and additional outpatient follow up Discharge Plan Departure Patient Disposition: Home Clinical Impression: Abdominal pain Instructions: DI for Abdominal Pain-Adult Activity Restrictions/Additional Instructions: *You have been diagnosed with [abdominal pain] * As we discussed your history and physical exam as well as labs and imaging are very reassuring. There is no evidence of any severe diagnoses that would require a specific or immediate intervention. *What to do: *As we discussed please increase your Omeprazole from once daily to twice daily for the next week. Otherwise, please continue to take your regular medications as directed. [x ] New medication prescriptions sent to your pharmacy: [[facility] in [place]] *Please follow up with your primary care provider in 2-3 days, call for an appointment. Let them know you were seen in the Emergency Department and that we ask that you be seen in follow up. We will electronically transmit a record of today's note if your PCP is in our system *As we discussed it seems reasonable to follow-up [facility] to discuss options moving forward to evaluate your pain. I will electronically transmitted a copy of today's note. Please call the office later today, let them know you were seen in the emergency department and we would like you seen in follow-up. *Please consider a clear liquid diet for the next 24-48 hours and then slowly advance to regular as tolerated. Also, try to avoid alcohol, nicotine, caffeine, spicy, acidic or fatty foods as this may worsen your symptoms *If you do not have a primary care provider please contact the [facility] Resource line at [phone]. They will ask some questions about your medical history and help get you set up with a doctor in the community. *Return to Emergency Department if you should have any new, worsening or concerning symptoms, such as [fever greater than 101 F, shaking chills, worsening pain, persistent vomiting or other bothersome symptoms] Prescriptions: New hydrocodone-acetaminophen 5-325 mg tablet 1 tab PO Q4-6H PRN (Reason: pain) Qty: 10 0RF No Action (DME) Double Electric breast Pump and Supplies See Rx Instructions .ROUTE .MEDSUPPLY Qty: 1 0RF Rx Instructions: Use electric breast pump and supplies as directed for 99 months. HAYDER 08/04/2021. omeprazole 20 mg capsule,delayed release(DR/EC) 20 mg PO DAILY Qty: 90 3RF sodium,potassium,mag sulfates [Suprep Bowel Prep Kit] 17.5-3.13-1.6 gram recon soln See Rx Instructions PO .COMPLEX Qty: 354 0RF Rx Instructions: take as directed by Physician phentermine 37.5 mg capsule 37.5 mg PO DAILY Qty: 30 0RF Rx Instructions: must administer 30 minutes before or 1-2 hours after breakfast meloxicam 15 mg tablet 15 mg PO DAILY Qty: 30 11RF Rx Instructions: with food cyclobenzaprine 5 mg tablet 5 mg PO Q8H PRN (Reason: muscle spasm) Qty: 30 5RF Fiber (psyllium husk-sugar) 3.4 gram/7 gram powder 1 tbsp PO BID Qty: 822 0RF hydrocodone-acetaminophen 5-325 mg tablet 1 tab PO Q6H PRN (Reason: pain) Qty: 10 0RF ondansetron 4 mg tablet,disintegrating 4 mg PO Q8H PRN (Reason: nausea and vomiting) Qty: 10 0RF Referrals: Sanjuana Shearer MD [Physician] - Raymond Maldonado DO [Primary Care Provider] - Stand Alone Forms: Patient Portal/API
[2023-01-28 06:59] LABS: Add Manual Diff / Slide Review NO; Basophils Absolute Auto 0 /uL (0-100); Basophils Percent Auto 0.5 % (0-2); Eosinophils Absolute Auto 200 /uL (0-450); Eosinophils Percent Auto 2.3 % (2-4); Hematocrit 41.1 % (36-46); Hemoglobin 13.9 g/dL (12.0-16.0); Lymphocytes Absolute Auto 2300 /uL (1100-4500); Lymphocytes Percent Auto 33.5 % (25-40); Mean Corpuscular HGB Conc 33.9 % (30-36); Mean Corpuscular Hemoglobin 28.2 PG (26-34); Mean Corpuscular Volume 83.3 fL (80-100); Monocytes Absolute Auto 400 /uL (0-900); Monocytes Percent Auto 5.7 % (3-14); Neutrophils Absolute Auto 3900 /uL (1500-7000); Platelet Count 239 X10^3/uL (150-400); Red Blood Cell Count 4.93 X10^6/uL (4.0-5.2); Red Cell Distribution Width 13.4 % (11.6-14.8); White Blood Cell Count 6.7 X10^3/uL (4.5-11.0)
[2023-01-28 07:07] LABS: Alanine Aminotransferase 33 IU/L (<35); Albumin 3.7 g/dL (3.5-5.0); Albumin Globulin Ratio 1.3 (1.0-2.8); Alkaline Phosphatase 70 U/L (38-126); Aspartate Aminotransferase 38 IU/L (14-36); Bilirubin Total 0.8 mg/dL (0.2-1.3); Blood Urea Nitrogen 12 mg/dL (7-17); Calcium 8.2 mg/dL (8.4-10.2); Carbon Dioxide 23 mmol/L (22-32); Chloride 106 mmol/L (98-107); Estimated Glomerular Filt Rate > 60 mL/min (>60); Globulin 2.8 g/dL (1.7-4.1); Glucose 147 mg/dL (70-100); HEMOLYSIS 49 (0-50); Lipase 98 U/L (23-300); Potassium 4.2 mmol/L (3.4-5.1); Sodium 135 mmol/L (137-145); Total Protein 6.5 g/dL (6.3-8.2)
--- NOTE | 2023-01-28 07:09 | DI.US.S_ITS ---
PROCEDURE: US ABDOMEN LIMITED INDICATIONS: WORSENING PAIN. KNOWN GALLSTONES. TECHNIQUE: Real-time focused scanning was performed of the abdomen, with image documentation. COMPARISON: [facility], US, US ABDOMEN LIMITED, 01/27/2023, 10:55. FINDINGS: The liver is diffusely echogenic, consistent with diffuse hepatic steatosis. It is enlarged, measuring 21.0 cm. There is a 1.4 cm shadowing mobile gallstone in the gallbladder. The gallbladder wall is not thickened. There is pain on examination. Common duct measures 5 mm, nondilated. Pancreas is not visualized secondary to overlying bowel gas. IMPRESSION: 1. Hepatomegaly, diffuse hepatic steatosis. 2. Cholelithiasis. Additionally, there is some pain on examination. However, there is no gallbladder wall thickening. Recommend clinical correlation. Comment: It is noted patient has been scheduled to undergo a CT scan. Dictated by: Fredi Bauer M.D. on 01/28/2023 at 8:23 Approved by: Fredi Bauer M.D. on 01/28/2023 at 8:25
--- NOTE | 2023-01-28 08:15 | DI.CT.S_ITS ---
PROCEDURE: CT ABDOMEN PELVIS W CON INDICATIONS: severe abdominal pain, second visit TECHNIQUE: After the administration of intravenous contrast, axial sections acquired from the lung bases to the pubic symphysis. Coronal and sagittal reformats were performed. For radiation dose reduction, the following was used: automated exposure control, adjustment of mA and/or kV according to patient size. COMPARISON: [facility], , US ABDOMEN LIMITED, 01/28/2023, 7:18. FINDINGS: Image quality: Excellent. Lung bases: Unremarkable. Heart: No significant findings. ABDOMEN: Liver: Liver is enlarged measuring 21.2 cm. There is moderate diffuse hepatic steatosis. No solid mass. Suggestion of surface nodularity suggesting possible cirrhotic change. Gallbladder: The known 1.4 cm gallstone is vaguely identified on the CT. There is no gallbladder wall thickening. There is no inflammatory change surrounding the gallbladder. Biliary ducts: Unremarkable. Pancreas: Unremarkable. Spleen: Enlarged, measuring 13.8 cm in craniocaudal dimension.. Adrenal Glands: Unremarkable. Kidneys and Ureters: Unremarkable. Stomach and Bowel: Stomach, small bowel loops, and colon are unremarkable. Peritoneum: Minimal abdominal ascites and mild pelvic ascites. No free air. Ventral Wall: No hernias. Abdominal Nodes: No retroperitoneal or mesenteric adenopathy by size criteria. Vessels: Aorta and inferior vena cava are normal in size. PELVIS: Pelvic Organs: Unremarkable. Bladder: Unremarkable. Pelvic Nodes: No enlarged lymph nodes. Miscellaneous: No hernias are seen. Bones: Unremarkable. IMPRESSION: 1. Hepatosplenomegaly, moderate diffuse hepatic steatosis. 2. Suggestion of probable cirrhotic change. 3. Mild ascites. 4. Cholelithiasis. Dictated by: Fredi Bauer M.D. on 01/28/2023 at 8:52 Approved by: Fredi Bauer M.D. on 01/28/2023 at 8:56
[2023-01-28 09:07] LABS: Bacteria Urine Moderate (10-30); Culture Indicated Urine Cult Not Indicated; RBC Urine 30-100/HPF (0-5/HPF); Squamous Epithelial Cell Urine 10-30 /HPF (0-5/HPF); WBC Urine 1-5/HPF (0-5/HPF)
== END 2023-01-28 09:40 | disposition home or self-care (01) ==
PROVIDERS: Emergency Medicine; Emergency Provider Emergency Medicine; Family Provider Family Medicine; PCP Family Medicine
DX: K80.20 Calculus of gallbladder without cholecystitis without obstruction (principal); R10.13 Epigastric pain
CPT/HCPCS: 74177; 76705; 80053; 81003; 81015; 81025; 83690; 85025; 99213; 99283; 99284; Q9967

== ENCOUNTER 2023-02-06 09:09 | Day surgery (SDC) | payer OTHER, SELFPAY ==
--- NOTE | 2023-02-06 | PATH_ITS ---
[facility] Accession Number: [id number] No. of containers..06 Tissue . 01 Material submitted: . PART A: duodenum - DUODENUM PART B: pyloric antrum - PYLORIC PART C: stomach - GASTRIC ANTRUM PART D: stomach - GASTRIC BODY PART E: colon - RANDOM COLON PART F: rectum - RECTAL POLYPS X 2 . 01 Diagnosis: A. Duodenum, Biopsy: Duodenal mucosa with no diagnostic abnormality. Negative for active inflammation, features of sprue, dysplasia, or malignancy. . B. Stomach, Pyloric, Biopsy: Antral mucosa with mild chronic gastritis and intestinal metaplasia. Negative for Helicobacter by immunohistochemistry. Negative for dysplasia and malignancy. . C. Stomach, Antrum, Biopsy: Antral mucosa with mild chronic gastritis. Negative for Helicobacter by immunohistochemistry. Negative for intestinal metaplasia. Negative for dysplasia and malignancy. . D. Stomach, Body, Biopsy: Body-type mucosa with no diagnostic abnormality. Negative for Helicobacter by immunohistochemistry. Negative for intestinal metaplasia. Negative for dysplasia and malignancy. . E. Random Colon, Biopsies: Colonic mucosa with no diagnostic abnormality. Negative for active, chronic, and microscopic colitis. Negative for dysplasia and malignancy. . F. Rectum, Polyps x2: Hyperplastic polyps. [facility] 02/13/2023 1653 Local . 01 Electronically signed: . Shanthi Hurtado MD, Pathologist NPI- [id number] . 01 Gross description: . Part A: DUODENUM: Received in formalin is 1 fragment(s) of adhikari, soft tissue measuring 0.5 x 0.3 x 0.2 cm submitted entirely in 1 cassette(s) Part B: PYLORIC: Received in formalin is 3 fragment(s) of adhikari, soft tissue measuring 0.3 x 0.1 x 0.1 cm to 0.2 x 0.1 x 0.1 cm submitted entirely in 1 cassette(s) Part C: GASTRIC ANTRUM: Received in formalin is 1 fragment(s) of adhikari, soft tissue measuring 0.4 x 0.3 x 0.2 cm submitted entirely in 1 cassette(s) Part D: GASTRIC BODY: Received in formalin is 1 fragment(s) of adhikari, soft tissue measuring 0.3 x 0.2 x 0.1 cm submitted entirely in 1 cassette(s) Part E: RANDOM COLON: Received in formalin is multiple fragment(s) of adhikari, soft tissue measuring 1.0 x 0.5 x 0.2 cm in aggregate submitted entirely in 1 cassette(s) Part F: RECTAL POLYPS X 2: Received in formalin is 3 fragment(s) of adhikari, soft tissue measuring 0.4 x 0.1 x 0.1 cm to 0.2 x 0.1 x 0.1 cm submitted entirely in 1 cassette(s) /AAY 02/09/2023 0815 Local . 01 Microscopic: . B. An immunohistochemical stain was performed to evaluate for Helicobacter organisms and is negative. The control stain showed appropriate reactivity. . C. An immunohistochemical stain was performed to evaluate for Helicobacter organisms and is negative. The control stain showed appropriate reactivity. . D. An immunohistochemical stain was performed to evaluate for Helicobacter organisms and is negative. The control stain showed appropriate reactivity. . * This test was developed and its performance characteristics determined by [id number]. It has not been cleared or approved by the U.S. Food and Drug Administration. The FDA has determined that such clearance or approval is not necessary. This test is used for clinical purposes. It should not be regarded as investigational or for research. . 01 Pathologist provided ICD-10: K31.A0 . 01 CPT . 341023, 840500, 532526, 181841, 224514, 921143, [id number] Specimen Comment: A courtesy copy of this report has been sent to [facility] Performed at: 01 [facility] [address] [place] [address], [place], [place] [id number] MD Stephan Kolb MD Phone: [phone]
[2023-02-06 09:27] VITALS: BMI 38.6
[2023-02-06 09:36] VITALS: BP 126/87; PULSE 90; RESP 15; TEMP 36.6; O2SAT 100
[2023-02-06] MEDS: LACTATED RINGERS 1,000 ML 42 ML IV (09:45)
--- NOTE | 2023-02-06 10:33 | PM.PREOP ---
Pre-operative Note Interval Note History & Physical reviewed/Exam performed by Physician: Yes Changes to H&P: No H&P completed within 30 days and has changed as indicated here:: I discussed again today the risks benefits and alternatives of EGD and colonoscopy including but not limited to perforation of the colon damage to the esophagus stomach or duodenum which in rare cases would require surgical intervention to repair. I have also discussed possibility of an incomplete exam as well as nondiagnostic EGD, in those cases we decide what to do based on what information I have to proceed. She understands the risks benefits and alternatives of EGD colonoscopy and would like to proceed today all of her questions were answered.
--- NOTE | 2023-02-06 10:59 | P.OP.EGD&C_ITS ---
Operative Date/Time/Diagnoses Date of procedure: 02/06/23 Time of procedure: 10:59 Procedure Notes Procedure in detail: Patient was taken to the endoscopy suite and placed in a left lateral decubitus position. A time-out was performed. With the help of anesthesiologist conscious sedation was induced and monitored throughout the case. A bite block was placed. The EGD scope was advanced through the mouth into the esophagus without difficulty. The stomach had some appearance of gastritis photographs were obtained stomach and the pylorus as well as duodenum. Some biopsies of the duodenum were obtained as well as some of the reddened areas around the pylorus. Additional gastric antrum biopsies were obtained and gastric body biopsies. These will be sent for pathology. The GE junction appeared completely normal there was no hiatal hernia. The scope was then withdrawn and the patient was positioned for colonoscopy. A digital rectal exam was performed and there were no masses or strictures. The colonoscope was introduced into the anal canal and advanced through to the cecum. A photograph of the appendiceal orifice was obtained. The bowel prep was excellent [place] bowel prep score of 3. The scope was then withdrawn for a total of 9 minutes and random colon biopsies were taken throughout the colon. There were 2 small rectal polyps removed with biopsy forceps and sent together to pathology. The scope was then retroflexed and a photograph of the internal hemorrhoidal piles was obtained. Findings: gastritis and polyp Specimen(s): other (1. Duodenal biopsy 2. Pyloric biopsy 3. Gastric antrum 4. Gastric body 5. Random colon biopsies 6. Rectal polyps x2 small ) Complications: none Post-procedure Recommendations: Will call with biopsy results Plan for aftercare: Continue twice daily antacid medication.
[2023-02-06 11:23] VITALS: BP 124/76; PULSE 80; RESP 12; TEMP 36.1; O2SAT 100
[2023-02-06 11:28] VITALS: BP 132/91; PULSE 84; RESP 17; O2SAT 100
[2023-02-06 11:33] VITALS: BP 132/91; PULSE 85; RESP 14; O2SAT 99
[2023-02-06 11:35] VITALS: BP 130/77; PULSE 81; RESP 12; O2SAT 99
--- NOTE | 2023-02-06 11:44 | DI.RAD.S_ITS ---
PROCEDURE: XR ABDOMEN 1V INDICATIONS: r/o perforation after colonoscopy TECHNIQUE: One view of the abdomen acquired. COMPARISON: [facility], CT, CT ABDOMEN PELVIS W CON, 01/28/2023, 8:35. FINDINGS: No definite pneumoperitoneum visualized. Gaseous distension of the colon likely related to recent colonoscopy. IMPRESSION: No definite pneumoperitoneum visualized. Dictated by: Kvng Wisdom M.D. on 02/06/2023 at 12:07 Approved by: Kvng Wisdom M.D. on 02/06/2023 at 12:11
[2023-02-06 11:53] VITALS: BP 126/87; PULSE 68; RESP 16; TEMP 36.2; O2SAT 98
== END 2023-02-06 12:11 | disposition home or self-care (01) ==
PROVIDERS: Family Provider Family Medicine; PCP Family Medicine; Referring Provider Surgery; Visit Provider Surgery
PROC: 0DJ08ZZ Inspection of Upper Intestinal Tract, Via Natural or Artificial Opening Endoscopic (ICD-10-PCS; CPT 43235; principal; 2023-02-06 10:00)
PROC: 0DJD8ZZ Inspection of Lower Intestinal Tract, Via Natural or Artificial Opening Endoscopic (ICD-10-PCS; CPT 45378; 2023-02-06 10:00)
DX: R10.9 Unspecified abdominal pain (principal); R10.13 Epigastric pain; K80.20 Calculus of gallbladder without cholecystitis without obstruction; K29.50 Unspecified chronic gastritis without bleeding; K62.1 Rectal polyp
CPT/HCPCS: 45380; 43239; 74018

== ENCOUNTER 2023-06-02 09:11 | Emergency (ER) | payer OTHER, SELFPAY ==
[2023-06-02] VITALS (13 sets, daily range): BP systolic 113–161; BP diastolic 63–99; PULSE 77–106; RESP 20; TEMP 36.6; O2SAT 93–98; BMI 39.6
--- NOTE | 2023-06-02 09:21 | ED_ITS ---
HPI - Abdominal Pain General Chief Complaint: Abdominal Pain Stated Complaint: Abd Px/Nausea Time Seen by Provider: 06/02/23 09:17 History of Present Illness HPI narrative: Patient 32-year-old anxiety GERD presenting today with upper abdominal pain nausea and vomiting. She reports that 2 days ago she was having some sort of allergic reaction to mold in her food when she had vomiting and diarrhea. She says she was doing okay yesterday and this morning woke up and has thrown up 5 times and has intense pain upper. No fever chills chest pain or shortness breath. Unable to keep anything down. She previously was seen in January diagnosed with cholelithiasis. Since then she was seen by General surgery she had an EGD and colonoscopy which were otherwise unremarkable. Related Data Previous Rx's Medication Instructions Recorded Double Electric breast Pump and #1 ea 07/09/21 Supplies cyclobenzaprine 5 mg tablet 5 mg PO Q8H PRN muscle spasm #30 05/09/22 tabs omeprazole 20 mg capsule,delayed 20 mg PO DAILY #90 caps 12/23/22 release cimetidine 200 mg tablet (Tagamet 200 mg PO QAC #14 tabs 02/06/23 HB) nortriptyline 10 mg capsule 10 mg PO DAILY PRN abdominal pain 05/18/23 #90 caps sertraline 50 mg tablet 50 mg PO DAILY #90 tabs 05/18/23 ondansetron 4 mg disintegrating 4 mg PO Q8H PRN nausea and 06/02/23 tablet vomiting #10 tabs Allergies Allergy/AdvReac Type Severity Reaction Status Date / Time No Known Drug Allergies Allergy Verified 05/18/23 09:16 Patient History Medical History Insomnia Anxiety Chronic lower back pain GERD (gastroesophageal reflux disease) Hyperlipidemia Morbid obesity Smoker Post-nasal drip History of being hospitalized (~08/2019) (spontaneous vaginal delivery) (~03/18/20) Gestational diabetes (~11/2019) Wrist fracture, left (~1992) Diarrhea Peptic ulcer disease (~2014) Major depressive disorder, single episode (~08/11/19) Surgical History H/O colposcopy with cervical biopsy (~06/2020) History of colposcopy (~11/26/20) History of tonsillectomy (~2011) Family History Mother Diabetes mellitus Type 2 diabetes mellitus Alcohol abuse by patient's mother H/O drug abuse Family estrangement Father Hypertension Diabetes mellitus Type 2 diabetes mellitus Grandmother Cancer Diabetes mellitus Addiction Grandmother Cancer Diabetes mellitus Pancreatic cancer Breast cancer Type 2 diabetes mellitus Thyroid disease Grandfather No problems noted. Sister Appendicitis Grandfather Addiction Brother No problems noted. 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[employer]) current occupational exposures/hazards: No monika/hoahaoism: Yazdanism special monika needs: No Smoking Status: Former smoker Tobacco: How many years used: 17 quit status: quit date established (Quit 3 years ago) second hand exposure: No alcohol intake: current substance use type: does not use Type(s) of exercise: walking and normal ROM and activity Smoking Status: Former smoker alcohol intake frequency: holidays/special occasions only Substance Use Type: does not use Exam Initial Vital Signs Initial Vital Signs: Vital Signs Temperature 97.8 F 06/02/23 09:16 Pulse Rate 79 06/02/23 09:16 Respiratory Rate 20 06/02/23 09:16 Blood Pressure 148/99 H 06/02/23 09:16 Pulse Oximetry 97 06/02/23 09:16 Oxygen Delivery Method Room Air 06/02/23 09:16 GENERAL: Alert 32-year-old female appears to not feel well, actively dry heaving HEENT: Head atraumatic,EOMI, pupils reactive, face symmetric, CARDIOVASCULAR: Regular rate and rhythm without murmurs, rubs or gallops. RESPIRATORY: Breath sounds equal bilaterally, no wheezes rales or rhonchi. ABDOMEN: Soft, tender across upper abdomen epigastric and right upper quadrant and left upper quadrant EXTREMITIES: Normal range of motion, no clubbing or edema. Neurovascularly intact NEUROLOGICAL: Alert and oriented x4.Normal gait and speech. SKIN: Warm, dry, no laceration, no petechiae, no rashes or lesions. Course Orders Ordered: ED Orders 06/02/23 10:04 Complete Blood Count AUTO DIFF Stat Comprehensive Metabolic Panel Stat Lipase Stat Discontinued Medications Hydromorphone HCl (Hydromorphone 1 Mg Inj) 1 mg IV NOW ONE Stop: 06/02/23 11:16 Last Admin: 06/02/23 11:20 Dose: 1 mg Documented By: DEBRA Sodium Chloride (Normal Saline 0.9%) 1,000 mls @ 1,000 mls/hr IV BOLUS ONE Stop: 06/02/23 10:21 Last Infusion: 06/02/23 11:02 Dose: Infused Documented By: Admin: 06/02/23 09:41 Dose: 1,000 mls/hr Documented By: MPO Morphine Sulfate (Morphine 2 Mg/Ml Inj) 2 mg IV NOW ONE Stop: 06/02/23 10:20 Last Admin: 06/02/23 10:27 Dose: 2 mg Documented By: DEBRA Ondansetron HCl (Ondansetron 4 Mg/2 Ml Inj) 4 mg IV NOW ONE Stop: 06/02/23 09:23 Last Admin: 06/02/23 09:41 Dose: 4 mg Documented By: DEBRA Pantoprazole Sodium (Pantoprazole 40 Mg Vial) 40 mg IV NOW ONE Stop: 06/02/23 09:23 Last Admin: 06/02/23 09:41 Dose: 40 mg Documented By: DEBRA Vital Signs Vital signs: Vital Signs - 8 hr 06/02/23 11:00 06/02/23 11:01 06/02/23 11:01 Pulse Rate 78 77 Blood Pressure 133/71 Pulse Oximetry 96 95 06/02/23 11:30 06/02/23 11:30 06/02/23 12:00 Pulse Rate 87 84 Blood Pressure 126/63 Pulse Oximetry 93 96 06/02/23 12:00 06/02/23 12:11 06/02/23 12:11 Pulse Rate 106 H Blood Pressure 113/72 130/82 Pulse Oximetry 96 MDM - Abdominal Pain Lab Data 06/02/23 10:04 06/02/23 10:04 Labs: Lab Results 06/02/23 Range/Units 10:04 WBC 8.5 (4.5-11.0) X10^3/uL RBC 5.23 H (4.0-5.2) X10^6/uL Hgb 14.8 (12.0-16.0) g/dL Hct 43.3 (36-46) % MCV 82.8 (80-100) fL MCH 28.4 (26-34) PG MCHC 34.3 (30-36) % RDW 14.1 (11.6-14.8) % Plt Count 261 (150-400) X10^3/uL Neut % (Auto) 81.3 H (50-75) % Lymph % (Auto) 13.9 L (25-40) % [place] % (Auto) 3.1 (3-14) % Eos % (Auto) 1.4 L (2-4) % Baso % (Auto) 0.3 (0-2) % Neut # (Auto) 6900 (4984-3843) /uL Lymph # (Auto) 1200 (6054-7536) /uL [place] # (Auto) 300 (0-900) /uL Eos # (Auto) 100 (0-450) /uL Baso # (Auto) 0 (0-100) /uL Sodium 136 L (137-145) mmol/L Potassium 3.9 (3.4-5.1) mmol/L Chloride 102 (98-107) mmol/L Carbon Dioxide 24 (22-32) mmol/L BUN 16 (7-17) mg/dL Creatinine 0.51 L (0.52-1.04) mg/dL Estimated GFR > 60 (>60) mL/min BUN/Creatinine Ratio 31.4 H (6-22) Glucose 172 H (70-100) mg/dL Calcium 9.3 (8.4-10.2) mg/dL Total Bilirubin 1.1 (0.2-1.3) mg/dL AST 50 H (14-36) IU/L ALT 54 H (<35) IU/L Alkaline Phosphatase 82 (38-126) U/L Total Protein 7.3 (6.3-8.2) g/dL Albumin 4.3 (3.5-5.0) g/dL Globulin 3.0 (1.7-4.1) g/dL Albumin/Globulin Ratio 1.4 (1.0-2.8) Lipase 86 (23-300) U/L Imaging Data US - abdomen: Radiologist's Impression: PROCEDURE: US ABDOMEN LIMITED INDICATIONS: RUQ PAIN; KNOWN GALLSTONE TECHNIQUE: Real-time scanning was performed of the abdominal and retroperitoneal organs, with image documentation. COMPARISON: [facility], , US ABDOMEN LIMITED, 01/28/2023, 7:18. FINDINGS: Liver: The liver demonstrates markedly increased echogenicity and is poorly characterized due to severe fatty infiltration. Gallbladder: The gallbladder wall measures 1.6 mm in diameter. A mobile stone is present within the fundus. No pericholecystic fluid. The patient endorses a positive sonographic Lamas sign. Biliary ducts: Intrahepatic bile ducts are non-dilated. Extrahepatic bile duct caliber measures 5.7 mm. Normal is 6-7 mm or less in diameter, or 10 mm or less post-cholecystectomy. Pancreas: The pancreas is not visualized due to overlying bowel gas. IMPRESSION: 1. Cholelithiasis. No findings to suggest choledocholithiasis or acute cholecystitis. 2. Markedly increased hepatic echogenicity noted likely related to fatty infiltration of the liver but other sources of hepatocellular disease cannot be excluded. Dictated by: Oralia Lewis M.D. on 06/02/2023 at 10:31 MDM Narrative Medical decision making narrative: Patient 32-year-old female presenting today with nausea vomiting and some epigastric pain. She has a known gallstones. Once her pain is controlled she is able to have more information. She had allergic reaction to mold she had a rash it hives with vomiting and diarrhea 2 days before. The rash has resolved. She no sign of anaphylaxis. Her vomiting is now controlled in the ED. She did have an outpatient EGD colonoscopy. She reports that she was not given a HIDA scan secondary to the fact that she is still breast feeding. Blood work today is overall reassuring. Ultrasound reviewed cholelithiasis newly choledocholithiasis or acute cholecystitis common bile duct 5.7 mm We discussed diet control and follow-up Discharge Plan Departure Patient Disposition: Home Clinical Impression: Gastroenteritis Instructions: DI for Viral Gastroenteritis -- Adult Activity Restrictions/Additional Instructions: *You have been diagnosed with gastroenteritis *What to do: At this time your nausea vomiting may or may not be related here allergic reaction a couple of days ago. How read this time I do not see any hives. I am glad that you are feeling little bit better. Increase fluids as tolerated. You do still have a gallstone it may or may not be contributing to your abdominal pain and vomiting. Please follow-up with PCP and surgery in regards to this. You can Google and follow a low-fat gallbladder diet which may also. *Continue to take medications as directed Zofran 4 mg every 8 hours if for nausea or vomiting --> [facility] *Follow up with your primary care provider in 2-3 days or call [phone] *Return to ER if you should have increasing pain nausea vomiting or any new, worsening or concerning symptoms Prescriptions: New ondansetron 4 mg tablet,disintegrating 4 mg PO Q8H PRN (Reason: nausea and vomiting) Qty: 10 0RF No Action (DME) Double Electric breast Pump and Supplies See Rx Instructions .ROUTE .MEDSUPPLY Qty: 1 0RF Rx Instructions: Use electric breast pump and supplies as directed for 99 months. HAYDER 08/04/2021. omeprazole 20 mg capsule,delayed release(DR/EC) 20 mg PO DAILY Qty: 90 3RF sertraline 50 mg tablet 50 mg PO DAILY Qty: 90 3RF nortriptyline 10 mg capsule 10 mg PO DAILY PRN (Reason: abdominal pain) Qty: 90 3RF cyclobenzaprine 5 mg tablet 5 mg PO Q8H PRN (Reason: muscle spasm) Qty: 30 5RF cimetidine [Tagamet HB] 200 mg tablet 200 mg PO QAC Qty: 14 3RF Referrals: Raymond Maldonado, [Primary Care Provider] - Stand Alone Forms: Patient Portal/API
--- NOTE | 2023-06-02 09:31 | DI.US.S_ITS ---
PROCEDURE: US ABDOMEN LIMITED INDICATIONS: RUQ PAIN; KNOWN GALLSTONE TECHNIQUE: Real-time scanning was performed of the abdominal and retroperitoneal organs, with image documentation. COMPARISON: [facility], , US ABDOMEN LIMITED, 01/28/2023, 7:18. FINDINGS: Liver: The liver demonstrates markedly increased echogenicity and is poorly characterized due to severe fatty infiltration. Gallbladder: The gallbladder wall measures 1.6 mm in diameter. A mobile stone is present within the fundus. No pericholecystic fluid. The patient endorses a positive sonographic Lamas sign. Biliary ducts: Intrahepatic bile ducts are non-dilated. Extrahepatic bile duct caliber measures 5.7 mm. Normal is 6-7 mm or less in diameter, or 10 mm or less post-cholecystectomy. Pancreas: The pancreas is not visualized due to overlying bowel gas. IMPRESSION: 1. Cholelithiasis. No findings to suggest choledocholithiasis or acute cholecystitis. 2. Markedly increased hepatic echogenicity noted likely related to fatty infiltration of the liver but other sources of hepatocellular disease cannot be excluded. Dictated by: Oralia Lewis M.D. on 06/02/2023 at 10:31 Approved by: Oralia Lewis M.D. on 06/02/2023 at 10:33
[2023-06-02] MEDS: ONDANSETRON 4 MG/2 ML INJ IV (09:41)
[2023-06-02] MEDS: PANTOPRAZOLE 40 MG VIAL IV (09:41)
[2023-06-02] MEDS: SODIUM CHLORIDE 0.9% 1,000 ML 1000 ML IV (09:41)
[2023-06-02 10:10] LABS: Add Manual Diff / Slide Review NO; Basophils Absolute Auto 0 /uL (0-100); Basophils Percent Auto 0.3 % (0-2); Eosinophils Absolute Auto 100 /uL (0-450); Eosinophils Percent Auto 1.4 % (2-4); Hematocrit 43.3 % (36-46); Hemoglobin 14.8 g/dL (12.0-16.0); Lymphocytes Absolute Auto 1200 /uL (1100-4500); Lymphocytes Percent Auto 13.9 % (25-40); Mean Corpuscular HGB Conc 34.3 % (30-36); Mean Corpuscular Hemoglobin 28.4 PG (26-34); Mean Corpuscular Volume 82.8 fL (80-100); Monocytes Absolute Auto 300 /uL (0-900); Monocytes Percent Auto 3.1 % (3-14); Neutrophils Absolute Auto 6900 /uL (1500-7000); Neutrophils Percent Auto 81.3 % (50-75); Platelet Count 261 X10^3/uL (150-400); Red Blood Cell Count 5.23 X10^6/uL (4.0-5.2); Red Cell Distribution Width 14.1 % (11.6-14.8); White Blood Cell Count 8.5 X10^3/uL (4.5-11.0)
[2023-06-02] MEDS: MORPHINE 2 MG/ML INJ IV (10:27)
[2023-06-02 10:35] LABS: Alanine Aminotransferase 54 IU/L (<35); Albumin 4.3 g/dL (3.5-5.0); Albumin Globulin Ratio 1.4 (1.0-2.8); Alkaline Phosphatase 82 U/L (38-126); Aspartate Aminotransferase 50 IU/L (14-36); BUN Creatinine Ratio 31.4 (6-22); Bilirubin Total 1.1 mg/dL (0.2-1.3); Blood Urea Nitrogen 16 mg/dL (7-17); Calcium 9.3 mg/dL (8.4-10.2); Carbon Dioxide 24 mmol/L (22-32); Chloride 102 mmol/L (98-107); Estimated Glomerular Filt Rate > 60 mL/min (>60); Glucose 172 mg/dL (70-100); HEMOLYSIS < 15 (0-50); Lipase 86 U/L (23-300); Potassium 3.9 mmol/L (3.4-5.1); Sodium 136 mmol/L (137-145); Total Protein 7.3 g/dL (6.3-8.2)
[2023-06-02] MEDS: HYDROMORPHONE 1 MG INJ IV (11:20)
--- NOTE | 2023-06-02 11:54 | PC.NURSE ---
Pt sitting up in bed and states that she is feeling better and her pain is better. pt rated pain as a 4/10 at this time.
== END 2023-06-02 12:22 | disposition home or self-care (01) ==
PROVIDERS: Emergency Provider Emergency Medicine; Family Provider Family Medicine; PCP Family Medicine
DX: K52.9 Noninfective gastroenteritis and colitis, unspecified (principal); R11.2 Nausea with vomiting, unspecified
CPT/HCPCS: 76705; 80053; 83690; 85025; 96361; 96374; 96375; 99284; C9113; J1170; J2270; J2405

== ENCOUNTER → 2023-12-07 12:34 | Outpatient (CLI) | payer OTHER, SELFPAY ==
[2023-12-07 14:04] LABS: Add Manual Diff / Slide Review NO; Basophils Absolute Auto 0 /uL (0-100); Basophils Percent Auto 0.8 % (0-2); Eosinophils Absolute Auto 200 /uL (0-450); Eosinophils Percent Auto 3.2 % (2-4); Hematocrit 36.9 % (36-46); Hemoglobin 12.8 g/dL (12.0-16.0); Lymphocytes Absolute Auto 1500 /uL (1100-4500); Lymphocytes Percent Auto 28.4 % (25-40); Mean Corpuscular HGB Conc 34.6 % (30-36); Mean Corpuscular Hemoglobin 28.3 PG (26-34); Mean Corpuscular Volume 81.7 fL (80-100); Monocytes Absolute Auto 300 /uL (0-900); Monocytes Percent Auto 5.4 % (3-14); Neutrophils Absolute Auto 3400 /uL (1500-7000); Neutrophils Percent Auto 62.2 % (50-75); Platelet Count 218 X10^3/uL (150-400); Red Blood Cell Count 4.51 X10^6/uL (4.0-5.2); Red Cell Distribution Width 13.8 % (11.6-14.8); White Blood Cell Count 5.4 X10^3/uL (4.5-11.0)
[2023-12-07 14:15] LABS: Hemoglobin A1C% w Est Avg Glu 7.4 % (4.0-6.0)
[2023-12-07 14:31] LABS: Alanine Aminotransferase 34 IU/L (<35); Albumin 4.1 g/dL (3.5-5.0); Albumin Globulin Ratio 1.5 (1.0-2.8); Alkaline Phosphatase 81 U/L (38-126); Aspartate Aminotransferase 45 IU/L (14-36); BUN Creatinine Ratio 27.1 (6-22); Bilirubin Total 0.6 mg/dL (0.2-1.3); Blood Urea Nitrogen 13 mg/dL (7-17); Calcium 8.7 mg/dL (8.4-10.2); Carbon Dioxide 26 mmol/L (22-32); Chloride 105 mmol/L (98-107); Cholesterol 274 mg/dL (140-199); Estimated Glomerular Filt Rate > 60 mL/min (>60); Globulin 2.8 g/dL (1.7-4.1); Glucose 234 mg/dL (70-100); HDL Cholesterol 42 mg/dL (40-60); HEMOLYSIS < 15 (0-50); Potassium 4.2 mmol/L (3.4-5.1); Sodium 136 mmol/L (137-145); Total Protein 6.9 g/dL (6.3-8.2)
[2023-12-07 14:40] LABS: Triglycerides 852 mg/dL (35-150)
[2023-12-07 14:58] LABS: TSH w/ Reflex to FT4 1.26 uIU/mL (0.47-4.68)
== END ==
LOC: LAB 12:36
PROVIDERS: Specialist; Family Provider Family Medicine; PCP Family Medicine; Referring Provider Physician Assistant Medical; Visit Provider Physician Assistant Medical
DX: R53.83 Other fatigue (principal); R63.5 Abnormal weight gain; E78.5 Hyperlipidemia, unspecified; F41.9 Anxiety disorder, unspecified; K21.9 Gastro-esophageal reflux disease without esophagitis
CPT/HCPCS: 80053; 80061; 83036; 84443; 85025

== ENCOUNTER 2024-01-14 09:24 | Emergency (ER) | payer OTHER, SELFPAY ==
[2024-01-14 09:41] VITALS: BP 147/84; PULSE 115; RESP 18; TEMP 39.1; O2SAT 98; BMI 39.8
[2024-01-14 10:00] VITALS: TEMP 39.1
[2024-01-14] MEDS: ACETAMINOPHEN 325 MG TABLET 650 MG PO (10:00)
--- NOTE | 2024-01-14 10:00 | ED_ITS ---
HPI - General Adult General Chief complaint: Ear Stated complaint: R side face swelling, swimmer's ear Time Seen by Provider: 01/14/24 09:53 Source: patient Mode of arrival: Ambulatory History of Present Illness HPI narrative: Patient is a 33-year-old female who is here for evaluation of a couple days of right-sided ear pain, swelling in her right ear, pain along the front of her ear and on the outside of her ear in the back of her ear. No sore throat. Is having fever. Did take some antipyretics several hours ago. No problems swallowing. No recent swimming. No other skin rashes no chest pain or vomiting. Related Data Previous Rx's Medication Instructions Recorded Double Electric breast Pump and #1 ea 07/09/21 Supplies omeprazole 20 mg capsule,delayed 20 mg PO DAILY #90 caps 12/23/22 release nortriptyline 10 mg capsule 10 mg PO DAILY PRN abdominal pain 05/18/23 #90 caps sertraline 50 mg tablet 50 mg PO DAILY #90 tabs 05/18/23 clindamycin HCl 300 mg capsule 300 mg PO Q6H 7 days #28 caps 01/14/24 Allergies Allergy/AdvReac Type Severity Reaction Status Date / Time No Known Drug Allergies Allergy Verified 06/03/23 15:31 Review of Systems Review of Systems ROS Unobtainable: All systems reviewed & are unremarkable except as noted in HPI and below Patient History Medical History Insomnia Anxiety Chronic lower back pain GERD (gastroesophageal reflux disease) Hyperlipidemia Morbid obesity Smoker Post-nasal drip History of being hospitalized (~08/2019) (spontaneous vaginal delivery) (~03/18/20) Gestational diabetes (~11/2019) Wrist fracture, left (~1992) Diarrhea Peptic ulcer disease (~2014) Major depressive disorder, single episode (~08/11/19) Surgical History H/O colposcopy with cervical biopsy (~06/2020) History of colposcopy (~11/26/20) History of tonsillectomy (~2011) Family History Mother Diabetes mellitus Type 2 diabetes mellitus Alcohol abuse by patient's mother H/O drug abuse Family estrangement Father Hypertension Diabetes mellitus Type 2 diabetes mellitus Grandmother Cancer Diabetes mellitus Addiction Grandmother Cancer Diabetes mellitus Pancreatic cancer Breast cancer Type 2 diabetes mellitus Thyroid disease Grandfather No problems noted. Sister Appendicitis Grandfather Addiction Brother No problems noted. Social History marital status: details: Huang Hull, number of children: 1 household members: spouse and children lives independently: Yes caregiver/support person: No housing: house pets and animals: Yes (2 dogs) education level: high school occupational status: employed current occupational exposures/hazards: No monika/buddhist: Christian special monika needs: No Smoking Status: Former smoker Tobacco: How many years used: 17 quit status: quit date established second hand exposure: No alcohol intake: current substance use type: does not use Type(s) of exercise: walking and normal ROM and activity Smoking Status: Former smoker alcohol intake frequency: holidays/special occasions only Substance Use Type: does not use Exam Initial Vital Signs Initial Vital Signs: Vital Signs Temperature 102.4 F H 01/14/24 09:41 Pulse Rate 115 H 01/14/24 09:41 Respiratory Rate 18 01/14/24 09:41 Blood Pressure 147/84 H 01/14/24 09:41 Pulse Oximetry 98 01/14/24 09:41 Oxygen Delivery Method Room Air 01/14/24 09:41 HENMT Ears: TM normal on the left Mouth: oropharynx normal and moist mucous membranes HENMT Other: Right TM a nonvisualized because the acute otitis externa. Swelling along the auricle, right-sided mastoid tenderness. Neck Lymphatic: lymphadenopathy (Pre-auricular and placed here regular lymph nodes) Resp Effort & Inspection: normal respiratory effort Skin Other: Mild redness along the right auricle and anterior and posterior to the right ear Course Orders Ordered: ED Orders 01/14/24 10:05 CT mastoid temporal Stat 01/14/24 11:09 Basic Metabolic Panel Stat Complete Blood Count AUTO DIFF Stat Test Serum,Qual Stat Discontinued Medications Acetaminophen (Acetaminophen 325 Mg Tablet) 650 mg PO NOW ONE Stop: 01/14/24 09:55 Last Admin: 01/14/24 10:00 Dose: 650 mg Documented By: RB Ciprofloxacin/Dexamethasone (Ciprofloxacin/Dexameth Otic Susp) 4 drops EAR- RIGHT NOW ONE Stop: 01/14/24 10:01 Last Admin: 01/14/24 10:23 Dose: 4 drops Documented By: DENNIS Vital Signs Vital signs: Vital Signs - 8 hr 01/14/24 09:41 01/14/24 10:00 Temperature 102.4 F H 102.4 F H Pulse Rate 115 H Respiratory Rate 18 Blood Pressure 147/84 H Pulse Oximetry 98 Oxygen Delivery Method Room Air Medical Decision Making Lab Data Lab results reviewed: Yes I reviewed the patient's lab results. 01/14/24 11:09 01/14/24 11:09 Labs: Lab Results 01/14/24 Range/Units 11:09 WBC 8.5 (4.5-11.0) X10^3/uL RBC 4.59 (4.0-5.2) X10^6/uL Hgb 12.8 (12.0-16.0) g/dL Hct 37.4 (36-46) % MCV 81.4 (80-100) fL MCH 27.9 (26-34) PG MCHC 34.2 (30-36) % RDW 13.5 (11.6-14.8) % Plt Count 214 (150-400) X10^3/uL Neut % (Auto) 82.4 H (50-75) % Lymph % (Auto) 10.8 L (25-40) % [place] % (Auto) 5.6 (3-14) % Eos % (Auto) 0.7 L (2-4) % Baso % (Auto) 0.5 (0-2) % Neut # (Auto) 7000 (9296-0410) /uL Lymph # (Auto) 900 L (4157-8932) /uL [place] # (Auto) 500 (0-900) /uL Eos # (Auto) 100 (0-450) /uL Baso # (Auto) 0 (0-100) /uL Sodium 134 L (137-145) mmol/L Potassium 4.2 (3.4-5.1) mmol/L Chloride 99 (98-107) mmol/L Carbon Dioxide 25 (22-32) mmol/L BUN 7 (7-17) mg/dL Creatinine 0.59 (0.52-1.04) mg/dL Estimated GFR > 60 (>60) mL/min BUN/Creatinine Ratio 11.9 (6-22) Glucose 129 H (70-100) mg/dL Calcium 9.2 (8.4-10.2) mg/dL Serum , Qual Negative (Negative) Imaging Data CT mastoid: Radiologist's Impression: PROCEDURE: CT MASTOID TEMPORAL INDICATIONS: R sided otitis externa with cellulitisand mastoid pain COMPARISON: None. TECHNIQUE: Noncontrast 0.6 mm thick axial sections acquired through each temporal bone separately. Coronal images are reformatted. FINDINGS: Image quality: Excellent. RIGHT: External auditory canal: There is mild swelling edema involving the soft tissues of the right external auditory canal compatible with known otitis externa. Middle ear: Thickening of the right tympanic membrane with partial opacification of the right middle ear and right middle ear air-fluid level. No osseous erosions. Inner ear: Inner ear is normally formed and appears unremarkable. Facial nerve appears normal throughout is course. Mastoids: Scattered opacities in the right mastoid air cells with opacification of the right aditus ad antrum. No osseous erosions. LEFT: External auditory canal: Canal has a normal appearance. Middle ear: The middle ear structures, including the ossicles and tympanic membrane, appear normal. No abnormal fluid or soft tissue density. Inner ear: Inner ear is normally formed and appears unremarkable. Facial nerve appears normal throughout its course. Mastoids: Mastoid air cells are clear. MISCELLANEOUS: Visualized surrounding bones appear unremarkable. Visualized intracranial structures, including the cerebellopontine angle cisterns, appear normal. IMPRESSION: Swelling and edema involving the soft tissues of the right external auditory canal consistent with otitis externa. Right middle ear partial opacification with air-fluid level and scattered opacities in the right mastoid air cells consistent with otomastoiditis. [facility] Narrative Medical decision making narrative: Patient certainly has an otitis externa of the right ear. CT scan does show concern for mastoiditis however I discussed the case with Dr. Chamorro on-call for ENT who stated that he felt that this was more of inflammatory process rather than an emergent surgical issue. She has what appears to be the beginnings of a cellulitis around the ear. Is not in overt cellulitis however will place her on oral antibiotics as well. An ear wick was placed in the right ear because of the swelling. We discussed the ear where can that it should fall out within the next couple days. We discussed strict return precautions. She expressed understanding and agreement. Discharge Plan Departure Patient Disposition: Home Clinical Impression: Otitis externa, Cellulitis Instructions: DI for Otitis Externa Activity Restrictions/Additional Instructions: The eardrops here in the emergency department are 1 time a day. Put 3-5 drops in the right ear once a day for the next 7 days. The ear wick that was placed in your ear should fall out on its own over the next couple days. Also take the oral antibiotics as directed. Contact the Ear Nose and Throat providers with the number provided below for follow-up. Return to the emergency department for new or worsening symptoms. Prescriptions: New clindamycin HCl 300 mg capsule 300 mg PO Q6H 7 Days Qty: 28 0RF No Action (DME) Double Electric breast Pump and Supplies See Rx Instructions .ROUTE .MEDSUPPLY Qty: 1 0RF Rx Instructions: Use electric breast pump and supplies as directed for 99 months. HAYDER 08/04/2021. omeprazole 20 mg capsule,delayed release(DR/EC) 20 mg PO DAILY Qty: 90 3RF sertraline 50 mg tablet 50 mg PO DAILY Qty: 90 3RF nortriptyline 10 mg capsule 10 mg PO DAILY PRN (Reason: abdominal pain) Qty: 90 3RF Referrals: Wilfredo Chamorro MD [Physician] - Raymond Maldonado DO [Primary Care Provider] - Stand Alone Forms: Patient Portal/API
--- NOTE | 2024-01-14 10:05 | DI.CT.S_ITS ---
PROCEDURE: CT MASTOID TEMPORAL INDICATIONS: R sided otitis externa with cellulitisand mastoid pain COMPARISON: None. TECHNIQUE: Noncontrast 0.6 mm thick axial sections acquired through each temporal bone separately. Coronal images are reformatted. FINDINGS: Image quality: Excellent. RIGHT: External auditory canal: There is mild swelling edema involving the soft tissues of the right external auditory canal compatible with known otitis externa. Middle ear: Thickening of the right tympanic membrane with partial opacification of the right middle ear and right middle ear air-fluid level. No osseous erosions. Inner ear: Inner ear is normally formed and appears unremarkable. Facial nerve appears normal throughout is course. Mastoids: Scattered opacities in the right mastoid air cells with opacification of the right aditus ad antrum. No osseous erosions. LEFT: External auditory canal: Canal has a normal appearance. Middle ear: The middle ear structures, including the ossicles and tympanic membrane, appear normal. No abnormal fluid or soft tissue density. Inner ear: Inner ear is normally formed and appears unremarkable. Facial nerve appears normal throughout its course. Mastoids: Mastoid air cells are clear. MISCELLANEOUS: Visualized surrounding bones appear unremarkable. Visualized intracranial structures, including the cerebellopontine angle cisterns, appear normal. IMPRESSION: Swelling and edema involving the soft tissues of the right external auditory canal consistent with otitis externa. Right middle ear partial opacification with air-fluid level and scattered opacities in the right mastoid air cells consistent with otomastoiditis. Dictated by: Phuong Lobo MD, PhD on 01/14/2024 at 10:47 Approved by: Phuong Lobo MD, PhD on 01/14/2024 at 10:53
[2024-01-14] MEDS: CIPROFLOXACIN/DEXAMETH OTIC SUSP 4 DROPS EAR-RIGHT (10:23)
--- NOTE | 2024-01-14 10:30 | PC.NURSE ---
Provider gave verbal order to hold placing an IV in this patient or getting blood work.
[2024-01-14 11:16] LABS: Add Manual Diff / Slide Review NO; Basophils Absolute Auto 0 /uL (0-100); Basophils Percent Auto 0.5 % (0-2); Eosinophils Absolute Auto 100 /uL (0-450); Eosinophils Percent Auto 0.7 % (2-4); Hematocrit 37.4 % (36-46); Hemoglobin 12.8 g/dL (12.0-16.0); Lymphocytes Absolute Auto 900 /uL (1100-4500); Lymphocytes Percent Auto 10.8 % (25-40); Mean Corpuscular HGB Conc 34.2 % (30-36); Mean Corpuscular Hemoglobin 27.9 PG (26-34); Mean Corpuscular Volume 81.4 fL (80-100); Monocytes Absolute Auto 500 /uL (0-900); Monocytes Percent Auto 5.6 % (3-14); Neutrophils Absolute Auto 7000 /uL (1500-7000); Neutrophils Percent Auto 82.4 % (50-75); Platelet Count 214 X10^3/uL (150-400); Red Blood Cell Count 4.59 X10^6/uL (4.0-5.2); Red Cell Distribution Width 13.5 % (11.6-14.8); White Blood Cell Count 8.5 X10^3/uL (4.5-11.0)
[2024-01-14 11:26] LABS: BUN Creatinine Ratio 11.9 (6-22); Blood Urea Nitrogen 7 mg/dL (7-17); Calcium 9.2 mg/dL (8.4-10.2); Carbon Dioxide 25 mmol/L (22-32); Chloride 99 mmol/L (98-107); Estimated Glomerular Filt Rate > 60 mL/min (>60); Glucose 129 mg/dL (70-100); HEMOLYSIS < 15 (0-50); Potassium 4.2 mmol/L (3.4-5.1); Sodium 134 mmol/L (137-145)
[2024-01-14 11:33] LABS: Pregnancy Test Serum,Qual Negative (Negative)
[2024-01-14 11:52] VITALS: BP 138/78; PULSE 111; RESP 17; TEMP 37.7; O2SAT 98
[2024-01-14 11:55] VITALS: TEMP 37.7
== END 2024-01-14 11:56 | disposition home or self-care (01) ==
PROVIDERS: Emergency Provider Emergency Medicine; Family Provider Family Medicine; PCP Family Medicine
DX: H60.91 Unspecified otitis externa, right ear (principal); H60.11 Cellulitis of right external ear
CPT/HCPCS: 36415; 70480; 80048; 84703; 85025; 99284

== ENCOUNTER 2024-01-20 10:22 | Emergency (ER) | payer OTHER, SELFPAY ==
[2024-01-20 10:27] VITALS: BP 134/77; PULSE 74; RESP 14; TEMP 36.6; O2SAT 99; BMI 38.9
--- NOTE | 2024-01-20 10:43 | ED.EAR ---
HPI - Ear Problem General Chief complaint: Ear Stated complaint: Lump behind behind right ear, Left ear pain Time Seen by Provider: 01/20/24 10:36 Source: patient Mode of arrival: Ambulatory History of Present Illness HPI Narrative: Patient here for re-evaluation of the bumps via her right ear. In now she has infection of the left ear. Patient seen here 6 days ago for right ear otitis externa. Prescribed ear drops. She states that here pain in discomfort has improved in the right ear but she has some muffled hearing. Her left ear started hurting the same way about 3 days ago and she continued the antibiotic ear drops she was given 6 days ago and left ear is improving. No hearing loss. She did not call Dr. Chamorro, ear nose and throat office, because of family scheduled. She states she will call today. Patient is able to hear rubbing of fingers/gloves as well as whispering in the right ear. Related Data Previous Rx's Medication Instructions Recorded Double Electric breast Pump and #1 ea 07/09/21 Supplies omeprazole 20 mg capsule,delayed 20 mg PO DAILY #90 caps 12/23/22 release nortriptyline 10 mg capsule 10 mg PO DAILY PRN abdominal pain 05/18/23 #90 caps sertraline 50 mg tablet 50 mg PO DAILY #90 tabs 05/18/23 Allergies Allergy/AdvReac Type Severity Reaction Status Date / Time No Known Drug Allergies Allergy Verified 01/20/24 10:30 Review of Systems Review of Systems Narrative: GENERAL: negative chills, fatigue, malaise, fever, sweats. HEENT: negative sinus pain, ear pain, sore throat, positive ear pain, positive hearing changes RESPIRATORY: negative dyspnea, cough CARDIOVASCULAR: negative chest pain, palpitations GASTROINTESTINAL: negative nausea, vomiting, abdominal pain : negative dysuria, frequency, hematuria MUSCULOSKELETAL: negative muscle or bony pain SKIN: negative rash, skin lesions NEUROLOGIC: negative weakness, numbness Patient History Medical History Insomnia Anxiety Chronic lower back pain GERD (gastroesophageal reflux disease) Hyperlipidemia Morbid obesity Smoker Post-nasal drip History of being hospitalized (~08/2019) (spontaneous vaginal delivery) (~03/18/20) Gestational diabetes (~11/2019) Wrist fracture, left (~1992) Diarrhea Peptic ulcer disease (~2014) Major depressive disorder, single episode (~08/11/19) Surgical History H/O colposcopy with cervical biopsy (~06/2020) History of colposcopy (~11/26/20) History of tonsillectomy (~2011) Family History Mother Diabetes mellitus Type 2 diabetes mellitus Alcohol abuse by patient's mother H/O drug abuse Family estrangement Father Hypertension Diabetes mellitus Type 2 diabetes mellitus Grandmother Cancer Diabetes mellitus Addiction Grandmother Cancer Diabetes mellitus Pancreatic cancer Breast cancer Type 2 diabetes mellitus Thyroid disease Grandfather No problems noted. Sister Appendicitis Grandfather Addiction Brother No problems noted. Social History marital status: details: Huang Hull, number of children: 1 household members: spouse and children lives independently: Yes caregiver/support person: No housing: house pets and animals: Yes (2 dogs) education level: high school occupational status: employed current occupational exposures/hazards: No monika/islam: Baptism special monika needs: No Smoking Status: Former smoker Tobacco: How many years used: 17 quit status: quit date established second hand exposure: No alcohol intake: current substance use type: does not use Type(s) of exercise: walking and normal ROM and activity Smoking Status: Former smoker alcohol intake frequency: holidays/special occasions only Substance Use Type: does not use Exam Narrative Exam Narrative: GENERAL: in no distress, not toxic not dyspneic HEAD: Normocephalic. EYES: Pupils equal round ENT: Mucous membranes moist. Examination of the right ear. Nontender tragus. There are 2 posterior auricular lymph nodes that are inflamed/edematous erythematous and mild tender to touch. No fluctuance. They are mobile. There is patent ear canal on the right. However some debris of the ear drops at the floor of the ear. Hearing intact with rubbing of fingers and whispering ?99 ? Examination of the left ear. Mild tenderness of the tragus. Mild edema of the ear canal. No discharge. TM visualized and is intact. NECK: Trachea midline. NEURO: AOx4. SKIN: Warm and dry PSYCH: Not anxious, is cooperative Initial Vital Signs Initial Vital Signs: Vital Signs Temperature 97.9 F 01/20/24 10:27 Pulse Rate 74 01/20/24 10:27 Respiratory Rate 14 01/20/24 10:27 Blood Pressure 134/77 01/20/24 10:27 Pulse Oximetry 99 01/20/24 10:27 Oxygen Delivery Method Room Air 01/20/24 10:27 Course Vital Signs Vital signs: Vital Signs - 8 hr 01/20/24 10:27 Temperature 97.9 F Pulse Rate 74 Respiratory Rate 14 Blood Pressure 134/77 Pulse Oximetry 99 Oxygen Delivery Method Room Air Medical Decision Making Medical Records Medical records narrative: CT mastoid: Radiologist's Impression: PROCEDURE: CT MASTOID TEMPORAL INDICATIONS: R sided otitis externa with cellulitisand mastoid pain COMPARISON: None. TECHNIQUE: Noncontrast 0.6 mm thick axial sections acquired through each temporal bone separately. Coronal images are reformatted. FINDINGS: Image quality: Excellent. RIGHT: External auditory canal: There is mild swelling edema involving the soft tissues of the right external auditory canal compatible with known otitis externa. Middle ear: Thickening of the right tympanic membrane with partial opacification of the right middle ear and right middle ear air-fluid level. No osseous erosions. Inner ear: Inner ear is normally formed and appears unremarkable. Facial nerve appears normal throughout is course. Mastoids: Scattered opacities in the right mastoid air cells with opacification of the right aditus ad antrum. No osseous erosions. LEFT: External auditory canal: Canal has a normal appearance. Middle ear: The middle ear structures, including the ossicles and tympanic membrane, appear normal. No abnormal fluid or soft tissue density. Inner ear: Inner ear is normally formed and appears unremarkable. Facial nerve appears normal throughout its course. Mastoids: Mastoid air cells are clear. MISCELLANEOUS: Visualized surrounding bones appear unremarkable. Visualized intracranial structures, including the cerebellopontine angle cisterns, appear normal. IMPRESSION: Swelling and edema involving the soft tissues of the right external auditory canal consistent with otitis externa. Right middle ear partial opacification with air-fluid level and scattered opacities in the right mastoid air cells consistent with otomastoiditis. [facility] Narrative Medical decision making narrative: Patient certainly has an otitis externa of the right ear. CT scan does show concern for mastoiditis however I discussed the case with Dr. Chamorro on-call for ENT who stated that he felt that this was more of inflammatory process rather than an emergent surgical issue. She has what appears to be the beginnings of a cellulitis around the ear. Is not in overt cellulitis however will place her on oral antibiotics as well. An ear wick was placed in the right ear because of the swelling. We discussed the ear where can that it should fall out within the next couple days. We discussed strict return precautions. She expressed understanding and agreement. Discharge Plan Departure Patient Disposition: Home Clinical Impression: Otitis externa, Cellulitis Instructions: DI for Otitis Externa Activity Restrictions/Additional Instructions: The eardrops here in the emergency department are 1 time a day. Put 3-5 drops in the right ear once a day for the next 7 days. The ear wick that was placed in your ear should fall out on its own over the next couple days. Also take the oral antibiotics as directed. Contact the Ear Nose and Throat providers with the number provided below for follow-up. Return to the emergency department for new or worsening symptoms. Prescriptions: New clindamycin HCl 300 mg capsule 300 mg PO Q6H 7 Days Qty: 28 0RF [facility] Narrative Medical decision making narrative: Patient here for re-evaluation of the bumps via her right ear. In now she has infection of the left ear. Patient seen here 6 days ago for right ear otitis externa. Prescribed ear drops. She states that here pain in discomfort has improved in the right ear but she has some muffled hearing. Her left ear started hurting the same way about 3 days ago and she continued the antibiotic ear drops she was given 6 days ago and left ear is improving. No hearing loss. She did not call Dr. Chamorro, ear nose and throat office, because of family scheduled. She states she will call today. Patient is able to hear rubbing of fingers/gloves as well as whispering in the right ear. After history and exam, exam is reassuring. No blood work or imaging indicated this time. I will have patient continue ear drops to the left ear. [facility] Medical records reviewed: ER visit CTs done here 6 days ago Differential considered: Includes but not limited to lymphadenitis, otitis externa of the left ear Treatments: None indicated at this time. Patient already has antibiotics from previous visit Re-evaluations: Updated patient exam findings and treatment plan. She does agree. Referral for ENT given again. Return precautions reviewed. She desires discharge home Discussion: Appropriate for discharge home. Patient has developed otitis externa in the left ear. She does have ear drops from previous visit and it is improving with the left ear. Lymphadenitis likely local reaction for the right ear otitis externa. There is some debris from the ear drops in the right ear but not needing irrigation at this time. Hearing is grossly intact. Return precautions reviewed. She desires discharge home Diagnosis: Lymphadenitis/otitis externa Discharge Plan Departure Patient Disposition: Home Clinical Impression: Lymphadenitis, acute Otitis externa Qualifiers: Otitis externa type: unspecified type Chronicity: acute Laterality: left Qualified Code(s): H60.502 - Unspecified acute noninfective otitis externa, left ear Instructions: DI for Otitis Externa Activity Restrictions/Additional Instructions: Please call provided [facility] today. Dr. Mota is in the same group as Dr. Christian but is located here in [place]. Please continue ear drops to the left ear. The bumps behind the right ear are lymph nodes and these should improve with time as infection of your right ear it is improving. Lymph nodes react to local infections. Return if worse if any questions or concerns. Prescriptions: No Action (DME) Double Electric breast Pump and Supplies See Rx Instructions .ROUTE .MEDSUPPLY Qty: 1 0RF Rx Instructions: Use electric breast pump and supplies as directed for 99 months. HAYDER 08/04/2021. omeprazole 20 mg capsule,delayed release(DR/EC) 20 mg PO DAILY Qty: 90 3RF sertraline 50 mg tablet 50 mg PO DAILY Qty: 90 3RF nortriptyline 10 mg capsule 10 mg PO DAILY PRN (Reason: abdominal pain) Qty: 90 3RF Referrals: Syed Mota MD [Physician] - Yogesh Christian MD [Physician] - Raymond Maldonado DO [Primary Care Provider] - Stand Alone Forms: Patient Portal/API
--- NOTE | 2024-01-20 10:51 | PC.NURSE ---
Swollen lymphnodes noted behind ear.
== END 2024-01-20 10:53 | disposition home or self-care (01) ==
PROVIDERS: Emergency Provider Emergency Medicine; Family Provider Family Medicine; PCP Family Medicine
DX: H60.11 Cellulitis of right external ear (principal)
CPT/HCPCS: 99281; 99282